=== PATIENT | female | born 1995 | race African-American/Black ===

== ENCOUNTER 2016-07-22 10:45 | Inpatient (IN) | payer BC ==
[~2016-07-22] VITALS: Ht 165.1 cm; Wt 115.2 kg
[2016-07-22 11:00] VITALS: BP 150/84
[2016-07-22 11:54] LABS: BASOPHILS % (AUTO) 1.3 % (0.0-2.0); LYMPHOCYTES % (AUTO) 25.6 % (20.0-45.0); MEAN CORPUSCULAR HEMOGLOBIN 27.7 PG (27.0-31.0); MEAN CORPUSCULAR HGB CONC 31.9 G/DL (32.0-36.0); MEAN CORPUSCULAR VOLUME 87 FL (80-99); MEAN PLATELET VOLUME 7.9 FL (6.5-10.1); MONOCYTES % (AUTO) 6.6 % (1.0-10.0); NEUTROPHILS % (AUTO) 65.6 % (45.0-75.0); PLATELET COUNT 389 K/UL (150-450); RED BLOOD COUNT 4.74 M/UL (4.20-5.40); RED CELL DISTRIBUTION WIDTH 12.9 % (11.6-14.8); WHITE BLOOD COUNT 11.7 K/UL (4.8-10.8)
[2016-07-22 12:02] LABS: ANION GAP 15 (5-15); CALCIUM 9.6 mg/dL (8.6-10.2); CARBON DIOXIDE 25 mEQ/L (20-30); CHLORIDE 98 mEQ/L (98-107); CREATININE 0.7 mg/dL (0.5-0.9); GLOMERULAR FILTRATION RATE > 60 mL/min (>60); HEMOLYSIS 20; POTASSIUM 4.1 mEQ/L (3.4-4.9); SODIUM 138 mEQ/L (135-145)
[2016-07-22 12:04] LABS: INR 0.9 (0.9-1.1); PROTHROMBIN TIME 9.6 SEC (9.30-11.50)
[2016-07-22] MEDS ORDERED: NKM (12:14)
[2016-07-22 13:09] VITALS: BP 145/77
[2016-07-22 13:19] LABS: APPEARANCE,URINE SLIGHTLY CLOUDY; KETONES,URINE NEGATIVE (NEGATIVE); LEUKOCYTE ESTERASE ,URINE 1+ (NEGATIVE); NITRITE,URINE NEGATIVE (NEGATIVE); PH,URINE 6.5 (4.5-8.0); PROTEIN,URINE NEGATIVE (NEGATIVE); UROBILINOGEN,URINE NORMAL MG/DL (0.0-1.0)
--- NOTE | 2016-07-22 13:25 | Emergency Room Report ---
History of Present Illness General Chief Complaint: General Complaint Source: Patient Present Illness HPI This patient has a history of hydradenitis suppurativa. She is sent in by Dr. Sands for her persistent hidradenitis suppurativa and for surgical treatment. Patient has no other complaints. Allergies: Coded Allergies: PENICILLINS (Verified Allergy, Unknown, 07/22/16) Patient History Past Medical History: none, see triage record, other - hidradenitis suppurativa Social History: Denies: alcohol use, drug use, smoking Last Menstrual Period: now Now: No Reviewed Nursing Documentation: PMH: Agreed, PSxH: Agreed Nursing Documentation-PMH Past Medical History: No History, Except For Review of Systems All Other Systems: negative except mentioned in HPI Physical Exam Vital Signs Date Time Temp Pulse Resp B/P Pulse Ox O2 Delivery O2 Flow Rate FiO2 07/22/16 10:58 98.1 74 18 166/135 98 Room Air Sp02 EP Interpretation: reviewed, normal General Appearance: no apparent distress, alert, GCS 15, non-toxic Head: normocephalic, atraumatic Eyes: bilateral eye PERRL, bilateral eye normal inspection ENT: hearing grossly normal, normal pharynx, no angioedema, normal voice Neck: full range of motion, supple/symm/no masses Respiratory: chest non-tender, lungs clear, normal breath sounds, speaking full sentences Cardiovascular #1: regular rate, rhythm, no edema Gastrointestinal: normal bowel sounds, non tender, soft, non-distended, no guarding, no rebound Rectal: deferred Musculoskeletal: back normal, gait/station normal, normal range of motion, non- tender Neurologic: alert, oriented x3, responsive, motor strength/tone normal, sensory intact, speech normal Psychiatric: judgement/insight normal, memory normal, mood/affect normal, no suicidal/homicidal ideation Skin: warm/dry, well hydrated, other - Hidradinitis nodules bilateral axilla and inguinal fold. Medical Decision Making Diagnostic Impression: Primary Impression: Hidradenitis suppurativa ER Course This patient has hidradenitis suppurativa that is resistant to conservative treatment. Patient is admitted for surgical treatment by Dr. Sands. Labs Test 07/22/16 11:30 07/22/16 12:56 White Blood Count 11.7 K/UL (4.8-10.8) Red Blood Count 4.74 M/UL (4.20-5.40) Hemoglobin 13.1 G/DL (12.0-16.0) Hematocrit 41.2 % (37.0-47.0) Mean Corpuscular Volume 87 FL (80-99) Mean Corpuscular Hemoglobin 27.7 PG (27.0-31.0) Mean Corpuscular Hemoglobin Concent 31.9 G/DL (32.0-36.0) Red Cell Distribution Width 12.9 % (11.6-14.8) Platelet Count 389 K/UL (150-450) Mean Platelet Volume 7.9 FL (6.5-10.1) Neutrophils (%) (Auto) 65.6 % (45.0-75.0) Lymphocytes (%) (Auto) 25.6 % (20.0-45.0) Monocytes (%) (Auto) 6.6 % (1.0-10.0) Eosinophils (%) (Auto) 1.0 % (0.0-3.0) Basophils (%) (Auto) 1.3 % (0.0-2.0) Prothrombin Time 9.6 SEC (9.30-11.50) Prothromb Time International Ratio 0.9 (0.9-1.1) Activated Partial Thromboplast Time 30 SEC (23-33) Sodium Level 138 mEQ/L (135-145) Potassium Level 4.1 mEQ/L (3.4-4.9) Chloride Level 98 mEQ/L (98-107) Carbon Dioxide Level 25 mEQ/L (20-30) Anion Gap 15 (5-15) Blood Urea Nitrogen 11 mg/dL (7-23) Creatinine 0.7 mg/dL (0.5-0.9) Estimat Glomerular Filtration Rate > 60 mL/min (>60) Glucose Level 90 mg/dL (74-106) Calcium Level 9.6 mg/dL (8.6-10.2) Last Vital Signs Date Time Temp Pulse Resp B/P Pulse Ox O2 Delivery O2 Flow Rate FiO2 07/22/16 13:09 98.2 71 16 145/77 99 Room Air Disposition: ADMITTED INPATIENT Condition: Stable Referrals: NON PHYSICIAN (PCP) MIKAEL DUMAS D.O. July 22, 2016 13:25
[2016-07-22 13:29] LABS: BACTERIA,URINE FEW /HPF; RBC,URINE 20-30 /HPF (0 - 2); SQUAMOUS EPITHELIAL CELL,UR FEW /LPF (NONE/OCC)
[2016-07-22 14:49] VITALS: BP 126/76
[2016-07-22] MEDS ORDERED: Miralax 17gm pkt ORAL PRN (15:15)
[2016-07-22] MEDS ORDERED: Zolpidem 5mg tab ORAL PRN (15:15)
[2016-07-22] MEDS ORDERED: Milk of Magnesia 30ml Ud ORAL PRN (15:15)
[2016-07-22] MEDS ORDERED: Norco 10mg/325mg tab ORAL PRN (15:30)
[2016-07-22] MEDS ORDERED: Norco 5mg/325mg tab ORAL PRN (15:30)
--- NOTE | 2016-07-22 15:34 | History and Physical ---
History of Present Illness General Date patient seen: July 22, 2016 Time patient seen: 15:32 Reason for Hospitalization: abscess Present Illness HPI 21y/o female with pmh of hidradenitis suppurative who presents with abscesses. Pt has been noticing increased pain and drainage of several abscesses located in b/l inner thigh/groin area. She has trial multiple oral antibiotics with poor response. She denies f/c, n/v, d/c, chest pain, SOB. Allergies: Coded Allergies: PENICILLINS (Verified Allergy, Unknown, 07/22/16) Pt states she was never tested for the allergy. Pt's father had severe allergy to PCN so pt takes does not take PCN medications for precaution. Medication History Scheduled No Known Medications* (NKM - No Known Medications*), 0 ., (Reported) Patient History History Provided By: Patient, Medical Record, PMD Healthcare decision maker Resuscitation status Advanced Directive on File Past Medical/Surgical History Past Medical/Surgical History: (1) Hidradenitis suppurativa Family History Family History: FH: CAD (coronary artery disease) Social History Social History: (1) No significant social history Review of Systems ROS Narrative CONSTITUTIONAL: No weight loss, fever, chills, weakness or fatigue. HEENT: Eyes: No visual loss, blurred vision, double vision or yellow sclerae. Ears, Nose, Throat: No hearing loss, sneezing, congestion, runny nose or sore throat. SKIN: No rash or itching. CARDIOVASCULAR: No chest pain, chest pressure or chest discomfort. No palpitations or edema. RESPIRATORY: No shortness of breath, cough or sputum. GASTROINTESTINAL: No anorexia, nausea, vomiting or diarrhea. No abdominal pain or blood. NEUROLOGICAL: No headache, dizziness, syncope, paralysis, ataxia, numbness or tingling in the extremities. No change in bowel or bladder control. MUSCULOSKELETAL: No muscle, back pain, joint pain or stiffness. HEMATOLOGIC: No anemia, bleeding or bruising. LYMPHATICS: No enlarged nodes. No history of splenectomy. PSYCHIATRIC: No history of depression or anxiety. ENDOCRINOLOGIC: No reports of sweating, cold or heat intolerance. No polyuria or polydipsia. ALLERGIES: No history of asthma, hives, eczema or rhinitis. Physical Exam Physical Exam Narrative General: alert, cooperative, no distress, appears stated age Head: normocephalic, without obvious abnormality, atraumatic Eyes: conjunctivae/corneas clear. PERRL, EOM's intact Throat: lips, mucosa, and tongue normal. MMM Neck: supple, symmetrical, trachea midline, and no JVD Lungs: clear to auscultation bilaterally Heart: regular rate and rhythm, S1, S2 normal, no murmur, click, rub or gallop Abdomen: soft, non-tender, non-distended, bowel sounds normal; no masses or organomegaly Extremities: extremities normal, atraumatic, no cyanosis or edema Pulses: 2+ and symmetric Skin: skin color, texture, turgor normal; inner thighs/groin region b/l with multiples abscesses Neurologic: grossly normal, no focal deficits Last 24 Hour Vital Signs Date Time Temp Pulse Resp B/P Pulse Ox O2 Delivery O2 Flow Rate FiO2 07/22/16 14:49 97.3 74 20 126/76 98 Room Air 07/22/16 14:07 98.2 77 23 149/91 100 Room Air 07/22/16 13:09 98.2 71 16 145/77 99 Room Air 07/22/16 11:00 98.0 65 15 150/84 100 Room Air 07/22/16 10:58 98.1 74 18 166/135 98 Room Air Laboratory Tests Test 07/22/16 11:30 07/22/16 12:56 White Blood Count 11.7 K/UL (4.8-10.8) H Red Blood Count 4.74 M/UL (4.20-5.40) Hemoglobin 13.1 G/DL (12.0-16.0) Hematocrit 41.2 % (37.0-47.0) Mean Corpuscular Volume 87 FL (80-99) Mean Corpuscular Hemoglobin 27.7 PG (27.0-31.0) Mean Corpuscular Hemoglobin Concent 31.9 G/DL (32.0-36.0) L Red Cell Distribution Width 12.9 % (11.6-14.8) Platelet Count 389 K/UL (150-450) Mean Platelet Volume 7.9 FL (6.5-10.1) Neutrophils (%) (Auto) 65.6 % (45.0-75.0) Lymphocytes (%) (Auto) 25.6 % (20.0-45.0) Monocytes (%) (Auto) 6.6 % (1.0-10.0) Eosinophils (%) (Auto) 1.0 % (0.0-3.0) Basophils (%) (Auto) 1.3 % (0.0-2.0) Prothrombin Time 9.6 SEC (9.30-11.50) Prothromb Time International Ratio 0.9 (0.9-1.1) Activated Partial Thromboplast Time 30 SEC (23-33) Sodium Level 138 mEQ/L (135-145) Potassium Level 4.1 mEQ/L (3.4-4.9) Chloride Level 98 mEQ/L (98-107) Carbon Dioxide Level 25 mEQ/L (20-30) Anion Gap 15 (5-15) Blood Urea Nitrogen 11 mg/dL (7-23) Creatinine 0.7 mg/dL (0.5-0.9) Estimat Glomerular Filtration Rate > 60 mL/min (>60) Glucose Level 90 mg/dL (74-106) Calcium Level 9.6 mg/dL (8.6-10.2) Urine Color Pale yellow Urine Appearance Slightly cloudy Urine pH 6.5 (4.5-8.0) Urine Specific [place] 1.010 (1.005-1.035) Urine Protein Negative (NEGATIVE) Urine Glucose (UA) Negative (NEGATIVE) Urine Ketones Negative (NEGATIVE) Urine Occult Blood 5+ (NEGATIVE) H Urine Nitrite Negative (NEGATIVE) Urine Bilirubin Negative (NEGATIVE) Urine Urobilinogen Normal MG/DL (0.0-1.0) Urine Leukocyte Esterase 1+ (NEGATIVE) H Urine RBC 20-30 /HPF (0 - 2) H Urine WBC 2-4 /HPF (0 - 2) Urine Squamous Epithelial Cells Few /LPF (NONE/OCC) Urine Bacteria Few /HPF (NONE) Urine HCG, Qualitative Negative Height (Feet): 5 Height (Inches): 5.00 Weight (Pounds): 254 Medications Current Medications Medications (Trade) Dose Ordered Sig/Loren Route PRN Reason Start Time Stop Time Status Last Admin Dose Admin Acetaminophen (Tylenol) 650 mg Q4H PRN ORAL Mild Pain (Pain Scale 1-3) 07/22/16 16:00 08/21/16 15:59 Acetaminophen/ Hydrocodone Bitart ([place] 10/325) 1 ea Q4H PRN ORAL For severe Pain 07/22/16 15:30 07/29/16 15:29 Acetaminophen/ Hydrocodone Bitart ([place] 5/325) 1 tab Q4H PRN ORAL Moderate Pain (Pain Scale 4-6) 07/22/16 15:30 07/29/16 15:29 Bisacodyl (Dulcolax) 10 mg HSPRN PRN RECTAL Constipation THIRD LINE AGENT 07/22/16 15:15 08/21/16 15:14 Cefazolin Sodium/ Dextrose (Ancef/D5W) 55 ml @ 110 mls/hr Q8HR IVPB 07/22/16 22:00 07/29/16 21:59 UNV Dextrose STAT PRN IV Hypoglycemia 07/22/16 15:15 08/21/16 15:14 Dextrose/Sodium Chloride (D5 0.45% NS) 1,000 ml @ 75 mls/hr [id number] IV 07/22/16 16:00 08/21/16 15:59 Diphenhydramine HCl (Benadryl) 25 mg Q6H PRN ORAL Itching/Pruritis 07/22/16 15:15 08/21/16 15:14 Docusate Sodium (Colace) 100 mg EVERY 12 HOURS ORAL 07/22/16 21:00 08/21/16 20:59 Magnesium Hydroxide (Mom) 30 ml HSPRN PRN ORAL Constipation SECOND LINE AGENT 07/22/16 15:15 08/21/16 15:14 Morphine Sulfate (Morphine Sulfate) 2 mg Q4H PRN IVP Moderate Pain (Pain Scale 4-6) 07/22/16 16:00 07/29/16 15:59 Morphine Sulfate (Morphine Sulfate) 4 mg Q4H PRN IVP Severe Pain (Pain Scale 7-10) 07/22/16 16:00 07/29/16 15:59 Ondansetron HCl (Zofran) 4 mg Q6H PRN IVP Nausea & Vomiting 07/22/16 15:15 08/21/16 15:14 Polyethylene Glycol (Miralax) 17 gm HSPRN PRN ORAL Constipation FIRST LINE AGENT 07/22/16 15:15 08/21/16 15:14 Zolpidem Tartrate (Ambien) 5 mg HSPRN PRN ORAL Insomnia 07/22/16 15:15 08/21/16 15:14 Assessment/Plan Problem List: (1) Abscess ICD Codes: L02.91 - Cutaneous abscess, unspecified SNOMED: 437851874 (2) Hidradenitis suppurativa ICD Codes: L73.2 - Hidradenitis suppurativa SNOMED: 56589806 Status: stable Assessment/Plan Admit to in Plastic surgery consult Blood cultures x 2 IV abx IV fluids Pain control, bowel regimen, supportive care If patient is required to have surgery, based on the patient's medical history, and other available ancillary data, the patient is a LOW risk for an INTERMEDIATE risk procedure. Per the most recent ACC/AHA guidelines, the patient does not need any further cardiopulmonary testing prior to the procedure and there do not appear to be any clear medical contraindications to proceeding with the proposed procedure. Genesis Chung M.D. July 22, 2016 15:34
[2016-07-22] MEDS: D5 1/2NS 1,000 ML IV SCH (15:40)
[2016-07-22] MEDS ORDERED: Morphine Sulfate 4mg/ml Inj IVP PRN (16:00)
[2016-07-22 16:08] VITALS: BP 120/69
[2016-07-22] MEDS: Morphine Sulfate 2mg/ml Inj IVP PRN ×2 (17:14→22:11)
[2016-07-22 20:00] VITALS: BP 129/73
[2016-07-22] MEDS: Docusate 100mg cap ORAL SCH (21:04)
[2016-07-22] MEDS: ceFAZolin sod 1 GM in D5W 55 ML IVPB SCH (21:05)
[2016-07-23] VITALS (12 sets, daily range): BP systolic 107–138; BP diastolic 58–84
[2016-07-23] MEDS: Morphine Sulfate 2mg/ml Inj IVP PRN ×2 (05:36→08:32)
[2016-07-23] MEDS: ceFAZolin sod 1 GM in D5W 55 ML IVPB SCH ×3 (05:36→22:12)
[2016-07-23] MEDS: D5 1/2NS 1,000 ML IV SCH ×2 (05:37→19:01)
[2016-07-23] MEDS: Docusate 100mg cap ORAL SCH ×2 (08:33→22:00)
[2016-07-23] MEDS ORDERED: Bacitracin 50000 Units Vial ONE (10:29)
[2016-07-23] MEDS ORDERED: Lidocaine 1% 10mg/ml/Epi 0.005mg/ml 30ml vial INJ ONE (10:29)
--- NOTE | 2016-07-23 11:53 | Pre-Procedure Note/Attestation ---
Pre-Procedure Note/Attestation Complete Prior to Procedure Planned Procedure: bilateral Procedure Narrative: Excision of bilateral groin and thigh tissues with flap elevation Attestation I attest that I discussed the nature of the procedure; its benefits; risks and complications; and alternatives (and the risks and benefits of such alternatives ), prior to the procedure, with the patient (or the patient's legal traffic representative). I attest that, if there was a reasonable possibility of needing a blood transfusion, the patient (or the patient's legal traffic representative) was given the [facility] standardized written summary, pursuant to the [employer] Blood Safety Act ([place] Health and Safety Code # 1645, as amended). I attest that I re-evaluated the patient just prior to the surgery and that there has been no change in the patient's H&P, except as documented below: WILBUR COULTER July 23, 2016 11:53
--- NOTE | 2016-07-23 11:54 | Operative Note - PDOC ---
Operative Note Operative Note Pre-op Diagnosis: Bilateral infected groin and thigh tissues Procedure: Excision of bilateral infection groin and thigh tissues with flap elevation Post-op Diagnosis: same as pre-op Surgeon: Brynn Talent Coordinator: Bella Anesthesia: general Specimen: yes Complications: none Condition: stable Estimated Blood Loss: minimal Drains: none Implant(s) used?: No WILBUR COULTER July 23, 2016 11:54
[2016-07-23] MEDS ORDERED: Zolpidem 5mg tab ORAL PRN (12:00)
[2016-07-23] MEDS ORDERED: Rate Change PCA 1 Each MISC PRN (12:00)
[2016-07-23] MEDS ORDERED: NS Irrig 1000ml ONE (12:45)
[2016-07-23] MEDS ORDERED: Glycopyrrolate 0.2mg/ml 1ml Vial ONE (12:45)
[2016-07-23] MEDS ORDERED: Nimbex 2mg/ml Inj 10ML IVP ONE (12:45)
[2016-07-23] MEDS ORDERED: Neostigmine 1mg/ml 10ml Inj ONE (12:45)
[2016-07-23] MEDS ORDERED: fentaNYL 100 mcg/2 mL IV ONE (12:45)
[2016-07-23] MEDS ORDERED: Morphine Sulfate 10mg/ml Inj ONE (12:45)
[2016-07-23] MEDS ORDERED: Midazolam 2mg/2ml Inj ONE (12:45)
[2016-07-23] MEDS ORDERED: Succinylcholine 20mg/ml 10ml vial ONE ×2 (12:45)
[2016-07-23] MEDS ORDERED: Sterile Water Irrig 1000ml IRRIG ONE (12:45)
[2016-07-23] MEDS ORDERED: Ketorolac 30mg Inj ONE (12:45)
[2016-07-23] MEDS ORDERED: Propofol 10mg/ml 20ml IV ONE (13:32)
[2016-07-23] MEDS ORDERED: LR 1000ml 1,000 ML IVLG SCH (13:55)
--- NOTE | 2016-07-23 13:55 | Anethesia Preoperative Eval ---
Anesthesia Pre-op PMH/ROS General Date of Evaluation: July 23, 2016 Time of Evaluation: 12:32 Anesthesiologist: Kleber ASA Score: ASA 2 Mallampati Score Class I : Soft palate, uvula, fauces, pillars visible Class II: Soft palate, uvula, fauces visible Class III: Soft palate, base of uvula visible Class IV: Only hard plate visible Mallampati Classification: Class III Surgeon: Brynn Diagnosis: Recurrent hydradenitis Surgical Procedure: Excision of bilateral groin hydradenitis Anesthesia History: none Family History: no anesthesia problems Allergies: Coded Allergies: PENICILLINS (Verified Allergy, Unknown, 07/22/16) Pt states she was never tested for the allergy. Pt's father had severe allergy to PCN so pt takes does not take PCN medications for precaution. Medications: see eMAR Past Medical History Cardiovascular: Denies: CAD, HTN, [place], arrhythmia, other, valve dz Pulmonary: Denies: COPD, KATHY, asthma, other Gastrointestinal/Genitourinary: Reports: GERD - mild, Denies: CRI, ESRD, other Neurologic/Psychiatric: Denies: CVA, TIA, dementia, depression/anxiety, other Endocrine: Denies: DM, hypothyroidism, other, steroids HEENT: Denies: [place] (L), [place] (R), cataract (L), cataract (R), glaucoma, other Hematology/Immune: Denies: DVT, anemia, bleeding disorder, other Musculoskeletal/Integumentary: Denies: DDD, DJD, OA, RA, edema, other Other: obesity PMH Narrative: as above PSxH Narrative: Axillary HS Laparoscopy Anesthesia Pre-op Phys. Exam Physician Exam Last Vital Signs Date Time Temp Pulse Resp B/P Pulse Ox O2 Delivery O2 Flow Rate FiO2 07/23/16 09:02 97.5 07/23/16 08:01 77 18 127/83 99 Room Air Constitutional: NAD Neurologic: CN 2-12 intact Cardiovascular: RRR, no M/R/G Respiratory: CTA Gastrointestinal: other - obesity Airway Exam Mallampati Score: Class III MO: full Neck: flexible ROM: full Teeth: intact Dentures: no lower, no upper Anesthesia Pre-op A/P Labs see chart Studies Pre-op Studies: EKG - NSR Risk Assessment & Plan Assessment: ASA 2 Plan: GA with ETT Status Change Before Surgery: No Pre-Antibiotics Drug: Ancef 2gr. Given Within 1 Hr of Incision: Yes Time Given: 13:12 ADELA GARCIA M.D. July 23, 2016 13:55
[2016-07-23] MEDS ORDERED: DiphenhydrAMINE 50mg/ml Inj IVP PRN (14:00)
[2016-07-23] MEDS ORDERED: Hydromorphone 0.5mg/0.5ml inj IVP PRN (14:00)
[2016-07-23] MEDS ORDERED: Ketorolac 30mg Inj IV PRN (14:00)
[2016-07-23] MEDS ORDERED: Metoclopramide 10mg/2ml Inj IVP PRN (14:00)
[2016-07-23] MEDS ORDERED: Midazolam 2mg/2ml Inj IVP PRN (14:00)
[2016-07-23] MEDS ORDERED: Meperidine 25mg/0.5ml Inj IV PRN (14:00)
--- NOTE | 2016-07-23 14:59 | Immediate Post-Op Evaluation ---
Immediate Post-Op Evalulation Immediate Post-Op Evalulation Procedure: Excision of bilateral groin hydradenitis Date of Evaluation: July 23, 2016 Time of Evaluation: 14:58 IV Fluids: 1200 Blood Products: none Estimated Blood Loss: 50 Urinary Output: 150 Blood Pressure Systolic: 128 Blood Pressure Diastolic: 77 Pulse Rate: 68 Respiratory Rate: 20 O2 Sat by Pulse Oximetry: 99 Temperature (Fahrenheit): 97.8 Pain Score (1-10): 2 Nausea: No Vomiting: No Complications none Patient Status: reacts, patent, extubated, none Hydration Status: adequate ADELA GARCIA M.D. July 23, 2016 14:59
[2016-07-23] MEDS: PCA HYDROmorphone 1mg/ml 30 ML IV PRN (15:04)
--- NOTE | 2016-07-23 17:49 | General Progress Note ---
Assessment/Plan Problem List: (1) Abscess ICD Codes: L02.91 - Cutaneous abscess, unspecified SNOMED: 462991367 (2) Hidradenitis suppurativa ICD Codes: L73.2 - Hidradenitis suppurativa SNOMED: 45630692 Status: stable Assessment/Plan s/p excision of bilateral infection groin and thigh tissues with flap elevation on 07/23/16 - [facility] plastic surgery rec's - cont IV abx - F/u cultures - encourage mobilization/ambulation - encourage incentive spirometry to optimize pulmonary hygiene - DVT/GI prophylaxis as appropriate - pain control, supportive care, bowel regimen FULL CODE A total of 32min of extra time was spent [id number] in addition to normal encounter time. D/w pt, RN, surgery regarding mgmt and disposition Subjective Date patient seen: July 23, 2016 Time patient seen: 17:48 ROS Limited/Unobtainable: No Constitutional: Reports: no symptoms HEENT: Reports: no symptoms Cardiovascular: Reports: no symptoms Respiratory: Reports: no symptoms Gastrointestinal/Abdominal: Reports: no symptoms Genitourinary: Reports: no symptoms Neurologic/Psychiatric: Reports: no symptoms Endocrine: Reports: no symptoms Hematologic/Lymphatic: Reports: no symptoms Allergies: Coded Allergies: PENICILLINS (Verified Allergy, Unknown, 07/22/16) Pt states she was never tested for the allergy. Pt's father had severe allergy to PCN so pt takes does not take PCN medications for precaution. All Systems: reviewed and negative except above Subjective s/p excision of bilateral infection groin and thigh tissues with flap elevation today Doing well Pain controlled Tolerating diet Denies f/c, n/v, d/c, chest pain, SOB Objective Last 24 Hour Vital Signs Date Time Temp Pulse Resp B/P Pulse Ox O2 Delivery O2 Flow Rate FiO2 07/23/16 16:14 16 07/23/16 15:59 17 07/23/16 15:49 97.6 60 15 111/63 100 Nasal Cannula 3.0 07/23/16 15:45 14 07/23/16 15:40 55 14 120/67 100 Nasal Cannula 3.0 07/23/16 15:30 61 16 125/76 100 Nasal Cannula 3.0 07/23/16 15:30 14 07/23/16 15:30 97.2 07/23/16 15:30 97.2 07/23/16 15:30 97.2 07/23/16 15:15 14 07/23/16 15:15 60 17 118/67 100 Nasal Cannula 3.0 07/23/16 15:04 15 07/23/16 15:00 69 21 133/67 100 Simple Mask 6.0 07/23/16 14:59 68 20 99 07/23/16 14:52 73 18 128/77 100 Simple Mask 6.0 07/23/16 14:50 97.2 73 15 132/84 100 Simple Mask 6.0 07/23/16 09:02 97.5 07/23/16 08:01 97.5 77 18 127/83 99 Room Air 07/23/16 04:00 97.6 83 18 124/76 100 Room Air 07/23/16 00:00 97.3 85 18 121/68 98 Room Air 07/22/16 20:00 97.4 86 18 129/73 100 Room Air Intake and Output 07/22/16 07/23/16 19:00 07:00 Intake Total 150 ml 850 ml Balance 150 ml 850 ml Intake IV Total 150 ml 850 ml # Voids 1 4 # Bowel Movements 1 Height (Feet): 5 Height (Inches): 5.00 Weight (Pounds): 254 Objective General: alert, cooperative, no distress, appears stated age Head: normocephalic, without obvious abnormality, atraumatic Eyes: conjunctivae/corneas clear. PERRL, EOM's intact Throat: lips, mucosa, and tongue normal. MMM Neck: supple, symmetrical, trachea midline, and no JVD Lungs: clear to auscultation bilaterally Heart: regular rate and rhythm, S1, S2 normal, no murmur, click, rub or gallop Abdomen: soft, non-tender, non-distended, bowel sounds normal; no masses or organomegaly Extremities: extremities normal, atraumatic, no cyanosis or edema Pulses: 2+ and symmetric Skin: skin color, texture, turgor normal; no rashes or lesions Neurologic: grossly normal, no focal deficits Genesis Chung M.D. July 23, 2016 17:49
[2016-07-23] MEDS: PCA shift volume MISC SCH (19:00)
--- NOTE | 2016-07-23 21:29 | Consultation ---
DATE OF CONSULTATION: 07/23/2016 CONSULTATION: REFERRING PHYSICIAN: Kylee Curtis M.D. HISTORY OF PRESENT ILLNESS: This is a 21-year-old female was admitted to the emergency room for bilateral groin abscesses. She presented with significant pain and discomfort in the region. The patient was admitted and started on IV antibiotics. She is noted to have an elevated white count of just under 12. I was asked to evaluate the patient for this condition and offer definitive surgical management. PAST MEDICAL HISTORY: Significant for hidradenitis suppurativa. PAST SURGICAL HISTORY: Previous attempt at incision and drainage of her abscesses. ALLERGIES: Penicillin. PHYSICAL EXAMINATION: GENERAL: The patient is alert and oriented, mildly obese. HEART: Regular rate and rhythm. ABDOMEN: Soft, nontender, and nondistended. EXTREMITIES: Examination of the trunk and extremities reveals bilateral hidradenitis in her axillae and bilateral groin and thigh abscesses and infected tissues. ASSESSMENT AND PLAN: This is a 21-year-old female, who has multiple areas of abscesses and hidradenitis under axillae as well as her groin regions. She will be taken to the operating room for definitive excision of her groin and thigh tissue with planned second stage flap elevation and closure at the second operation. The patient understands the plan and agrees to proceed. Kerry Swain M.D. DR: Lisette JOB#: [id number] CC: [id number]
[2016-07-23] MEDS: Heparin 5000 units/ml inj SUBQ SCH (22:12)
--- NOTE | 2016-07-23 23:18 | Operative Note - Dictated ---
DATE OF OPERATION: 07/23/2016 PREOPERATIVE DIAGNOSIS: Bilateral groin and buttock infected tissues. POSTOPERATIVE DIAGNOSIS: Bilateral groin and buttock infected tissues. PROCEDURES: 1. Radical excision of left groin/thigh tissue. 2. Elevation of an anterior fasciocutaneous flap for staged closure of left groin/thigh wound. 3. Elevation of a posterior fasciocutaneous flap for staged closure of left groin/thigh wound. 4. Radical excision of right groin/thigh wound. 5. Elevation of an anterior fasciocutaneous flap for staged closure of right groin/thigh wound. 6. Elevation of a posterior fasciocutaneous flap for staged closure of right groin/thigh wound. 7. Excision of left buttock tissue. 8. Excision of right buttock tissue. SURGEON: Kerry Swain M.D. PRODUCT DESIGN MANAGER: Farnaz Blanco M.D. ANESTHESIA: General. COMPLICATIONS: None. DRAINS: None. ESTIMATED BLOOD LOSS: 25 mL. SPECIMEN: Included bilateral groin and buttock tissue. DISPOSITION: Stable to the recovery room. INDICATIONS FOR SURGERY: This is a 21-year-old female, who admitted to the emergency room for bilateral groin and buttock abscesses. She was started on IV antibiotics, was noted to have an elevated white count and on examination of the right knee felt that she was an appropriate candidate for radical excision of the infected tissue with a staged closure with elevation of flaps at the first operation and subsequent surgery for definitive closure of her wounds. She understood the risks and benefits of surgery and agreed to proceed. DETAILS OF THE OPERATION: The patient was brought to the operating room and laid in the lithotomy position on the operating room table. Her perineum bilateral groin and thigh in the lower abdomen were prepped and draped in a sterile and usual fashion. Preoperatively, the areas that needed to be radically excised were marked with a marking pen and we then first began on the left groin by performing a radical excision of the groin/thigh tissue a #10 blade was used to make the skin incision. Electrocautery was then used to radically excise the tissue all the way down the level of the adductor muscle fascia. Once this was done, a large defect resulted, which measured 15 x 10 cm and was not amenable to primary closure. As such, an anterior fasciocutaneous flap was based off the superficial femoral artery vessels was elevated. This was elevated at the fasciocutaneous level with proximal and distal incisions were made to fully mobilize the flap. In a similar fashion, a posterior thigh flap was elevated at the inferior edge of the wound based off of perforators of the deep femoral artery and this was mobilized with proximal and distal incisions made to fully mobilize the flap at the fasciocutaneous level with both flaps fully mobilized and it was noted that the wound could be closed with opposition of the flaps without tension. In a similar fashion, the contralateral right groin/thigh tissue was addressed with radical excision using a #10 blade as well as electrocautery all the way down to the adductor muscle fascia and in a similar fashion, the large wound resulted on this side. This one measured 14 x 11 cm and also required elevation of two flaps for definitive closure as was on the other side an anterior fasciocutaneous thigh flap based off of perforators of the superficial femoral artery was elevated at the fasciocutaneous level with proximal and distal incisions made to fully mobilize the flap and then a posterior thigh flap was elevated based on perforators of the deep femoral artery with proximal and distal incisions made to mobilize this flap as well and it was noted that flaps could be brought together without tension. We then turned our attention to the buttock abscesses, these were both elliptically excised down to healthy fat using electrocautery, following incision of the skin with a #15 blade. The wounds were then copiously irrigated with pulse lavage. Again given the fact this was an infected case, the plan will be to leave the wound open with definitive opposition of the flaps in both the groin wounds in 48 hours. The patient will be on IV antibiotics with dressing changes. The patient tolerated the procedure well and there was no complications. Kerry Swain M.D. DR: Michael JOB#: [id number] CC:
[2016-07-24] VITALS: BP 111/68
[2016-07-24] MEDS: ceFAZolin sod 1 GM in D5W 55 ML IVPB SCH ×3 (06:04→21:03)
[2016-07-24] MEDS: PCA shift volume MISC SCH ×2 (07:00→19:00)
[2016-07-24 09:00] VITALS: BP 110/44
[2016-07-24] MEDS: D5 1/2NS 1,000 ML IV SCH ×2 (09:46→21:20)
[2016-07-24] MEDS: Heparin 5000 units/ml inj SUBQ SCH ×2 (09:50→21:05)
[2016-07-24] MEDS: Docusate 100mg cap ORAL SCH ×2 (09:53→21:02)
[2016-07-24] MEDS ORDERED: D5 1/2NS 1000ml IV ONE (10:24)
[2016-07-24] MEDS ORDERED: Tubing IV Secondary IV ONE (10:24)
--- NOTE | 2016-07-24 10:27 | General Progress Note ---
Progress Note Progress Note Pt seen and examined. Doing well. Dressings in tact. Will get PICC Line today and to OR tomorrow. WILBUR Marrero MD July 24, 2016 10:27
--- NOTE | 2016-07-24 10:38 | General Progress Note ---
Assessment/Plan Problem List: (1) Abscess ICD Codes: L02.91 - Cutaneous abscess, unspecified SNOMED: 266998568 (2) Hidradenitis suppurativa ICD Codes: L73.2 - Hidradenitis suppurativa SNOMED: 62599905 Assessment/Plan s/p excision of bilateral infection groin and thigh tissues with flap elevation on 07/23/16 - [facility] plastic surgery rec's - cont IV abx - F/u cultures - encourage mobilization/ambulation - encourage incentive spirometry to optimize pulmonary hygiene - DVT/GI prophylaxis as appropriate - pain control, supportive care, bowel regimen FULL CODE A total of 33min of extra time was spent [id number] in addition to normal encounter time. D/w pt, RN, surgery regarding mgmt and disposition Subjective Date patient seen: July 24, 2016 Time patient seen: 10:36 ROS Limited/Unobtainable: No Allergies: Coded Allergies: PENICILLINS (Verified Allergy, Unknown, 07/22/16) Pt states she was never tested for the allergy. Pt's father had severe allergy to PCN so pt takes does not take PCN medications for precaution. Subjective No acute overnightr events, no new compltaints. No chest pain or dyspnea, no n/v , postop pain well controlled. Objective Last 24 Hour Vital Signs Date Time Temp Pulse Resp B/P Pulse Ox O2 Delivery O2 Flow Rate FiO2 07/24/16 09:00 98.4 75 18 110/44 97 Nasal Cannula 2.0 07/24/16 00:00 97.7 62 18 111/68 100 Nasal Cannula 2.0 07/24/16 00:00 16 07/23/16 20:00 97.9 60 20 107/58 100 Nasal Cannula 2.0 07/23/16 20:00 18 07/23/16 17:44 17 07/23/16 17:14 18 07/23/16 16:44 19 07/23/16 16:29 16 07/23/16 16:14 16 07/23/16 16:00 97.7 79 20 138/64 100 Nasal Cannula 2.0 07/23/16 15:59 17 07/23/16 15:49 97.6 60 15 111/63 100 Nasal Cannula 3.0 07/23/16 15:45 14 07/23/16 15:40 55 14 120/67 100 Nasal Cannula 3.0 07/23/16 15:30 61 16 125/76 100 Nasal Cannula 3.0 07/23/16 15:30 14 07/23/16 15:30 97.2 07/23/16 15:30 97.2 07/23/16 15:30 97.2 07/23/16 15:15 14 07/23/16 15:15 60 17 118/67 100 Nasal Cannula 3.0 07/23/16 15:04 15 07/23/16 15:00 69 21 133/67 100 Simple Mask 6.0 07/23/16 14:59 68 20 99 07/23/16 14:52 73 18 128/77 100 Simple Mask 6.0 07/23/16 14:50 97.2 73 15 132/84 100 Simple Mask 6.0 Intake and Output 07/23/16 07/24/16 19:00 07:00 Intake Total 2280 ml 960 ml Output Total 425 ml 625 ml Balance 1855 ml 335 ml Intake Oral 480 ml 60 ml IV Total 1800 ml 900 ml Output Urine Total 325 ml 625 ml Estimated Blood Loss 100 ml Height (Feet): 5 Height (Inches): 5.00 Weight (Pounds): 254 Objective General: alert, cooperative, no distress, appears stated age Head: normocephalic, without obvious abnormality, atraumatic Eyes: conjunctivae/corneas clear. PERRL, EOM's intact Throat: lips, mucosa, and tongue normal. MMM Neck: supple, symmetrical, trachea midline, and no JVD Lungs: clear to auscultation bilaterally Heart: regular rate and rhythm, S1, S2 normal, no murmur, click, rub or gallop Abdomen: soft, non-tender, non-distended, bowel sounds normal; no masses or organomegaly Extremities: extremities normal, atraumatic, no cyanosis or edema Pulses: 2+ and symmetric Skin: skin color, texture, turgor normal; no rashes or lesions Neurologic: grossly normal, no focal deficits JORJE CABALLERO July 24, 2016 10:38
[2016-07-24 12:00] VITALS: BP 111/52
[2016-07-24] MEDS ORDERED: Sodium Bicarbonate 8.4% 50ml Inj IV ONE (12:00)
[2016-07-24] MEDS ORDERED: Heparin 2000 units/Ns 1000ml INJ ONE (12:00)
[2016-07-24] MEDS ORDERED: Lidocaine 1% Plain 30 ml INJ ONE (12:00)
[2016-07-24] MEDS ORDERED: CEPHALEXIN500 MG ORAL (14:52)
[2016-07-24] MEDS ORDERED: DOXYCYCLINE HY100 M2 PO (14:54)
[2016-07-24] MEDS: PCA HYDROmorphone 1mg/ml 30 ML IV PRN (15:09)
[2016-07-24 16:00] VITALS: BP 108/63
--- NOTE | 2016-07-24 16:19 | 48 Hour Post Anesthesia Eval ---
Post Anesthesia Evaluation Procedure: Excision of bilateral groin hydradenitis Date of Evaluation: July 24, 2016 Time of Evaluation: 16:18 Blood Pressure Systolic: 116 0: 56 Pulse Rate: 72 Respiratory Rate: 20 Temperature (Fahrenheit): 97.6 O2 Sat by Pulse Oximetry: 98 Airway: patent Nausea: No Vomiting: No Pain Intensity: 3 Hydration Status: adequate Cardiopulmonary Status: stable Mental Status/LOC: patient returned to baseline Follow-up Care/Observations: n/a Post-Anesthesia Complications: none Follow-up care needed: N/A ADELA GARCIA M.D. July 24, 2016 16:19
--- NOTE | 2016-07-24 16:38 | Diagnostic Imaging Report ---
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 The left upper extremity was prepped with alcohol. All elements of maximal sterile barrier technique were followed including usage of a cap, mask, sterile gown, sterile gloves, hand hygiene and a large sterile sheet. Sonographic evaluation of the upper extremity was performed demonstrating a patent and compressible cephalic vein. Access was obtained under real-time ultrasound guidance and digital image was saved and archived. An .018 wire was introduced. Needle exchanged for a 5 Canadian peel-away sheath. Measurements were obtained. A 5 [place] dual-lumen Power PICC line catheter was cut to 41 cm and introduced over the wire. Peel-away sheath and wire were removed.Catheter was secured to the skin using 2-0 Prolene suture. Both ports aspirate and flush easily. Fluoroscopic Images show distal tip in the superior vena cava. Fluoroscopic time 0.4 minutes Impression: Successful placement of an upper extremity PICC line catheter
[2016-07-24 20:07] VITALS: BP 101/51
[2016-07-25] VITALS (16 sets, daily range): BP systolic 94–146; BP diastolic 48–87
[2016-07-25] MEDS: ceFAZolin sod 1 GM in D5W 55 ML IVPB SCH ×3 (05:22→22:34)
[2016-07-25] MEDS: PCA shift volume MISC SCH ×2 (07:13→19:00)
[2016-07-25] MEDS: D5 1/2NS 1,000 ML IV SCH ×2 (07:32→18:26)
[2016-07-25] MEDS: Heparin 5000 units/ml inj SUBQ SCH ×2 (08:56→22:35)
[2016-07-25] MEDS: Docusate 100mg cap ORAL SCH ×2 (08:56→22:34)
[2016-07-25] MEDS ORDERED: D5 1/2NS 1000ml IV ONE (09:41)
[2016-07-25] MEDS ORDERED: Tubing IV Secondary IV ONE (09:41)
--- NOTE | 2016-07-25 12:07 | Diagnostic Imaging Report ---
APPROVED REPORT CPT Code: 75997 Present Symptoms Comments: Post op groin area dressings (BLE) Hx of Hidradenitis BILATERAL: Imaging reveals a patent deep venous system bilaterally. There is no evidence of thrombus within the mid to distal femoral, popliteal or tibial segments. The greater saphenous veins are also within normal limits. Doppler indicates normal spontaneous flow within these segments. Unable to assess the common and proximal femoral veins, due to dressings (BLE).
[2016-07-25] MEDS ORDERED: Bacitracin 50000 Units Vial ONE (12:11)
[2016-07-25] MEDS ORDERED: Propofol 10mg/ml 20ml IV ONE (12:19)
[2016-07-25] MEDS ORDERED: Glycopyrrolate 0.2mg/ml 1ml Vial ONE (12:30)
[2016-07-25] MEDS ORDERED: LR 1000ml ONE (12:30)
[2016-07-25] MEDS ORDERED: Ketorolac 30mg Inj ONE (12:30)
[2016-07-25] MEDS ORDERED: Nimbex 2mg/ml Inj 10ML IVP ONE (12:30)
[2016-07-25] MEDS ORDERED: NS Irrig 1000ml IRRIG ONE (12:30)
[2016-07-25] MEDS ORDERED: Morphine Sulfate 10mg/ml Inj ONE (12:30)
[2016-07-25] MEDS ORDERED: Midazolam 2mg/2ml Inj ONE (12:30)
[2016-07-25] MEDS ORDERED: fentaNYL 100 mcg/2 mL IV ONE (12:30)
[2016-07-25] MEDS ORDERED: Neostigmine 1mg/ml 10ml Inj ONE (12:30)
[2016-07-25] MEDS ORDERED: Succinylcholine 20mg/ml 10ml vial ONE (12:30)
--- NOTE | 2016-07-25 12:37 | Pre-Procedure Note/Attestation ---
Pre-Procedure Note/Attestation Complete Prior to Procedure Planned Procedure: bilateral Procedure Narrative: Flap closure of bilateral groin wounds and closure of buttock wounds Indications for Procedure Pre-Operative Diagnosis: Bilateral infected groin and thigh tissues Attestation I attest that I discussed the nature of the procedure; its benefits; risks and complications; and alternatives (and the risks and benefits of such alternatives ), prior to the procedure, with the patient (or the patient's legal charter representative). I attest that, if there was a reasonable possibility of needing a blood transfusion, the patient (or the patient's legal charter representative) was given the [facility] standardized written summary, pursuant to the [place] Blood Safety Act ([place] Health and Safety Code # 1645, as amended). I attest that I re-evaluated the patient just prior to the surgery and that there has been no change in the patient's H&P, except as documented below: WILBUR COULTER July 25, 2016 12:37
--- NOTE | 2016-07-25 12:38 | Operative Note - PDOC ---
Operative Note Operative Note Pre-op Diagnosis: Open groin and buttock wounds Procedure: Flap closure of bilateral groin and buttock wounds Post-op Diagnosis: same as pre-op Surgeon: Brynn Software Applications Engineer: Bella Anesthesia: general Specimen: yes Complications: none Condition: stable Estimated Blood Loss: minimal Drains: FELY Implant(s) used?: No WILBUR COULTER July 25, 2016 12:38
[2016-07-25] MEDS ORDERED: Lidocaine 1% 10mg/ml/Epi 0.005mg/ml 30ml vial INJ ONE (13:14)
--- NOTE | 2016-07-25 13:26 | Anethesia Preoperative Eval ---
Anesthesia Pre-op PMH/ROS General Date of Evaluation: July 25, 2016 Time of Evaluation: 12:18 Anesthesiologist: Kleber ASA Score: ASA 2 Mallampati Score Class I : Soft palate, uvula, fauces, pillars visible Class II: Soft palate, uvula, fauces visible Class III: Soft palate, base of uvula visible Class IV: Only hard plate visible Mallampati Classification: Class III Surgeon: Brynn Diagnosis: Recurrent HS Surgical Procedure: Debridement and closure of bilateral groin wounds Anesthesia History: none Family History: no anesthesia problems Allergies: Coded Allergies: PENICILLINS (Verified Allergy, Unknown, 07/22/16) Pt states she was never tested for the allergy. Pt's father had severe allergy to PCN so pt takes does not take PCN medications for precaution. Medications: see eMAR Past Medical History Cardiovascular: Denies: CAD, HTN, RI, arrhythmia, other, valve dz Pulmonary: Denies: COPD, KATHY, asthma, other Gastrointestinal/Genitourinary: Reports: GERD, Denies: CRI, ESRD, other Neurologic/Psychiatric: Reports: depression/anxiety, Denies: CVA, TIA, dementia, other Endocrine: Denies: DM, hypothyroidism, other, steroids HEENT: Denies: NINILCHIK (L), NINILCHIK (R), cataract (L), cataract (R), glaucoma, other Hematology/Immune: Denies: DVT, anemia, bleeding disorder, other Musculoskeletal/Integumentary: Reports: other - recurrent HS, Denies: DDD, DJD, OA, RA, edema Other: obesity PMH Narrative: as above PSxH Narrative: see chart Anesthesia Pre-op Phys. Exam Physician Exam Last Vital Signs Date Time Temp Pulse Resp B/P Pulse Ox O2 Delivery O2 Flow Rate FiO2 07/25/16 08:01 18 07/25/16 08:00 98.4 101 117/64 93 Room Air 07/24/16 12:00 2.0 Constitutional: NAD Neurologic: CN 2-12 intact Cardiovascular: RRR, no M/R/G Respiratory: CTA Gastrointestinal: other - obesity Airway Exam Mallampati Score: Class III MO: full Neck: flexible ROM: full Teeth: intact Dentures: no lower, no upper Anesthesia Pre-op A/P Labs see chart Risk Assessment & Plan Assessment: ASA 2 Plan: GA with ETT PONV prevention Status Change Before Surgery: No Pre-Antibiotics Drug: Ancef 1gr Given Within 1 Hr of Incision: Yes Time Given: 13:10 ADELA GARCIA M.D. July 25, 2016 13:26
[2016-07-25] MEDS ORDERED: LR 1000ml 1,000 ML IVLG SCH (13:32)
[2016-07-25] MEDS ORDERED: Metoclopramide 10mg/2ml Inj IVP PRN (13:45)
[2016-07-25] MEDS ORDERED: DiphenhydrAMINE 50mg/ml Inj IVP PRN (13:45)
[2016-07-25] MEDS ORDERED: Meperidine 25mg/0.5ml Inj IV PRN (13:45)
[2016-07-25] MEDS ORDERED: Midazolam 2mg/2ml Inj IVP PRN (13:45)
[2016-07-25] MEDS ORDERED: Ketorolac 30mg Inj IV PRN (13:45)
[2016-07-25] MEDS ORDERED: Surgicel 4in x 8in TOPIC ONE ×2 (14:13→14:17)
[2016-07-25] MEDS ORDERED: Zolpidem 5mg tab ORAL PRN (16:00)
[2016-07-25] MEDS: Hydromorphone 0.5mg/0.5ml inj IVP PRN ×2 (16:33→16:47)
[2016-07-25] MEDS: PCA HYDROmorphone 1mg/ml 30 ML IV PRN (16:39)
[2016-07-25] MEDS ORDERED: Rate Change PCA 1 Each MISC PRN (16:45)
--- NOTE | 2016-07-25 18:33 | General Progress Note ---
Assessment/Plan Problem List: (1) Abscess ICD Codes: L02.91 - Cutaneous abscess, unspecified SNOMED: 060105440 (2) Hidradenitis suppurativa ICD Codes: L73.2 - Hidradenitis suppurativa SNOMED: 77139393 Assessment/Plan s/p excision of bilateral infection groin and thigh tissues with flap elevation on 07/23/16, s/p wound closure surgery earlier today - Appreciate plastic surgery rec's - duplex neg - cont IV abx - F/u cultures - encourage mobilization/ambulation - encourage incentive spirometry to optimize pulmonary hygiene - DVT/GI prophylaxis as appropriate - pain control, supportive care, bowel regimen FULL CODE A total of 32min of extra time was spent [id number] in addition to normal encounter time. D/w pt, RN, surgery regarding mgmt and disposition Subjective Date patient seen: July 25, 2016 Time patient seen: 18:31 ROS Limited/Unobtainable: No Allergies: Coded Allergies: PENICILLINS (Verified Allergy, Unknown, 07/22/16) Pt states she was never tested for the allergy. Pt's father had severe allergy to PCN so pt takes does not take PCN medications for precaution. Subjective No acute overnightr events, no new compltaints. No chest pain or dyspnea, no n/v , postop pain well controlled. Just returned from wound closure surgery Objective Last 24 Hour Vital Signs Date Time Temp Pulse Resp B/P Pulse Ox O2 Delivery O2 Flow Rate FiO2 07/25/16 18:09 98.6 07/25/16 18:08 98.6 07/25/16 18:08 98.6 07/25/16 18:02 98.6 07/25/16 17:56 20 07/25/16 17:34 98.6 97 20 124/65 98 Nasal Cannula 3.0 07/25/16 17:26 103 20 124/66 98 Nasal Cannula 3.0 07/25/16 17:25 20 07/25/16 16:56 96 20 121/68 99 Simple Mask 8.0 07/25/16 16:47 96 20 121/68 99 Simple Mask 8.0 07/25/16 16:39 111 20 134/66 99 Simple Mask 8.0 07/25/16 16:39 20 07/25/16 16:33 120 20 128/72 99 Simple Mask 8.0 07/25/16 16:24 112 20 146/73 99 Simple Mask 8.0 07/25/16 16:20 113 20 131/72 99 Simple Mask 8.0 07/25/16 16:17 108 20 140/83 99 Simple Mask 8.0 07/25/16 16:12 104 20 138/83 99 Simple Mask 8.0 07/25/16 16:07 97.4 103 20 144/87 99 Simple Mask 8.0 07/25/16 11:50 18 07/25/16 08:01 18 07/25/16 08:00 98.4 101 18 117/64 93 Room Air 07/25/16 04:00 16 07/25/16 04:00 98.2 99 18 94/48 96 Room Air 07/25/16 01:53 100.4 07/25/16 01:53 100.4 07/25/16 00:53 101.4 07/25/16 00:22 98.1 89 18 112/56 97 Room Air 07/24/16 23:58 16 07/24/16 20:07 99.5 86 18 101/51 95 Room Air 07/24/16 20:00 18 Intake and Output 07/24/16 07/25/16 19:00 07:00 Intake Total 1455.0 ml 375 ml Output Total 1950 ml 1650 ml Balance -495.0 ml -1275 ml Intake Oral 500 ml IV Total 955.0 ml 375 ml Output Urine Total 1950 ml 1650 ml Height (Feet): 5 Height (Inches): 5.00 Weight (Pounds): 254 Objective General: alert, cooperative, no distress, appears stated age Head: normocephalic, without obvious abnormality, atraumatic Eyes: conjunctivae/corneas clear. PERRL, EOM's intact Throat: lips, mucosa, and tongue normal. MMM Neck: supple, symmetrical, trachea midline, and no JVD Lungs: clear to auscultation bilaterally Heart: regular rate and rhythm, S1, S2 normal, no murmur, click, rub or gallop Abdomen: soft, non-tender, non-distended, bowel sounds normal; no masses or organomegaly Extremities: extremities normal, atraumatic, no cyanosis or edema Pulses: 2+ and symmetric Skin: skin color, texture, turgor normal; no rashes or lesions Neurologic: grossly normal, no focal deficits JORJE CABALLERO July 25, 2016 18:33
--- NOTE | 2016-07-25 23:48 | Operative Note - Dictated ---
DATE OF OPERATION: 07/25/2016 PREOPERATIVE DIAGNOSIS: Bilateral open groin and bilateral open buttock wound. POSTOPERATIVE DIAGNOSIS: Bilateral open groin and bilateral open buttock wound. PROCEDURES: 1. Preparation of right groin wound for flap closure. 2. Flap readvancement closure of right groin wound. 3. Preparation of left groin wound for flap closure. 4. Flap readvancement closure of left groin wound. 5. Left buttock wound preparation for complex closure. 6. Complex closure of left buttock wound. 7. Right buttock wound preparation for complex closure. 8. Complex closure of right buttock wound. SURGEON: Kerry Swain M.D. REINSURANCE CLERK: Farnaz Blanco M.D. ANESTHESIA: General. COMPLICATIONS: None. DRAINS: Include 2 JPs in each groin for total 4. ESTIMATED BLOOD LOSS: Was approximately 50 mL. DISPOSITION: Stable to the recovery room. INDICATIONS FOR SURGERY: This is a 21-year-old female, who is now 48 hours postop and definitive radical excision of her bilateral groin and buttock tissues that were infected. At that time, flaps were elevated and now the patient is prepared to undergo readvancement of flaps and closure of her wounds. DETAILS OF THE OPERATION: The patient was brought to the operating room and laid in the lithotomy position in the operating room table. Her bilateral groin and buttock regions were prepped and draped in a sterile and usual fashion. We first began by debriding the right groin wound of the nonviable tissue and nonviable skin edges of the flaps and once this was done, the wound was prepared. We quickly proceeded to mobilize the posterior thigh flap that had been previously elevated on that side for further mobilization of the flaps and the anterior thigh flap was then readvanced along with readvancement of the posterior thigh flap for closure of the wounds over 2 FELY drains. Prior to definitive closure, the wounds were copiously irrigated with pulse lavage. Hemostasis was achieved. A 2 size 15 FELY drains were placed within the groin wound and the flaps were brought together using #0 and 2-0 Vicryl sutures and multiple interrupted 2-0 Prolene sutures were used to close the skin. Distally on the flap we had to modify the wound to allow for a tension-free repair without any dog-ears and this was done by excising some of the excess tissue distally. We then turned our attention to the contralateral left groin wound in a similar fashion. This wound was debrided of nonviable tissue and prepared for definitive flap advancement. The posterior thigh flap was readvanced as was the anterior medial thigh flap that was initially elevated. This was then readvanced over 2 FELY drains following irrigation and hemostasis and the two flaps were then brought together using #0 and 2-0 Vicryl sutures and 2-0 Prolene was used to close the skin. Following bilateral readvancement of the other flaps with closure of the groin wound we then turned our attention to the buttock wound and buttock wounds were copiously irrigated. Hemostasis was achieved and a complex closure was pursued using #0 and 2-0 Vicryl sutures and 2-0 Prolene was used to close the skin. These wounds were left open centrally just about 1 cm in each 1 to allow for drainage of the wound given its proximity to the anus and the high likelihood of infection I felt that it would be appropriate to not close the wound completely. The patient tolerated the procedure well. There is no complications. Kerry Swain M.D. DR: REINA JOB#: [id number] CC:
[2016-07-26 00:24] VITALS: BP 121/64
[2016-07-26 04:02] VITALS: BP 132/75
[2016-07-26] MEDS: ceFAZolin sod 1 GM in D5W 55 ML IVPB SCH ×2 (05:49→14:19)
[2016-07-26] MEDS: Heparin 5000 units/ml inj SUBQ SCH ×3 (05:51→22:20)
[2016-07-26] MEDS: D5 1/2NS 1,000 ML IV SCH ×3 (06:02→22:22)
[2016-07-26] MEDS: PCA shift volume MISC SCH ×2 (07:23→19:27)
[2016-07-26 08:00] VITALS: BP 118/69
[2016-07-26] MEDS: Docusate 100mg cap ORAL SCH ×2 (08:31→22:17)
[2016-07-26 12:00] VITALS: BP 128/64
--- NOTE | 2016-07-26 14:14 | 48 Hour Post Anesthesia Eval ---
Post Anesthesia Evaluation Procedure: Dedridement and closure of bilateral groin wounds Date of Evaluation: July 26, 2016 Time of Evaluation: 14:13 Blood Pressure Systolic: 132 0: 64 Pulse Rate: 72 Respiratory Rate: 20 Temperature (Fahrenheit): 97.6 O2 Sat by Pulse Oximetry: 98 Airway: patent Nausea: No Vomiting: No Pain Intensity: 3 Hydration Status: adequate Cardiopulmonary Status: stable Mental Status/LOC: patient returned to baseline Follow-up Care/Observations: n/a Post-Anesthesia Complications: none Follow-up care needed: N/A ADELA GARCIA M.D. July 26, 2016 14:14
[2016-07-26 16:00] VITALS: BP 132/80
[2016-07-26] MEDS: PCA HYDROmorphone 1mg/ml 30 ML IV PRN (16:52)
--- NOTE | 2016-07-26 17:04 | General Progress Note ---
Assessment/Plan Problem List: (1) Abscess ICD Codes: L02.91 - Cutaneous abscess, unspecified SNOMED: 780906494 (2) Hidradenitis suppurativa ICD Codes: L73.2 - Hidradenitis suppurativa SNOMED: 57110661 Assessment/Plan s/p excision of bilateral infection groin and thigh tissues with flap elevation on 07/23/16, s/p wound closure surgery earlier today - Appreciate plastic surgery rec's - duplex neg - cont IV abx, change from ancef to vanco given bcx pos for coag neg staph, likely contaminant, no fever or leukocytosis - F/u cultures - encourage mobilization/ambulation - encourage incentive spirometry to optimize pulmonary hygiene - DVT/GI prophylaxis as appropriate - pain control, supportive care, bowel regimen FULL CODE A total of 32min of extra time was spent [id number] in addition to normal encounter time. D/w pt, RN, surgery regarding mgmt and disposition Subjective Date patient seen: July 26, 2016 Time patient seen: 17:03 ROS Limited/Unobtainable: No Allergies: Coded Allergies: PENICILLINS (Verified Allergy, Unknown, 07/22/16) Pt states she was never tested for the allergy. Pt's father had severe allergy to PCN so pt takes does not take PCN medications for precaution. Subjective No acute overnightr events, no new compltaints. No chest pain or dyspnea, no n/v , postop pain well controlled. Just returned from wound closure surgery Objective Last 24 Hour Vital Signs Date Time Temp Pulse Resp B/P Pulse Ox O2 Delivery O2 Flow Rate FiO2 07/26/16 16:56 18 07/26/16 16:00 18 07/26/16 14:14 72 20 98 07/26/16 12:00 18 07/26/16 12:00 98.0 101 20 128/64 97 Room Air 07/26/16 08:00 18 07/26/16 08:00 99.7 106 18 118/69 98 Room Air 07/26/16 06:48 Nasal Cannula 2.0 07/26/16 06:47 98 Nasal Cannula 2.0 07/26/16 04:06 19 07/26/16 04:02 99.7 116 20 132/75 96 Nasal Cannula 2.0 07/26/16 00:24 98.2 81 19 121/64 100 Nasal Cannula 2.0 07/26/16 00:00 19 07/25/16 20:00 Nasal Cannula 2.0 28 07/25/16 20:00 18 07/25/16 20:00 97.9 85 18 113/52 97 Nasal Cannula 2.0 07/25/16 20:00 97 Nasal Cannula 2.0 28 07/25/16 18:09 98.6 07/25/16 18:08 98.6 07/25/16 18:08 98.6 07/25/16 18:02 98.6 07/25/16 18:00 18 07/25/16 17:56 20 07/25/16 17:45 98.1 88 20 131/64 98 Nasal Cannula 2.0 07/25/16 17:34 98.6 97 20 124/65 98 Nasal Cannula 3.0 07/25/16 17:26 103 20 124/66 98 Nasal Cannula 3.0 07/25/16 17:25 20 Intake and Output 07/25/16 07/26/16 19:00 07:00 Intake Total 2535 ml 900 ml Output Total 251 ml 1068 ml Balance 2284 ml -168 ml Intake Oral 360 ml IV Total 2175 ml 900 ml Output Urine Total 200 ml 1000 ml Drainage Total 51 ml 68 ml # Voids 1 Height (Feet): 5 Height (Inches): 5.00 Weight (Pounds): 254 Objective General: alert, cooperative, no distress, appears stated age Head: normocephalic, without obvious abnormality, atraumatic Eyes: conjunctivae/corneas clear. PERRL, EOM's intact Throat: lips, mucosa, and tongue normal. MMM Neck: supple, symmetrical, trachea midline, and no JVD Lungs: clear to auscultation bilaterally Heart: regular rate and rhythm, S1, S2 normal, no murmur, click, rub or gallop Abdomen: soft, non-tender, non-distended, bowel sounds normal; no masses or organomegaly Extremities: extremities normal, atraumatic, no cyanosis or edema Pulses: 2+ and symmetric Skin: skin color, texture, turgor normal; no rashes or lesions Neurologic: grossly normal, no focal deficits JORJE CABALLERO July 26, 2016 17:04
[2016-07-26] MEDS ORDERED: D5 1/2NS 1000ml IV ONE (18:29)
[2016-07-26] MEDS ORDERED: Vancomycin 1.5 GM in D5W 325 ML IVPB ONE (18:30)
[2016-07-26 20:32] VITALS: BP 120/72
[2016-07-27] VITALS: BP 118/65
[2016-07-27] MEDS: Vancomycin 750mg/D5W 275ml IVPB SCH ×4 (02:44→10:17)
[2016-07-27 04:00] VITALS: BP 122/68
[2016-07-27] MEDS: Heparin 5000 units/ml inj SUBQ SCH ×3 (06:00→21:20)
[2016-07-27] MEDS: PCA shift volume MISC SCH ×2 (07:00→19:00)
[2016-07-27 08:44] VITALS: BP 125/64
--- NOTE | 2016-07-27 10:02 | General Progress Note ---
Progress Note Progress Note Pt seen and examined. POD # 2 and doing ok. Dressings in place. Plan to dressings down in AM. MD MARYLIN Gregg AMIR July 27, 2016 10:02
[2016-07-27] MEDS: Docusate 100mg cap ORAL SCH ×2 (10:16→21:16)
[2016-07-27 12:24] VITALS: BP 128/64
[2016-07-27 16:00] VITALS: BP 144/61
--- NOTE | 2016-07-27 16:00 | General Progress Note ---
HODA STANTON NJeriPJeri 07/27/16 1559: Assessment/Plan Status: doing well, stable Assessment/Plan s/p excision of bilateral infection groin and thigh tissues with flap elevation on 07/23/16, s/p wound closure surgery 07/26/16 - Appreciate plastic surgery rec's - duplex neg - cont IV abx, change from ancef to vanco given bcx pos for coag neg staph, likely contaminant, no fever or leukocytosis - F/u cultures - encourage mobilization/ambulation - encourage incentive spirometry to optimize pulmonary hygiene - DVT/GI prophylaxis as appropriate - pain control, supportive care, bowel regimen Subjective Date patient seen: July 27, 2016 Time patient seen: 15:59 ROS Limited/Unobtainable: No Constitutional: Denies: chills, diaphoresis HEENT: Denies: blurred vision, eye pain, mouth pain, mouth swelling, tearing, throat swelling Cardiovascular: Denies: chest pain, edema, irregular heart rate Respiratory: Denies: cough, orthopnea, shortness of breath Gastrointestinal/Abdominal: Denies: abdomen distended, abdominal pain, black stools, difficulty swallowing, nausea, poor appetite Genitourinary: Denies: burning, discharge, frequency Neurologic/Psychiatric: Denies: anxiety, depressed, emotional problems, tingling, tremors, weakness Endocrine: Denies: excessive sweating, flushing, increased urine, intolerance to cold, unexplained weight gain, unexplained weight loss Hematologic/Lymphatic: Denies: anemia, easy bleeding Allergies: Coded Allergies: PENICILLINS (Verified Allergy, Unknown, 07/22/16) Pt states she was never tested for the allergy. Pt's father had severe allergy to PCN so pt takes does not take PCN medications for precaution. Objective Last 24 Hour Vital Signs Date Time Temp Pulse Resp B/P Pulse Ox O2 Delivery O2 Flow Rate FiO2 07/27/16 12:24 99.1 97 21 128/64 94 Room Air 07/27/16 08:44 99.0 106 20 125/64 93 Room Air 07/27/16 08:00 19 07/27/16 04:00 98.9 98 18 122/68 95 Room Air 07/27/16 00:00 98.5 95 18 118/65 95 Room Air 07/26/16 21:30 98.2 07/26/16 20:32 101.7 105 18 120/72 94 Room Air 07/26/16 17:22 97.6 07/26/16 16:56 18 07/26/16 16:00 18 07/26/16 16:00 97.9 110 20 132/80 99 Room Air Intake and Output 07/26/16 07/27/16 19:00 07:00 Intake Total 1215 ml 825 ml Output Total 2171 ml Balance -956 ml 825 ml Intake Oral 240 ml IV Total 975 ml 825 ml Output Urine Total 2150 ml Drainage Total 21 ml Height (Feet): 5 Height (Inches): 5.00 Weight (Pounds): 254 General Appearance: WD/WN, no apparent distress, alert EENT: PERRL/EOMI, normal ENT inspection, TMs normal Neck: non-tender, normal alignment, supple Cardiovascular: normal peripheral pulses, normal rate, regular rhythm Respiratory/Chest: chest wall non-tender, lungs clear, normal breath sounds Abdomen: normal bowel sounds, non tender, soft Edema: no edema noted Arm (L), no edema noted Arm (R), no edema noted Leg (L), no edema noted Leg (R), no edema noted Pedal (L), no edema noted Pedal (R), no edema noted Generalized Neurologic: alert, oriented x 3 Skin: normal pigmentation, warm/dry Lymphatic: normal anterior cervical (L), normal anterior cervical (R), normal axillary (L), normal axillary (R), normal inguinal (L), normal inguinal (R), normal other, normal posterior cervical (L), normal posterior cervical (R), normal submandibular (L), normal submandibular (R), normal supraclavicular (L), normal supraclavicular (R) Objective Laboratory Tests Test 07/27/16 18:15 Vancomycin Level Trough 7.8 ug/mL (5.0-12.0) JORJE CABALLERO 07/29/16 1447: Assessment/Plan Assessment/Plan I saw and examined the patient, reviewed the case in detail, reviewed radiology and EKG if applicable, in addition reviewing the laboratory data and microbiology. I agree with the history, physical examination findings, assessment and plan of care as outlined above by the Nurse Practitioner with any additions or modifications noted. Subjective Allergies: Coded Allergies: PENICILLINS (Verified Allergy, Unknown, 07/22/16) Pt states she was never tested for the allergy. Pt's father had severe allergy to PCN so pt takes does not take PCN medications for precaution. HODA STANTON N.P. July 27, 2016 15:59 JORJE CABALLERO July 29, 2016 14:47
[2016-07-27] MEDS: D5 1/2NS 1,000 ML IV SCH (16:19)
[2016-07-27] MEDS ORDERED: Naloxone 0.4mg/ml Inj IVP PRN (17:30)
[2016-07-27] MEDS ORDERED: Rate Change PCA 1 Each MISC PRN (17:30)
[2016-07-27] MEDS: PCA HYDROmorphone 1mg/ml 30 ML IV PRN (18:05)
[2016-07-27] MEDS: Vancomycin 1gm/D5W 275ml IVPB SCH ×2 (21:16)
[2016-07-28] VITALS: BP 131/72
[2016-07-28 04:00] VITALS: BP 114/67
[2016-07-28] MEDS: Vancomycin 1gm/D5W 275ml IVPB SCH ×6 (05:00→21:34)
[2016-07-28] MEDS: D5 1/2NS 1,000 ML IV SCH ×2 (05:20→17:59)
[2016-07-28] MEDS: Heparin 5000 units/ml inj SUBQ SCH ×3 (06:03→21:43)
[2016-07-28] MEDS: PCA shift volume MISC SCH ×2 (07:29→19:18)
[2016-07-28 08:50] VITALS: BP 117/65
[2016-07-28] MEDS: Docusate 100mg cap ORAL SCH ×2 (09:00→21:33)
[2016-07-28 12:31] VITALS: BP 121/71
[2016-07-28 16:00] VITALS: BP 119/68
[2016-07-28] MEDS ORDERED: Tubing IV Secondary IV ONE (16:06)
[2016-07-28] MEDS ORDERED: D5 1/2NS 1000ml IV ONE (16:06)
--- NOTE | 2016-07-28 17:01 | General Progress Note ---
HODA STANTONPJeri 07/28/16 1701: Assessment/Plan Assessment/Plan s/p excision of bilateral infection groin and thigh tissues with flap elevation on 07/23/16, s/p wound closure surgery 07/26/16 - [facility] plastic surgery rec's - duplex neg - encourage mobilization/ambulation - encourage incentive spirometry to optimize pulmonary hygiene - DVT/GI prophylaxis as appropriate - pain control, supportive care, bowel regimen Subjective Date patient seen: July 28, 2016 Time patient seen: 16:54 Constitutional: Denies: chills, diaphoresis, fever HEENT: Denies: blurred vision, eye pain, mouth pain, tearing, throat pain, throat swelling Cardiovascular: Denies: chest pain, edema, irregular heart rate Respiratory: Denies: cough, orthopnea, shortness of breath Gastrointestinal/Abdominal: Denies: abdomen distended, abdominal pain, black stools Genitourinary: Denies: burning, discharge, flank pain, frequency Neurologic/Psychiatric: Denies: anxiety, depressed, emotional problems, tingling Endocrine: Denies: excessive sweating, flushing, intolerance to cold Hematologic/Lymphatic: Denies: anemia, easy bleeding Allergies: Coded Allergies: PENICILLINS (Verified Allergy, Unknown, 07/22/16) Pt states she was never tested for the allergy. Pt's father had severe allergy to PCN so pt takes does not take PCN medications for precaution. Subjective No pain. No nausea, no vomiting. Objective Last 24 Hour Vital Signs Date Time Temp Pulse Resp B/P Pulse Ox O2 Delivery O2 Flow Rate FiO2 07/28/16 16:00 100.2 97 22 119/68 97 Room Air 07/28/16 12:31 98.6 93 19 121/71 95 Room Air 07/28/16 08:50 99.1 91 21 117/65 93 Room Air 07/28/16 08:00 20 07/28/16 04:00 98.1 102 20 114/67 94 Room Air 07/28/16 00:00 97.8 98 18 131/72 96 Room Air 07/28/16 00:00 19 Intake and Output 07/27/16 07/28/16 19:00 07:00 Intake Total 75 ml Output Total 2232 ml Balance -2157 ml IV Total 75 ml Output Urine Total 2200 ml Drainage Total 32 ml Laboratory Tests 07/27/16 18:15: Vancomycin Level Trough 7.8 Height (Feet): 5 Height (Inches): 5.00 Weight (Pounds): 254 General Appearance: no apparent distress, alert EENT: PERRL/EOMI, normal ENT inspection, TMs normal Neck: non-tender, normal alignment, supple Cardiovascular: normal peripheral pulses, normal rate Respiratory/Chest: chest wall non-tender, lungs clear Abdomen: normal bowel sounds, non tender, soft Extremities: normal range of motion, non-tender Edema: no edema noted Arm (L), no edema noted Arm (R), no edema noted Leg (L), no edema noted Leg (R), no edema noted Pedal (L), no edema noted Pedal (R), no edema noted Generalized Neurologic: alert, oriented x 3 Skin: normal pigmentation, warm/dry Lymphatic: normal anterior cervical (L), normal anterior cervical (R), normal axillary (L), normal axillary (R), normal inguinal (L), normal inguinal (R), normal other, normal posterior cervical (L), normal posterior cervical (R), normal submandibular (L), normal submandibular (R), normal supraclavicular (L), normal supraclavicular (R) Objective Laboratory Tests Test 07/27/16 18:15 Vancomycin Level Trough 7.8 ug/mL (5.0-12.0) JORJE CABALLERO 07/29/16 1447: Assessment/Plan Assessment/Plan I saw and examined the patient, reviewed the case in detail, reviewed radiology and EKG if applicable, in addition reviewing the laboratory data and microbiology. I agree with the history, physical examination findings, assessment and plan of care as outlined above by the Nurse Practitioner with any additions or modifications noted. Subjective Allergies: Coded Allergies: PENICILLINS (Verified Allergy, Unknown, 07/22/16) Pt states she was never tested for the allergy. Pt's father had severe allergy to PCN so pt takes does not take PCN medications for precaution. HODA STANTON N.P. July 28, 2016 17:01 JORJE CABALLERO July 29, 2016 14:47
--- NOTE | 2016-07-28 17:03 | General Progress Note ---
HODA STANTON NJeriPJeri 07/28/16 1703: Assessment/Plan Assessment/Plan s/p excision of bilateral infection groin and thigh tissues with flap elevation on 07/23/16, s/p wound closure surgery 07/26/16 - Appreciate plastic surgery rec's - duplex neg - encourage mobilization/ambulation - encourage incentive spirometry to optimize pulmonary hygiene - DVT/GI prophylaxis as appropriate - pain control, supportive care, bowel regimen Subjective Date patient seen: July 28, 2016 Time patient seen: 17:02 Constitutional: Denies: chills, diaphoresis, fever HEENT: Denies: blurred vision, eye pain, tearing Cardiovascular: Denies: chest pain, edema, irregular heart rate Respiratory: Denies: cough, orthopnea, shortness of breath Gastrointestinal/Abdominal: Denies: abdomen distended, abdominal pain, black stools Genitourinary: Denies: burning, discharge, frequency Neurologic/Psychiatric: Denies: anxiety, depressed, emotional problems Endocrine: Denies: excessive sweating, flushing, intolerance to cold, unexplained weight gain Hematologic/Lymphatic: Denies: anemia, easy bleeding Allergies: Coded Allergies: PENICILLINS (Verified Allergy, Unknown, 07/22/16) Pt states she was never tested for the allergy. Pt's father had severe allergy to PCN so pt takes does not take PCN medications for precaution. Subjective No pain. No nausea, no vomiting. Objective Last 24 Hour Vital Signs Date Time Temp Pulse Resp B/P Pulse Ox O2 Delivery O2 Flow Rate FiO2 07/28/16 16:00 100.2 97 22 119/68 97 Room Air 07/28/16 12:31 98.6 93 19 121/71 95 Room Air 07/28/16 08:50 99.1 91 21 117/65 93 Room Air 07/28/16 08:00 20 07/28/16 04:00 98.1 102 20 114/67 94 Room Air 07/28/16 00:00 97.8 98 18 131/72 96 Room Air 07/28/16 00:00 19 Intake and Output 07/27/16 07/28/16 19:00 07:00 Intake Total 75 ml Output Total 2232 ml Balance -2157 ml IV Total 75 ml Output Urine Total 2200 ml Drainage Total 32 ml Laboratory Tests 07/27/16 18:15: Vancomycin Level Trough 7.8 Height (Feet): 5 Height (Inches): 5.00 Weight (Pounds): 254 General Appearance: WD/WN, no apparent distress, alert Neck: non-tender Cardiovascular: normal peripheral pulses, normal rate Respiratory/Chest: chest wall non-tender, lungs clear Abdomen: normal bowel sounds, non tender, soft Edema: no edema noted Arm (L), no edema noted Arm (R), no edema noted Leg (L), no edema noted Leg (R), no edema noted Pedal (L), no edema noted Pedal (R), no edema noted Generalized Neurologic: cotton baler II-XII grossly normal Skin: normal pigmentation, warm/dry Lymphatic: normal anterior cervical (L), normal anterior cervical (R), normal axillary (L), normal axillary (R), normal inguinal (L), normal inguinal (R), normal other, normal posterior cervical (L), normal posterior cervical (R), normal submandibular (L), normal submandibular (R), normal supraclavicular (L), normal supraclavicular (R) Objective Laboratory Tests Test 07/27/16 18:15 Vancomycin Level Trough 7.8 ug/mL (5.0-12.0) JORJE CABALLERO 07/29/16 1448: Assessment/Plan Assessment/Plan I saw and examined the patient, reviewed the case in detail, reviewed radiology and EKG if applicable, in addition reviewing the laboratory data and microbiology. I agree with the history, physical examination findings, assessment and plan of care as outlined above by the Nurse Practitioner with any additions or modifications noted. Subjective Allergies: Coded Allergies: PENICILLINS (Verified Allergy, Unknown, 07/22/16) Pt states she was never tested for the allergy. Pt's father had severe allergy to PCN so pt takes does not take PCN medications for precaution. HODA STANTON N.P. July 28, 2016 17:03 JORJE CABALLERO July 29, 2016 14:48
[2016-07-28] MEDS: PCA HYDROmorphone 1mg/ml 30 ML IV PRN (18:10)
[2016-07-28 20:00] VITALS: BP 119/70
[2016-07-29] VITALS: BP 113/60
[2016-07-29 04:00] VITALS: BP 139/73
[2016-07-29] MEDS: Vancomycin 1gm/D5W 275ml IVPB SCH ×6 (06:01→21:51)
[2016-07-29] MEDS: Heparin 5000 units/ml inj SUBQ SCH ×3 (06:05→22:06)
[2016-07-29] MEDS: PCA shift volume MISC SCH ×2 (07:29→19:00)
[2016-07-29 08:00] VITALS: BP 121/77
[2016-07-29] MEDS: Docusate 100mg cap ORAL SCH ×2 (09:29→21:51)
[2016-07-29] MEDS: D5 1/2NS 1,000 ML IV SCH ×2 (09:30→22:00)
--- NOTE | 2016-07-29 11:45 | Immediate Post-Op Evaluation ---
Immediate Post-Op Evalulation Immediate Post-Op Evalulation Procedure: Excision of bilateral groin HS Date of Evaluation: July 25, 2016 Time of Evaluation: 14:53 IV Fluids: 1200 Blood Products: none Estimated Blood Loss: 100 Urinary Output: 150 Blood Pressure Systolic: 108 Blood Pressure Diastolic: 56 Pulse Rate: 72 Respiratory Rate: 20 O2 Sat by Pulse Oximetry: 99 Temperature (Fahrenheit): 97.4 Pain Score (1-10): 2 Nausea: No Vomiting: No Complications none Patient Status: reacts, patent, extubated, none Hydration Status: adequate ADELA GARCIA M.D. July 29, 2016 11:45
[2016-07-29 12:00] VITALS: BP 136/89
--- NOTE | 2016-07-29 15:01 | General Progress Note ---
Assessment/Plan Problem List: (1) Abscess ICD Codes: L02.91 - Cutaneous abscess, unspecified SNOMED: 241241499 (2) Hidradenitis suppurativa ICD Codes: L73.2 - Hidradenitis suppurativa SNOMED: 54768276 Assessment/Plan Cont IV abx Supp care Pain control DVT ppx Wound care per plastics A total of 32 mins of additional time was spent beyond the face to face time Subjective Date patient seen: July 29, 2016 Time patient seen: 14:59 ROS Limited/Unobtainable: No Allergies: Coded Allergies: PENICILLINS (Verified Allergy, Unknown, 07/22/16) Pt states she was never tested for the allergy. Pt's father had severe allergy to PCN so pt takes does not take PCN medications for precaution. Subjective No acute overnightr events, no new compltaints. No chest pain or dyspnea, no n/v , postop pain well controlled. Objective Last 24 Hour Vital Signs Date Time Temp Pulse Resp B/P Pulse Ox O2 Delivery O2 Flow Rate FiO2 07/29/16 12:00 98.2 93 18 136/89 98 Room Air 07/29/16 11:45 72 20 99 07/29/16 11:44 98.2 07/29/16 08:00 98.2 87 18 121/77 99 Room Air 07/29/16 08:00 18 07/29/16 04:00 20 07/29/16 04:00 98.6 98 18 139/73 97 Room Air 07/29/16 00:00 20 07/29/16 00:00 99.0 97 18 113/60 97 Room Air 07/28/16 20:00 98.8 109 18 119/70 97 Room Air 07/28/16 20:00 20 07/28/16 16:00 100.2 97 22 119/68 97 Room Air Intake and Output 07/28/16 07/29/16 19:00 07:00 Intake Total 825 ml Output Total 25 ml 1715 ml Balance 800 ml -1715 ml IV Total 825 ml Output Urine Total 1700 ml Drainage Total 25 ml 15 ml Height (Feet): 5 Height (Inches): 5.00 Weight (Pounds): 254 Objective General: alert, cooperative, no distress, appears stated age Head: normocephalic, without obvious abnormality, atraumatic Eyes: conjunctivae/corneas clear. PERRL, EOM's intact Throat: lips, mucosa, and tongue normal. MMM Neck: supple, symmetrical, trachea midline, and no JVD Lungs: clear to auscultation bilaterally Heart: regular rate and rhythm, S1, S2 normal, no murmur, click, rub or gallop Abdomen: soft, non-tender, non-distended, bowel sounds normal; no masses or organomegaly Extremities: extremities normal, atraumatic, no cyanosis or edema Pulses: 2+ and symmetric Skin: skin color, texture, turgor normal; no rashes or lesions Neurologic: grossly normal, no focal deficits JORJE CABALLERO July 29, 2016 15:00
[2016-07-29] MEDS ORDERED: Rate Change PCA 1 Each MISC PRN (16:00)
[2016-07-29] MEDS: PCA HYDROmorphone 1mg/ml 30 ML IV PRN (17:57)
[2016-07-29 20:00] VITALS: BP 123/72
[2016-07-30 04:00] VITALS: BP 117/61
[2016-07-30] MEDS: Vancomycin 1gm/D5W 275ml IVPB SCH ×6 (05:41→21:41)
[2016-07-30] MEDS: Heparin 5000 units/ml inj SUBQ SCH ×3 (06:12→21:46)
[2016-07-30] MEDS: PCA shift volume MISC SCH ×2 (07:00→19:00)
[2016-07-30 08:00] VITALS: BP 114/59
[2016-07-30] MEDS: Docusate 100mg cap ORAL SCH ×2 (08:10→21:41)
[2016-07-30 12:00] VITALS: BP 130/71
[2016-07-30] MEDS: D5 1/2NS 1,000 ML IV SCH (13:46)
[2016-07-30 16:00] VITALS: BP 157/100
[2016-07-30] MEDS: PCA HYDROmorphone 1mg/ml 30 ML IV PRN (17:22)
[2016-07-30] MEDS: Neosporin Oint 15gm TOPIC SCH (17:22)
--- NOTE | 2016-07-30 18:20 | General Progress Note ---
Assessment/Plan Problem List: (1) Abscess ICD Codes: L02.91 - Cutaneous abscess, unspecified SNOMED: 783217289 (2) Hidradenitis suppurativa ICD Codes: L73.2 - Hidradenitis suppurativa SNOMED: 18422395 Assessment/Plan Cont IV abx Supp care Pain control DVT ppx Bowel regimen Wound care per plastics A total of 32 mins of additional time was spent beyond the face to face time Subjective Date patient seen: July 30, 2016 Time patient seen: 18:19 ROS Limited/Unobtainable: No Allergies: Coded Allergies: PENICILLINS (Verified Allergy, Unknown, 07/22/16) Pt states she was never tested for the allergy. Pt's father had severe allergy to PCN so pt takes does not take PCN medications for precaution. Subjective No acute overnight events, no new complaints. No chest pain or dyspnea, no n/v, postop pain well controlled. Objective Last 24 Hour Vital Signs Date Time Temp Pulse Resp B/P Pulse Ox O2 Delivery O2 Flow Rate FiO2 07/30/16 17:52 97.3 07/30/16 16:00 97.3 102 20 157/100 98 Room Air 07/30/16 16:00 19 07/30/16 14:14 97.2 07/30/16 12:00 97.2 80 19 130/71 96 Room Air 07/30/16 12:00 20 07/30/16 10:29 98.4 07/30/16 08:00 18 07/30/16 08:00 98.4 82 18 114/59 96 Room Air 07/30/16 04:00 98.2 85 20 117/61 96 Room Air 07/29/16 20:00 99.3 101 20 123/72 96 Room Air 07/29/16 18:22 18 Intake and Output 07/29/16 07/30/16 19:00 07:00 Intake Total 1775 ml 525 ml Output Total 1750 ml 1605 ml Balance 25 ml -1080 ml Intake Oral 600 ml IV Total 1175 ml 525 ml Output Urine Total 1750 ml 1575 ml Drainage Total 30 ml Height (Feet): 5 Height (Inches): 5.00 Weight (Pounds): 254 Objective General: alert, cooperative, no distress, appears stated age Head: normocephalic, without obvious abnormality, atraumatic Eyes: conjunctivae/corneas clear. PERRL, EOM's intact Throat: lips, mucosa, and tongue normal. MMM Neck: supple, symmetrical, trachea midline, and no JVD Lungs: clear to auscultation bilaterally Heart: regular rate and rhythm, S1, S2 normal, no murmur, click, rub or gallop Abdomen: soft, non-tender, non-distended, bowel sounds normal; no masses or organomegaly Extremities: extremities normal, atraumatic, no cyanosis or edema Pulses: 2+ and symmetric Skin: skin color, texture, turgor normal; no rashes or lesions Neurologic: grossly normal, no focal deficits JORJE CABALLERO July 30, 2016 18:20
[2016-07-30 20:00] VITALS: BP 131/62
[2016-07-31] VITALS: BP 117/59
[2016-07-31] MEDS: D5 1/2NS 1,000 ML IV SCH ×3 (03:29→18:01)
[2016-07-31 04:30] VITALS: BP 121/66
[2016-07-31] MEDS: Vancomycin 1gm/D5W 275ml IVPB SCH ×6 (06:06→20:39)
[2016-07-31] MEDS: Heparin 5000 units/ml inj SUBQ SCH ×3 (06:07→20:43)
[2016-07-31 06:43] LABS: ANION GAP 11 (5-15); CARBON DIOXIDE 30 mEQ/L (20-30); CHLORIDE 96 mEQ/L (98-107); CREATININE 0.6 mg/dL (0.5-0.9); GLOMERULAR FILTRATION RATE > 60 mL/min (>60); HEMOLYSIS 0; POTASSIUM 4.3 mEQ/L (3.4-4.9); SODIUM 137 mEQ/L (135-145)
[2016-07-31] MEDS: PCA shift volume MISC SCH ×2 (07:00→18:55)
[2016-07-31 08:00] VITALS: BP 110/54
[2016-07-31] MEDS: Neosporin Oint 15gm TOPIC SCH ×2 (08:40→17:50)
[2016-07-31] MEDS: Docusate 100mg cap ORAL SCH ×2 (08:40→21:00)
[2016-07-31] MEDS ORDERED: Magnesium Citrate Liq Btl ORAL ONE (09:00)
[2016-07-31] MEDS ORDERED: Lactulose 20gm/30ml UDC ORAL PRN (09:00)
[2016-07-31] MEDS ORDERED: Fleet's Enema 133ml RECTAL ONE (11:00)
[2016-07-31] MEDS: Hydrogen Peroxide 473ml Bottle TOPIC SCH ×2 (11:57→21:00)
[2016-07-31 12:00] VITALS: BP 124/61
--- NOTE | 2016-07-31 14:16 | General Progress Note ---
Assessment/Plan Problem List: (1) Abscess ICD Codes: L02.91 - Cutaneous abscess, unspecified SNOMED: 574500660 (2) Hidradenitis suppurativa ICD Codes: L73.2 - Hidradenitis suppurativa SNOMED: 39245906 Assessment/Plan Cont IV abx Supp care Pain control DVT ppx Bowel regimen Wound care per plastics A total of 32 mins of additional time was spent beyond the face to face time Subjective Date patient seen: July 31, 2016 Time patient seen: 14:15 ROS Limited/Unobtainable: No Allergies: Coded Allergies: PENICILLINS (Verified Allergy, Unknown, 07/22/16) Pt states she was never tested for the allergy. Pt's father had severe allergy to PCN so pt takes does not take PCN medications for precaution. Subjective No acute overnight events, no new complaints. No chest pain or dyspnea, no n/v, postop pain well controlled. Objective Last 24 Hour Vital Signs Date Time Temp Pulse Resp B/P Pulse Ox O2 Delivery O2 Flow Rate FiO2 07/31/16 12:54 98.1 07/31/16 12:00 18 07/31/16 08:00 18 07/31/16 08:00 98.1 91 20 110/54 98 Room Air 07/31/16 04:30 98.2 85 18 121/66 98 Room Air 07/31/16 00:00 99.9 99 18 117/59 95 Room Air 07/30/16 20:00 99.3 100 18 131/62 97 Room Air 07/30/16 20:00 19 07/30/16 19:15 Nasal Cannula 2.0 07/30/16 19:15 97 2.0 28 07/30/16 17:52 97.3 07/30/16 16:00 97.3 102 20 157/100 98 Room Air 07/30/16 16:00 19 Intake and Output 07/30/16 07/31/16 19:00 07:00 Intake Total 1025 ml 573.708 ml Output Total 516 ml 2318 ml Balance 509 ml -1744.292 ml Intake Oral 200 ml 240 ml IV Total 825 ml 333.708 ml Output Urine Total 500 ml 2300 ml Drainage Total 16 ml 18 ml Laboratory Tests 07/31/16 05:15: Sodium Level 137, Potassium Level 4.3, Chloride Level 96L, Carbon Dioxide Level 30, Anion Gap 11, Blood Urea Nitrogen 8, Creatinine 0.6, Estimat Glomerular Filtration Rate > 60, Glucose Level 108H, Calcium Level 9.0 Height (Feet): 5 Height (Inches): 5.00 Weight (Pounds): 254 Objective General: alert, cooperative, no distress, appears stated age Head: normocephalic, without obvious abnormality, atraumatic Eyes: conjunctivae/corneas clear. PERRL, EOM's intact Throat: lips, mucosa, and tongue normal. MMM Neck: supple, symmetrical, trachea midline, and no JVD Lungs: clear to auscultation bilaterally Heart: regular rate and rhythm, S1, S2 normal, no murmur, click, rub or gallop Abdomen: soft, non-tender, non-distended, bowel sounds normal; no masses or organomegaly Extremities: extremities normal, atraumatic, no cyanosis or edema Pulses: 2+ and symmetric Skin: skin color, texture, turgor normal; no rashes or lesions Neurologic: grossly normal, no focal deficits JORJE CABALLERO July 31, 2016 14:16
[2016-07-31] MEDS ORDERED: Naloxone 0.4mg/ml Inj IVP PRN (14:30)
[2016-07-31] MEDS ORDERED: Rate Change PCA 1 Each MISC PRN (14:30)
[2016-07-31] MEDS: Lactulose 20gm/30ml UDC ORAL SCH ×2 (15:00→20:00)
[2016-07-31 16:00] VITALS: BP 105/57
[2016-07-31] MEDS: PCA HYDROmorphone 1mg/ml 30 ML IV PRN (17:40)
[2016-07-31 20:00] VITALS: BP 101/61
[2016-08-01] VITALS: BP 113/64
[2016-08-01] MEDS: D5 1/2NS 1,000 ML IV SCH ×2 (03:45→16:51)
[2016-08-01 04:00] VITALS: BP 106/57
[2016-08-01] MEDS: Vancomycin 1gm/D5W 275ml IVPB SCH ×6 (05:45→21:49)
[2016-08-01] MEDS: Heparin 5000 units/ml inj SUBQ SCH ×3 (05:46→21:19)
[2016-08-01] MEDS: PCA shift volume MISC SCH ×2 (07:21→19:27)
[2016-08-01 08:00] VITALS: BP 105/54
[2016-08-01] MEDS: Neosporin Oint 15gm TOPIC SCH ×2 (08:59→18:22)
[2016-08-01] MEDS: Hydrogen Peroxide 473ml Bottle TOPIC SCH ×2 (08:59→21:12)
[2016-08-01] MEDS: Lactulose 20gm/30ml UDC ORAL SCH ×3 (08:59→18:22)
[2016-08-01] MEDS: Docusate 100mg cap ORAL SCH ×2 (08:59→21:12)
[2016-08-01 12:00] VITALS: BP 126/76
[2016-08-01 16:00] VITALS: BP 117/70
--- NOTE | 2016-08-01 17:30 | General Progress Note ---
Assessment/Plan Problem List: (1) Abscess ICD Codes: L02.91 - Cutaneous abscess, unspecified SNOMED: 317968584 (2) Hidradenitis suppurativa ICD Codes: L73.2 - Hidradenitis suppurativa SNOMED: 76994536 Status: stable Assessment/Plan s/p excision of bilateral infection groin and thigh tissues with flap elevation on 07/23 s/p Flap closure of bilateral groin and buttock wounds on 07/25 Cont IV abx Supp care Pain control DVT ppx Bowel regimen Wound care per plastics A total of 32min of extra time was spent [id number] in addition to normal encounter time. D/w pt, RN, surgery regarding mgmt and disposition Subjective Date patient seen: August 01, 2016 Time patient seen: 17:28 ROS Limited/Unobtainable: No Constitutional: Reports: no symptoms HEENT: Reports: no symptoms Cardiovascular: Reports: no symptoms Respiratory: Reports: no symptoms Gastrointestinal/Abdominal: Reports: no symptoms Genitourinary: Reports: no symptoms Neurologic/Psychiatric: Reports: no symptoms Endocrine: Reports: no symptoms Hematologic/Lymphatic: Reports: no symptoms Allergies: Coded Allergies: PENICILLINS (Verified Allergy, Unknown, 07/22/16) Pt states she was never tested for the allergy. Pt's father had severe allergy to PCN so pt takes does not take PCN medications for precaution. All Systems: reviewed and negative except above Subjective Doing well Pain controlled Tolerating diet Denies f/c, n/v, d/c, chest pain, SOB Objective Last 24 Hour Vital Signs Date Time Temp Pulse Resp B/P Pulse Ox O2 Delivery O2 Flow Rate FiO2 08/01/16 16:00 97.2 94 18 117/70 99 Room Air 08/01/16 15:42 97.0 08/01/16 12:01 18 08/01/16 12:00 97.0 81 18 126/76 Room Air 08/01/16 08:00 18 08/01/16 08:00 98.1 83 18 105/54 94 Room Air 08/01/16 06:52 Room Air 08/01/16 06:51 95 Room Air 08/01/16 04:00 98.1 86 18 106/57 95 Room Air 08/01/16 00:00 98.1 91 18 113/64 95 Room Air 07/31/16 20:00 99.3 98 18 101/61 94 Room Air 07/31/16 19:11 96 21 07/31/16 19:11 Room Air 07/31/16 18:10 98.1 07/31/16 17:41 19 07/31/16 17:40 19 Intake and Output 07/31/16 08/01/16 19:00 07:00 Intake Total 1280.0 ml 840 ml Output Total 1414 ml 1000 ml Balance -134.0 ml -160 ml Intake Oral 480 ml 240 ml IV Total 800.0 ml 600 ml Output Urine Total 1400 ml 1000 ml Drainage Total 14 ml Height (Feet): 5 Height (Inches): 5.00 Weight (Pounds): 254 Objective General: alert, cooperative, no distress, appears stated age Head: normocephalic, without obvious abnormality, atraumatic Eyes: conjunctivae/corneas clear. PERRL, EOM's intact Throat: lips, mucosa, and tongue normal. MMM Neck: supple, symmetrical, trachea midline, and no JVD Lungs: clear to auscultation bilaterally Heart: regular rate and rhythm, S1, S2 normal, no murmur, click, rub or gallop Abdomen: soft, non-tender, non-distended, bowel sounds normal; no masses or organomegaly Extremities: extremities normal, atraumatic, no cyanosis or edema Pulses: 2+ and symmetric Skin: skin color, texture, turgor normal; no rashes or lesions Neurologic: grossly normal, no focal deficits Genesis Chung M.D. August 01, 2016 17:30
[2016-08-01] MEDS: PCA HYDROmorphone 1mg/ml 30 ML IV PRN (18:29)
[2016-08-01 20:00] VITALS: BP 114/56
[2016-08-02 04:00] VITALS: BP 112/59
[2016-08-02] MEDS: D5 1/2NS 1,000 ML IV SCH ×2 (04:16→18:06)
[2016-08-02] MEDS: Vancomycin 1gm/D5W 275ml IVPB SCH ×6 (04:16→22:09)
[2016-08-02 05:23] LABS: BASOPHILS % (AUTO) 1.4 % (0.0-2.0); LYMPHOCYTES % (AUTO) 12.5 % (20.0-45.0); MEAN CORPUSCULAR HEMOGLOBIN 27.8 PG (27.0-31.0); MEAN CORPUSCULAR HGB CONC 32.1 G/DL (32.0-36.0); MEAN CORPUSCULAR VOLUME 87 FL (80-99); MEAN PLATELET VOLUME 6.3 FL (6.5-10.1); PLATELET COUNT 409 K/UL (150-450); RED BLOOD COUNT 3.24 M/UL (4.20-5.40); RED CELL DISTRIBUTION WIDTH 13.2 % (11.6-14.8); WHITE BLOOD COUNT 15.3 K/UL (4.8-10.8)
[2016-08-02] MEDS: Heparin 5000 units/ml inj SUBQ SCH ×3 (06:02→22:11)
[2016-08-02] MEDS: PCA shift volume MISC SCH ×2 (07:07→19:00)
[2016-08-02 08:00] VITALS: BP 116/58
[2016-08-02] MEDS: Neosporin Oint 15gm TOPIC SCH ×2 (08:51→18:00)
[2016-08-02] MEDS: Hydrogen Peroxide 473ml Bottle TOPIC SCH ×2 (08:51→22:11)
[2016-08-02] MEDS: Lactulose 20gm/30ml UDC ORAL SCH (08:51)
[2016-08-02] MEDS: Docusate 100mg cap ORAL SCH ×2 (08:51→22:09)
[2016-08-02] MEDS ORDERED: NS Irrig 1000ml ONE (10:16)
[2016-08-02] MEDS ORDERED: D5 1/2NS 1000ml IV ONE ×2 (10:16→15:20)
--- NOTE | 2016-08-02 11:31 | Wound Care Consultation ---
Wound Assessment Wound Assessment #1: Wound Number: #1 Wound Present on Admission: Yes New Wound: No Status Change of Wound: No Wound Location Body Site Modif: left, upper, medial Wound Location Body Site: thigh Wound Type: incision Sharon Test: Does not Sharon Incisional Wounds: Dehisced Incision Wound Thickness: Full Thickness Wound Length: 7.5 Wound Width: 3.5 Wound Depth: 3.0 Percent of Wound [place]/Red: 95 Percent of Wound Bed Yellow/Wh: 5 Wound Drainage Description: Serosanguineous Wound Drainage Amount: Moderate Wound Drainage Odor: None/Absent Wound General Appearance: Draining, Incision Dehiscence Wound Assessment #2: Wound Number: #2 Wound Present on Admission: Yes New Wound: No Status Change of Wound: No Wound Location Body Site Modif: right, upper, medial Wound Location Body Site: thigh Wound Type: incision Sharon Test: Does not Sharon Incisional Wounds: Dehisced Incision Wound Thickness: Full Thickness Wound Length: 4.0 Wound Width: 3.0 Wound Depth: 1.0 Percent of Wound [place]/Red: 90 Percent of Wound Bed Yellow/Wh: 10 Wound Drainage Description: Serosanguineous Wound Drainage Amount: Moderate Wound Drainage Odor: None/Absent Wound General Appearance: Draining, Incision Dehiscence Wound Comment #1 Left upper inner thigh. Dehisced incision #2 Right upper inner thigh. Dehisced incision Recommendation -Wound care as ordered by MD. -Assess and f/u with MD for any changes MIGUELINA FRAGOSO RN August 02, 2016 11:31
[2016-08-02 12:00] VITALS: BP 117/73
[2016-08-02] MEDS: Dyna-Hex 2% Top Sol 8oz TOPIC SCH (12:07)
--- NOTE | 2016-08-02 14:13 | General Progress Note ---
Assessment/Plan Problem List: (1) Abscess ICD Codes: L02.91 - Cutaneous abscess, unspecified SNOMED: 604956820 (2) Hidradenitis suppurativa ICD Codes: L73.2 - Hidradenitis suppurativa SNOMED: [id number] Assessment/Plan Cont IV abx Supp care Pain control DVT ppx Bowel regimen Wound care per plastics A total of 32 mins of additional time was spent beyond the face to face time Subjective Date patient seen: August 02, 2016 Time patient seen: 14:12 ROS Limited/Unobtainable: No Allergies: Coded Allergies: PENICILLINS (Verified Allergy, Unknown, 07/22/16) Pt states she was never tested for the allergy. Pt's father had severe allergy to PCN so pt takes does not take PCN medications for precaution. Subjective No acute overnight events, no new complaints. No chest pain or dyspnea, no n/v, postop pain well controlled. First BM earlier today Objective Last 24 Hour Vital Signs Date Time Temp Pulse Resp B/P Pulse Ox O2 Delivery O2 Flow Rate FiO2 08/02/16 12:00 16 08/02/16 12:00 99.0 83 20 117/73 95 Room Air 08/02/16 08:00 16 08/02/16 08:00 98.4 87 17 116/58 97 Room Air 08/02/16 04:00 98.2 93 18 112/59 97 Room Air 08/02/16 04:00 16 08/01/16 20:00 98.2 90 18 114/56 98 Room Air 08/01/16 20:00 16 08/01/16 19:27 Room Air 08/01/16 19:27 97 Room Air 08/01/16 18:59 97.2 08/01/16 18:31 18 08/01/16 18:30 18 08/01/16 16:00 97.2 94 18 117/70 99 Room Air 08/01/16 15:42 97.0 Intake and Output 08/01/16 08/02/16 19:00 07:00 Intake Total 1475.0 ml 785 ml Output Total 2065 ml 710 ml Balance -590.0 ml 75 ml Intake Oral 400 ml 710 ml IV Total 1075.0 ml 75 ml Output Urine Total 2050 ml 700 ml Drainage Total 15 ml 10 ml Laboratory Tests 08/01/16 20:30: Vancomycin Level Trough 14.4H 08/02/16 05:00: White Blood Count 15.3H, Red Blood Count 3.24L, Hemoglobin 9.0L, Hematocrit 28.0L, Mean Corpuscular Volume 87, Mean Corpuscular Hemoglobin 27.8, Mean Corpuscular Hemoglobin Concent 32.1, Red Cell Distribution Width 13.2, Platelet Count 409, Mean Platelet Volume 6.3L, Neutrophils (%) (Auto) 78.0H, Lymphocytes (%) (Auto) 12.5L, Monocytes (%) (Auto) 6.0, Eosinophils (%) (Auto) 2.0, Basophils (%) (Auto) 1.4 Height (Feet): 5 Height (Inches): 5.00 Weight (Pounds): 254 Objective General: alert, cooperative, no distress, appears stated age Head: normocephalic, without obvious abnormality, atraumatic Eyes: conjunctivae/corneas clear. PERRL, EOM's intact Throat: lips, mucosa, and tongue normal. MMM Neck: supple, symmetrical, trachea midline, and no JVD Lungs: clear to auscultation bilaterally Heart: regular rate and rhythm, S1, S2 normal, no murmur, click, rub or gallop Abdomen: soft, non-tender, non-distended, bowel sounds normal; no masses or organomegaly Extremities: extremities normal, atraumatic, no cyanosis or edema Pulses: 2+ and symmetric Skin: skin color, texture, turgor normal; no rashes or lesions Neurologic: grossly normal, no focal deficits JORJE CABALLERO August 02, 2016 14:13
[2016-08-02] MEDS ORDERED: PCA HYDROmorphone 1mg/ml 30 ML IV PRN (14:30)
[2016-08-02] MEDS ORDERED: Rate Change PCA 1 Each MISC PRN (14:30)
[2016-08-02] MEDS ORDERED: Naloxone 0.4mg/ml Inj IVP PRN (14:30)
[2016-08-02 16:00] VITALS: BP 124/76
[2016-08-02 20:00] VITALS: BP 118/68
[2016-08-03] VITALS: BP 109/52
[2016-08-03 04:00] VITALS: BP 106/60
[2016-08-03] MEDS: Vancomycin 1gm/D5W 275ml IVPB SCH ×6 (05:30→20:49)
[2016-08-03] MEDS: Heparin 5000 units/ml inj SUBQ SCH ×3 (06:47→21:34)
[2016-08-03] MEDS: PCA shift volume MISC SCH ×2 (07:00→19:00)
[2016-08-03 08:00] VITALS: BP 126/56
[2016-08-03] MEDS: Dyna-Hex 2% Top Sol 8oz TOPIC SCH ×2 (08:48→14:05)
[2016-08-03] MEDS: D5 1/2NS 1,000 ML IV SCH ×2 (08:48→20:45)
[2016-08-03] MEDS: Docusate 100mg cap ORAL SCH ×2 (08:48→20:45)
[2016-08-03] MEDS: Dakin's 0.25% (Half Strength) 16oz TOPIC SCH ×4 (08:53→18:00)
[2016-08-03 12:00] VITALS: BP 131/74
[2016-08-03] MEDS: Neosporin Oint 15gm TOPIC SCH ×2 (14:04→18:00)
[2016-08-03] MEDS: Hydrogen Peroxide 473ml Bottle TOPIC SCH ×2 (14:04→21:00)
--- NOTE | 2016-08-03 14:34 | General Progress Note ---
Assessment/Plan Problem List: (1) Abscess ICD Codes: L02.91 - Cutaneous abscess, unspecified SNOMED: 908605451 (2) Hidradenitis suppurativa ICD Codes: L73.2 - Hidradenitis suppurativa SNOMED: 10447674 Assessment/Plan s/p excision of bilateral infection groin and thigh tissues with flap elevation on 07/23 s/p Flap closure of bilateral groin and buttock wounds on 07/25 Cont IV abx Supp care Pain control DVT ppx Bowel regimen Wound care per plastics A total of 32min of extra time was spent [id number] in addition to normal encounter time. D/w pt, RN, surgery regarding mgmt and disposition Subjective Date patient seen: August 03, 2016 Time patient seen: 14:34 Allergies: Coded Allergies: PENICILLINS (Verified Allergy, Unknown, 07/22/16) Pt states she was never tested for the allergy. Pt's father had severe allergy to PCN so pt takes does not take PCN medications for precaution. Subjective Doing well Pain controlled Tolerating diet Denies f/c, n/v, d/c, chest pain, SOB Objective Last 24 Hour Vital Signs Date Time Temp Pulse Resp B/P Pulse Ox O2 Delivery O2 Flow Rate FiO2 08/03/16 12:00 98.1 99 20 131/74 100 Room Air 08/03/16 09:23 97.7 08/03/16 09:10 95 Room Air 08/03/16 09:10 Room Air 08/03/16 08:00 18 08/03/16 08:00 98.1 102 20 126/56 100 Room Air 08/03/16 04:00 97.7 85 18 106/60 96 Room Air 08/03/16 00:00 97.7 74 18 109/52 98 Room Air 08/02/16 20:00 18 08/02/16 20:00 98.2 92 18 118/68 99 Room Air 08/02/16 16:00 97.7 80 20 124/76 98 Room Air 08/02/16 16:00 16 Intake and Output 08/02/16 08/03/16 19:00 07:00 Intake Total 1597.4 ml 1055 ml Output Total 1750 ml 1575 ml Balance -152.6 ml -520 ml Intake Oral 480 ml 980 ml IV Total 1117.4 ml 75 ml Output Urine Total 1750 ml 1525 ml Drainage Total 50 ml # Bowel Movements 1 1 Height (Feet): 5 Height (Inches): 5.00 Weight (Pounds): 254 Objective General: alert, cooperative, no distress, appears stated age Head: normocephalic, without obvious abnormality, atraumatic Eyes: conjunctivae/corneas clear. PERRL, EOM's intact Throat: lips, mucosa, and tongue normal. MMM Neck: supple, symmetrical, trachea midline, and no JVD Lungs: clear to auscultation bilaterally Heart: regular rate and rhythm, S1, S2 normal, no murmur, click, rub or gallop Abdomen: soft, non-tender, non-distended, bowel sounds normal; no masses or organomegaly Extremities: extremities normal, atraumatic, no cyanosis or edema Pulses: 2+ and symmetric Skin: skin color, texture, turgor normal; no rashes or lesions Neurologic: grossly normal, no focal deficits Genesis Chung M.D. August 03, 2016 14:34
--- NOTE | 2016-08-03 14:35 | General Progress Note ---
Assessment/Plan Problem List: (1) Abscess ICD Codes: L02.91 - Cutaneous abscess, unspecified SNOMED: [id number] (2) Hidradenitis suppurativa ICD Codes: L73.2 - Hidradenitis suppurativa SNOMED: 92359673 Status: stable Assessment/Plan s/p excision of bilateral infection groin and thigh tissues with flap elevation on 07/23 s/p Flap closure of bilateral groin and buttock wounds on 07/25 Cont IV abx Supp care Pain control DVT ppx Bowel regimen Wound care per plastics A total of 31min of extra time was spent [id number] in addition to normal encounter time. D/w pt, RN, surgery regarding mgmt and disposition Subjective Date patient seen: August 03, 2016 Time patient seen: 14:35 Constitutional: Reports: no symptoms HEENT: Reports: no symptoms Cardiovascular: Reports: no symptoms Respiratory: Reports: no symptoms Gastrointestinal/Abdominal: Reports: no symptoms Genitourinary: Reports: no symptoms Neurologic/Psychiatric: Reports: no symptoms Endocrine: Reports: no symptoms Hematologic/Lymphatic: Reports: no symptoms Allergies: Coded Allergies: PENICILLINS (Verified Allergy, Unknown, 07/22/16) Pt states she was never tested for the allergy. Pt's father had severe allergy to PCN so pt takes does not take PCN medications for precaution. All Systems: reviewed and negative except above Subjective Doing well Pain controlled Had BM yesterday Tolerating diet Denies f/c, n/v, d/c, chest pain, SOB WBC rising to 15K Objective Last 24 Hour Vital Signs Date Time Temp Pulse Resp B/P Pulse Ox O2 Delivery O2 Flow Rate FiO2 08/03/16 12:00 98.1 99 20 131/74 100 Room Air 08/03/16 09:23 97.7 08/03/16 09:10 95 Room Air 08/03/16 09:10 Room Air 08/03/16 08:00 18 08/03/16 08:00 98.1 102 20 126/56 100 Room Air 08/03/16 04:00 97.7 85 18 106/60 96 Room Air 08/03/16 00:00 97.7 74 18 109/52 98 Room Air 08/02/16 20:00 18 08/02/16 20:00 98.2 92 18 118/68 99 Room Air 08/02/16 16:00 97.7 80 20 124/76 98 Room Air 08/02/16 16:00 16 Intake and Output 08/02/16 08/03/16 19:00 07:00 Intake Total 1597.4 ml 1055 ml Output Total 1750 ml 1575 ml Balance -152.6 ml -520 ml Intake Oral 480 ml 980 ml IV Total 1117.4 ml 75 ml Output Urine Total 1750 ml 1525 ml Drainage Total 50 ml # Bowel Movements 1 1 Height (Feet): 5 Height (Inches): 5.00 Weight (Pounds): 254 Objective General: alert, cooperative, no distress, appears stated age Head: normocephalic, without obvious abnormality, atraumatic Eyes: conjunctivae/corneas clear. PERRL, EOM's intact Throat: lips, mucosa, and tongue normal. MMM Neck: supple, symmetrical, trachea midline, and no JVD Lungs: clear to auscultation bilaterally Heart: regular rate and rhythm, S1, S2 normal, no murmur, click, rub or gallop Abdomen: soft, non-tender, non-distended, bowel sounds normal; no masses or organomegaly Extremities: extremities normal, atraumatic, no cyanosis or edema Pulses: 2+ and symmetric Skin: skin color, texture, turgor normal; no rashes or lesions Neurologic: grossly normal, no focal deficits Genesis Chung M.D. August 03, 2016 14:35
[2016-08-03 16:00] VITALS: BP 134/79
[2016-08-03] MEDS: PCA HYDROmorphone 1mg/ml 30 ML IV PRN (16:39)
[2016-08-03] MEDS ORDERED: D5 1/2NS 1000ml IV ONE (17:37)
[2016-08-03 20:00] VITALS: BP 110/51
[2016-08-04] VITALS: BP 122/68
[2016-08-04 04:00] VITALS: BP 108/65
[2016-08-04] MEDS: Vancomycin 1gm/D5W 275ml IVPB SCH ×4 (05:59→12:40)
[2016-08-04] MEDS: Heparin 5000 units/ml inj SUBQ SCH ×3 (06:00→21:20)
[2016-08-04] MEDS: PCA shift volume MISC SCH (07:00)
[2016-08-04 07:20] LABS: BASOPHILS % (AUTO) 0.9 % (0.0-2.0); EOSINOPHILS % (AUTO) 1.4 % (0.0-3.0); LYMPHOCYTES % (AUTO) 17.5 % (20.0-45.0); MEAN CORPUSCULAR HEMOGLOBIN 27.2 PG (27.0-31.0); MEAN CORPUSCULAR HGB CONC 32.1 G/DL (32.0-36.0); MEAN CORPUSCULAR VOLUME 85 FL (80-99); MEAN PLATELET VOLUME 6.3 FL (6.5-10.1); MONOCYTES % (AUTO) 6.3 % (1.0-10.0); NEUTROPHILS % (AUTO) 73.8 % (45.0-75.0); PLATELET COUNT 452 K/UL (150-450); RED BLOOD COUNT 3.54 M/UL (4.20-5.40); RED CELL DISTRIBUTION WIDTH 12.8 % (11.6-14.8); WHITE BLOOD COUNT 16.9 K/UL (4.8-10.8)
[2016-08-04 08:00] VITALS: BP 126/67
[2016-08-04] MEDS: Docusate 100mg cap ORAL SCH ×2 (09:07→21:19)
[2016-08-04] MEDS: Dakin's 0.25% (Half Strength) 16oz TOPIC SCH (09:09)
[2016-08-04] MEDS: Hydrogen Peroxide 473ml Bottle TOPIC SCH (09:09)
[2016-08-04] MEDS: Neosporin Oint 15gm TOPIC SCH ×2 (09:09→17:33)
--- NOTE | 2016-08-04 09:44 | General Progress Note ---
Progress Note Progress Note Pt seen and examined. 1 week post-op from closure of bilateral groin wounds. Her wounds have dehisced and she is undergoing dressings changes. WBC is 16.9 Plan to continue dressing changes and will need OR debridement in 48 hours after further wet to dry dressings to cleanse the wound. Wilbur COULTER,WILBUR August 04, 2016 09:44
[2016-08-04] MEDS: D5 1/2NS 1,000 ML IV SCH (11:55)
[2016-08-04 12:00] VITALS: BP 118/70
[2016-08-04] MEDS ORDERED: D5 1/2NS 1000ml IV ONE ×2 (14:24→17:06)
--- NOTE | 2016-08-04 15:15 | General Progress Note ---
Assessment/Plan Problem List: (1) Abscess ICD Codes: L02.91 - Cutaneous abscess, unspecified SNOMED: [id number] (2) Hidradenitis suppurativa ICD Codes: L73.2 - Hidradenitis suppurativa SNOMED: 11681751 Status: stable Assessment/Plan s/p excision of bilateral infection groin and thigh tissues with flap elevation on 07/23 s/p Flap closure of bilateral groin and buttock wounds on 07/25 Cont IV vanco Repeat cultures today as WBC rising ID consulted Supp care Pain control DVT ppx Bowel regimen Wound care per plastics Plan for OR tues for washout and wound reclosure per plastics A total of 31min of extra time was spent [id number] in addition to normal encounter time. D/w pt, RN, surgery regarding mgmt and disposition Subjective Date patient seen: August 04, 2016 Time patient seen: 15:14 ROS Limited/Unobtainable: No Constitutional: Reports: no symptoms HEENT: Reports: no symptoms Cardiovascular: Reports: no symptoms Respiratory: Reports: no symptoms Gastrointestinal/Abdominal: Reports: no symptoms Genitourinary: Reports: no symptoms Neurologic/Psychiatric: Reports: no symptoms Endocrine: Reports: no symptoms Hematologic/Lymphatic: Reports: no symptoms Allergies: Coded Allergies: PENICILLINS (Verified Allergy, Unknown, 07/22/16) Pt states she was never tested for the allergy. Pt's father had severe allergy to PCN so pt takes does not take PCN medications for precaution. All Systems: reviewed and negative except above Subjective Doing well Pain controlled Tolerating diet Denies f/c, n/v, d/c, chest pain, SOB WBC rising to 16.9K Objective Last 24 Hour Vital Signs Date Time Temp Pulse Resp B/P Pulse Ox O2 Delivery O2 Flow Rate FiO2 08/04/16 12:00 96.8 87 17 118/70 100 Room Air 08/04/16 12:00 18 08/04/16 10:44 97.9 08/04/16 08:00 97.9 83 19 126/67 100 Room Air 08/04/16 08:00 18 08/04/16 04:00 97.7 78 18 108/65 99 Room Air 08/04/16 04:00 16 08/04/16 00:00 16 08/04/16 00:00 97.7 85 18 122/68 98 Room Air 08/03/16 22:32 97.8 08/03/16 20:00 16 08/03/16 20:00 99.0 100 16 110/51 97 Room Air 08/03/16 17:09 98.1 08/03/16 16:00 98.1 96 20 134/79 98 Room Air 08/03/16 16:00 16 Intake and Output 08/03/16 08/04/16 19:00 07:00 Intake Total 1788.128 ml 1381.000 ml Output Total 966 ml 1358 ml Balance 822.128 ml 23.000 ml Intake Oral 450 ml 500 ml IV Total 1338.128 ml 881.000 ml Output Urine Total 950 ml 1350 ml Drainage Total 16 ml 8 ml # Bowel Movements 1 1 Laboratory Tests 08/04/16 06:30: White Blood Count 16.9H, Red Blood Count 3.54L, Hemoglobin 9.6L, Hematocrit 30.1L, Mean Corpuscular Volume 85, Mean Corpuscular Hemoglobin 27.2, Mean Corpuscular Hemoglobin Concent 32.1, Red Cell Distribution Width 12.8, Platelet Count 452H, Mean Platelet Volume 6.3L, Neutrophils (%) (Auto) 73.8, Lymphocytes (%) (Auto) 17.5L, Monocytes (%) (Auto) 6.3, Eosinophils (%) (Auto) 1.4, Basophils (%) (Auto) 0.9 Height (Feet): 5 Height (Inches): 5.00 Weight (Pounds): 254 Objective General: alert, cooperative, no distress, appears stated age Head: normocephalic, without obvious abnormality, atraumatic Eyes: conjunctivae/corneas clear. PERRL, EOM's intact Throat: lips, mucosa, and tongue normal. MMM Neck: supple, symmetrical, trachea midline, and no JVD Lungs: clear to auscultation bilaterally Heart: regular rate and rhythm, S1, S2 normal, no murmur, click, rub or gallop Abdomen: soft, non-tender, non-distended, bowel sounds normal; no masses or organomegaly Extremities: extremities normal, atraumatic, no cyanosis or edema Pulses: 2+ and symmetric Skin: skin color, texture, turgor normal; no rashes or lesions Neurologic: grossly normal, no focal deficits Wijegunaratne,Kanishka M.D. August 04, 2016 15:15
[2016-08-04 16:00] VITALS: BP 117/48
[2016-08-04] MEDS ORDERED: Dakin's 0.25% (Half Strength) 16oz TOPIC SCH ×2 (16:00)
[2016-08-04 16:30] LABS: APPEARANCE,URINE SLIGHTLY CLOUDY; KETONES,URINE NEGATIVE (NEGATIVE); LEUKOCYTE ESTERASE ,URINE 3+ (NEGATIVE); NITRITE,URINE POSITIVE (NEGATIVE); PH,URINE 7 (4.5-8.0); PROTEIN,URINE NEGATIVE (NEGATIVE); UROBILINOGEN,URINE NORMAL MG/DL (0.0-1.0)
[2016-08-04] MEDS: PCA HYDROmorphone 1mg/ml 30 ML IV PRN (16:54)
[2016-08-04 18:22] LABS: BACTERIA,URINE MODERATE /HPF
[2016-08-04 20:00] VITALS: BP 134/80
--- NOTE | 2016-08-04 20:34 | Infectious Diseases Prog Note ---
Assessment/Plan Assessment/Plan Full consult dictated: A) 1) + ua, ? uti, leukocytosis, fever, ? sepsis, ? line infection (+ picc line) , + lopez 2) bilateral groin/buttocks wound infection - s/p debridement and closure, + wound dehiscence 3) hidradenitis suppurativa 4) ? pcn allergy - patients father with severe pcn allergy but unclear if patient has true pcn allergy P) 1) vancomycin, add cipro and flagyl for gram negative and anaerobic coverage 2) check cultures and labs 3) for debridement on Friday 4) d/w Dr. Hurtado 5) d/w patient and mother Subjective Allergies: Coded Allergies: PENICILLINS (Verified Allergy, Unknown, 07/22/16) Pt states she was never tested for the allergy. Pt's father had severe allergy to PCN so pt takes does not take PCN medications for precaution. Objective Vital Signs Last 24 Hour Vital Signs Date Time Temp Pulse Resp B/P Pulse Ox O2 Delivery O2 Flow Rate FiO2 08/04/16 17:24 98.2 08/04/16 17:00 18 08/04/16 16:59 18 08/04/16 16:00 98.2 90 20 117/48 96 Room Air 08/04/16 16:00 18 08/04/16 15:48 96.8 08/04/16 12:00 96.8 87 17 118/70 100 Room Air 08/04/16 12:00 18 08/04/16 08:00 97.9 83 19 126/67 100 Room Air 08/04/16 08:00 18 08/04/16 04:00 97.7 78 18 108/65 99 Room Air 08/04/16 04:00 16 08/04/16 00:00 16 08/04/16 00:00 97.7 85 18 122/68 98 Room Air 08/03/16 22:32 97.8 Height (Feet): 5 Height (Inches): 5.00 Weight (Pounds): 254 Laboratory Tests Test 08/04/16 06:30 08/04/16 16:10 White Blood Count 16.9 K/UL (4.8-10.8) H Red Blood Count 3.54 M/UL (4.20-5.40) L Hemoglobin 9.6 G/DL (12.0-16.0) L Hematocrit 30.1 % (37.0-47.0) L Mean Corpuscular Volume 85 FL (80-99) Mean Corpuscular Hemoglobin 27.2 PG (27.0-31.0) Mean Corpuscular Hemoglobin Concent 32.1 G/DL (32.0-36.0) Red Cell Distribution Width 12.8 % (11.6-14.8) Platelet Count 452 K/UL (150-450) H Mean Platelet Volume 6.3 FL (6.5-10.1) L Neutrophils (%) (Auto) 73.8 % (45.0-75.0) Lymphocytes (%) (Auto) 17.5 % (20.0-45.0) L Monocytes (%) (Auto) 6.3 % (1.0-10.0) Eosinophils (%) (Auto) 1.4 % (0.0-3.0) Basophils (%) (Auto) 0.9 % (0.0-2.0) Urine Color Pale yellow Urine Appearance Slightly cloudy Urine pH 7 (4.5-8.0) Urine Specific [place] 1.005 (1.005-1.035) Urine Protein Negative (NEGATIVE) Urine Glucose (UA) Negative (NEGATIVE) Urine Ketones Negative (NEGATIVE) Urine Occult Blood 2+ (NEGATIVE) H Urine Nitrite Positive (NEGATIVE) H Urine Bilirubin Negative (NEGATIVE) Urine Urobilinogen Normal MG/DL (0.0-1.0) Urine Leukocyte Esterase 3+ (NEGATIVE) H Urine RBC 5-10 /HPF (0 - 2) H Urine WBC 10-15 /HPF (0 - 2) H Urine Squamous Epithelial Cells None /LPF (NONE/OCC) Urine Bacteria Moderate /HPF (NONE) H Current Medications Medications (Trade) Dose Ordered Sig/Loren Route PRN Reason Start Time Stop Time Status Last Admin Dose Admin Acetaminophen (Tylenol) 650 mg Q4H PRN ORAL FEVER 07/25/16 16:00 08/24/16 15:59 08/03/16 21:33 Acetaminophen 650 mg 650 mg Q4H PRN ORAL Mild Pain (Pain Scale 1-3) 07/29/16 17:30 08/28/16 17:29 Bisacodyl (Dulcolax) 10 mg HSPRN PRN RECTAL Constipation THIRD LINE AGENT 07/22/16 15:15 08/21/16 15:14 Chlorhexidine Gluconate (Tomasa-Hex 2%) 1 applic DAILY TOPIC 08/02/16 12:00 09/01/16 11:59 08/03/16 14:05 Ciprofloxacin (Cipro 400mg/ 200ml premix bag) 200 ml @ 200 mls/hr Q12H IV 08/04/16 18:00 08/11/16 17:59 08/04/16 17:33 Dextrose (Dextrose 50%) STAT PRN IV Hypoglycemia 07/22/16 15:15 08/21/16 15:14 Dextrose/Sodium Chloride (D5 0.45% NS) 1,000 ml @ 75 mls/hr [id number] IV 07/22/16 16:00 08/21/16 15:59 08/04/16 11:55 Diphenhydramine HCl (Benadryl) 25 mg Q6H PRN ORAL Itching/Pruritis 07/22/16 15:15 08/21/16 15:14 Docusate Sodium (Colace) 100 mg EVERY 12 HOURS ORAL 07/22/16 21:00 08/21/16 20:59 08/04/16 09:07 Heparin Sodium (Porcine) (Heparin 5000 units/ml) 5,000 units EVERY 8 HOURS SUBQ 07/25/16 22:00 08/24/16 21:59 08/04/16 13:56 Hydrogen Peroxide (Hydrogen Peroxide) 1 applic Q12HR TOPIC 07/31/16 12:30 08/30/16 12:29 08/04/16 09:09 Hydromorphone HCl 30 ml @ 0 mls/hr Q24H PRN IV For Pain 08/03/16 15:30 08/05/16 15:29 08/04/16 16:54 Hydromorphone HCl (Dilaudid) 2 mg q3h PRN SUBQ Severe Pain (Pain Scale 7-10) 08/02/16 14:30 08/09/16 14:29 Hydromorphone HCl 2 mg 2 mg Q4H PRN IVP Moderate Pain (Pain Scale 4-6) 08/02/16 14:30 08/09/16 14:29 08/04/16 15:19 Magnesium Hydroxide (Mom) 30 ml HSPRN PRN ORAL Constipation SECOND LINE AGENT 07/22/16 15:15 08/21/16 15:14 07/27/16 23:58 Neomycin/ Polymyxin/ Bacitracin (Neosporin Oint 15gm) 1 applic TWICE A DAY TOPIC 07/30/16 16:30 08/29/16 16:29 08/04/16 17:33 Ondansetron HCl (Zofran) 4 mg Q6H PRN IVP Nausea & Vomiting 07/25/16 20:00 08/24/16 19:59 08/01/16 15:08 Polyethylene Glycol (Miralax) 17 gm HSPRN PRN ORAL Constipation FIRST LINE AGENT 07/22/16 15:15 08/21/16 15:14 Vancomycin HCl (Vanco rx to dose) 1 ea DAILY PRN MISC Per rx protocol 07/26/16 17:15 08/25/16 17:14 Vancomycin HCl/ Dextrose (Vancomycin/D5W) 275 ml @ 183.708 mls/hr Q8HR@0500,1300,2100 IVPB 07/27/16 21:00 08/06/16 20:59 08/04/16 12:40 Zolpidem Tartrate (Ambien) 5 mg HSPRN PRN ORAL Insomnia 07/25/16 16:00 08/24/16 15:59 DAVION BISWAS August 04, 2016 20:34
[2016-08-04] MEDS: Vancomycin 1 GM in D5W 275 ML IVPB SCH (21:19)
[2016-08-04] MEDS: metroNIDAZOLE 500mg 100 ML IVPB SCH (22:00)
[2016-08-05] VITALS: BP 125/67
[2016-08-05] MEDS ORDERED: Rate Change PCA 1 Each MISC PRN ×2 (00:15→14:00)
[2016-08-05] MEDS: Hydrogen Peroxide 473ml Bottle TOPIC SCH ×3 (00:21→20:00)
[2016-08-05] MEDS: D5 1/2NS 1,000 ML IV SCH ×2 (00:21→13:20)
[2016-08-05 04:00] VITALS: BP 101/54
[2016-08-05] MEDS: Vancomycin 1 GM in D5W 275 ML IVPB SCH ×3 (04:13→19:59)
[2016-08-05] MEDS: metroNIDAZOLE 500mg 100 ML IVPB SCH ×3 (05:29→21:09)
[2016-08-05] MEDS: Heparin 5000 units/ml inj SUBQ SCH ×3 (05:31→22:00)
[2016-08-05 06:54] LABS: BASOPHILS % (AUTO) 0.9 % (0.0-2.0); EOSINOPHILS % (AUTO) 1.1 % (0.0-3.0); LYMPHOCYTES % (AUTO) 17.4 % (20.0-45.0); MEAN CORPUSCULAR HEMOGLOBIN 27.4 PG (27.0-31.0); MEAN CORPUSCULAR HGB CONC 32.6 G/DL (32.0-36.0); MEAN CORPUSCULAR VOLUME 84 FL (80-99); MEAN PLATELET VOLUME 6.1 FL (6.5-10.1); NEUTROPHILS % (AUTO) 76.7 % (45.0-75.0); PLATELET COUNT 429 K/UL (150-450); RED BLOOD COUNT 3.36 M/UL (4.20-5.40); RED CELL DISTRIBUTION WIDTH 12.6 % (11.6-14.8); WHITE BLOOD COUNT 16.4 K/UL (4.8-10.8)
[2016-08-05] MEDS ORDERED: PCA shift volume MISC SCH (07:00)
[2016-08-05 07:32] LABS: ANION GAP 11 (5-15); CALCIUM 9.2 mg/dL (8.6-10.2); CARBON DIOXIDE 30 mEQ/L (20-30); CHLORIDE 95 mEQ/L (98-107); CREATININE 0.7 mg/dL (0.5-0.9); GLOMERULAR FILTRATION RATE > 60 mL/min (>60); HEMOLYSIS 0; POTASSIUM 4.3 mEQ/L (3.4-4.9); SODIUM 136 mEQ/L (135-145)
[2016-08-05 07:59] VITALS: BP 103/58
[2016-08-05] MEDS: Docusate 100mg cap ORAL SCH ×2 (09:16→19:59)
[2016-08-05] MEDS: Neosporin Oint 15gm TOPIC SCH ×2 (09:17→17:36)
[2016-08-05] MEDS: Dyna-Hex 2% Top Sol 8oz TOPIC SCH (09:17)
[2016-08-05 12:00] VITALS: BP 144/91
[2016-08-05] MEDS ORDERED: PCA HYDROmorphone 1mg/ml 30 ML IV PRN (14:00)
--- NOTE | 2016-08-05 14:44 | Infectious Diseases Prog Note ---
Assessment/Plan Assessment/Plan Full consult dictated: A) 1) + ua, ? uti, leukocytosis, fever, ? sepsis, ? line infection (+ picc line) , + lopez 2) bilateral groin/buttocks wound infection - s/p debridement and closure, + wound dehiscence 3) hidradenitis suppurativa 4) ? hot/cold sensations - ? secondary to abx, no rash, no itching 5) ? pcn allergy - patients father with severe pcn allergy but unclear if patient has true pcn allergy 6) sh-negative, fh-cad, mar noted, notes and records reviewed 7) d/w RN P) 1) vancomycin, cipro and flagyl 2) check cultures and labs 3) for debridement on Friday 4) orders entered and noted 5) d/w patient and mother Subjective Constitutional: Reports: other - + hot and cold sensation, no fevers, Denies: fever HEENT: Denies: congestion Respiratory: Denies: shortness of breath Gastrointestinal/Abdominal: Reports: other - + abdominal discomfort thats now resolved, Denies: diarrhea, nausea, vomiting Neurologic: Denies: headache Psychiatric: Denies: depression Skin: Reports: other - no itching , Denies: rash Endocrine: Reports: feels cold, feels warm Hematologic: Denies: bleeding Musculoskeletal: Denies: pain Allergies: Coded Allergies: PENICILLINS (Verified Allergy, Unknown, 07/22/16) Pt states she was never tested for the allergy. Pt's father had severe allergy to PCN so pt takes does not take PCN medications for precaution. Objective Vital Signs Last 24 Hour Vital Signs Date Time Temp Pulse Resp B/P Pulse Ox O2 Delivery O2 Flow Rate FiO2 08/05/16 12:17 18 08/05/16 12:00 98.1 92 20 144/91 98 Room Air 08/05/16 08:00 18 08/05/16 07:59 98.1 85 20 103/58 99 Room Air 08/05/16 07:46 Room Air 08/05/16 07:46 96 Room Air 21 08/05/16 04:00 98.1 84 20 101/54 96 Room Air 08/05/16 04:00 18 08/05/16 00:00 98.1 86 20 125/67 100 Room Air 08/05/16 00:00 18 08/04/16 20:00 99.7 99 20 134/80 100 Room Air 08/04/16 20:00 18 08/04/16 19:10 96 Room Air 08/04/16 19:10 Room Air 08/04/16 17:24 98.2 08/04/16 17:00 18 08/04/16 16:59 18 08/04/16 16:00 98.2 90 20 117/48 96 Room Air 08/04/16 16:00 18 08/04/16 15:48 96.8 Height (Feet): 5 Height (Inches): 5.00 Weight (Pounds): 254 General Appearance: no acute distress HEENT: normocephalic, atraumatic, anicteric Respiratory/Chest: lungs clear, normal breath sounds, no respiratory distress, no accessory muscle use Cardiovascular: normal rate, regular rhythm Abdomen: normal bowel sounds, soft, non tender, no organomegaly, non distended , other - no rebound Extremities: no cyanosis Skin: no rash Neurologic/Psychiatric: compressor operator 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0) Urine Leukocyte Esterase 3+ (NEGATIVE) H Urine RBC 5-10 /HPF (0 - 2) H Urine WBC 10-15 /HPF (0 - 2) H Urine Squamous Epithelial Cells None /LPF (NONE/OCC) Urine Bacteria Moderate /HPF (NONE) H White Blood Count 16.4 K/UL (4.8-10.8) H Red Blood Count 3.36 M/UL (4.20-5.40) L Hemoglobin 9.2 G/DL (12.0-16.0) L Hematocrit 28.2 % (37.0-47.0) L Mean Corpuscular Volume 84 FL (80-99) Mean Corpuscular Hemoglobin 27.4 PG (27.0-31.0) Mean Corpuscular Hemoglobin Concent 32.6 G/DL (32.0-36.0) Red Cell Distribution Width 12.6 % (11.6-14.8) Platelet Count 429 K/UL (150-450) Mean Platelet Volume 6.1 FL (6.5-10.1) L Neutrophils (%) (Auto) 76.7 % (45.0-75.0) H Lymphocytes (%) (Auto) 17.4 % (20.0-45.0) L Monocytes (%) (Auto) 4.0 % (1.0-10.0) Eosinophils (%) (Auto) 1.1 % (0.0-3.0) Basophils (%) (Auto) 0.9 % (0.0-2.0) Sodium Level 136 mEQ/L (135-145) Potassium Level 4.3 mEQ/L (3.4-4.9) Chloride Level 95 mEQ/L (98-107) L Carbon Dioxide Level 30 mEQ/L (20-30) Anion Gap 11 (5-15) Blood Urea Nitrogen 8 mg/dL (7-23) Creatinine 0.7 mg/dL (0.5-0.9) Estimat Glomerular Filtration Rate > 60 mL/min (>60) Glucose Level 115 mg/dL (74-106) H Calcium Level 9.2 mg/dL (8.6-10.2) Current Medications Medications (Trade) Dose Ordered Sig/Loren Route PRN Reason Start Time Stop Time Status Last Admin Dose Admin Acetaminophen (Tylenol) 650 mg Q4H PRN ORAL FEVER 07/25/16 16:00 08/24/16 15:59 08/03/16 21:33 Acetaminophen (Tylenol) 650 mg Q4H PRN ORAL Mild Pain (Pain Scale 1-3) 07/29/16 17:30 08/28/16 17:29 Bisacodyl (Dulcolax) 10 mg HSPRN PRN RECTAL Constipation THIRD LINE AGENT 07/22/16 15:15 08/21/16 15:14 Chlorhexidine Gluconate 1 applic 1 applic DAILY TOPIC 08/02/16 12:00 09/01/16 11:59 08/05/16 09:17 Ciprofloxacin 200 ml @ 200 mls/hr Q12H IV 08/04/16 18:00 08/11/16 17:59 08/05/16 05:29 Dextrose (Dextrose 50%) STAT PRN IV Hypoglycemia 07/22/16 15:15 08/21/16 15:14 Dextrose/Sodium Chloride (D5 0.45% NS) 1,000 ml @ 75 mls/hr [id number] IV 07/22/16 16:00 08/21/16 15:59 08/05/16 00:21 Diphenhydramine HCl (Benadryl) 25 mg Q6H PRN ORAL Itching/Pruritis 07/22/16 15:15 08/21/16 15:14 Docusate Sodium (Colace) 100 mg EVERY 12 HOURS ORAL 07/22/16 21:00 08/21/16 20:59 08/05/16 09:16 Heparin Sodium (Porcine) (Heparin 5000 units/ml) 5,000 units EVERY 8 HOURS SUBQ 07/25/16 22:00 08/24/16 21:59 08/05/16 14:27 Hydrogen Peroxide (Hydrogen Peroxide) 1 applic Q12HR TOPIC 07/31/16 12:30 08/30/16 12:29 08/05/16 09:17 Hydromorphone HCl (Dilaudid) 2 mg Q4H PRN IVP Moderate Pain (Pain Scale 4-6) 08/05/16 14:00 08/07/16 13:59 Hydromorphone HCl (Dilaudid) 2 mg q3h PRN SUBQ Severe Pain (Pain Scale 7-10) 08/05/16 14:00 08/07/16 13:59 Hydromorphone HCl (EXPLORATION ENGINEER Dilaudid) 30 ml @ 0 mls/hr Q24H PRN IV For Pain 08/05/16 14:00 08/07/16 13:59 Magnesium Hydroxide (Mom) 30 ml HSPRN PRN ORAL Constipation SECOND LINE AGENT 07/22/16 15:15 08/21/16 15:14 07/27/16 23:58 Metronidazole 100 ml @ 100 mls/hr Q8HR IVPB 08/04/16 22:00 08/11/16 21:59 08/05/16 14:19 Miscellaneous Medication (EXPLORATION ENGINEER Rate Change) 1 ea DAILY PRN MISC EXPLORATION ENGINEER RATE CHANGE 08/05/16 14:00 08/07/16 13:59 Miscellaneous Medication (EXPLORATION ENGINEER shift volume) 1 ea Q12HR@0700,1900 MISC 08/05/16 19:00 08/07/16 18:59 Naloxone HCl (Narcan) 0.1 mg PRN IV . 08/05/16 14:00 08/07/16 13:59 Neomycin/ Polymyxin/ Bacitracin (Neosporin Oint 15gm) 1 applic TWICE A DAY TOPIC 07/30/16 16:30 08/29/16 16:29 08/05/16 09:17 Ondansetron HCl (Zofran) 4 mg Q6H PRN IVP Nausea & Vomiting 07/25/16 20:00 08/24/16 19:59 08/01/16 15:08 Polyethylene Glycol (Miralax) 17 gm HSPRN PRN ORAL Constipation FIRST LINE AGENT 07/22/16 15:15 08/21/16 15:14 Vancomycin HCl (Vanco rx to dose) 1 ea DAILY PRN MISC Per rx protocol 07/26/16 17:15 08/25/16 17:14 Vancomycin HCl 1 gm/Dextrose 275 ml @ 183.708 mls/hr Q8HR@0500,1300,2100 IVPB 08/04/16 21:00 08/14/16 23:59 08/05/16 12:41 Zolpidem Tartrate (Ambien) 5 mg HSPRN PRN ORAL Insomnia 07/25/16 16:00 08/24/16 15:59 DAVION BISWAS August 05, 2016 14:44
[2016-08-05 16:00] VITALS: BP 121/74
[2016-08-05] MEDS ORDERED: Tubing IV Secondary IV ONE (17:56)
--- NOTE | 2016-08-05 18:11 | General Progress Note ---
Assessment/Plan Problem List: (1) Abscess ICD Codes: L02.91 - Cutaneous abscess, unspecified SNOMED: 685797351 (2) Hidradenitis suppurativa ICD Codes: L73.2 - Hidradenitis suppurativa SNOMED: 94641408 Assessment/Plan Cont IV abx Supp care Pain control DVT ppx Bowel regimen Wound care per plastics A total of 32 mins of additional time was spent beyond the face to face time Subjective Date patient seen: August 05, 2016 Time patient seen: 18:11 ROS Limited/Unobtainable: No Allergies: Coded Allergies: PENICILLINS (Verified Allergy, Unknown, 07/22/16) Pt states she was never tested for the allergy. Pt's father had severe allergy to PCN so pt takes does not take PCN medications for precaution. Subjective No acute overnight events, no new complaints. No chest pain or dyspnea, no n/v, postop pain well controlled. Objective Last 24 Hour Vital Signs Date Time Temp Pulse Resp B/P Pulse Ox O2 Delivery O2 Flow Rate FiO2 08/05/16 17:40 18 08/05/16 16:00 98.1 85 20 121/74 95 Room Air 08/05/16 16:00 18 08/05/16 12:17 18 08/05/16 12:00 98.1 92 20 144/91 98 Room Air 08/05/16 08:00 18 08/05/16 07:59 98.1 85 20 103/58 99 Room Air 08/05/16 07:46 Room Air 21 08/05/16 07:46 96 Room Air 21 08/05/16 04:00 98.1 84 20 101/54 96 Room Air 08/05/16 04:00 18 08/05/16 00:00 98.1 86 20 125/67 100 Room Air 08/05/16 00:00 18 08/04/16 20:00 99.7 99 20 134/80 100 Room Air 08/04/16 20:00 18 08/04/16 19:10 96 Room Air 08/04/16 19:10 Room Air Intake and Output 08/04/16 08/05/16 19:00 07:00 Intake Total 1725 ml 750.000 ml Output Total 875 ml 2200 ml Balance 850 ml -1450.000 ml Intake Oral 850 ml IV Total 875 ml 750.000 ml Output Urine Total 875 ml 2200 ml # Bowel Movements 2 Laboratory Tests 08/05/16 05:15: White Blood Count 16.4H, Red Blood Count 3.36L, Hemoglobin 9.2L, Hematocrit 28.2L, Mean Corpuscular Volume 84, Mean Corpuscular Hemoglobin 27.4, Mean Corpuscular Hemoglobin Concent 32.6, Red Cell Distribution Width 12.6, Platelet Count 429, Mean Platelet Volume 6.1L, Neutrophils (%) (Auto) 76.7H, Lymphocytes (%) (Auto) 17.4L, Monocytes (%) (Auto) 4.0, Eosinophils (%) (Auto) 1.1, Basophils (%) (Auto) 0.9, Sodium Level 136, Potassium Level 4.3, Chloride Level 95L, Carbon Dioxide Level 30, Anion Gap 11, Blood Urea Nitrogen 8, Creatinine 0.7, Estimat Glomerular Filtration Rate > 60, Glucose Level 115H, Calcium Level 9.2 Height (Feet): 5 Height (Inches): 5.00 Weight (Pounds): 254 Objective General: alert, cooperative, no distress, appears stated age Head: normocephalic, without obvious abnormality, atraumatic Eyes: conjunctivae/corneas clear. PERRL, EOM's intact Throat: lips, mucosa, and tongue normal. MMM Neck: supple, symmetrical, trachea midline, and no JVD Lungs: clear to auscultation bilaterally Heart: regular rate and rhythm, S1, S2 normal, no murmur, click, rub or gallop Abdomen: soft, non-tender, non-distended, bowel sounds normal; no masses or organomegaly Extremities: extremities normal, atraumatic, no cyanosis or edema Pulses: 2+ and symmetric Skin: skin color, texture, turgor normal; no rashes or lesions Neurologic: grossly normal, no focal deficits JORJE CABALLERO August 05, 2016 18:11
[2016-08-05] MEDS: PCA shift volume MISC SCH (19:15)
[2016-08-05 20:00] VITALS: BP 118/68
--- NOTE | 2016-08-05 22:45 | Consultation ---
DATE OF CONSULTATION: INFECTIOUS DISEASE CONSULTATION: ATTENDING PHYSICIANS: Kylee Curtis M.D. and Kerry Swain M.D. REASON FOR CONSULTATION: UTI, elevated white count, leukocytosis, and fever. CHIEF COMPLAINT: The patient's chief complaint coming to the hospital is hidradenitis suppurativa. HISTORY OF PRESENT ILLNESS: This is a very pleasant 21-year-old female with a history of hidradenitis suppurativa. The patient presented to [facility] with looks like bilateral drainage and pain and abscesses of the inner thigh and groin areas also look. The patient underwent surgery including bilateral groin buttocks debridement and closure. The patient was noted to have elevated white count. Workup shows that she has a positive urinalysis and could have urinary tract infection, elevated white count, and fevers questionably sepsis. The patient also has wound dehiscence. The patient undergo debridement on 08/06/2016. Infectious consultation was requested for further antibiotic management. I saw the patient on 08/04/2016. I started on vancomycin, Cipro, and Flagyl. She is allergic to penicillin that is a presumptive allergy. I believe her father had, they just taking precautions not to take penicillin because of her father's penicillin allergy. Case was discussed with Dr. Hurtado, the patient and her mother. PAST MEDICAL HISTORY: Includes history of following, she has a history of hidradenitis suppurativa, otherwise no other significant past medical history. She is status post bilateral groin and also buttocks debridement wound infection and closure. Please see past medical history in medical order. MEDICATIONS: Upon reviewing the MAR, she is on the following medications. She is on hydromorphone, Dilaudid, and Narcan. She is on Flagyl, vancomycin, and Cipro. She is getting IV fluids. She is on hydromorphone. She is on chlorhexidine, neomycin, acetaminophen, Zofran, Ambien, Tylenol, Colace, Dulcolax, MOM, MiraLAX, and Benadryl. Please see medications in medical order. ALLERGIES: Presumptive penicillin allergy. She is not sure if she has a penicillin allergy, but because of her father's severe penicillin allergy, she is cautious to take any penicillins. SOCIAL HISTORY: Negative for smoking, alcohol, or drug abuse. FAMILY HISTORY: Positive for coronary artery disease. REVIEW OF SYSTEMS: Constitutional: The patient has generalized weakness and fatigue. Today, she feels like she has hot and cold sensation, but has been no fever. She did had a fever couple of days ago. Head And Neck: No thrush or dysphagia. Cardiac: No chest pain or palpitations. GI: No nausea, vomiting, or diarrhea. She has some abdominal discomfort, has improved with bowel movement. : She has a Shepherd. Lines: She has a PICC line too. Pulmonary: No congestion or shortness of breath Skin: No rash. Extremities: No extremity pain. Neurologic: No seizures. PHYSICAL EXAMINATION: VITAL SIGNS: T-Max two day ago at night, her temperature maximum was 101.8 degrees, currently temperature 98.1 degrees, pulse rate is normal 92, respiratory rate 20, blood pressure 144/91, and saturation 98% on room air. GENERAL: Alert, responsive, and oriented x3, in no acute distress. She looks like she has little bit of generalized weakness noted today more than yesterday. HEENT: Head and Neck: Oral exam, no thrush. Eye exam, no icterus. Neck is supple. No JVD. No sinus tenderness. Normocephalic. No facial droop. No neck stiffness. HEART: Regular. No gallop or murmur. No friction or rub. LUNGS: Clear bilaterally. No rhonchi or rales. ABDOMEN: Soft. Positive bowel sounds. Nontender. No rebound. There is some discomfort. SKIN: No rash or dermatitis. MUSCULOSKELETAL: No contractures. Legs are without cellulitis. PERIPHERAL VASCULAR: No cyanosis or gangrene. RECTAL: Deferred. GENITOURINARY: She has a Shepherd. Urine is may be clear than yesterday and slightly cloudy. LINE: She has a PICC line and intact. NEUROLOGIC: Intact. Alert and oriented x3. Laboratory And Diagnostic Data: As follows, white count 16.4 yesterday 16.9, hemoglobin 9.2, neutrophils 76.7%, lymphocytes 17.4. Creatinine is normal at 0.7. UA had 3+ leukocyte esterase 06:04 white blood cels, and moderate bacteria. Urine test and HCG was negative on admission looks like. Blood and urine cultures are pending. Chest x-ray initially showed no evidence of pneumonia, but . There is no mention of evidence of pneumonia. ASSESSMENT AND PLAN: 1. The patient has fevers, elevated white count, questionable sepsis. The patient has a possible urinalysis , possible urinary tract infection questionable line infection, questionable other process. The patient has no diarrhea to suggest Clostridium difficile. The patient has dehiscence of her wounds, it is unclear if this is a cause of elevated white count. Continue antibiotics, vancomycin, Cipro, and Flagyl for gram-positive gram-negative coverage to cover the possible urinary tract infection and also infected wounds. Check cultures, labs. the patient is to undergo debridement tomorrow. 2. The patient has sensation, feeling hot and cold, it is unclear if this is related to antibiotics, however, she has no rash or itching to suggest a drug rash, but it is unclear if it is an idiosyncratic reaction to antibiotics at this time and it is unclear at this time. 3. History of documented penicillin allergy, however, this allergy is related to her father's severe allergy and she is taking precautions not to take penicillin because she is worried she could have the same reactions. 4. Hidradenitis suppurativa. Treatment per Dr. Curtis, and Dr. Swain. 5. Case discussed with Dr. Hurtado. 6. The patient has anemia . 7. Family history of coronary artery disease. 8. Social history is negative. 9. MAR was noted. 10. Case discussed with RN. 11. Case discussed with the patient. 12. Case discussed with the patient's mother. 13. Notes were reviewed. 14. Skin care per protocol. Ashkan Vaca M.D. DR: Lorie JOB#: [id number] CC:
[2016-08-06] VITALS (13 sets, daily range): BP systolic 101–145; BP diastolic 52–77
[2016-08-06] MEDS: D5 1/2NS 1,000 ML IV SCH ×2 (02:46→14:53)
[2016-08-06] MEDS: Vancomycin 1 GM in D5W 275 ML IVPB SCH ×3 (05:00→20:26)
[2016-08-06] MEDS: metroNIDAZOLE 500mg 100 ML IVPB SCH ×3 (05:40→22:24)
[2016-08-06] MEDS: Heparin 5000 units/ml inj SUBQ SCH ×3 (05:40→22:32)
[2016-08-06] MEDS: PCA shift volume MISC SCH ×2 (07:07→19:23)
[2016-08-06] MEDS: Docusate 100mg cap ORAL SCH ×2 (09:00→18:04)
[2016-08-06] MEDS: Dyna-Hex 2% Top Sol 8oz TOPIC SCH (09:09)
[2016-08-06] MEDS: Neosporin Oint 15gm TOPIC SCH ×2 (09:09→18:05)
[2016-08-06] MEDS: Hydrogen Peroxide 473ml Bottle TOPIC SCH ×2 (09:09→20:37)
[2016-08-06] MEDS ORDERED: Ketamine 500mg Inj ONE (10:00)
[2016-08-06] MEDS ORDERED: Midazolam 2mg/2ml Inj ONE (10:00)
[2016-08-06] MEDS ORDERED: LR 1000ml ONE (10:00)
[2016-08-06] MEDS ORDERED: Sterile Water Irrig 1000ml IRRIG ONE (10:00)
[2016-08-06] MEDS ORDERED: NS Irrig 1000ml ONE (10:00)
[2016-08-06] MEDS ORDERED: Morphine Sulfate 10mg/ml Inj ONE (10:00)
[2016-08-06] MEDS ORDERED: fentaNYL 100 mcg/2 mL IV ONE (10:00)
[2016-08-06] MEDS ORDERED: EPINEPHrine 1mg/1ml Amp ONE (10:27)
[2016-08-06] MEDS ORDERED: Propofol 10mg/ml 20ml IV ONE (10:27)
[2016-08-06] MEDS ORDERED: Bacitracin 50000 Units Vial ONE (10:27)
[2016-08-06] MEDS ORDERED: Lidocaine 1% 10mg/ml/Epi 0.005mg/ml 30ml vial INJ ONE ×2 (10:28→11:44)
--- NOTE | 2016-08-06 10:49 | Pre-Procedure Note/Attestation ---
Pre-Procedure Note/Attestation Complete Prior to Procedure Planned Procedure: bilateral Procedure Narrative: Bilateral groin wound washout and debridement with possible partial reclosure Indications for Procedure Pre-Operative Diagnosis: Open groin and buttock wounds Attestation I attest that I discussed the nature of the procedure; its benefits; risks and complications; and alternatives (and the risks and benefits of such alternatives ), prior to the procedure, with the patient (or the patient's legal medical center representative). I attest that, if there was a reasonable possibility of needing a blood transfusion, the patient (or the patient's legal medical center representative) was given the [place] Department [employer] Services standardized written summary, pursuant to the [place] Blood Safety Act ([place] Health and Safety Code # 1645, as amended). I attest that I re-evaluated the patient just prior to the surgery and that there has been no change in the patient's H&P, except as documented below: WILBUR COULTER August 06, 2016 10:49
[2016-08-06] MEDS ORDERED: Metoclopramide 10mg/2ml Inj IVP PRN ×2 (11:00→11:45)
[2016-08-06] MEDS ORDERED: LR 1000ml 1,000 ML IVLG SCH (11:42)
--- NOTE | 2016-08-06 11:42 | Anethesia Preoperative Eval ---
Anesthesia Pre-op PMH/ROS General Date of Evaluation: August 06, 2016 Time of Evaluation: 10:52 Anesthesiologist: Kleber ASA Score: ASA 3 Mallampati Score Class I : Soft palate, uvula, fauces, pillars visible Class II: Soft palate, uvula, fauces visible Class III: Soft palate, base of uvula visible Class IV: Only hard plate visible Mallampati Classification: Class III Surgeon: Brnyn Diagnosis: Recurrent hydradenitis Surgical Procedure: Revision and partial closure of bilateral grouin wounds Anesthesia History: none Family History: no anesthesia problems Allergies: Coded Allergies: PENICILLINS (Verified Allergy, Unknown, 07/22/16) Pt states she was never tested for the allergy. Pt's father had severe allergy to PCN so pt takes does not take PCN medications for precaution. Medications: see eMAR Past Medical History Cardiovascular: Denies: CAD, HTN, ND, arrhythmia, other, valve dz Pulmonary: Denies: COPD, KATHY, asthma, other Gastrointestinal/Genitourinary: Reports: GERD, Denies: CRI, ESRD, other Neurologic/Psychiatric: Reports: depression/anxiety, Denies: CVA, TIA, dementia, other Endocrine: Denies: DM, hypothyroidism, other, steroids HEENT: Denies: WAINWRIGHT (L), WAINWRIGHT (R), cataract (L), cataract (R), glaucoma, other Hematology/Immune: Reports: anemia, Denies: DVT, bleeding disorder, other Musculoskeletal/Integumentary: Reports: other - Recurrent HS, Denies: DDD, DJD, OA, RA, edema Other: obesity PMH Narrative: as above PSxH Narrative: Multiple Sx for HS treatment Anesthesia Pre-op Phys. Exam Physician Exam Last Vital Signs Date Time Temp Pulse Resp B/P Pulse Ox O2 Delivery O2 Flow Rate FiO2 08/06/16 08:15 97 Room Air 21 08/06/16 08:00 97.7 79 17 112/54 07/30/16 19:15 2.0 Constitutional: NAD Neurologic: CN 2-12 intact Cardiovascular: RRR, no M/R/G Gastrointestinal: other - obesity Airway Exam Mallampati Score: Class III MO: full Neck: flexible ROM: full Teeth: intact Dentures: no lower, no upper Anesthesia Pre-op A/P Labs see chart Risk Assessment & Plan Assessment: ASA 3 Plan: GA with LMA Status Change Before Surgery: No Pre-Antibiotics Drug: as scheduled Given Within 1 Hr of Incision: No ADELA GARCIA M.D. August 06, 2016 11:42
[2016-08-06] MEDS ORDERED: Meperidine 25mg/0.5ml Inj IV PRN (11:45)
[2016-08-06] MEDS ORDERED: Ketorolac 30mg Inj IV PRN (11:45)
[2016-08-06] MEDS ORDERED: Midazolam 2mg/2ml Inj IVP PRN (11:45)
[2016-08-06] MEDS ORDERED: DiphenhydrAMINE 50mg/ml Inj IVP PRN (11:45)
[2016-08-06] MEDS ORDERED: fentaNYL 100 mcg/2 mL IV PRN (11:45)
[2016-08-06] MEDS ORDERED: Surgicel 4in x 8in TOPIC ONE ×2 (11:56→12:04)
--- NOTE | 2016-08-06 12:34 | Operative Note - PDOC ---
Operative Note Operative Note Pre-op Diagnosis: Open groin and buttock wounds Procedure: Partial closure of bilateral groin wounds with wound vac placement Post-op Diagnosis: same as pre-op Surgeon: Brynn Feeder Worker Power Unit Operator: Bella Anesthesia: general Specimen: yes Complications: none Condition: stable Estimated Blood Loss: minimal Drains: wound vac Implant(s) used?: No WILBUR COULTER August 06, 2016 12:34
[2016-08-06] MEDS ORDERED: PCA HYDROmorphone 1mg/ml 30 ML IV PRN (13:15)
[2016-08-06] MEDS: PCA HYDROmorphone 1mg/ml 30 ML IV PRN (13:19)
[2016-08-06] MEDS ORDERED: Rate Change PCA 1 Each MISC PRN (13:30)
--- NOTE | 2016-08-06 13:55 | Immediate Post-Op Evaluation ---
Immediate Post-Op Evalulation Immediate Post-Op Evalulation Procedure: Revision of bilateral groin wounds with woundvac placement Date of Evaluation: August 06, 2016 Time of Evaluation: 12:48 IV Fluids: 600 Blood Products: none Estimated Blood Loss: min Urinary Output: none Blood Pressure Systolic: 115 Blood Pressure Diastolic: 72 Pulse Rate: 84 Respiratory Rate: 22 O2 Sat by Pulse Oximetry: 99 Temperature (Fahrenheit): 98.3 Pain Score (1-10): 3 Nausea: No Vomiting: No Complications none Patient Status: awake, patent, none Hydration Status: adequate ADELA GARCIA M.D. August 06, 2016 13:55
--- NOTE | 2016-08-06 19:19 | General Progress Note ---
Assessment/Plan Problem List: (1) Abscess ICD Codes: L02.91 - Cutaneous abscess, unspecified SNOMED: 471020053 (2) Hidradenitis suppurativa ICD Codes: L73.2 - Hidradenitis suppurativa SNOMED: 14372378 Assessment/Plan Cont IV abx Supp care Pain control DVT ppx Bowel regimen Wound care per plastics A total of 32 mins of additional time was spent beyond the face to face time Subjective Date patient seen: August 06, 2016 Time patient seen: 19:19 ROS Limited/Unobtainable: No Allergies: Coded Allergies: PENICILLINS (Verified Allergy, Unknown, 07/22/16) Pt states she was never tested for the allergy. Pt's father had severe allergy to PCN so pt takes does not take PCN medications for precaution. Subjective No acute overnight events, no new complaints. No chest pain or dyspnea, no n/v, postop pain well controlled. Objective Last 24 Hour Vital Signs Date Time Temp Pulse Resp B/P Pulse Ox O2 Delivery O2 Flow Rate FiO2 08/06/16 16:00 97.9 91 20 145/77 100 Nasal Cannula 3.0 08/06/16 14:00 98.9 86 18 101/72 100 Nasal Cannula 3.0 08/06/16 14:00 19 08/06/16 13:55 84 22 99 08/06/16 13:45 85 17 105/74 100 Nasal Cannula 3.0 08/06/16 13:45 18 08/06/16 13:30 20 08/06/16 13:30 98.9 08/06/16 13:30 98.9 08/06/16 13:30 91 19 107/74 100 Nasal Cannula 3.0 08/06/16 13:20 93 18 112/70 100 Nasal Cannula 3.0 08/06/16 13:19 19 08/06/16 13:05 94 17 124/76 100 Nasal Cannula 3.0 08/06/16 12:55 101 18 123/76 100 Nasal Cannula 3.0 08/06/16 12:50 89 16 129/77 100 Simple Mask 6.0 08/06/16 12:44 99.2 93 14 112/54 100 Simple Mask 6.0 08/06/16 08:15 97 Room Air 21 08/06/16 08:15 Room Air 21 08/06/16 08:00 97.7 79 17 112/54 99 Room Air 08/06/16 04:00 18 08/06/16 04:00 97.7 79 18 112/54 99 Room Air 08/06/16 00:00 97.9 82 18 105/52 98 Room Air 08/06/16 00:00 18 08/05/16 20:00 18 08/05/16 20:00 97.5 91 18 118/68 98 Room Air Intake and Output 08/05/16 08/06/16 19:00 07:00 Intake Total 2102.4 ml 300 ml Output Total 3225 ml 950 ml Balance -1122.6 ml -650 ml Intake Oral 960 ml IV Total 1142.4 ml 300 ml Output Urine Total 3225 ml 950 ml # Bowel Movements 2 Height (Feet): 5 Height (Inches): 5.00 Weight (Pounds): 254 Objective General: alert, cooperative, no distress, appears stated age Head: normocephalic, without obvious abnormality, atraumatic Eyes: conjunctivae/corneas clear. PERRL, EOM's intact Throat: lips, mucosa, and tongue normal. MMM Neck: supple, symmetrical, trachea midline, and no JVD Lungs: clear to auscultation bilaterally Heart: regular rate and rhythm, S1, S2 normal, no murmur, click, rub or gallop Abdomen: soft, non-tender, non-distended, bowel sounds normal; no masses or organomegaly Extremities: extremities normal, atraumatic, no cyanosis or edema Pulses: 2+ and symmetric Skin: skin color, texture, turgor normal; no rashes or lesions Neurologic: grossly normal, no focal deficits JORJE CABALLERO August 06, 2016 19:19
--- NOTE | 2016-08-06 19:32 | Operative Note - Dictated ---
DATE OF OPERATION: 08/06/2016 PREOPERATIVE DIAGNOSIS: Bilateral open groin wounds, status post dehiscence from previous reconstruction. POSTOPERATIVE DIAGNOSIS: Bilateral open groin wounds, status post dehiscence from previous reconstruction. PROCEDURES: 1. Preparation and debridement of left groin wound for partial wound closure. 2. Adjacent tissue transfer, partial closure of the left groin wound measuring 18 x 12 cm. 3. Preparation and debridement of right groin wound for partial closure status post wound dehiscence. 4. Adjacent tissue transfer, partial closure of the right groin wound measuring 20 x 14 cm. 5. Bilateral wound VAC placement to both groin wounds. SURGEON: Kerry Swain M.D. ASSOCIATE CONSULTING ENGINEER: Farnaz Blanco M.D. ANESTHESIA: General. COMPLICATIONS: None. DRAINS: Bilateral wound VAC to the groin. EBL: Approximately 25 mL. DISPOSITION: Stable to the recovery room. INDICATIONS FOR SURGERY: This is a 21-year-old female who is status post radical excision and reconstruction of bilateral groin wounds. She was doing well postoperatively up to about postop day #5, where it was noted that her wounds were starting to dehisce. She underwent conservative wound management and I felt that it was appropriate to perform debridement and preparation of the wound for partial reclosure and wound VAC placement. She understood the risks and benefits of surgery and agreed to proceed. DETAILS OF THE OPERATION: The patient was brought to the operating room and laid in the lithotomy position on the operating room table. Her lower abdomen and bilateral upper thigh, groin, and perineal regions were prepped and draped in the sterile and usual fashion. We first began by removing all the previously placed sutures and began on the right side by debriding the nonviable tissues present and the wound edges as well as the base of the wound. The wound was debrided down to healthy punctate bleeding, and on the right side we felt that it was appropriate to perform partial closure of the superior and inferior aspects of the wound. As such, the superior aspect of the wound following debridement was re-closed with re-advancement of the previously raised medial thigh flap to the opposing edge and the adjacent tissue transfer of this area was completed using 0 and 2-0 Vicryl sutures with jerrod used to close the skin. In a similar fashion, the inferior aspect of the wound was also deemed to be appropriate for closure. As such, the previously raised medial thigh flap was then re-advanced to allow for adjacent tissue transfer and re-advancement to the opposing edge using 0 and 2-0 Vicryl sutures with jerrod, and this diminished the size of the wound by approximately 40%. The remaining opening was then covered with Surgicel and the wound VAC. In a similar fashion, the contralateral left groin wound was addressed with debridement down to healthy punctate bleeding, and after preparation of the wound for re-closure the superior and inferior aspects were again felt to be appropriate for closure. This was done following debridement. The superior aspect was closed with re-elevation of the previously raised medial thigh flap to allow for adjacent tissue transfer to the opposing edge using 0 and 2-0 Vicryl sutures and jerrod for the skin, and the inferior aspect of the thigh wound was also closed in a similar fashion by re-raising the medial thigh flap as much as it was necessary to close the wound, and the adjacent tissue transfer was completed to the opposing edge using 0 and 2-0 Vicryl sutures and jerrod to close the skin. This also reduced the size of the wound by approximately 50%. In a similar fashion, the central portion of the wound was then dressed with placement of Surgicel and the wound VAC. The wound VAC was then placed on Y-connector and was noted to be functioning well at high continuous suction. PLAN: The plan will be to bring the patient back to the operating room in 72 hours for another exam under anesthesia with probable repeat wound VAC change. Kerry Swain M.D. DR: REINA JOB#: [id number] CC:
[2016-08-06] MEDS ORDERED: Zolpidem 5mg tab ORAL PRN (21:00)
[2016-08-07 00:12] VITALS: BP 111/53
[2016-08-07 04:00] VITALS: BP 104/52
[2016-08-07] MEDS: Vancomycin 1 GM in D5W 275 ML IVPB SCH ×3 (04:27→20:11)
[2016-08-07] MEDS: D5 1/2NS 1,000 ML IV SCH ×2 (05:20→12:08)
[2016-08-07] MEDS: metroNIDAZOLE 500mg 100 ML IVPB SCH ×3 (06:00→21:47)
[2016-08-07] MEDS: Heparin 5000 units/ml inj SUBQ SCH ×3 (06:07→21:52)
[2016-08-07 06:58] LABS: BASOPHILS % (AUTO) 1.1 % (0.0-2.0); EOSINOPHILS % (AUTO) 1.2 % (0.0-3.0); LYMPHOCYTES % (AUTO) 15.5 % (20.0-45.0); MEAN CORPUSCULAR HEMOGLOBIN 26.5 PG (27.0-31.0); MEAN CORPUSCULAR HGB CONC 31.7 G/DL (32.0-36.0); MEAN CORPUSCULAR VOLUME 84 FL (80-99); MEAN PLATELET VOLUME 5.9 FL (6.5-10.1); MONOCYTES % (AUTO) 8.4 % (1.0-10.0); NEUTROPHILS % (AUTO) 73.8 % (45.0-75.0); PLATELET COUNT 412 K/UL (150-450); RED BLOOD COUNT 3.13 M/UL (4.20-5.40); RED CELL DISTRIBUTION WIDTH 12.8 % (11.6-14.8); WHITE BLOOD COUNT 13.5 K/UL (4.8-10.8)
[2016-08-07 07:05] LABS: ANION GAP 9 (5-15); CALCIUM 8.8 mg/dL (8.6-10.2); CARBON DIOXIDE 30 mEQ/L (20-30); CHLORIDE 97 mEQ/L (98-107); CREATININE 0.8 mg/dL (0.5-0.9); GLOMERULAR FILTRATION RATE > 60 mL/min (>60); HEMOLYSIS 0; POTASSIUM 4.5 mEQ/L (3.4-4.9); SODIUM 136 mEQ/L (135-145)
[2016-08-07] MEDS: PCA shift volume MISC SCH ×2 (07:19→19:05)
[2016-08-07 08:00] VITALS: BP 108/58
--- NOTE | 2016-08-07 08:34 | General Progress Note ---
Progress Note Progress Note Pt seen and examined. POD# 1 from washout and debridement of bilateral groin wounds. Doing well and wound vac functioning. WBC down from 16 to 13. Plan for OR EUA and wound vac change on Friday. Continue abx and pain meds. WILBUR Marrero MD August 07, 2016 08:34
[2016-08-07] MEDS: Neosporin Oint 15gm TOPIC SCH ×3 (08:56→17:52)
[2016-08-07] MEDS: Docusate 100mg cap ORAL SCH ×2 (08:56→17:45)
[2016-08-07] MEDS: Dyna-Hex 2% Top Sol 8oz TOPIC SCH (08:56)
--- NOTE | 2016-08-07 09:20 | 48 Hour Post Anesthesia Eval ---
Post Anesthesia Evaluation Procedure: Revision of bilateral groin wounds with woundvac placement Date of Evaluation: August 07, 2016 Time of Evaluation: 09:21 Blood Pressure Systolic: 108 0: 58 Pulse Rate: 90 Respiratory Rate: 20 Temperature (Fahrenheit): 98.2 O2 Sat by Pulse Oximetry: 97 Airway: patent Nausea: No Vomiting: No Pain Intensity: 2 Hydration Status: adequate Cardiopulmonary Status: Stable Mental Status/LOC: patient returned to baseline Follow-up Care/Observations: 0 Post-Anesthesia Complications: 0 Follow-up care needed: N/A Jace Calles MD August 07, 2016 09:19
[2016-08-07] MEDS ORDERED: Tubing IV Secondary IV ONE (10:51)
[2016-08-07 12:00] VITALS: BP 109/60
--- NOTE | 2016-08-07 13:22 | Infectious Diseases Prog Note ---
Assessment/Plan Assessment/Plan A) 1) pseudomonas uti, ? sepsis, leukocytoses, fevers - leukocytosis better, lgt post surgery 2) bilateral groin/buttocks wound infection, s/p debridement and closure, + wound dehiscence - s/p debridement and partial closure 3) hidradenitis suppurativa 4) ? hot/cold sensations - ? secondary to abx, no rash, no itching 5) ? pcn allergy - patients father with severe pcn allergy but unclear if patient has true pcn allergy 6) sh-negative, fh-cad, mar noted, notes and records reviewed 7) d/w RN P) 1) vancomycin, cipro and flagyl for now 2) watch labs - cr and wbc 3) continue treatment per Dr. Curtis and Dr. Swain 4) orders entered and noted 5) d/w patient and mother Subjective Constitutional: Denies: fever HEENT: Denies: congestion Respiratory: Denies: shortness of breath Cardiovascular: Denies: chest pain Gastrointestinal/Abdominal: Denies: nausea, vomiting Genitourinary: Reports: other - + lopez Neurologic: Denies: headache Psychiatric: Denies: depression Skin: Denies: rash Hematologic: Denies: bleeding Musculoskeletal: Denies: pain Allergies: Coded Allergies: PENICILLINS (Verified Allergy, Unknown, 07/22/16) Pt states she was never tested for the allergy. Pt's father had severe allergy to PCN so pt takes does not take PCN medications for precaution. Objective Vital Signs Last 24 Hour Vital Signs Date Time Temp Pulse Resp B/P Pulse Ox O2 Delivery O2 Flow Rate FiO2 08/07/16 12:35 98.2 08/07/16 12:00 97.7 88 18 109/60 98 Room Air 08/07/16 09:22 98.2 08/07/16 09:19 90 20 97 08/07/16 08:00 18 08/07/16 08:00 98.2 90 20 108/58 97 Room Air 08/07/16 04:00 98.4 92 18 104/52 98 Room Air 08/07/16 00:12 99.5 96 20 111/53 97 Room Air 08/07/16 00:00 19 08/06/16 20:00 98.2 95 19 102/55 98 Room Air 08/06/16 20:00 19 08/06/16 19:45 Room Air 21 08/06/16 19:44 99 Room Air 21 08/06/16 16:00 97.9 91 20 145/77 100 Nasal Cannula 3.0 08/06/16 14:00 98.9 86 18 101/72 100 Nasal Cannula 3.0 08/06/16 14:00 19 08/06/16 13:55 84 22 99 08/06/16 13:45 85 17 105/74 100 Nasal Cannula 3.0 08/06/16 13:45 18 08/06/16 13:30 20 08/06/16 13:30 98.9 08/06/16 13:30 98.9 08/06/16 13:30 91 19 107/74 100 Nasal Cannula 3.0 08/06/16 13:20 93 18 112/70 100 Nasal Cannula 3.0 08/06/16 13:19 19 Height (Feet): 5 Height (Inches): 5.00 Weight (Pounds): 254 General Appearance: no acute distress HEENT: normocephalic, atraumatic, anicteric, mucous membranes moist, PERRL, EOMI, pharynx normal, supple, no JVD Respiratory/Chest: lungs clear, normal breath sounds, no respiratory distress, no accessory muscle use Cardiovascular: normal rate, regular rhythm, no gallop/murmur, no JVD Abdomen: normal bowel sounds, soft, non tender, no organomegaly, non distended Genitourinary: other - + lopez - urine clearer Extremities: no cyanosis Skin: no rash, other - wounds covered 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, alert, oriented x 3, responsive Lymphatic: no neck adenopathy Musculoskeletal: no effusion Objective no recent chest x-ray Microbiology Date/Time Source Procedure Growth Status 08/04/16 16:10 Indwelling Cath Urine Culture - Final Pseudomonas Aeruginosa Complete Laboratory Tests Test 08/06/16 20:18 08/07/16 06:05 Vancomycin Level Trough 17.8 ug/mL (5.0-12.0) H White Blood Count 13.5 K/UL (4.8-10.8) H Red Blood Count 3.13 M/UL (4.20-5.40) L Hemoglobin 8.3 G/DL (12.0-16.0) L Hematocrit 26.1 % (37.0-47.0) L Mean Corpuscular Volume 84 FL (80-99) Mean Corpuscular Hemoglobin 26.5 PG (27.0-31.0) L Mean Corpuscular Hemoglobin Concent 31.7 G/DL (32.0-36.0) L Red Cell Distribution Width 12.8 % (11.6-14.8) Platelet Count 412 K/UL (150-450) Mean Platelet Volume 5.9 FL (6.5-10.1) L Neutrophils (%) (Auto) 73.8 % (45.0-75.0) Lymphocytes (%) (Auto) 15.5 % (20.0-45.0) L Monocytes (%) (Auto) 8.4 % (1.0-10.0) Eosinophils (%) (Auto) 1.2 % (0.0-3.0) Basophils (%) (Auto) 1.1 % (0.0-2.0) Sodium Level 136 mEQ/L (135-145) Potassium Level 4.5 mEQ/L (3.4-4.9) Chloride Level 97 mEQ/L (98-107) L Carbon Dioxide Level 30 mEQ/L (20-30) Anion Gap 9 (5-15) Blood Urea Nitrogen 7 mg/dL (7-23) Creatinine 0.8 mg/dL (0.5-0.9) Estimat Glomerular Filtration Rate > 60 mL/min (>60) Glucose Level 114 mg/dL (74-106) H Calcium Level 8.8 mg/dL (8.6-10.2) Current Medications Medications (Trade) Dose Ordered Sig/Loren Route PRN Reason Start Time Stop Time Status Last Admin Dose Admin Acetaminophen 650 mg 650 mg Q4H PRN ORAL T>100.5 08/06/16 11:00 09/05/16 10:59 Bisacodyl (Dulcolax) 10 mg HSPRN PRN RECTAL Constipation THIRD LINE AGENT 07/22/16 15:15 08/21/16 15:14 Chlorhexidine Gluconate 1 applic 1 applic DAILY TOPIC 08/02/16 12:00 09/01/16 11:59 08/07/16 08:56 Ciprofloxacin 200 ml @ 200 mls/hr Q12H IV 08/04/16 18:00 08/11/16 17:59 08/07/16 06:00 Dextrose (Dextrose 50%) STAT PRN IV Hypoglycemia 07/22/16 15:15 08/21/16 15:14 Dextrose/Sodium Chloride (D5 0.45% NS) 1,000 ml @ 75 mls/hr [id number] IV 07/22/16 16:00 08/21/16 15:59 08/07/16 12:08 Diphenhydramine HCl (Benadryl) 25 mg Q6H PRN ORAL Itching/Pruritis 07/22/16 15:15 08/21/16 15:14 Docusate Sodium (Colace) 100 mg TWICE A DAY ORAL 08/06/16 18:00 09/05/16 17:59 08/07/16 08:56 Heparin Sodium (Porcine) (Heparin 5000 units/ml) 5,000 units EVERY 8 HOURS SUBQ 08/06/16 22:00 09/05/16 21:59 08/07/16 06:07 Hydromorphone HCl (Dilaudid) 2 mg Q3H PRN SUBQ Severe Pain (Pain Scale 7-10) 08/06/16 13:30 08/08/16 13:29 08/07/16 08:52 Hydromorphone HCl (Dilaudid) 2 mg Q4H PRN IVP Moderate Pain (Pain Scale 4-6) 08/06/16 13:30 08/08/16 13:29 08/07/16 12:05 Hydromorphone HCl (BOX CLOSING MACHINE OPERATOR Dilaudid) 30 ml @ 0 mls/hr Q24H PRN IV For Pain 08/06/16 13:30 08/08/16 13:29 08/06/16 13:19 Magnesium Hydroxide (Mom) 30 ml HSPRN PRN ORAL Constipation SECOND LINE AGENT 07/22/16 15:15 08/21/16 15:14 07/27/16 23:58 Metoclopramide HCl (Reglan) 10 mg Q6H PRN IVP Nausea & Vomiting 08/06/16 11:00 09/05/16 10:59 Metronidazole (Flagyl) 100 ml @ 100 mls/hr Q8HR IVPB 08/04/16 22:00 08/11/16 21:59 08/07/16 06:00 Miscellaneous Medication (BOX CLOSING MACHINE OPERATOR Rate Change) 1 ea DAILY PRN MISC rate change 08/06/16 13:30 08/08/16 13:29 Miscellaneous Medication (BOX CLOSING MACHINE OPERATOR shift volume) 1 ea Q12HR@0700,1900 MISC 08/06/16 19:00 08/08/16 18:59 08/07/16 07:19 Naloxone HCl (Narcan) 0.1 mg PRN IV . 08/06/16 13:30 08/08/16 13:29 Neomycin/ Polymyxin/ Bacitracin (Neosporin Oint 15gm) 1 applic TWICE A DAY TOPIC 07/30/16 16:30 08/29/16 16:29 08/07/16 08:56 Ondansetron HCl (Zofran) 4 mg Q6H PRN IVP Nausea & Vomiting 08/06/16 15:00 09/05/16 14:59 Polyethylene Glycol (Miralax) 17 gm HSPRN PRN ORAL Constipation FIRST LINE AGENT 07/22/16 15:15 08/21/16 15:14 Vancomycin HCl (Vanco rx to dose) 1 ea DAILY PRN MISC Per rx protocol 07/26/16 17:15 08/25/16 17:14 Vancomycin HCl 1 gm/Dextrose 275 ml @ 183.708 mls/hr Q8HR@0500,1300,2100 IVPB 08/04/16 21:00 08/14/16 23:59 08/07/16 04:27 Zolpidem Tartrate (Ambien) 5 mg HSPRN PRN ORAL Insomnia 08/06/16 21:00 09/05/16 20:59 DAVION BISWAS August 07, 2016 13:22
[2016-08-07] MEDS: PCA HYDROmorphone 1mg/ml 30 ML IV PRN (14:42)
[2016-08-07 16:00] VITALS: BP 128/63
--- NOTE | 2016-08-07 19:10 | General Progress Note ---
Assessment/Plan Problem List: (1) Abscess ICD Codes: L02.91 - Cutaneous abscess, unspecified SNOMED: 004456880 (2) Hidradenitis suppurativa ICD Codes: L73.2 - Hidradenitis suppurativa SNOMED: 75911118 Assessment/Plan Cont IV abx Supp care Pain control DVT ppx Bowel regimen Wound care per plastics A total of 32 mins of additional time was spent beyond the face to face time Subjective Date patient seen: August 07, 2016 Time patient seen: 19:09 ROS Limited/Unobtainable: No Allergies: Coded Allergies: PENICILLINS (Verified Allergy, Unknown, 07/22/16) Pt states she was never tested for the allergy. Pt's father had severe allergy to PCN so pt takes does not take PCN medications for precaution. Subjective No acute overnight events, no new complaints. No chest pain or dyspnea, no n/v, postop pain well controlled. Objective Last 24 Hour Vital Signs Date Time Temp Pulse Resp B/P Pulse Ox O2 Delivery O2 Flow Rate FiO2 08/07/16 16:42 98.2 08/07/16 16:00 98.1 87 19 128/63 99 Room Air 08/07/16 16:00 18 08/07/16 15:12 98.2 08/07/16 14:42 18 08/07/16 14:42 18 08/07/16 12:00 97.7 88 18 109/60 98 Room Air 08/07/16 12:00 19 08/07/16 09:22 98.2 08/07/16 09:19 90 20 97 08/07/16 08:00 18 08/07/16 08:00 98.2 90 20 108/58 97 Room Air 08/07/16 04:00 98.4 92 18 104/52 98 Room Air 08/07/16 00:12 99.5 96 20 111/53 97 Room Air 08/07/16 00:00 19 08/06/16 20:00 98.2 95 19 102/55 98 Room Air 08/06/16 20:00 19 08/06/16 19:45 Room Air 21 08/06/16 19:44 99 Room Air 21 Intake and Output 08/06/16 08/07/16 19:00 07:00 Intake Total 1200 ml 1260 ml Output Total 450 ml 1400 ml Balance 750 ml -140 ml Intake Oral 200 ml 360 ml IV Total 1000 ml 900 ml Output Urine Total 400 ml 1350 ml Drainage Total 50 ml Estimated Blood Loss 50 ml # Voids 2 Laboratory Tests 08/06/16 20:18: Vancomycin Level Trough 17.8H 08/07/16 06:05: White Blood Count 13.5H, Red Blood Count 3.13L, Hemoglobin 8.3L, Hematocrit 26.1L, Mean Corpuscular Volume 84, Mean Corpuscular Hemoglobin 26.5L, Mean Corpuscular Hemoglobin Concent 31.7L, Red Cell Distribution Width 12.8, Platelet Count 412, Mean Platelet Volume 5.9L, Neutrophils (%) (Auto) 73.8, Lymphocytes (%) (Auto) 15.5L, Monocytes (%) (Auto) 8.4, Eosinophils (%) (Auto) 1.2, Basophils (%) (Auto) 1.1, Sodium Level 136, Potassium Level 4.5, Chloride Level 97L, Carbon Dioxide Level 30, Anion Gap 9, Blood Urea Nitrogen 7, Creatinine 0.8, Estimat Glomerular Filtration Rate > 60, Glucose Level 114H, Calcium Level 8.8 Height (Feet): 5 Height (Inches): 5.00 Weight (Pounds): 254 Objective General: alert, cooperative, no distress, appears stated age Head: normocephalic, without obvious abnormality, atraumatic Eyes: conjunctivae/corneas clear. PERRL, EOM's intact Throat: lips, mucosa, and tongue normal. MMM Neck: supple, symmetrical, trachea midline, and no JVD Lungs: clear to auscultation bilaterally Heart: regular rate and rhythm, S1, S2 normal, no murmur, click, rub or gallop Abdomen: soft, non-tender, non-distended, bowel sounds normal; no masses or organomegaly Extremities: extremities normal, atraumatic, no cyanosis or edema Pulses: 2+ and symmetric Skin: skin color, texture, turgor normal; no rashes or lesions Neurologic: grossly normal, no focal deficits JORJE CABALLERO August 07, 2016 19:10
[2016-08-07 20:08] VITALS: BP 104/63
[2016-08-08] VITALS: BP 108/61
[2016-08-08 04:00] VITALS: BP 103/58
[2016-08-08] MEDS: Vancomycin 1 GM in D5W 275 ML IVPB SCH ×3 (05:06→20:58)
[2016-08-08] MEDS: metroNIDAZOLE 500mg 100 ML IVPB SCH ×3 (06:07→23:13)
[2016-08-08] MEDS: Heparin 5000 units/ml inj SUBQ SCH ×3 (06:10→21:07)
[2016-08-08 06:37] LABS: TROPONIN I < 0.30 ng/mL (<=0.30)
[2016-08-08] MEDS: PCA shift volume MISC SCH ×2 (07:11→19:00)
[2016-08-08] MEDS: [UNRECOGNIZED DRUG - OTHER] IV SCH ×2 (07:30→09:49)
[2016-08-08] MEDS: CIPRO IV SCH ×2 (07:30→09:49)
[2016-08-08] MEDS: D5 1/2NS 1,000 ML IV SCH ×3 (08:00→20:58)
[2016-08-08] MEDS: Neosporin Oint 15gm TOPIC SCH ×3 (08:37→16:15)
[2016-08-08] MEDS: Dyna-Hex 2% Top Sol 8oz TOPIC SCH (08:37)
[2016-08-08] MEDS: Docusate 100mg cap ORAL SCH ×2 (08:37→17:28)
[2016-08-08 09:16] LABS: TROPONIN I < 0.30 ng/mL (<=0.30)
--- NOTE | 2016-08-08 11:38 | Diagnostic Imaging Report ---
APPROVED REPORT CPT Code: 70454 Present Symptoms Comments: Hx of Hidradenitis Post op groin area dressings (BLE) BILATERAL: Imaging reveals a patent deep venous system bilaterally. There is no evidence of thrombus within the mid to distal superficial femoral, popliteal or tibial segments. Doppler indicates normal spontaneous flow within these segments. Unable to assess the common, proximal superficial femoral and greater saphenous veins due to open surgery wounds, bilaterally.
[2016-08-08 12:00] VITALS: BP 119/60
[2016-08-08] MEDS ORDERED: Rate Change PCA 1 Each MISC PRN (14:00)
[2016-08-08] MEDS ORDERED: PCA HYDROmorphone 1mg/ml 30 ML IV PRN (14:00)
[2016-08-08] MEDS ORDERED: Naloxone 0.4mg/ml Inj IVP PRN (14:00)
[2016-08-08 16:00] VITALS: BP 124/79
--- NOTE | 2016-08-08 17:00 | General Progress Note ---
Assessment/Plan Problem List: (1) Abscess ICD Codes: L02.91 - Cutaneous abscess, unspecified SNOMED: 347606695 (2) Hidradenitis suppurativa ICD Codes: L73.2 - Hidradenitis suppurativa SNOMED: 12586435 Assessment/Plan Cont IV abx Supp care Pain control DVT ppx Bowel regimen Wound care per plastics A total of 32 mins of additional time was spent beyond the face to face time Subjective Date patient seen: August 08, 2016 Time patient seen: 16:59 ROS Limited/Unobtainable: No Allergies: Coded Allergies: PENICILLINS (Verified Allergy, Unknown, 07/22/16) Pt states she was never tested for the allergy. Pt's father had severe allergy to PCN so pt takes does not take PCN medications for precaution. Subjective No acute overnight events, no new complaints. No chest pain or dyspnea, no n/v, postop pain well controlled. Objective Last 24 Hour Vital Signs Date Time Temp Pulse Resp B/P Pulse Ox O2 Delivery O2 Flow Rate FiO2 08/08/16 16:42 98.2 08/08/16 16:03 18 08/08/16 14:49 98.2 08/08/16 14:19 18 08/08/16 14:19 18 08/08/16 12:00 98.2 82 20 119/60 98 Room Air 08/08/16 12:00 18 08/08/16 09:21 98.2 08/08/16 08:00 18 08/08/16 04:00 98.2 75 16 103/58 95 Room Air 08/08/16 01:34 98.4 08/08/16 00:00 100.8 99 16 108/61 97 Room Air 08/08/16 00:00 16 08/07/16 20:08 99.5 98 16 104/63 98 Room Air 08/07/16 20:00 16 Intake and Output 08/07/16 08/08/16 19:00 07:00 Intake Total 1062.5 ml Output Total 1585 ml 2110 ml Balance -522.5 ml -2110 ml Intake Oral 200 ml IV Total 862.5 ml Output Urine Total 1550 ml 2000 ml Drainage Total 35 ml 110 ml Laboratory Tests 08/08/16 06:10: Troponin I < 0.30 5/25/17 08:45: Troponin I < 0.30 Height (Feet): 5 Height (Inches): 5.00 Weight (Pounds): 254 Objective General: alert, cooperative, no distress, appears stated age Head: normocephalic, without obvious abnormality, atraumatic Eyes: conjunctivae/corneas clear. PERRL, EOM's intact Throat: lips, mucosa, and tongue normal. MMM Neck: supple, symmetrical, trachea midline, and no JVD Lungs: clear to auscultation bilaterally Heart: regular rate and rhythm, S1, S2 normal, no murmur, click, rub or gallop Abdomen: soft, non-tender, non-distended, bowel sounds normal; no masses or organomegaly Extremities: extremities normal, atraumatic, no cyanosis or edema Pulses: 2+ and symmetric Skin: skin color, texture, turgor normal; no rashes or lesions Neurologic: grossly normal, no focal deficits JORJE CABALLERO August 08, 2016 17:00
[2016-08-08] MEDS ORDERED: Tubing IV Secondary IV ONE (17:48)
[2016-08-08 20:00] VITALS: BP 115/64
[2016-08-09] VITALS (13 sets, daily range): BP systolic 104–157; BP diastolic 48–99
[2016-08-09] MEDS: Vancomycin 1 GM in D5W 275 ML IVPB SCH ×3 (04:50→20:55)
[2016-08-09] MEDS: metroNIDAZOLE 500mg 100 ML IVPB SCH ×3 (06:23→22:00)
[2016-08-09] MEDS: Heparin 5000 units/ml inj SUBQ SCH ×3 (06:33→23:01)
[2016-08-09] MEDS: PCA shift volume MISC SCH ×2 (07:13→19:12)
[2016-08-09 07:24] LABS: BASOPHILS % (AUTO) 1.6 % (0.0-2.0); EOSINOPHILS % (AUTO) 1.4 % (0.0-3.0); LYMPHOCYTES % (AUTO) 23.1 % (20.0-45.0); MEAN CORPUSCULAR HEMOGLOBIN 26.8 PG (27.0-31.0); MEAN CORPUSCULAR HGB CONC 32.2 G/DL (32.0-36.0); MEAN CORPUSCULAR VOLUME 83 FL (80-99); MEAN PLATELET VOLUME 6.2 FL (6.5-10.1); NEUTROPHILS % (AUTO) 62.8 % (45.0-75.0); PLATELET COUNT 335 K/UL (150-450); RED BLOOD COUNT 3.03 M/UL (4.20-5.40); WHITE BLOOD COUNT 7.6 K/UL (4.8-10.8)
[2016-08-09 07:33] LABS: ANION GAP 10 (5-15); CARBON DIOXIDE 31 mEQ/L (20-30); CHLORIDE 95 mEQ/L (98-107); CREATININE 0.8 mg/dL (0.5-0.9); GLOMERULAR FILTRATION RATE > 60 mL/min (>60); HEMOLYSIS 0; SODIUM 136 mEQ/L (135-145)
[2016-08-09] MEDS: Dyna-Hex 2% Top Sol 8oz TOPIC SCH ×2 (09:00→16:51)
[2016-08-09] MEDS: Neosporin Oint 15gm TOPIC SCH ×2 (09:00→17:46)
[2016-08-09] MEDS: Docusate 100mg cap ORAL SCH ×2 (09:00→17:45)
[2016-08-09] MEDS ORDERED: Bacitracin 50000 Units Vial ONE (10:38)
[2016-08-09] MEDS ORDERED: Lidocaine 1% 10mg/ml/Epi 0.005mg/ml 30ml vial INJ ONE (10:38)
[2016-08-09] MEDS ORDERED: Surgicel 4in x 8in TOPIC ONE (10:38)
[2016-08-09] MEDS: D5 1/2NS 1,000 ML IV SCH ×2 (10:40→13:44)
[2016-08-09] MEDS ORDERED: Midazolam 2mg/2ml Inj ONE (11:00)
[2016-08-09] MEDS ORDERED: Sterile Water Irrig 1000ml IRRIG ONE (11:00)
[2016-08-09] MEDS ORDERED: fentaNYL 100 mcg/2 mL IV ONE (11:00)
[2016-08-09] MEDS ORDERED: NS Irrig 1000ml ONE (11:00)
[2016-08-09] MEDS ORDERED: Propofol 10mg/ml 20ml IV ONE (11:00)
[2016-08-09] MEDS ORDERED: Ketorolac 30mg Inj ONE (11:00)
[2016-08-09] MEDS ORDERED: Bacitracin 50000 Units Vial IRRIG ONE (11:00)
[2016-08-09] MEDS ORDERED: LR 1000ml ONE (11:00)
--- NOTE | 2016-08-09 11:10 | Pre-Procedure Note/Attestation ---
Pre-Procedure Note/Attestation Complete Prior to Procedure Planned Procedure: bilateral Procedure Narrative: Bilateral groin wound wound vac change and washout Indications for Procedure Pre-Operative Diagnosis: Open groin and buttock wounds Attestation I attest that I discussed the nature of the procedure; its benefits; risks and complications; and alternatives (and the risks and benefits of such alternatives ), prior to the procedure, with the patient (or the patient's legal patient services representative). I attest that, if there was a reasonable possibility of needing a blood transfusion, the patient (or the patient's legal patient services representative) was given the [facility] standardized written summary, pursuant to the [place] Blood Safety Act ([place] Health and Safety Code # 1645, as amended). I attest that I re-evaluated the patient just prior to the surgery and that there has been no change in the patient's H&P, except as documented below: WILBUR COULTER August 09, 2016 11:09
[2016-08-09] MEDS ORDERED: PCA HYDROmorphone 1mg/ml 30 ML IV PRN (11:15)
[2016-08-09] MEDS ORDERED: Ketorolac 30mg Inj IV PRN (11:45)
[2016-08-09] MEDS ORDERED: Morphine Sulfate 2mg/ml Inj IVP PRN (11:45)
[2016-08-09] MEDS ORDERED: Meperidine 25mg/0.5ml Inj IV PRN (11:45)
[2016-08-09] MEDS ORDERED: DiphenhydrAMINE 50mg/ml Inj IVP PRN (11:45)
[2016-08-09] MEDS ORDERED: Midazolam 2mg/2ml Inj IVP PRN (11:45)
[2016-08-09] MEDS ORDERED: Metoclopramide 10mg/2ml Inj IVP PRN (11:45)
--- NOTE | 2016-08-09 11:45 | Anethesia Preoperative Eval ---
Anesthesia Pre-op PMH/ROS General Date of Evaluation: August 09, 2016 Time of Evaluation: 10:50 Anesthesiologist: Kleber ASA Score: ASA 3 Mallampati Score Class I : Soft palate, uvula, fauces, pillars visible Class II: Soft palate, uvula, fauces visible Class III: Soft palate, base of uvula visible Class IV: Only hard plate visible Mallampati Classification: Class III Surgeon: Brynn Diagnosis: Recurrent HS Surgical Procedure: Bilateral groibn wounds revision Anesthesia History: none Family History: no anesthesia problems Allergies: Coded Allergies: PENICILLINS (Verified Allergy, Unknown, 07/22/16) Pt states she was never tested for the allergy. Pt's father had severe allergy to PCN so pt takes does not take PCN medications for precaution. Past Medical History Cardiovascular: Denies: CAD, HTN, [place], arrhythmia, other, valve dz Pulmonary: Denies: COPD, KATHY, asthma, other Gastrointestinal/Genitourinary: Reports: GERD, Denies: CRI, ESRD, other Neurologic/Psychiatric: Reports: depression/anxiety, Denies: CVA, TIA, dementia, other Endocrine: Denies: DM, hypothyroidism, other, steroids HEENT: Denies: [place] (L), [place] (R), cataract (L), cataract (R), glaucoma, other Hematology/Immune: Reports: anemia, Denies: DVT, bleeding disorder, other Musculoskeletal/Integumentary: Reports: other - recurrent HS PMH Narrative: as above PSxH Narrative: see chart Anesthesia Pre-op Phys. Exam Physician Exam Last Vital Signs Date Time Temp Pulse Resp B/P Pulse Ox O2 Delivery O2 Flow Rate FiO2 08/09/16 09:06 18 08/09/16 08:00 98.1 76 104/57 98 Room Air 08/06/16 19:45 21 08/06/16 16:00 3.0 Constitutional: NAD Neurologic: CN 2-12 intact Cardiovascular: RRR, no M/R/G Respiratory: CTA Gastrointestinal: S/NT/ND Airway Exam Mallampati Score: Class III MO: full Neck: flexible ROM: limited Teeth: intact Dentures: no lower, no upper Anesthesia Pre-op A/P Labs Hematology Test 08/09/16 06:35 White Blood Count 7.6 K/UL (4.8-10.8) Red Blood Count 3.03 M/UL (4.20-5.40) L Hemoglobin 8.1 G/DL (12.0-16.0) L Hematocrit 25.3 % (37.0-47.0) L Mean Corpuscular Volume 83 FL (80-99) Mean Corpuscular Hemoglobin 26.8 PG (27.0-31.0) L Mean Corpuscular Hemoglobin Concent 32.2 G/DL (32.0-36.0) Red Cell Distribution Width 13.0 % (11.6-14.8) Platelet Count 335 K/UL (150-450) Mean Platelet Volume 6.2 FL (6.5-10.1) L Neutrophils (%) (Auto) 62.8 % (45.0-75.0) Lymphocytes (%) (Auto) 23.1 % (20.0-45.0) Monocytes (%) (Auto) 11.0 % (1.0-10.0) H Eosinophils (%) (Auto) 1.4 % (0.0-3.0) Basophils (%) (Auto) 1.6 % (0.0-2.0) Chemistry Test 08/09/16 06:35 Sodium Level 136 mEQ/L (135-145) Potassium Level 4.0 mEQ/L (3.4-4.9) Chloride Level 95 mEQ/L (98-107) L Carbon Dioxide Level 31 mEQ/L (20-30) H Anion Gap 10 (5-15) Blood Urea Nitrogen 6 mg/dL (7-23) L Creatinine 0.8 mg/dL (0.5-0.9) Estimat Glomerular Filtration Rate > 60 mL/min (>60) Glucose Level 112 mg/dL (74-106) H Calcium Level 9.0 mg/dL (8.6-10.2) Risk Assessment & Plan Assessment: ASA 3 Plan: GA with LMA Pre-Antibiotics Drug: as scheduled ADELA GARCIA M.D. August 09, 2016 11:45
--- NOTE | 2016-08-09 11:52 | Operative Note - PDOC ---
Operative Note Operative Note Pre-op Diagnosis: Open groin and buttock wounds Procedure: Washout of bilateral groin wounds with wound vac placement Post-op Diagnosis: same as pre-op Surgeon: Brynn Director Of Business Operations: Bella Anesthesia: general Specimen: yes Complications: none Condition: stable Estimated Blood Loss: minimal Drains: wound vac WILBUR COULTER August 09, 2016 11:52
--- NOTE | 2016-08-09 12:11 | General Progress Note ---
Assessment/Plan Problem List: (1) Abscess ICD Codes: L02.91 - Cutaneous abscess, unspecified SNOMED: 188232232 (2) Hidradenitis suppurativa ICD Codes: L73.2 - Hidradenitis suppurativa SNOMED: 78792362 Assessment/Plan s/p surgery today POD#0 Cont IV abx Supp care Pain control DVT ppx Bowel regimen Wound care per plastics A total of 32 mins of additional time was spent beyond the face to face time Subjective Date patient seen: August 09, 2016 Time patient seen: 12:10 ROS Limited/Unobtainable: No Allergies: Coded Allergies: PENICILLINS (Verified Allergy, Unknown, 07/22/16) Pt states she was never tested for the allergy. Pt's father had severe allergy to PCN so pt takes does not take PCN medications for precaution. Subjective s/p surgery today POD#0, no new complaints. No chest pain or dyspnea, no n/v, postop pain well controlled. Objective Last 24 Hour Vital Signs Date Time Temp Pulse Resp B/P Pulse Ox O2 Delivery O2 Flow Rate FiO2 08/09/16 09:06 18 08/09/16 08:00 18 08/09/16 08:00 98.1 76 17 104/57 98 Room Air 08/09/16 04:00 16 08/09/16 04:00 98.1 81 18 106/48 99 Room Air 08/09/16 00:00 98.1 94 18 107/55 98 Room Air 08/08/16 20:00 16 08/08/16 20:00 97.7 98 18 115/64 100 Room Air 08/08/16 16:42 98.2 08/08/16 16:03 18 08/08/16 16:00 97.0 95 20 124/79 100 Room Air 08/08/16 14:49 98.2 08/08/16 14:19 18 08/08/16 14:19 18 Intake and Output 08/08/16 08/09/16 19:00 07:00 Intake Total 992.5 ml 500 ml Output Total 2375 ml 1900 ml Balance -1382.5 ml -1400 ml Intake Oral 480 ml 300 ml IV Total 512.5 ml 200 ml Output Urine Total 2300 ml 1850 ml Drainage Total 75 ml 50 ml Laboratory Tests 08/09/16 06:35: White Blood Count 7.6, Red Blood Count 3.03L, Hemoglobin 8.1L, Hematocrit 25.3L , Mean Corpuscular Volume 83, Mean Corpuscular Hemoglobin 26.8L, Mean Corpuscular Hemoglobin Concent 32.2, Red Cell Distribution Width 13.0, Platelet Count 335, Mean Platelet Volume 6.2L, Neutrophils (%) (Auto) 62.8, Lymphocytes ( %) (Auto) 23.1, Monocytes (%) (Auto) 11.0H, Eosinophils (%) (Auto) 1.4, Basophils (%) (Auto) 1.6, Sodium Level 136, Potassium Level 4.0, Chloride Level 95L, Carbon Dioxide Level 31H, Anion Gap 10, Blood Urea Nitrogen 6L, Creatinine 0.8, Estimat Glomerular Filtration Rate > 60, Glucose Level 112H, Calcium Level 9.0 Height (Feet): 5 Height (Inches): 5.00 Weight (Pounds): 254 Objective General: alert, cooperative, no distress, appears stated age Head: normocephalic, without obvious abnormality, atraumatic Eyes: conjunctivae/corneas clear. PERRL, EOM's intact Throat: lips, mucosa, and tongue normal. MMM Neck: supple, symmetrical, trachea midline, and no JVD Lungs: clear to auscultation bilaterally Heart: regular rate and rhythm, S1, S2 normal, no murmur, click, rub or gallop Abdomen: soft, non-tender, non-distended, bowel sounds normal; no masses or organomegaly Extremities: extremities normal, atraumatic, no cyanosis or edema Pulses: 2+ and symmetric Skin: skin color, texture, turgor normal; no rashes or lesions Neurologic: grossly normal, no focal deficits JORJE CABALLERO August 09, 2016 12:11
--- NOTE | 2016-08-09 12:14 | Immediate Post-Op Evaluation ---
Immediate Post-Op Evalulation Immediate Post-Op Evalulation Procedure: Revision of bilateral groin wounds with woundvac placement Date of Evaluation: August 09, 2016 Time of Evaluation: 12:13 IV Fluids: 400 Blood Products: none Estimated Blood Loss: min Urinary Output: 100 Blood Pressure Systolic: 143 Blood Pressure Diastolic: 83 Pulse Rate: 96 Respiratory Rate: 22 O2 Sat by Pulse Oximetry: 99 Temperature (Fahrenheit): 97.6 Pain Score (1-10): 2 Nausea: No Vomiting: No Complications none Patient Status: reacts, patent, none Hydration Status: adequate ADELA GARCIA M.D. August 09, 2016 12:14
[2016-08-09] MEDS: Hydromorphone 0.5mg/0.5ml inj IVP PRN ×2 (12:26→12:50)
[2016-08-09] MEDS ORDERED: PCA HYDROmorphone 1mg/ml 30 ML IV ONE (12:46)
[2016-08-09] MEDS: PCA HYDROmorphone 1mg/ml 30 ML IV PRN (12:55)
[2016-08-09] MEDS ORDERED: Rate Change PCA 1 Each MISC PRN (13:00)
--- NOTE | 2016-08-09 13:42 | Infectious Diseases Prog Note ---
Assessment/Plan Assessment/Plan A) 1) pseudomonas uti, ? sepsis, leukocytoses, fevers - leukocytosis resolved, fevers resolved 2) bilateral groin/buttocks wound infection, s/p debridement and closure, + wound dehiscence - s/p debridement and partial closure, wound vac 3) hidradenitis suppurativa 4) ? hot/cold sensations - ? secondary to abx, no rash, no itching 5) ? pcn allergy - patients father with severe pcn allergy but unclear if patient has true pcn allergy 6) sh-negative, fh-cad, mar noted, notes and records reviewed 7) d/w RN P) 1) vancomycin, cipro and flagyl for now 2) watch labs - cr and wbc 3) continue treatment per Dr. Curtis and Dr. Swain 4) orders entered and noted 5) d/w patient and mother Subjective Constitutional: Denies: fever HEENT: Denies: congestion Respiratory: Denies: shortness of breath Cardiovascular: Denies: chest pain Gastrointestinal/Abdominal: Denies: diarrhea, nausea, vomiting Psychiatric: Denies: depression Skin: Denies: rash Hematologic: Denies: bleeding Musculoskeletal: Denies: pain Allergies: Coded Allergies: PENICILLINS (Verified Allergy, Unknown, 07/22/16) Pt states she was never tested for the allergy. Pt's father had severe allergy to PCN so pt takes does not take PCN medications for precaution. Objective Vital Signs Last 24 Hour Vital Signs Date Time Temp Pulse Resp B/P Pulse Ox O2 Delivery O2 Flow Rate FiO2 08/09/16 13:00 97.7 88 18 124/69 97 Room Air 08/09/16 12:56 97.8 08/09/16 12:56 97.8 08/09/16 12:55 98.0 78 20 141/80 100 Nasal Cannula 3.0 08/09/16 12:51 97.8 08/09/16 12:50 78 20 141/80 100 Nasal Cannula 3.0 08/09/16 12:31 88 20 157/89 100 Nasal Cannula 3.0 08/09/16 12:26 90 20 152/84 100 Simple Mask 8.0 08/09/16 12:16 90 20 153/97 100 Simple Mask 8.0 08/09/16 12:14 96 22 99 08/09/16 12:10 96 20 138/99 100 Simple Mask 8.0 08/09/16 12:05 97.8 96 20 150/92 100 Simple Mask 8.0 08/09/16 09:06 18 08/09/16 08:00 18 08/09/16 08:00 98.1 76 17 104/57 98 Room Air 08/09/16 04:00 16 08/09/16 04:00 98.1 81 18 106/48 99 Room Air 08/09/16 00:00 98.1 94 18 107/55 98 Room Air 08/08/16 20:00 16 08/08/16 20:00 97.7 98 18 115/64 100 Room Air 08/08/16 16:42 98.2 08/08/16 16:03 18 08/08/16 16:00 97.0 95 20 124/79 100 Room Air 08/08/16 14:49 98.2 08/08/16 14:19 18 08/08/16 14:19 18 Height (Feet): 5 Height (Inches): 5.00 Weight (Pounds): 254 General Appearance: no acute distress HEENT: normocephalic, atraumatic, anicteric, mucous membranes moist, PERRL, EOMI, pharynx normal, supple, no JVD Respiratory/Chest: lungs clear, normal breath sounds, no respiratory distress, no accessory muscle use Cardiovascular: normal rate, regular rhythm, no gallop/murmur, no JVD Abdomen: normal bowel sounds, soft, non tender, no organomegaly, non distended Genitourinary: other - no fevers Extremities: no cyanosis Skin: no rash Neurologic/Psychiatric: barrel burner II-XII grossly normal, alert, oriented x 3, responsive Lymphatic: no neck adenopathy Musculoskeletal: no effusion Objective no recent chest x-ray Microbiology Date/Time Source Procedure Growth Status 08/04/16 06:45 Blood Blood Culture - Preliminary NO GROWTH AFTER 4 DAYS Resulted 08/04/16 16:10 Indwelling Cath Urine Culture - Final Pseudomonas Aeruginosa Complete Laboratory Tests Test 08/09/16 06:35 White Blood Count 7.6 K/UL (4.8-10.8) Red Blood Count 3.03 M/UL (4.20-5.40) L Hemoglobin 8.1 G/DL (12.0-16.0) L Hematocrit 25.3 % (37.0-47.0) L Mean Corpuscular Volume 83 FL (80-99) Mean Corpuscular Hemoglobin 26.8 PG (27.0-31.0) L Mean Corpuscular Hemoglobin Concent 32.2 G/DL (32.0-36.0) Red Cell Distribution Width 13.0 % (11.6-14.8) Platelet Count 335 K/UL (150-450) Mean Platelet Volume 6.2 FL (6.5-10.1) L Neutrophils (%) (Auto) 62.8 % (45.0-75.0) Lymphocytes (%) (Auto) 23.1 % (20.0-45.0) Monocytes (%) (Auto) 11.0 % (1.0-10.0) H Eosinophils (%) (Auto) 1.4 % (0.0-3.0) Basophils (%) (Auto) 1.6 % (0.0-2.0) Sodium Level 136 mEQ/L (135-145) Potassium Level 4.0 mEQ/L (3.4-4.9) Chloride Level 95 mEQ/L (98-107) L Carbon Dioxide Level 31 mEQ/L (20-30) H Anion Gap 10 (5-15) Blood Urea Nitrogen 6 mg/dL (7-23) L Creatinine 0.8 mg/dL (0.5-0.9) Estimat Glomerular Filtration Rate > 60 mL/min (>60) Glucose Level 112 mg/dL (74-106) H Calcium Level 9.0 mg/dL (8.6-10.2) Current Medications Medications (Trade) Dose Ordered Sig/Loren Route PRN Reason Start Time Stop Time Status Last Admin Dose Admin Acetaminophen (Tylenol) 650 mg Q4H PRN ORAL FEVER 08/09/16 13:30 09/08/16 13:29 Bisacodyl (Dulcolax) 10 mg HSPRN PRN RECTAL Constipation THIRD LINE AGENT 07/22/16 15:15 08/21/16 15:14 Chlorhexidine Gluconate 1 applic 1 applic DAILY TOPIC 08/02/16 12:00 09/01/16 11:59 08/08/16 08:37 Ciprofloxacin (Cipro 400mg/ 200ml premix bag) 200 ml @ 200 mls/hr Q12H IV 08/08/16 18:00 08/15/16 17:59 08/09/16 07:26 Dextrose (Dextrose 50%) STAT PRN IV Hypoglycemia 07/22/16 15:15 08/21/16 15:14 Dextrose/Sodium Chloride (D5 0.45% NS) 1,000 ml @ 75 mls/hr [id number] IV 07/22/16 16:00 08/21/16 15:59 08/08/16 20:58 Diphenhydramine HCl (Benadryl) 25 mg Q15M PRN IVP Itching 08/09/16 11:45 08/09/16 17:00 Diphenhydramine HCl (Benadryl) 25 mg Q6H PRN ORAL Itching/Pruritis 07/22/16 15:15 08/21/16 15:14 Docusate Sodium 100 mg 100 mg TWICE A DAY ORAL 08/06/16 18:00 09/05/16 17:59 08/08/16 17:28 Heparin Sodium (Porcine) (Heparin 5000 units/ml) 5,000 units EVERY 8 HOURS SUBQ 08/09/16 14:00 09/08/16 13:59 Hydromorphone HCl (Dilaudid) 0.5 mg Q15M PRN IVP Severe Pain (Pain Scale 7-10) 08/09/16 11:45 08/09/16 17:00 08/09/16 12:50 Hydromorphone HCl (Dilaudid) 2 mg Q3H PRN SUBQ Severe Pain (Pain Scale 7-10) 08/09/16 13:00 08/11/16 12:59 Hydromorphone HCl (Dilaudid) 2 mg Q4H PRN IVP Moderate Pain (Pain Scale 4-6) 08/09/16 13:00 08/11/16 12:59 Hydromorphone HCl (SWATCHER Dilaudid) 30 ml @ 0 mls/hr Q24H PRN IV For Pain 08/09/16 13:00 08/11/16 12:59 08/09/16 12:55 Ketorolac Tromethamine (Toradol 30mg) 30 mg Q1H PRN IV Severe Breakthru Pain (>7) 08/09/16 11:45 08/09/16 17:00 Magnesium Hydroxide (Mom) 30 ml HSPRN PRN ORAL Constipation SECOND LINE AGENT 07/22/16 15:15 08/21/16 15:14 07/27/16 23:58 Meperidine HCl 50 mg 50 mg Q15M PRN IV Shivering 08/09/16 11:45 08/09/16 17:00 08/09/16 12:31 Metoclopramide HCl (Reglan) 10 mg Q1H PRN IVP Nausea & Vomiting 08/09/16 11:45 08/09/16 17:00 Metoclopramide HCl (Reglan) 10 mg Q6H PRN IVP Nausea & Vomiting 08/06/16 11:00 09/05/16 10:59 Metronidazole (Flagyl) 100 ml @ 100 mls/hr Q8HR IVPB 08/04/16 22:00 08/11/16 21:59 08/09/16 06:23 Midazolam HCl (Versed 2mg/2ml vial) 1 mg Q15M PRN IVP For Anxiety 08/09/16 11:45 08/09/16 17:00 Miscellaneous Medication (SWATCHER Rate Change) 1 ea DAILY PRN MISC rate change 08/09/16 13:00 08/11/16 12:59 Miscellaneous Medication (SWATCHER shift volume) 1 ea Q12HR@0700,1900 MISC 08/09/16 19:00 08/11/16 18:59 Morphine Sulfate (Morphine Sulfate) 2 mg Q5M PRN IVP Moderate Pain (Pain Scale 4-6) 08/09/16 11:45 08/09/16 17:00 Neomycin/ Polymyxin/ Bacitracin (Neosporin Oint 15gm) 1 applic TWICE A DAY TOPIC 07/30/16 16:30 08/29/16 16:29 08/08/16 16:15 Ondansetron HCl (Zofran) 4 mg Q6H PRN IVP Nausea & Vomiting 08/09/16 13:30 09/08/16 13:29 Polyethylene Glycol (Miralax) 17 gm HSPRN PRN ORAL Constipation FIRST LINE AGENT 07/22/16 15:15 08/21/16 15:14 Vancomycin HCl (Vanco rx to dose) 1 ea DAILY PRN MISC Per rx protocol 07/26/16 17:15 08/25/16 17:14 Vancomycin HCl 1 gm/Dextrose 275 ml @ 183.708 mls/hr Q8HR@0500,1300,2100 IVPB 08/04/16 21:00 08/14/16 23:59 08/09/16 04:50 Zolpidem Tartrate (Ambien) 5 mg HSPRN PRN ORAL Insomnia 08/09/16 21:00 09/08/16 20:59 DAVION BISWAS August 09, 2016 13:42
[2016-08-09] MEDS ORDERED: D5 1/2NS 1000ml IV ONE (17:33)
[2016-08-09] MEDS ORDERED: Tubing IV Secondary IV ONE (17:33)
--- NOTE | 2016-08-09 20:02 | Operative Note - Dictated ---
DATE OF OPERATION: 08/09/2016 PREOPERATIVE DIAGNOSIS: Bilateral open groin. POSTOPERATIVE DIAGNOSIS: Bilateral open groin. PROCEDURE: Examination under anesthesia with wound VAC placement of the bilateral groin. SURGEON: Kerry Swain M.D. YARD SPOTTER: Farnaz Blanco M.D. ANESTHESIA: General. COMPLICATIONS: None. DRAINS: Wound VAC. DISPOSITION: Stable to the recovery room. INDICATIONS FOR SURGERY: This is a 21-year-old female, who is now three days postoperative from bilateral wound VAC placement to the groin as well as partial closure, who has been doing well with the wound VAC and is now undergoing repeat exam under anesthesia with wound VAC placement. She understands the risks and benefits of surgery and agrees to proceed. DETAILS OF THE OPERATION: The patient was brought to the operating room and laid in lithotomy position on the operating table. Bilateral groins were prepped and draped in standard and usual fashion. We first began by performing pulse lavage of a total of one liter to bilateral groin. The wound was noted to be quite healthy and bleeding with healthy tissue present. The wound was superficially debrided and we proceeded to then place the wound VAC. Following achievement of hemostasis, the wound VAC was placed over some Surgicel material that was placed at the base of the wound. The wound VACs were positioned in both groin wounds and were then attached to the suction and there were noted to be working. Compared to the previous visit to the operating room 72 hours ago, the wound is approximately 15% smaller than it was previously on both sides. PLAN: The plan will be to continue the wound VAC for another 72- 96 hours and will bring the patient back to the operating room for another exam under anesthesia with wound VAC placement. Her overall progression is excellent. Kerry Swain M.D. DR: MAGGIE JOB#: [id number] CC:
[2016-08-09] MEDS ORDERED: Zolpidem 5mg tab ORAL PRN (21:00)
[2016-08-10] VITALS: BP 102/59
[2016-08-10 04:00] VITALS: BP 108/57
[2016-08-10] MEDS: Vancomycin 1 GM in D5W 275 ML IVPB SCH ×3 (04:41→20:45)
[2016-08-10] MEDS: metroNIDAZOLE 500mg 100 ML IVPB SCH ×3 (06:08→21:58)
[2016-08-10] MEDS: Heparin 5000 units/ml inj SUBQ SCH ×3 (07:04→22:01)
[2016-08-10] MEDS: PCA shift volume MISC SCH ×2 (07:12→19:09)
[2016-08-10 08:00] VITALS: BP 109/58
[2016-08-10] MEDS: Neosporin Oint 15gm TOPIC SCH ×2 (09:00→18:00)
[2016-08-10] MEDS: Docusate 100mg cap ORAL SCH ×2 (09:39→18:15)
[2016-08-10] MEDS: Dyna-Hex 2% Top Sol 8oz TOPIC SCH (09:40)
--- NOTE | 2016-08-10 10:27 | General Progress Note ---
Assessment/Plan Problem List: (1) Abscess ICD Codes: L02.91 - Cutaneous abscess, unspecified SNOMED: 147038968 (2) Hidradenitis suppurativa ICD Codes: L73.2 - Hidradenitis suppurativa SNOMED: [id number] Assessment/Plan s/p surgery today POD#1 Cont IV abx Supp care Pain control DVT ppx optimize Bowel regimen Wound care per plastics A total of 32 mins of additional time was spent beyond the face to face time Subjective Date patient seen: August 10, 2016 Time patient seen: 10:26 ROS Limited/Unobtainable: No Allergies: Coded Allergies: PENICILLINS (Verified Allergy, Unknown, 07/22/16) Pt states she was never tested for the allergy. Pt's father had severe allergy to PCN so pt takes does not take PCN medications for precaution. Subjective s/p surgery today POD#1, no new complaints. No chest pain or dyspnea, no n/v, postop pain well controlled. Objective Last 24 Hour Vital Signs Date Time Temp Pulse Resp B/P Pulse Ox O2 Delivery O2 Flow Rate FiO2 08/10/16 08:00 98.2 85 18 109/58 96 Room Air 08/10/16 08:00 17 08/10/16 04:00 97.6 88 18 108/57 98 Room Air 08/10/16 04:00 16 08/10/16 00:28 98.2 08/10/16 00:00 98.2 85 16 102/59 96 Room Air 08/10/16 00:00 16 08/09/16 20:00 97.2 81 18 128/69 98 Room Air 08/09/16 20:00 18 08/09/16 17:19 97.7 08/09/16 16:00 98.0 86 19 113/64 100 Room Air 08/09/16 16:00 18 08/09/16 13:20 18 08/09/16 13:00 97.7 88 18 124/69 97 Room Air 08/09/16 12:56 97.8 08/09/16 12:56 97.8 08/09/16 12:55 98.0 78 20 141/80 100 Nasal Cannula 3.0 08/09/16 12:51 97.8 08/09/16 12:50 78 20 141/80 100 Nasal Cannula 3.0 08/09/16 12:31 88 20 157/89 100 Nasal Cannula 3.0 08/09/16 12:26 90 20 152/84 100 Simple Mask 8.0 08/09/16 12:16 90 20 153/97 100 Simple Mask 8.0 08/09/16 12:14 96 22 99 08/09/16 12:10 96 20 138/99 100 Simple Mask 8.0 08/09/16 12:05 97.8 96 20 150/92 100 Simple Mask 8.0 Intake and Output 08/09/16 08/10/16 19:00 07:00 Intake Total 1277.5 ml 1265 ml Output Total 1660 ml 1410 ml Balance -382.5 ml -145 ml Intake Oral 240 ml 240 ml IV Total 1037.5 ml 1025 ml Output Urine Total 1600 ml 1350 ml Drainage Total 10 ml 60 ml Estimated Blood Loss 50 ml Laboratory Tests 08/09/16 14:10: Vancomycin Level Trough 14.6H Height (Feet): 5 Height (Inches): 5.00 Weight (Pounds): 254 Objective General: alert, cooperative, no distress, appears stated age Head: normocephalic, without obvious abnormality, atraumatic Eyes: conjunctivae/corneas clear. PERRL, EOM's intact Throat: lips, mucosa, and tongue normal. MMM Neck: supple, symmetrical, trachea midline, and no JVD Lungs: clear to auscultation bilaterally Heart: regular rate and rhythm, S1, S2 normal, no murmur, click, rub or gallop Abdomen: soft, non-tender, non-distended, bowel sounds normal; no masses or organomegaly Extremities: extremities normal, atraumatic, no cyanosis or edema Pulses: 2+ and symmetric Skin: skin color, texture, turgor normal; no rashes or lesions Neurologic: grossly normal, no focal deficits JORJE CABALLERO August 10, 2016 10:27
[2016-08-10] MEDS: D5 1/2NS 1,000 ML IV SCH ×2 (11:43)
[2016-08-10 12:00] VITALS: BP 116/67
[2016-08-10] MEDS: PCA HYDROmorphone 1mg/ml 30 ML IV PRN (12:56)
[2016-08-10] MEDS ORDERED: Tubing IV Secondary IV ONE (13:57)
[2016-08-10] MEDS: Lactulose 20gm/30ml UDC ORAL SCH ×2 (14:29→18:15)
[2016-08-10 16:00] VITALS: BP 120/61
--- NOTE | 2016-08-10 19:26 | Infectious Diseases Prog Note ---
Assessment/Plan Assessment/Plan A) 1) pseudomonas uti, ? sepsis, leukocytoses, fevers - leukocytosis resolved, fevers resolved, clinically stable 2) bilateral groin/buttocks wound infection, s/p debridement and closure, + wound dehiscence - s/p debridement and partial closure, wound vac 3) hidradenitis suppurativa 4) ? hot/cold sensations - ? secondary to abx, no rash, no itching 5) ? pcn allergy - patients father with severe pcn allergy but unclear if patient has true pcn allergy 6) sh-negative, fh-cad, mar noted, notes and records reviewed 7) d/w RN P) 1) vancomycin, cipro and flagyl for now 2) watch labs - cr and wbc 3) continue treatment per Dr. Curtis and Dr. Swain 4) orders entered and noted 5) d/w patient and mother Subjective Constitutional: Denies: fever Respiratory: Denies: shortness of breath Cardiovascular: Denies: chest pain Gastrointestinal/Abdominal: Denies: diarrhea, nausea, vomiting Genitourinary: Reports: other - + lopez Neurologic: Denies: headache Psychiatric: Denies: depression Skin: Denies: rash Hematologic: Denies: bleeding Musculoskeletal: Denies: pain Allergies: Coded Allergies: PENICILLINS (Verified Allergy, Unknown, 07/22/16) Pt states she was never tested for the allergy. Pt's father had severe allergy to PCN so pt takes does not take PCN medications for precaution. Objective Vital Signs Last 24 Hour Vital Signs Date Time Temp Pulse Resp B/P Pulse Ox O2 Delivery O2 Flow Rate FiO2 08/10/16 16:00 98.1 83 20 120/61 97 Room Air 08/10/16 12:00 20 08/10/16 12:00 98.2 86 18 116/67 95 Room Air 08/10/16 08:00 98.2 85 18 109/58 96 Room Air 08/10/16 08:00 17 08/10/16 04:00 97.6 88 18 108/57 98 Room Air 08/10/16 04:00 16 08/10/16 00:28 98.2 08/10/16 00:00 98.2 85 16 102/59 96 Room Air 08/10/16 00:00 16 08/09/16 20:00 97.2 81 18 128/69 98 Room Air 08/09/16 20:00 18 Height (Feet): 5 Height (Inches): 5.00 Weight (Pounds): 254 General Appearance: no acute distress HEENT: normocephalic, atraumatic, anicteric, mucous membranes moist, PERRL, EOMI, pharynx normal, supple, no JVD Respiratory/Chest: lungs clear, normal breath sounds, no respiratory distress, no accessory muscle use Cardiovascular: normal rate, regular rhythm, no gallop/murmur, no JVD Abdomen: normal bowel sounds, soft, non tender, no organomegaly, non distended Genitourinary: other - + lopez - urine clear Extremities: no cyanosis Skin: no rash Neurologic/Psychiatric: rn behavioral health II-XII grossly normal, alert, responsive Lymphatic: no neck adenopathy Musculoskeletal: no effusion Objective no recent chest x-ray Microbiology Date/Time Source Procedure Growth Status 08/04/16 06:45 Blood Blood Culture - Final NO GROWTH AFTER 5 DAYS Complete 08/04/16 16:10 Indwelling Cath Urine Culture - Final Pseudomonas Aeruginosa Complete Labs Test 08/08/16 06:10 08/08/16 08:45 08/09/16 06:35 08/09/16 14:10 Troponin I < 0.30 ng/mL (<=0.30) < 0.30 ng/mL (<=0.30) White Blood Count 7.6 K/UL (4.8-10.8) Red Blood Count 3.03 M/UL (4.20-5.40) Hemoglobin 8.1 G/DL (12.0-16.0) Hematocrit 25.3 % (37.0-47.0) Mean Corpuscular Volume 83 FL (80-99) Mean Corpuscular Hemoglobin 26.8 PG (27.0-31.0) Mean Corpuscular Hemoglobin Concent 32.2 G/DL (32.0-36.0) Red Cell Distribution Width 13.0 % (11.6-14.8) Platelet Count 335 K/UL (150-450) Mean Platelet Volume 6.2 FL (6.5-10.1) Neutrophils (%) (Auto) 62.8 % (45.0-75.0) Lymphocytes (%) (Auto) 23.1 % (20.0-45.0) Monocytes (%) (Auto) 11.0 % (1.0-10.0) Eosinophils (%) (Auto) 1.4 % (0.0-3.0) Basophils (%) (Auto) 1.6 % (0.0-2.0) Sodium Level 136 mEQ/L (135-145) Potassium Level 4.0 mEQ/L (3.4-4.9) Chloride Level 95 mEQ/L (98-107) Carbon Dioxide Level 31 mEQ/L (20-30) Anion Gap 10 (5-15) Blood Urea Nitrogen 6 mg/dL (7-23) Creatinine 0.8 mg/dL (0.5-0.9) Estimat Glomerular Filtration Rate > 60 mL/min (>60) Glucose Level 112 mg/dL (74-106) Calcium Level 9.0 mg/dL (8.6-10.2) Vancomycin Level Trough 14.6 ug/mL (5.0-12.0) Current Medications Medications (Trade) Dose Ordered Sig/Loren Route PRN Reason Start Time Stop Time Status Last Admin Dose Admin Acetaminophen (Tylenol) 650 mg Q4H PRN ORAL FEVER 08/09/16 13:30 09/08/16 13:29 08/09/16 23:29 Bisacodyl (Dulcolax) 10 mg HSPRN PRN RECTAL Constipation THIRD LINE AGENT 07/22/16 15:15 08/21/16 15:14 Chlorhexidine Gluconate 1 applic 1 applic DAILY TOPIC 08/02/16 12:00 09/01/16 11:59 08/10/16 09:40 Ciprofloxacin 200 ml @ 200 mls/hr Q12H IV 08/09/16 18:00 08/16/16 17:59 08/10/16 18:15 Dextrose (Dextrose 50%) STAT PRN IV Hypoglycemia 07/22/16 15:15 08/21/16 15:14 Dextrose/Sodium Chloride (D5 0.45% NS) 1,000 ml @ 75 mls/hr [id number] IV 07/22/16 16:00 08/21/16 15:59 08/10/16 11:43 Diphenhydramine HCl (Benadryl) 25 mg Q6H PRN ORAL Itching/Pruritis 07/22/16 15:15 08/21/16 15:14 Docusate Sodium (Colace) 100 mg TWICE A DAY ORAL 08/06/16 18:00 09/05/16 17:59 08/10/16 18:15 Heparin Sodium (Porcine) (Heparin 5000 units/ml) 5,000 units EVERY 8 HOURS SUBQ 08/09/16 14:00 09/08/16 13:59 08/10/16 14:41 Hydromorphone HCl (Dilaudid) 2 mg Q4H PRN IVP Moderate Pain (Pain Scale 4-6) 08/09/16 13:00 08/11/16 12:59 08/10/16 14:30 Hydromorphone HCl (SIX SIGMA BLACK TRAINER Dilaudid) 30 ml @ 0 mls/hr Q24H PRN IV For Pain 08/09/16 13:00 08/11/16 12:59 08/10/16 12:56 Hydromorphone HCl 2 mg 2 mg Q3H PRN SUBQ Severe Pain (Pain Scale 7-10) 08/09/16 13:00 08/11/16 12:59 Lactulose (Cephulac) 30 gm THREE TIMES A DAY ORAL 08/10/16 13:00 09/09/16 12:59 08/10/16 18:15 Magnesium Hydroxide (Mom) 30 ml HSPRN PRN ORAL Constipation SECOND LINE AGENT 07/22/16 15:15 08/21/16 15:14 07/27/16 23:58 Metoclopramide HCl (Reglan) 10 mg Q6H PRN IVP Nausea & Vomiting 08/06/16 11:00 09/05/16 10:59 Metronidazole (Flagyl) 100 ml @ 100 mls/hr Q8HR IVPB 08/09/16 14:00 08/16/16 13:59 08/10/16 14:30 Miscellaneous Medication (SIX SIGMA BLACK TRAINER Rate Change) 1 ea DAILY PRN MISC rate change 08/09/16 13:00 08/11/16 12:59 Miscellaneous Medication 1 ea 1 ea Q12HR@0700,1900 MISC 08/09/16 19:00 08/11/16 18:59 08/10/16 19:09 Neomycin/ Polymyxin/ Bacitracin (Neosporin Oint 15gm) 1 applic TWICE A DAY TOPIC 07/30/16 16:30 08/29/16 16:29 08/08/16 16:15 Ondansetron HCl (Zofran) 4 mg Q6H PRN IVP Nausea & Vomiting 08/09/16 13:30 09/08/16 13:29 Polyethylene Glycol (Miralax) 17 gm HSPRN PRN ORAL Constipation FIRST LINE AGENT 07/22/16 15:15 08/21/16 15:14 Vancomycin HCl (Vanco rx to dose) 1 ea DAILY PRN MISC Per rx protocol 08/09/16 13:45 09/08/16 13:44 Vancomycin HCl/ Dextrose (Vancomycin/D5W) 275 ml @ 183.708 mls/hr Q8HR@0500,1300,2100 IVPB 08/04/16 21:00 08/14/16 20:59 08/10/16 12:58 Zolpidem Tartrate (Ambien) 5 mg HSPRN PRN ORAL Insomnia 08/09/16 21:00 09/08/16 20:59 DAVION BISWAS August 10, 2016 19:26
[2016-08-10 20:00] VITALS: BP 111/64
[2016-08-11] MEDS: D5 1/2NS 1,000 ML IV SCH (02:09)
[2016-08-11 04:00] VITALS: BP 120/72
[2016-08-11] MEDS: Vancomycin 1 GM in D5W 275 ML IVPB SCH ×3 (04:25→20:51)
[2016-08-11] MEDS: metroNIDAZOLE 500mg 100 ML IVPB SCH ×3 (05:36→20:51)
[2016-08-11] MEDS: Heparin 5000 units/ml inj SUBQ SCH ×3 (05:40→20:54)
[2016-08-11] MEDS: PCA shift volume MISC SCH ×2 (07:00→19:25)
[2016-08-11 08:00] VITALS: BP 120/66
[2016-08-11] MEDS: Lactulose 20gm/30ml UDC ORAL SCH (09:00)
[2016-08-11] MEDS: Neosporin Oint 15gm TOPIC SCH ×2 (09:00→17:25)
[2016-08-11] MEDS: Docusate 100mg cap ORAL SCH ×2 (09:00→17:17)
[2016-08-11] MEDS ORDERED: Rate Change PCA 1 Each MISC PRN (11:45)
[2016-08-11 12:00] VITALS: BP 121/66
[2016-08-11] MEDS ORDERED: Lactulose 20gm/30ml UDC ORAL PRN (13:00)
[2016-08-11] MEDS: PCA HYDROmorphone 1mg/ml 30 ML IV PRN (14:23)
--- NOTE | 2016-08-11 14:26 | Infectious Diseases Prog Note ---
Assessment/Plan Assessment/Plan A) 1) pseudomonas uti, ? sepsis, leukocytoses, fevers - leukocytosis resolved, fevers resolved, clinically stable 2) bilateral groin/buttocks wound infection, s/p debridement and closure, + wound dehiscence - s/p debridement and partial closure, wound vac 3) hidradenitis suppurativa 4) ? hot/cold sensations - ? secondary to abx, no rash, no itching 5) ? pcn allergy - patients father with severe pcn allergy but unclear if patient has true pcn allergy 6) sh-negative, fh-cad, mar noted, notes and records reviewed 7) d/w RN P) 1) vancomycin, cipro and flagyl 2) check cr on vancomycin, watch wbc 3) continue treatment per Dr. Curtis and Dr. Swain 4) orders entered and noted 5) d/w patient and mother Subjective Constitutional: Denies: fever HEENT: Denies: congestion Respiratory: Denies: shortness of breath Cardiovascular: Denies: chest pain Gastrointestinal/Abdominal: Denies: diarrhea, nausea, vomiting Genitourinary: Reports: other - + lopez Neurologic: Denies: headache Psychiatric: Denies: depression Skin: Denies: rash Hematologic: Denies: bleeding Musculoskeletal: Denies: pain Allergies: Coded Allergies: PENICILLINS (Verified Allergy, Unknown, 07/22/16) Pt states she was never tested for the allergy. Pt's father had severe allergy to PCN so pt takes does not take PCN medications for precaution. Objective Vital Signs Last 24 Hour Vital Signs Date Time Temp Pulse Resp B/P Pulse Ox O2 Delivery O2 Flow Rate FiO2 08/11/16 12:00 98.1 84 18 121/66 94 Room Air 08/11/16 08:00 98.7 83 18 120/66 97 Room Air 08/11/16 08:00 16 08/11/16 04:00 98.2 84 18 120/72 97 Room Air 08/11/16 04:00 16 08/10/16 20:00 16 08/10/16 20:00 98.2 87 16 111/64 96 Room Air 08/10/16 16:00 98.1 83 20 120/61 97 Room Air Height (Feet): 5 Height (Inches): 5.00 Weight (Pounds): 254 General Appearance: no acute distress HEENT: normocephalic, atraumatic, anicteric, mucous membranes moist, PERRL, EOMI, pharynx normal, supple, no JVD Respiratory/Chest: lungs clear, normal breath sounds, no respiratory distress, no accessory muscle use Cardiovascular: normal rate, regular rhythm, no gallop/murmur, no JVD Abdomen: normal bowel sounds, soft, non tender, no organomegaly, non distended Genitourinary: other - no lopez Extremities: no cyanosis Skin: no rash Neurologic/Psychiatric: cow rider II-XII grossly normal, alert, oriented x 3, responsive Lymphatic: no neck adenopathy Musculoskeletal: no effusion Objective no recent chest x-ray Microbiology Date/Time Source Procedure Growth Status 08/04/16 06:45 Blood Blood Culture - Final NO GROWTH AFTER 5 DAYS Complete 08/04/16 16:10 Indwelling Cath Urine Culture - Final Pseudomonas Aeruginosa Complete Labs Test 08/09/16 06:35 08/09/16 14:10 White Blood Count 7.6 K/UL (4.8-10.8) Red Blood Count 3.03 M/UL (4.20-5.40) Hemoglobin 8.1 G/DL (12.0-16.0) Hematocrit 25.3 % (37.0-47.0) Mean Corpuscular Volume 83 FL (80-99) Mean Corpuscular Hemoglobin 26.8 PG (27.0-31.0) Mean Corpuscular Hemoglobin Concent 32.2 G/DL (32.0-36.0) Red Cell Distribution Width 13.0 % (11.6-14.8) Platelet Count 335 K/UL (150-450) Mean Platelet Volume 6.2 FL (6.5-10.1) Neutrophils (%) (Auto) 62.8 % (45.0-75.0) Lymphocytes (%) (Auto) 23.1 % (20.0-45.0) Monocytes (%) (Auto) 11.0 % (1.0-10.0) Eosinophils (%) (Auto) 1.4 % (0.0-3.0) Basophils (%) (Auto) 1.6 % (0.0-2.0) Sodium Level 136 mEQ/L (135-145) Potassium Level 4.0 mEQ/L (3.4-4.9) Chloride Level 95 mEQ/L (98-107) Carbon Dioxide Level 31 mEQ/L (20-30) Anion Gap 10 (5-15) Blood Urea Nitrogen 6 mg/dL (7-23) Creatinine 0.8 mg/dL (0.5-0.9) Estimat Glomerular Filtration Rate > 60 mL/min (>60) Glucose Level 112 mg/dL (74-106) Calcium Level 9.0 mg/dL (8.6-10.2) Vancomycin Level Trough 14.6 ug/mL (5.0-12.0) Current Medications Medications (Trade) Dose Ordered Sig/Loren Route PRN Reason Start Time Stop Time Status Last Admin Dose Admin Acetaminophen 650 mg 650 mg Q4H PRN ORAL FEVER 08/09/16 13:30 09/08/16 13:29 08/09/16 23:29 Bisacodyl (Dulcolax) 10 mg HSPRN PRN RECTAL Constipation THIRD LINE AGENT 07/22/16 15:15 08/21/16 15:14 Chlorhexidine Gluconate 1 applic 1 applic DAILY TOPIC 08/02/16 12:00 09/01/16 11:59 08/10/16 09:40 Ciprofloxacin 200 ml @ 200 mls/hr Q12H IV 08/09/16 18:00 08/16/16 17:59 08/11/16 06:51 Dextrose (Dextrose 50%) STAT PRN IV Hypoglycemia 07/22/16 15:15 08/21/16 15:14 Dextrose/Sodium Chloride (D5 0.45% NS) 1,000 ml @ 75 mls/hr [id number] IV 07/22/16 16:00 08/21/16 15:59 08/11/16 02:09 Diphenhydramine HCl (Benadryl) 25 mg Q6H PRN ORAL Itching/Pruritis 07/22/16 15:15 08/21/16 15:14 Docusate Sodium (Colace) 100 mg TWICE A DAY ORAL 08/06/16 18:00 09/05/16 17:59 08/10/16 18:15 Heparin Sodium (Porcine) (Heparin 5000 units/ml) 5,000 units EVERY 8 HOURS SUBQ 08/09/16 14:00 09/08/16 13:59 08/11/16 05:40 Hydromorphone HCl (Dilaudid) 2 mg Q3H PRN SUBQ Severe Pain (Pain Scale 7-10) 08/11/16 13:00 08/13/16 23:59 Hydromorphone HCl (Dilaudid) 2 mg Q4H PRN IVP Moderate Pain (Pain Scale 4-6) 08/11/16 13:00 08/13/16 23:59 Hydromorphone HCl (CLIENT SUPPORT ADMINISTRATOR Dilaudid) 30 ml @ 0 mls/hr Q24H PRN IV For Pain 08/11/16 13:00 08/13/16 23:59 Lactulose (Cephulac) 30 gm DAILY PRN ORAL Constipation 08/11/16 13:00 09/10/16 12:59 Magnesium Hydroxide (Mom) 30 ml HSPRN PRN ORAL Constipation SECOND LINE AGENT 07/22/16 15:15 08/21/16 15:14 07/27/16 23:58 Metoclopramide HCl (Reglan) 10 mg Q6H PRN IVP Nausea & Vomiting 08/06/16 11:00 09/05/16 10:59 Metronidazole (Flagyl) 100 ml @ 100 mls/hr Q8HR IVPB 08/09/16 14:00 08/16/16 13:59 08/11/16 05:36 Miscellaneous Medication (CLIENT SUPPORT ADMINISTRATOR Rate Change) 1 ea DAILY PRN MISC rate change 08/11/16 11:45 08/13/16 23:59 Miscellaneous Medication (CLIENT SUPPORT ADMINISTRATOR shift volume) 1 ea Q12HR@0700,1900 MISC 08/11/16 19:00 08/13/16 23:59 Neomycin/ Polymyxin/ Bacitracin (Neosporin Oint 15gm) 1 applic TWICE A DAY TOPIC 07/30/16 16:30 08/29/16 16:29 08/08/16 16:15 Ondansetron HCl (Zofran) 4 mg Q6H PRN IVP Nausea & Vomiting 08/09/16 13:30 09/08/16 13:29 08/10/16 22:10 Polyethylene Glycol (Miralax) 17 gm HSPRN PRN ORAL Constipation FIRST LINE AGENT 07/22/16 15:15 08/21/16 15:14 Vancomycin HCl 1 ea 1 ea DAILY PRN MISC Per rx protocol 08/09/16 13:45 09/08/16 13:44 Vancomycin HCl/ Dextrose (Vancomycin/D5W) 275 ml @ 183.708 mls/hr Q8HR@0500,1300,2100 IVPB 08/04/16 21:00 08/14/16 20:59 08/11/16 13:18 Zolpidem Tartrate (Ambien) 5 mg HSPRN PRN ORAL Insomnia 08/09/16 21:00 09/08/16 20:59 DAVION BISWAS August 11, 2016 14:26
[2016-08-11 16:00] VITALS: BP 125/71
[2016-08-11] MEDS ORDERED: Tubing IV Secondary IV ONE (17:17)
[2016-08-11] MEDS ORDERED: D5 1/2NS 1000ml IV ONE (17:17)
[2016-08-11 20:00] VITALS: BP 126/65
--- NOTE | 2016-08-11 20:59 | General Progress Note ---
Assessment/Plan Problem List: (1) Abscess ICD Codes: L02.91 - Cutaneous abscess, unspecified SNOMED: 946824408 (2) Hidradenitis suppurativa ICD Codes: L73.2 - Hidradenitis suppurativa SNOMED: 11749255 Assessment/Plan s/p surgery today POD#2 Cont IV abx Supp care Pain control DVT ppx optimize Bowel regimen Wound care per plastics A total of 32 mins of additional time was spent beyond the face to face time Subjective Date patient seen: August 11, 2016 Time patient seen: 20:58 ROS Limited/Unobtainable: No Allergies: Coded Allergies: PENICILLINS (Verified Allergy, Unknown, 07/22/16) Pt states she was never tested for the allergy. Pt's father had severe allergy to PCN so pt takes does not take PCN medications for precaution. Subjective s/p surgery today POD#2, no new complaints. No chest pain or dyspnea, no n/v, postop pain well controlled. Objective Last 24 Hour Vital Signs Date Time Temp Pulse Resp B/P Pulse Ox O2 Delivery O2 Flow Rate FiO2 08/11/16 16:00 16 08/11/16 16:00 97.9 82 18 125/71 100 Room Air 08/11/16 12:00 98.1 84 18 121/66 94 Room Air 08/11/16 08:00 98.7 83 18 120/66 97 Room Air 08/11/16 08:00 16 08/11/16 04:00 98.2 84 18 120/72 97 Room Air 08/11/16 04:00 16 Intake and Output 08/10/16 08/11/16 19:00 07:00 Intake Total 450 ml 195 ml Output Total 2200 ml 1060 ml Balance -1750 ml -865 ml Intake Oral 120 ml IV Total 450 ml 75 ml Output Urine Total 2150 ml 1000 ml Drainage Total 50 ml 60 ml Height (Feet): 5 Height (Inches): 5.00 Weight (Pounds): 254 Objective General: alert, cooperative, no distress, appears stated age Head: normocephalic, without obvious abnormality, atraumatic Eyes: conjunctivae/corneas clear. PERRL, EOM's intact Throat: lips, mucosa, and tongue normal. MMM Neck: supple, symmetrical, trachea midline, and no JVD Lungs: clear to auscultation bilaterally Heart: regular rate and rhythm, S1, S2 normal, no murmur, click, rub or gallop Abdomen: soft, non-tender, non-distended, bowel sounds normal; no masses or organomegaly Extremities: extremities normal, atraumatic, no cyanosis or edema Pulses: 2+ and symmetric Skin: skin color, texture, turgor normal; no rashes or lesions Neurologic: grossly normal, no focal deficits JORJE CABALLERO August 11, 2016 20:59
[2016-08-12] VITALS: BP 116/58
--- NOTE | 2016-08-12 02:26 | 48 Hour Post Anesthesia Eval ---
Post Anesthesia Evaluation Procedure: Revision of bilateral groin wounds with woundvac placement Date of Evaluation: August 12, 2016 Time of Evaluation: 16:15 Blood Pressure Systolic: 125 0: 71 Pulse Rate: 82 Respiratory Rate: 16 Temperature (Fahrenheit): 97.9 O2 Sat by Pulse Oximetry: 100 Airway: patent Nausea: No Vomiting: No Pain Intensity: 2 Hydration Status: adequate Cardiopulmonary Status: at baseline Mental Status/LOC: patient returned to baseline Post-Anesthesia Complications: 0 Follow-up care needed: N/A - further care as per primary team KELECHI TROY M.D. August 12, 2016 02:26
[2016-08-12 04:00] VITALS: BP 119/57
[2016-08-12] MEDS: Vancomycin 1 GM in D5W 275 ML IVPB SCH ×3 (04:34→20:53)
[2016-08-12 06:15] LABS: BASOPHILS % (AUTO) 1.1 % (0.0-2.0); EOSINOPHILS % (AUTO) 2.1 % (0.0-3.0); LYMPHOCYTES % (AUTO) 21.9 % (20.0-45.0); MEAN CORPUSCULAR HEMOGLOBIN 26.8 PG (27.0-31.0); MEAN CORPUSCULAR HGB CONC 32.4 G/DL (32.0-36.0); MEAN CORPUSCULAR VOLUME 83 FL (80-99); MEAN PLATELET VOLUME 5.9 FL (6.5-10.1); MONOCYTES % (AUTO) 11.2 % (1.0-10.0); NEUTROPHILS % (AUTO) 63.8 % (45.0-75.0); PLATELET COUNT 323 K/UL (150-450); RED CELL DISTRIBUTION WIDTH 13.3 % (11.6-14.8); WHITE BLOOD COUNT 7.2 K/UL (4.8-10.8)
[2016-08-12] MEDS: metroNIDAZOLE 500mg 100 ML IVPB SCH ×3 (06:16→21:00)
[2016-08-12] MEDS: Heparin 5000 units/ml inj SUBQ SCH ×3 (06:18→20:54)
[2016-08-12 06:35] LABS: ANION GAP 12 (5-15); CALCIUM 9.2 mg/dL (8.6-10.2); CARBON DIOXIDE 30 mEQ/L (20-30); CHLORIDE 93 mEQ/L (98-107); CREATININE 0.8 mg/dL (0.5-0.9); GLOMERULAR FILTRATION RATE > 60 mL/min (>60); HEMOLYSIS 0; POTASSIUM 4.6 mEQ/L (3.4-4.9); SODIUM 135 mEQ/L (135-145)
[2016-08-12] MEDS: PCA shift volume MISC SCH ×2 (07:00→19:09)
[2016-08-12 08:00] VITALS: BP 115/56
[2016-08-12] MEDS: Dyna-Hex 2% Top Sol 8oz TOPIC SCH (08:19)
[2016-08-12] MEDS: Neosporin Oint 15gm TOPIC SCH ×2 (08:19→17:42)
[2016-08-12] MEDS: Docusate 100mg cap ORAL SCH ×2 (08:19→17:42)
[2016-08-12 12:00] VITALS: BP 112/74
[2016-08-12] MEDS: PCA HYDROmorphone 1mg/ml 30 ML IV PRN (13:59)
[2016-08-12 16:00] VITALS: BP 115/64
--- NOTE | 2016-08-12 18:29 | Infectious Diseases Prog Note ---
Assessment/Plan Assessment/Plan A) 1) pseudomonas uti, ? sepsis, leukocytoses, fevers - leukocytosis resolved, fevers resolved, clinically stable 2) bilateral groin/buttocks wound infection, s/p debridement and closure, + wound dehiscence - s/p debridement and partial closure, wound vac 3) hidradenitis suppurativa 4) ? hot/cold sensations - ? secondary to abx, no rash, no itching 5) ? pcn allergy - patients father with severe pcn allergy but unclear if patient has true pcn allergy 6) sh-negative, fh-cad, mar noted, notes and records reviewed 7) d/w RN P) 1) vancomycin, cipro and flagyl 2) check cr on vancomycin, watch wbc 3) continue treatment per Dr. Curtis and Dr. Swain 4) orders entered and noted 5) d/w patient and mother 6) for surgery tomorrow Subjective Constitutional: Denies: fever HEENT: Denies: congestion Respiratory: Denies: shortness of breath Cardiovascular: Denies: chest pain Genitourinary: Reports: other - + lopez Neurologic: Denies: headache Psychiatric: Denies: depression Skin: Denies: rash Hematologic: Denies: bleeding Musculoskeletal: Denies: pain Allergies: Coded Allergies: PENICILLINS (Verified Allergy, Unknown, 07/22/16) Pt states she was never tested for the allergy. Pt's father had severe allergy to PCN so pt takes does not take PCN medications for precaution. Objective Vital Signs Last 24 Hour Vital Signs Date Time Temp Pulse Resp B/P Pulse Ox O2 Delivery O2 Flow Rate FiO2 08/12/16 16:00 98.2 89 19 115/64 99 Room Air 08/12/16 16:00 18 08/12/16 14:29 98.1 08/12/16 14:07 18 08/12/16 14:06 18 08/12/16 12:28 98.1 08/12/16 12:00 98.1 90 20 112/74 94 Room Air 08/12/16 12:00 18 08/12/16 08:00 18 08/12/16 04:00 99.0 86 19 119/57 99 Room Air 08/12/16 04:00 18 08/12/16 02:26 82 16 100 08/12/16 00:00 16 08/12/16 00:00 98.2 89 20 116/58 97 Room Air 08/11/16 20:00 18 08/11/16 20:00 98.2 98 18 126/65 100 Room Air Height (Feet): 5 Height (Inches): 5.00 Weight (Pounds): 254 General Appearance: no acute distress HEENT: normocephalic, atraumatic, anicteric, mucous membranes moist, PERRL, EOMI, pharynx normal, supple, no JVD Respiratory/Chest: lungs clear, normal breath sounds, no respiratory distress, no accessory muscle use Cardiovascular: normal rate, regular rhythm, no gallop/murmur, no JVD Abdomen: normal bowel sounds, soft, non tender, no organomegaly, non distended Extremities: no cyanosis Skin: no rash Neurologic/Psychiatric: program associate II-XII grossly normal, alert, oriented x 3, responsive Lymphatic: no neck adenopathy Musculoskeletal: no effusion Objective no recent chest x-ray Microbiology Date/Time Source Procedure Growth Status 08/04/16 06:45 Blood Blood Culture - Final NO GROWTH AFTER 5 DAYS Complete 08/04/16 16:10 Indwelling Cath Urine Culture - Final Pseudomonas Aeruginosa Complete Laboratory Tests Test 08/12/16 05:50 White Blood Count 7.2 K/UL (4.8-10.8) Red Blood Count 3.20 M/UL (4.20-5.40) L Hemoglobin 8.6 G/DL (12.0-16.0) L Hematocrit 26.4 % (37.0-47.0) L Mean Corpuscular Volume 83 FL (80-99) Mean Corpuscular Hemoglobin 26.8 PG (27.0-31.0) L Mean Corpuscular Hemoglobin Concent 32.4 G/DL (32.0-36.0) Red Cell Distribution Width 13.3 % (11.6-14.8) Platelet Count 323 K/UL (150-450) Mean Platelet Volume 5.9 FL (6.5-10.1) L Neutrophils (%) (Auto) 63.8 % (45.0-75.0) Lymphocytes (%) (Auto) 21.9 % (20.0-45.0) Monocytes (%) (Auto) 11.2 % (1.0-10.0) H Eosinophils (%) (Auto) 2.1 % (0.0-3.0) Basophils (%) (Auto) 1.1 % (0.0-2.0) Sodium Level 135 mEQ/L (135-145) Potassium Level 4.6 mEQ/L (3.4-4.9) Chloride Level 93 mEQ/L (98-107) L Carbon Dioxide Level 30 mEQ/L (20-30) Anion Gap 12 (5-15) Blood Urea Nitrogen 8 mg/dL (7-23) Creatinine 0.8 mg/dL (0.5-0.9) Estimat Glomerular Filtration Rate > 60 mL/min (>60) Glucose Level 130 mg/dL (74-106) H Calcium Level 9.2 mg/dL (8.6-10.2) Current Medications Medications (Trade) Dose Ordered Sig/Loren Route PRN Reason Start Time Stop Time Status Last Admin Dose Admin Acetaminophen 650 mg 650 mg Q4H PRN ORAL FEVER 08/09/16 13:30 09/08/16 13:29 08/09/16 23:29 Bisacodyl (Dulcolax) 10 mg HSPRN PRN RECTAL Constipation THIRD LINE AGENT 07/22/16 15:15 08/21/16 15:14 Chlorhexidine Gluconate 1 applic 1 applic DAILY TOPIC 08/02/16 12:00 09/01/16 11:59 08/12/16 08:19 Ciprofloxacin 200 ml @ 200 mls/hr Q12H IV 08/09/16 18:00 08/16/16 17:59 08/12/16 17:42 Dextrose (Dextrose 50%) STAT PRN IV Hypoglycemia 07/22/16 15:15 08/21/16 15:14 Diphenhydramine HCl (Benadryl) 25 mg Q6H PRN ORAL Itching/Pruritis 07/22/16 15:15 08/21/16 15:14 Docusate Sodium (Colace) 100 mg TWICE A DAY ORAL 08/06/16 18:00 09/05/16 17:59 08/12/16 17:42 Heparin Sodium (Porcine) (Heparin 5000 units/ml) 5,000 units EVERY 8 HOURS SUBQ 08/09/16 14:00 09/08/16 13:59 08/12/16 14:00 Hydromorphone HCl (Dilaudid) 2 mg Q3H PRN SUBQ Severe Pain (Pain Scale 7-10) 08/11/16 13:00 08/13/16 23:59 Hydromorphone HCl (Dilaudid) 2 mg Q4H PRN IVP Moderate Pain (Pain Scale 4-6) 08/11/16 13:00 08/13/16 23:59 08/12/16 11:58 Hydromorphone HCl (MANAGER BUSINESS INFORMATION Dilaudid) 30 ml @ 0 mls/hr Q24H PRN IV For Pain 08/11/16 13:00 08/13/16 23:59 08/12/16 13:59 Lactulose (Cephulac) 30 gm DAILY PRN ORAL Constipation 08/11/16 13:00 09/10/16 12:59 Magnesium Hydroxide (Mom) 30 ml HSPRN PRN ORAL Constipation SECOND LINE AGENT 07/22/16 15:15 08/21/16 15:14 07/27/16 23:58 Metoclopramide HCl (Reglan) 10 mg Q6H PRN IVP Nausea & Vomiting 08/06/16 11:00 09/05/16 10:59 08/12/16 14:11 Metronidazole (Flagyl) 100 ml @ 100 mls/hr Q8HR IVPB 08/09/16 14:00 08/16/16 13:59 08/12/16 13:58 Miscellaneous Medication (MANAGER BUSINESS INFORMATION Rate Change) 1 ea DAILY PRN MISC rate change 08/11/16 11:45 08/13/16 23:59 Miscellaneous Medication (MANAGER BUSINESS INFORMATION shift volume) 1 ea Q12HR@0700,1900 MISC 08/11/16 19:00 08/13/16 23:59 08/12/16 07:00 Neomycin/ Polymyxin/ Bacitracin (Neosporin Oint 15gm) 1 applic TWICE A DAY TOPIC 07/30/16 16:30 08/29/16 16:29 08/12/16 17:42 Ondansetron HCl (Zofran) 4 mg Q6H PRN IVP Nausea & Vomiting 08/09/16 13:30 09/08/16 13:29 08/12/16 08:18 Pantoprazole (Protonix) 40 mg EVERY 12 HOURS ORAL 08/12/16 21:00 09/11/16 20:59 Polyethylene Glycol (Miralax) 17 gm HSPRN PRN ORAL Constipation FIRST LINE AGENT 07/22/16 15:15 08/21/16 15:14 Vancomycin HCl 1 ea 1 ea DAILY PRN MISC Per rx protocol 08/09/16 13:45 09/08/16 13:44 Vancomycin HCl/ Dextrose (Vancomycin/D5W) 275 ml @ 183.708 mls/hr Q8HR@0500,1300,2100 IVPB 08/04/16 21:00 08/14/16 20:59 08/12/16 13:02 Zolpidem Tartrate (Ambien) 5 mg HSPRN PRN ORAL Insomnia 08/09/16 21:00 09/08/16 20:59 DAVION BISWAS August 12, 2016 18:29
[2016-08-12 20:00] VITALS: BP 114/74
--- NOTE | 2016-08-12 22:59 | General Progress Note ---
Assessment/Plan Problem List: (1) Abscess ICD Codes: L02.91 - Cutaneous abscess, unspecified SNOMED: 340411830 (2) Hidradenitis suppurativa ICD Codes: L73.2 - Hidradenitis suppurativa SNOMED: 72853361 Assessment/Plan s/p surgery today POD#3 Start protonix 40mg bid Cont IV abx Supp care Pain control DVT ppx optimize Bowel regimen Wound care per plastics A total of 32 mins of additional time was spent beyond the face to face time Subjective Date patient seen: August 12, 2016 Allergies: Coded Allergies: PENICILLINS (Verified Allergy, Unknown, 07/22/16) Pt states she was never tested for the allergy. Pt's father had severe allergy to PCN so pt takes does not take PCN medications for precaution. Subjective s/p surgery today POD#3, no new complaints. No chest pain or dyspnea, no n/v, postop pain well controlled. Pt c/o heartburn to nurse earlier this morning Objective Last 24 Hour Vital Signs Date Time Temp Pulse Resp B/P Pulse Ox O2 Delivery O2 Flow Rate FiO2 08/12/16 20:09 98.2 08/12/16 20:00 97.7 92 18 114/74 98 Room Air 08/12/16 16:00 98.2 89 19 115/64 99 Room Air 08/12/16 16:00 18 08/12/16 14:29 98.1 08/12/16 14:07 18 08/12/16 14:06 18 08/12/16 12:00 98.1 90 20 112/74 94 Room Air 08/12/16 12:00 18 08/12/16 08:00 18 08/12/16 04:00 99.0 86 19 119/57 99 Room Air 08/12/16 04:00 18 08/12/16 02:26 82 16 100 08/12/16 00:00 16 08/12/16 00:00 98.2 89 20 116/58 97 Room Air Intake and Output 08/11/16 08/12/16 19:00 07:00 Intake Total 575 ml Output Total 2500 ml 1100 ml Balance -1925 ml -1100 ml Intake Oral 200 ml IV Total 375 ml Output Urine Total 2450 ml 1100 ml Drainage Total 50 ml Laboratory Tests 08/12/16 05:50: White Blood Count 7.2, Red Blood Count 3.20L, Hemoglobin 8.6L, Hematocrit 26.4L , Mean Corpuscular Volume 83, Mean Corpuscular Hemoglobin 26.8L, Mean Corpuscular Hemoglobin Concent 32.4, Red Cell Distribution Width 13.3, Platelet Count 323, Mean Platelet Volume 5.9L, Neutrophils (%) (Auto) 63.8, Lymphocytes ( %) (Auto) 21.9, Monocytes (%) (Auto) 11.2H, Eosinophils (%) (Auto) 2.1, Basophils (%) (Auto) 1.1, Sodium Level 135, Potassium Level 4.6, Chloride Level 93L, Carbon Dioxide Level 30, Anion Gap 12, Blood Urea Nitrogen 8, Creatinine 0.8, Estimat Glomerular Filtration Rate > 60, Glucose Level 130H, Calcium Level 9.2 Height (Feet): 5 Height (Inches): 5.00 Weight (Pounds): 254 JORJE CABALLERO August 12, 2016 22:59
[2016-08-13] VITALS (13 sets, daily range): BP systolic 110–140; BP diastolic 59–89
[2016-08-13] MEDS: Vancomycin 1 GM in D5W 275 ML IVPB SCH ×2 (04:04→13:52)
[2016-08-13] MEDS: Heparin 5000 units/ml inj SUBQ SCH ×3 (05:12→20:59)
[2016-08-13] MEDS: metroNIDAZOLE 500mg 100 ML IVPB SCH ×3 (05:50→21:29)
[2016-08-13] MEDS ORDERED: Bacitracin 50000 Units Vial ONE ×2 (06:25→08:07)
[2016-08-13] MEDS ORDERED: Lidocaine 1% 10mg/ml/Epi 0.005mg/ml 30ml vial INJ ONE (06:38)
--- NOTE | 2016-08-13 06:39 | Pre-Procedure Note/Attestation ---
Pre-Procedure Note/Attestation Complete Prior to Procedure Planned Procedure: bilateral Procedure Narrative: Bilateral wound vac change to groin Indications for Procedure Pre-Operative Diagnosis: Open groin and buttock wounds Attestation I attest that I discussed the nature of the procedure; its benefits; risks and complications; and alternatives (and the risks and benefits of such alternatives ), prior to the procedure, with the patient (or the patient's legal community service representative). I attest that, if there was a reasonable possibility of needing a blood transfusion, the patient (or the patient's legal community service representative) was given the [facility] standardized written summary, pursuant to the [place] Blood Safety Act ([place] Health and Safety Code # 1645, as amended). I attest that I re-evaluated the patient just prior to the surgery and that there has been no change in the patient's H&P, except as documented below: WILBUR COULTER August 13, 2016 06:39
[2016-08-13] MEDS ORDERED: Sterile Water Irrig 1000ml IRRIG ONE (07:00)
[2016-08-13] MEDS ORDERED: Propofol 10mg/ml 20ml IV ONE (07:00)
[2016-08-13] MEDS ORDERED: fentaNYL 100 mcg/2 mL IV ONE (07:00)
[2016-08-13] MEDS ORDERED: Midazolam 2mg/2ml Inj ONE (07:00)
[2016-08-13] MEDS ORDERED: NS Irrig 1000ml ONE (07:00)
[2016-08-13] MEDS ORDERED: LR 1000ml ONE (07:00)
--- NOTE | 2016-08-13 07:28 | Operative Note - PDOC ---
Operative Note Operative Note Pre-op Diagnosis: Open groin and buttock wounds Procedure: Washout of bilateral groin wounds with wound vac placement Post-op Diagnosis: same as pre-op Surgeon: Brynn Sewer And Cutter Finger Buff Material: Bella Anesthesia: general Specimen: yes Complications: none Condition: stable Estimated Blood Loss: minimal Drains: wound vac WILBUR COULTER August 13, 2016 07:28
[2016-08-13] MEDS ORDERED: DiphenhydrAMINE 50mg/ml Inj IVP PRN ×2 (07:30→07:45)
[2016-08-13] MEDS ORDERED: LR 1000ml 1,000 ML IVLG SCH (07:35)
--- NOTE | 2016-08-13 07:41 | Anethesia Preoperative Eval ---
Anesthesia Pre-op PMH/ROS General Date of Evaluation: August 13, 2016 Time of Evaluation: 06:55 Anesthesiologist: Kleber ASA Score: ASA 3 Mallampati Score Class I : Soft palate, uvula, fauces, pillars visible Class II: Soft palate, uvula, fauces visible Class III: Soft palate, base of uvula visible Class IV: Only hard plate visible Mallampati Classification: Class III Surgeon: Brynn Diagnosis: Recurrent HS Surgical Procedure: Revison of bilateral groin wounds Anesthesia History: none Family History: no anesthesia problems Allergies: Coded Allergies: PENICILLINS (Verified Allergy, Unknown, 07/22/16) Pt states she was never tested for the allergy. Pt's father had severe allergy to PCN so pt takes does not take PCN medications for precaution. Past Medical History Cardiovascular: Denies: CAD, HTN, [place], arrhythmia, other, valve dz Pulmonary: Denies: COPD, KATHY, asthma, other Gastrointestinal/Genitourinary: Reports: GERD, Denies: CRI, ESRD, other Neurologic/Psychiatric: Reports: depression/anxiety, Denies: CVA, TIA, dementia, other Endocrine: Denies: DM, hypothyroidism, other, steroids HEENT: Denies: [place] (L), [place] (R), cataract (L), cataract (R), glaucoma, other Hematology/Immune: Reports: anemia, Denies: DVT, bleeding disorder, other Musculoskeletal/Integumentary: Reports: other - recurrent HS, Denies: DDD, DJD, OA, RA, edema Other: obesity PMH Narrative: as above PSxH Narrative: see chart Anesthesia Pre-op Phys. Exam Physician Exam Last Vital Signs Date Time Temp Pulse Resp B/P Pulse Ox O2 Delivery O2 Flow Rate FiO2 08/13/16 04:37 98.1 92 19 110/65 97 Room Air 08/09/16 12:55 3.0 08/06/16 19:45 21 Constitutional: NAD Neurologic: CN 2-12 intact Cardiovascular: RRR Respiratory: CTA Airway Exam Mallampati Score: Class III MO: full Neck: flexble ROM: full Teeth: intact Dentures: no lower, no upper Anesthesia Pre-op A/P Labs see chart Risk Assessment & Plan Assessment: ASA 3 Plan: GA wit LMA Status Change Before Surgery: No Pre-Antibiotics Drug: as scheduled ADELA GARCIA M.D. August 13, 2016 07:41
[2016-08-13] MEDS ORDERED: Meperidine 25mg/0.5ml Inj IV PRN (07:45)
[2016-08-13] MEDS ORDERED: Hydromorphone 0.5mg/0.5ml inj IVP PRN (07:45)
[2016-08-13] MEDS ORDERED: Ketorolac 30mg Inj IV PRN (07:45)
[2016-08-13] MEDS ORDERED: Metoclopramide 10mg/2ml Inj IVP PRN ×2 (07:45→10:00)
[2016-08-13] MEDS ORDERED: Midazolam 2mg/2ml Inj IVP PRN (07:45)
--- NOTE | 2016-08-13 08:02 | Immediate Post-Op Evaluation ---
Immediate Post-Op Evalulation Immediate Post-Op Evalulation Procedure: Revision of bilateral groin wounds with woundvac placement Date of Evaluation: August 13, 2016 Time of Evaluation: 08:00 IV Fluids: 300 Blood Products: none Estimated Blood Loss: min Urinary Output: 100 Blood Pressure Systolic: 141 Blood Pressure Diastolic: 85 Pulse Rate: 87 Respiratory Rate: 20 O2 Sat by Pulse Oximetry: 99 Temperature (Fahrenheit): 98.1 Pain Score (1-10): 2 Nausea: No Vomiting: No Complications none Patient Status: reacts, patent, none Hydration Status: adequate ADELA GARCIA M.D. August 13, 2016 08:02
[2016-08-13] MEDS: PCA HYDROmorphone 1mg/ml 30 ML IV PRN (08:28)
[2016-08-13] MEDS ORDERED: Rate Change PCA 1 Each MISC PRN (09:00)
[2016-08-13] MEDS ORDERED: PCA HYDROmorphone 1mg/ml 30 ML IV PRN (09:00)
[2016-08-13] MEDS ORDERED: Naloxone 0.4mg/ml Inj IV PRN ×2 (09:15)
[2016-08-13] MEDS: Dyna-Hex 2% Top Sol 8oz TOPIC SCH (09:57)
[2016-08-13] MEDS: Docusate 100mg cap ORAL SCH ×2 (09:57→18:01)
[2016-08-13] MEDS: Neosporin Oint 15gm TOPIC SCH ×2 (09:58→18:00)
--- NOTE | 2016-08-13 11:30 | Operative Note - Dictated ---
DATE OF OPERATION: 08/13/2016 PREOPERATIVE DIAGNOSIS: 1. Bilateral open groin wounds. POSTOPERATIVE DIAGNOSIS: 1. Bilateral open groin wounds. PROCEDURES: Examination under anesthesia with bilateral wound VAC change to the groins. SURGEON: Kerry Swain M.D. PARTS IDENTIFIER: Farnaz Blanco M.D. ANESTHESIA: General. COMPLICATIONS: None. DRAINS: Included bilateral wound VACs. DISPOSITION: Stable to the recovery room. INDICATIONS FOR SURGERY: This is a 21-year-old female, who has undergone multiple groin procedures for reconstruction and wound VAC changes and now presents for her third wound VAC change in the operating room. She understands the risks and benefits of surgery and agrees to proceed. DETAILS OF THE OPERATION: The patient was brought to the operating room and laid in the lithotomy position in the operating table. Her bilateral groins were prepped and draped in a sterile usual fashion. The previously placed wound VAC sponges had been removed prior to the prep. The wound looked incredibly healthy that was approximately 10% smaller than the last wound VAC change with good improvement in the appearance of the wound. Appropriately designed wound VAC sponges were cut to fit both wounds and adhesive tape was then applied to either side with two separate wound VAC machines prepared for use one on each side and both were noted to be working at 175 mmHg with high continuous suction. The patient tolerated the procedure well. There were no complications. PLAN: The plan will be to remove the wound VAC at the bedside within 3 to 4 days and then resume wet-to-dry dressing to this patient at that time. Kerry Swain M.D. DR: Cher JOB#: [id number] CC:
--- NOTE | 2016-08-13 16:52 | General Progress Note ---
Assessment/Plan Problem List: (1) Abscess ICD Codes: L02.91 - Cutaneous abscess, unspecified SNOMED: 104857695 (2) Hidradenitis suppurativa ICD Codes: L73.2 - Hidradenitis suppurativa SNOMED: 96255427 Assessment/Plan s/p surgery today POD#4 Cont protonix 40mg bid Cont IV abx Supp care Pain control DVT ppx optimize Bowel regimen Wound care per plastics A total of 32 mins of additional time was spent beyond the face to face time Subjective Date patient seen: August 13, 2016 Time patient seen: 16:51 ROS Limited/Unobtainable: No Allergies: Coded Allergies: PENICILLINS (Verified Allergy, Unknown, 07/22/16) Pt states she was never tested for the allergy. Pt's father had severe allergy to PCN so pt takes does not take PCN medications for precaution. Subjective s/p surgery today POD#4, no new complaints. No chest pain or dyspnea, no n/v, postop pain well controlled. Pt c/o heartburn to nurse earlier this morning Objective Last 24 Hour Vital Signs Date Time Temp Pulse Resp B/P Pulse Ox O2 Delivery O2 Flow Rate FiO2 08/13/16 16:00 98.2 96 20 119/59 96 Nasal Cannula 3.0 08/13/16 15:55 18 08/13/16 12:00 97.3 80 19 120/72 100 Nasal Cannula 3.0 08/13/16 09:00 20 08/13/16 09:00 98.1 86 19 122/79 100 Nasal Cannula 3.0 08/13/16 08:55 97.8 08/13/16 08:55 97.8 08/13/16 08:45 21 08/13/16 08:45 97.8 85 21 127/83 100 Nasal Cannula 3.0 08/13/16 08:30 90 19 134/80 100 Nasal Cannula 3.0 08/13/16 08:28 21 08/13/16 08:20 84 22 136/76 100 Nasal Cannula 3.0 08/13/16 08:10 88 21 134/86 100 Simple Mask 6.0 08/13/16 08:05 92 17 137/89 100 Simple Mask 6.0 08/13/16 08:02 87 20 99 08/13/16 08:00 94 19 140/86 100 Simple Mask 6.0 08/13/16 07:55 98.0 90 16 130/82 100 Simple Mask 6.0 08/13/16 04:37 98.1 92 19 110/65 97 Room Air 08/13/16 04:00 17 08/13/16 00:31 97.9 89 18 116/61 98 Room Air 08/13/16 00:00 17 08/12/16 20:09 98.2 08/12/16 20:00 18 08/12/16 20:00 97.7 92 18 114/74 98 Room Air Intake and Output 08/12/16 08/13/16 19:00 07:00 Intake Total 400 ml 240 ml Output Total 1850 ml 1300 ml Balance -1450 ml -1060 ml Intake Oral 400 ml 240 ml Output Urine Total 1850 ml 1300 ml # Bowel Movements 1 Height (Feet): 5 Height (Inches): 5.00 Weight (Pounds): 254 JORJE CABALLERO August 13, 2016 16:52
[2016-08-13] MEDS ORDERED: Tubing IV Secondary IV ONE (17:07)
[2016-08-13] MEDS ORDERED: NS 550ML IV ONE (17:07)
[2016-08-13] MEDS ORDERED: NS 275ml ONE (17:07)
[2016-08-13] MEDS ORDERED: D5W 275ml ONE (17:07)
[2016-08-13] MEDS ORDERED: D5W 550ml IV ONE (17:07)
--- NOTE | 2016-08-13 18:17 | Infectious Diseases Prog Note ---
Assessment/Plan Assessment/Plan A) 1) pseudomonas uti, ? sepsis, leukocytoses, fevers - leukocytosis resolved, fevers resolved, clinically stable 2) bilateral groin/buttocks wound infection, s/p debridement and closure, + wound dehiscence - s/p debridement and partial closure, wound vac 3) hidradenitis suppurativa 4) ? hot/cold sensations - ? secondary to abx, no rash, no itching 5) ? pcn allergy - patients father with severe pcn allergy but unclear if patient has true pcn allergy 6) sh-negative, fh-cad, mar noted, notes and records reviewed 7) d/w RN P) 1) vancomycin, cipro and flagyl - day # 8 of abx combination 2) check cr on vancomycin 3) continue treatment per Dr. Curtis and Dr. Swain 4) orders entered and noted 5) d/w patient and mother Subjective Constitutional: Denies: fever HEENT: Denies: congestion Respiratory: Denies: shortness of breath Cardiovascular: Denies: chest pain Gastrointestinal/Abdominal: Denies: nausea, vomiting Neurologic: Denies: headache Psychiatric: Denies: depression Skin: Denies: rash Hematologic: Denies: bleeding Musculoskeletal: Denies: pain Allergies: Coded Allergies: PENICILLINS (Verified Allergy, Unknown, 07/22/16) Pt states she was never tested for the allergy. Pt's father had severe allergy to PCN so pt takes does not take PCN medications for precaution. Objective Vital Signs Last 24 Hour Vital Signs Date Time Temp Pulse Resp B/P Pulse Ox O2 Delivery O2 Flow Rate FiO2 08/13/16 16:00 98.2 96 20 119/59 96 Nasal Cannula 3.0 08/13/16 15:55 18 08/13/16 12:00 97.3 80 19 120/72 100 Nasal Cannula 3.0 08/13/16 09:00 20 08/13/16 09:00 98.1 86 19 122/79 100 Nasal Cannula 3.0 08/13/16 08:55 97.8 08/13/16 08:55 97.8 08/13/16 08:45 21 08/13/16 08:45 97.8 85 21 127/83 100 Nasal Cannula 3.0 08/13/16 08:30 90 19 134/80 100 Nasal Cannula 3.0 08/13/16 08:28 21 08/13/16 08:20 84 22 136/76 100 Nasal Cannula 3.0 08/13/16 08:10 88 21 134/86 100 Simple Mask 6.0 08/13/16 08:05 92 17 137/89 100 Simple Mask 6.0 08/13/16 08:02 87 20 99 08/13/16 08:00 94 19 140/86 100 Simple Mask 6.0 08/13/16 07:55 98.0 90 16 130/82 100 Simple Mask 6.0 08/13/16 04:37 98.1 92 19 110/65 97 Room Air 08/13/16 04:00 17 08/13/16 00:31 97.9 89 18 116/61 98 Room Air 08/13/16 00:00 17 08/12/16 20:09 98.2 08/12/16 20:00 18 08/12/16 20:00 97.7 92 18 114/74 98 Room Air Height (Feet): 5 Height (Inches): 5.00 Weight (Pounds): 254 General Appearance: no acute distress HEENT: normocephalic, atraumatic, anicteric, mucous membranes moist, PERRL, EOMI, pharynx normal, supple, no JVD Respiratory/Chest: lungs clear, normal breath sounds, no respiratory distress, no accessory muscle use Cardiovascular: normal rate, regular rhythm, no gallop/murmur, no JVD Abdomen: normal bowel sounds, soft, non tender, no organomegaly, non distended Genitourinary: other - + lopez - urine clear Extremities: no cyanosis Skin: no rash Neurologic/Psychiatric: cell plasterer II-XII grossly normal, alert, oriented x 3, responsive Lymphatic: no neck adenopathy Musculoskeletal: no effusion Objective no recent chest x-ray Microbiology Date/Time Source Procedure Growth Status 08/04/16 06:45 Blood Blood Culture - Final NO GROWTH AFTER 5 DAYS Complete 08/04/16 16:10 Indwelling Cath Urine Culture - Final Pseudomonas Aeruginosa Complete Labs Test 08/12/16 05:50 White Blood Count 7.2 K/UL (4.8-10.8) Red Blood Count 3.20 M/UL (4.20-5.40) Hemoglobin 8.6 G/DL (12.0-16.0) Hematocrit 26.4 % (37.0-47.0) Mean Corpuscular Volume 83 FL (80-99) Mean Corpuscular Hemoglobin 26.8 PG (27.0-31.0) Mean Corpuscular Hemoglobin Concent 32.4 G/DL (32.0-36.0) Red Cell Distribution Width 13.3 % (11.6-14.8) Platelet Count 323 K/UL (150-450) Mean Platelet Volume 5.9 FL (6.5-10.1) Neutrophils (%) (Auto) 63.8 % (45.0-75.0) Lymphocytes (%) (Auto) 21.9 % (20.0-45.0) Monocytes (%) (Auto) 11.2 % (1.0-10.0) Eosinophils (%) (Auto) 2.1 % (0.0-3.0) Basophils (%) (Auto) 1.1 % (0.0-2.0) Sodium Level 135 mEQ/L (135-145) Potassium Level 4.6 mEQ/L (3.4-4.9) Chloride Level 93 mEQ/L (98-107) Carbon Dioxide Level 30 mEQ/L (20-30) Anion Gap 12 (5-15) Blood Urea Nitrogen 8 mg/dL (7-23) Creatinine 0.8 mg/dL (0.5-0.9) Estimat Glomerular Filtration Rate > 60 mL/min (>60) Glucose Level 130 mg/dL (74-106) Calcium Level 9.2 mg/dL (8.6-10.2) Current Medications Medications (Trade) Dose Ordered Sig/Loren Route PRN Reason Start Time Stop Time Status Last Admin Dose Admin Acetaminophen (Tylenol) 650 mg Q4H PRN ORAL T>100.5F 08/13/16 07:30 09/12/16 07:29 Bisacodyl (Dulcolax) 10 mg HSPRN PRN RECTAL Constipation THIRD LINE AGENT 07/22/16 15:15 08/21/16 15:14 Chlorhexidine Gluconate 1 applic 1 applic DAILY TOPIC 08/02/16 12:00 09/01/16 11:59 08/13/16 09:57 Ciprofloxacin 200 ml @ 200 mls/hr Q12H IV 08/09/16 18:00 08/16/16 17:59 08/13/16 18:01 Dextrose (Dextrose 50%) STAT PRN IV Hypoglycemia 07/22/16 15:15 08/21/16 15:14 Diphenhydramine HCl (Benadryl) 12.5 mg Q6H PRN IVP Itching/Pruritis 08/13/16 07:30 09/12/16 07:29 Docusate Sodium (Colace) 100 mg TWICE A DAY ORAL 08/13/16 10:00 09/12/16 09:59 08/13/16 18:01 Heparin Sodium (Porcine) (Heparin 5000 units/ml) 5,000 units EVERY 12 HOURS SUBQ 08/13/16 10:00 09/12/16 09:59 08/13/16 09:59 Hydromorphone HCl (Dilaudid) 2 mg Q3H PRN SUBQ Severe Pain (Pain Scale 7-10) 08/13/16 09:00 08/15/16 08:59 Hydromorphone HCl (Dilaudid) 2 mg Q4H PRN IVP Moderate Pain (Pain Scale 4-6) 08/13/16 09:00 08/15/16 08:59 Hydromorphone HCl (CHUCK [employer]IVER Dilaudid) 30 ml @ 0 mls/hr Q24H PRN IV For Pain 08/13/16 09:00 08/15/16 08:59 08/13/16 08:28 Lactulose (Cephulac) 30 gm DAILY PRN ORAL Constipation 08/11/16 13:00 09/10/16 12:59 Magnesium Hydroxide (Mom) 30 ml HSPRN PRN ORAL Constipation SECOND LINE AGENT 07/22/16 15:15 08/21/16 15:14 07/27/16 23:58 Metoclopramide HCl (Reglan) 10 mg Q6H PRN IVP Nausea & Vomiting 08/13/16 10:00 09/12/16 09:59 Metronidazole (Flagyl) 100 ml @ 100 mls/hr Q8HR IVPB 08/09/16 14:00 08/16/16 13:59 08/13/16 13:51 Miscellaneous Medication (CH[employer]IVER Rate Change) 1 ea DAILY PRN MISC rate change 08/13/16 09:00 08/15/16 08:59 Miscellaneous Medication 1 ea 1 ea Q12HR@0700,1900 MISC 08/13/16 19:00 08/15/16 18:59 Naloxone HCl (Narcan) 0.1 mg PRN IV . 08/13/16 09:00 08/15/16 08:59 Neomycin/ Polymyxin/ Bacitracin (Neosporin Oint 15gm) 1 applic TWICE A DAY TOPIC 07/30/16 16:30 08/29/16 16:29 08/13/16 09:58 Ondansetron HCl (Zofran) 4 mg Q6H PRN IVP Nausea & Vomiting 08/13/16 10:00 09/12/16 09:59 Pantoprazole (Protonix) 40 mg EVERY 12 HOURS ORAL 08/12/16 21:00 09/11/16 20:59 08/13/16 09:57 Polyethylene Glycol (Miralax) 17 gm HSPRN PRN ORAL Constipation FIRST LINE AGENT 07/22/16 15:15 08/21/16 15:14 Vancomycin HCl (Vanco rx to dose) 1 ea DAILY PRN MISC Per rx protocol 08/09/16 13:45 09/08/16 13:44 Vancomycin HCl 1 gm/Dextrose 275 ml @ 183.708 mls/hr Q8HR@0500,1300,2100 IVPB 08/04/16 21:00 08/14/16 20:59 08/13/16 13:52 Zolpidem Tartrate (Ambien) 5 mg HSPRN PRN ORAL Insomnia 08/13/16 21:00 09/12/16 20:59 DAVION BISWAS August 13, 2016 18:17
[2016-08-13] MEDS: PCA shift volume MISC SCH (19:20)
[2016-08-13] MEDS ORDERED: Vancomycin 1 GM in D5W 275 ML IVPB SCH (21:00)
[2016-08-14 00:04] VITALS: BP 108/59
[2016-08-14 04:00] VITALS: BP 119/61
[2016-08-14 04:40] LABS: ANION GAP 12 (5-15); CALCIUM 8.9 mg/dL (8.6-10.2); CARBON DIOXIDE 30 mEQ/L (20-30); CHLORIDE 92 mEQ/L (98-107); CREATININE 0.8 mg/dL (0.5-0.9); GLOMERULAR FILTRATION RATE > 60 mL/min (>60); HEMOLYSIS 0; POTASSIUM 4.7 mEQ/L (3.4-4.9); SODIUM 134 mEQ/L (135-145)
[2016-08-14] MEDS: metroNIDAZOLE 500mg 100 ML IVPB SCH ×3 (05:02→22:17)
[2016-08-14] MEDS: PCA shift volume MISC SCH ×2 (07:13→19:00)
[2016-08-14 08:03] VITALS: BP 127/70
[2016-08-14] MEDS: Dyna-Hex 2% Top Sol 8oz TOPIC SCH ×2 (08:46→09:00)
[2016-08-14] MEDS: Neosporin Oint 15gm TOPIC SCH ×2 (08:47→18:00)
[2016-08-14] MEDS: Docusate 100mg cap ORAL SCH ×2 (08:47→17:30)
[2016-08-14] MEDS: Heparin 5000 units/ml inj SUBQ SCH ×2 (08:54→22:21)
[2016-08-14] MEDS: Vancomycin 1250mg/D5W 275ml IVPB SCH ×4 (09:58→20:08)
[2016-08-14] MEDS: PCA HYDROmorphone 1mg/ml 30 ML IV PRN (11:46)
[2016-08-14 12:02] VITALS: BP 110/54
--- NOTE | 2016-08-14 12:31 | Diagnostic Imaging Report ---
APPROVED REPORT CPT Code: 86240 Present Symptoms Upper Extremity Pain: Left Comments: PICC LINE PLACED 07/24/16, CEPHALIC VEIN TO SVC. LEFT UPPER EXTREMITY: Venous imaging reveals patency of the internal jugular, subclavian, axillary and brachial veins. The cephalic and basilic veins are also patent. Doppler indicates normal spontaneous flow within these venous segments. There is no evidence of acute deep vein thrombosis.
[2016-08-14 15:56] VITALS: BP 110/63
--- NOTE | 2016-08-14 19:10 | General Progress Note ---
Assessment/Plan Problem List: (1) Abscess ICD Codes: L02.91 - Cutaneous abscess, unspecified SNOMED: 844023947 (2) Hidradenitis suppurativa ICD Codes: L73.2 - Hidradenitis suppurativa SNOMED: 26196978 Status: stable Assessment/Plan s/p excision of bilateral infection groin and thigh tissues with flap elevation on 07/23 s/p flap closure of bilateral groin and buttock wounds on 07/25 s/p partial closure of bilateral groin wounds with wound vac placement on 08/06 s/p washout of bilateral groin wounds with wound vac placement on 08/09 s/p washout of bilateral groin wounds with wound vac placement on 08/13 Cont IV vanco Repeat cultures today as WBC rising ID consulted Supp care Pain control DVT ppx Bowel regimen Wound care per plastics A total of 31min of extra time was spent [id number] in addition to normal encounter time. D/w pt, RN, surgery regarding mgmt and disposition Subjective Date patient seen: August 14, 2016 Time patient seen: 19:10 Constitutional: Reports: no symptoms HEENT: Reports: no symptoms Cardiovascular: Reports: no symptoms Respiratory: Reports: no symptoms Gastrointestinal/Abdominal: Reports: no symptoms Genitourinary: Reports: no symptoms Neurologic/Psychiatric: Reports: no symptoms Endocrine: Reports: no symptoms Hematologic/Lymphatic: Reports: no symptoms Allergies: Coded Allergies: PENICILLINS (Verified Allergy, Unknown, 07/22/16) Pt states she was never tested for the allergy. Pt's father had severe allergy to PCN so pt takes does not take PCN medications for precaution. All Systems: reviewed and negative except above Subjective Pt states her mom had a syncopal episode and is currently hospitalized here at [facility] [place]. She is doing better now. Pain controlled Tolerating diet Denies f/c, n/v, d/c, chest pain, SOB Objective Last 24 Hour Vital Signs Date Time Temp Pulse Resp B/P Pulse Ox O2 Delivery O2 Flow Rate FiO2 08/14/16 18:05 97.5 08/14/16 16:00 18 08/14/16 15:56 97.5 87 18 110/63 94 Room Air 08/14/16 12:05 97.9 08/14/16 12:02 97.9 81 18 110/54 98 Room Air 08/14/16 12:00 18 08/14/16 08:03 97.5 85 18 127/70 96 Room Air 08/14/16 08:00 18 08/14/16 04:00 18 08/14/16 04:00 98.6 89 18 119/61 96 Room Air 08/14/16 00:04 98.4 89 19 108/59 96 Room Air 08/14/16 00:00 18 08/13/16 20:13 98.4 90 18 114/65 98 Room Air 08/13/16 20:00 18 Intake and Output 08/13/16 08/14/16 19:00 07:00 Intake Total 800 ml Output Total 950 ml 1900 ml Balance -150 ml -1900 ml Intake Oral 450 ml IV Total 350 ml Output Urine Total 950 ml 1900 ml Estimated Blood Loss 0 ml # Voids 1 Laboratory Tests 08/14/16 04:05: Sodium Level 134L, Potassium Level 4.7, Chloride Level 92L, Carbon Dioxide Level 30, Anion Gap 12, Blood Urea Nitrogen 10, Creatinine 0.8, Estimat Glomerular Filtration Rate > 60, Glucose Level 109H, Calcium Level 8.9, Vancomycin Level Trough 19.5H Height (Feet): 5 Height (Inches): 5.00 Weight (Pounds): 254 Objective General: alert, cooperative, no distress, appears stated age Head: normocephalic, without obvious abnormality, atraumatic Eyes: conjunctivae/corneas clear. PERRL, EOM's intact Throat: lips, mucosa, and tongue normal. MMM Neck: supple, symmetrical, trachea midline, and no JVD Lungs: clear to auscultation bilaterally Heart: regular rate and rhythm, S1, S2 normal, no murmur, click, rub or gallop Abdomen: soft, non-tender, non-distended, bowel sounds normal; no masses or organomegaly Extremities: extremities normal, atraumatic, no cyanosis or edema Pulses: 2+ and symmetric Skin: skin color, texture, turgor normal; no rashes or lesions Neurologic: grossly normal, no focal deficits Genesis Chung M.D. August 14, 2016 19:10
[2016-08-14 20:00] VITALS: BP 125/98
[2016-08-15] VITALS: BP 120/72
[2016-08-15 04:00] VITALS: BP 127/62
[2016-08-15] MEDS: metroNIDAZOLE 500mg 100 ML IVPB SCH ×3 (05:52→22:26)
[2016-08-15] MEDS: PCA shift volume MISC SCH ×2 (07:00→19:23)
[2016-08-15 08:00] VITALS: BP 120/81
[2016-08-15] MEDS: Heparin 5000 units/ml inj SUBQ SCH ×2 (09:00→21:04)
[2016-08-15] MEDS: Neosporin Oint 15gm TOPIC SCH ×2 (09:00→18:00)
[2016-08-15] MEDS ORDERED: Rate Change PCA 1 Each MISC PRN (09:15)
[2016-08-15] MEDS: Vancomycin 1250mg/D5W 275ml IVPB SCH ×4 (09:35→20:58)
[2016-08-15] MEDS: Dyna-Hex 2% Top Sol 8oz TOPIC SCH (09:35)
[2016-08-15] MEDS: Docusate 100mg cap ORAL SCH ×2 (09:35→18:40)
[2016-08-15 12:00] VITALS: BP 140/65
[2016-08-15] MEDS: PCA HYDROmorphone 1mg/ml 30 ML IV PRN (12:11)
--- NOTE | 2016-08-15 14:40 | General Progress Note ---
Assessment/Plan Problem List: (1) Abscess ICD Codes: L02.91 - Cutaneous abscess, unspecified SNOMED: 805715565 (2) Hidradenitis suppurativa ICD Codes: L73.2 - Hidradenitis suppurativa SNOMED: 93006792 Status: stable Assessment/Plan s/p excision of bilateral infection groin and thigh tissues with flap elevation on 07/23 s/p flap closure of bilateral groin and buttock wounds on 07/25 s/p partial closure of bilateral groin wounds with wound vac placement on 08/06 s/p washout of bilateral groin wounds with wound vac placement on 08/09 s/p washout of bilateral groin wounds with wound vac placement on 08/13 Vancomycin, cipro and flagyl - day #10 of abx combination ID consulted, appreciate rec's Supp care Pain control DVT ppx Bowel regimen Wound care per plastics Home health ordered A total of 31min of extra time was spent [id number] in addition to normal encounter time. D/w pt, RN, surgery regarding mgmt and disposition Subjective Date patient seen: Aug 15, 2016 Time patient seen: 14:38 ROS Limited/Unobtainable: No Constitutional: Reports: no symptoms, weakness HEENT: Reports: no symptoms Cardiovascular: Reports: no symptoms Respiratory: Reports: no symptoms Gastrointestinal/Abdominal: Reports: no symptoms Genitourinary: Reports: no symptoms Neurologic/Psychiatric: Reports: no symptoms Endocrine: Reports: no symptoms Hematologic/Lymphatic: Reports: no symptoms Allergies: Coded Allergies: PENICILLINS (Verified Allergy, Unknown, 07/22/16) Pt states she was never tested for the allergy. Pt's father had severe allergy to PCN so pt takes does not take PCN medications for precaution. All Systems: reviewed and negative except above Subjective Pt doing better Pain controlled Tolerating diet Denies f/c, n/v, d/c, chest pain, SOB Working w/ PT/OT Objective Last 24 Hour Vital Signs Date Time Temp Pulse Resp B/P Pulse Ox O2 Delivery O2 Flow Rate FiO2 08/15/16 12:00 98.0 79 18 140/65 99 Room Air 08/15/16 08:00 17 08/15/16 08:00 98.2 85 20 120/81 98 Room Air 08/15/16 04:00 16 08/15/16 04:00 98.2 88 18 127/62 99 Room Air 08/15/16 00:00 16 08/15/16 00:00 97.7 80 18 120/72 98 Room Air 08/14/16 20:00 16 08/14/16 20:00 97.0 78 18 125/98 95 Room Air 08/14/16 18:05 97.5 08/14/16 16:00 18 08/14/16 15:56 97.5 87 18 110/63 94 Room Air Intake and Output 08/14/16 08/15/16 19:00 07:00 Intake Total 1175.000 ml Output Total 65 ml 15 ml Balance 1110.000 ml -15 ml Intake Oral 600 ml IV Total 575.000 ml Drainage Total 65 ml 15 ml # Bowel Movements 1 1 Height (Feet): 5 Height (Inches): 5.00 Weight (Pounds): 254 Objective General: alert, cooperative, no distress, appears stated age Head: normocephalic, without obvious abnormality, atraumatic Eyes: conjunctivae/corneas clear. PERRL, EOM's intact Throat: lips, mucosa, and tongue normal. MMM Neck: supple, symmetrical, trachea midline, and no JVD Lungs: clear to auscultation bilaterally Heart: regular rate and rhythm, S1, S2 normal, no murmur, click, rub or gallop Abdomen: soft, non-tender, non-distended, bowel sounds normal; no masses or organomegaly Extremities: extremities normal, atraumatic, no cyanosis or edema Pulses: 2+ and symmetric Skin: skin color, texture, turgor normal; no rashes or lesions Neurologic: grossly normal, no focal deficits Genesis Chung M.D. Aug 15, 2016 14:40
--- NOTE | 2016-08-15 15:21 | Infectious Diseases Prog Note ---
Assessment/Plan Assessment/Plan A) 1) pseudomonas uti, ? sepsis, leukocytoses, fevers - leukocytosis resolved, fevers resolved, clinically stable 2) bilateral groin/buttocks wound infection, s/p debridement and closure, + wound dehiscence - s/p debridement and partial closure, wound vac 3) hidradenitis suppurativa 4) ? hot/cold sensations - ? secondary to abx, no rash, no itching 5) ? pcn allergy - patients father with severe pcn allergy but unclear if patient has true pcn allergy 6) sh-negative, fh-cad, mar noted, notes and records reviewed 7) d/w RN P) 1) vancomycin, cipro and flagyl - day # 10 abx, plan on oral abx soon 2) check cr on vancomycin 3) continue treatment per Dr. Curtis and Dr. Swain 4) orders entered and noted 5) d/w patient 6) d/w Dr. Hurtado Subjective Constitutional: Denies: fever HEENT: Denies: congestion Respiratory: Denies: shortness of breath Cardiovascular: Denies: chest pain Gastrointestinal/Abdominal: Denies: diarrhea, nausea, vomiting Genitourinary: Reports: other - + lopez Neurologic: Denies: headache Psychiatric: Denies: depression Skin: Denies: rash Hematologic: Denies: bleeding Musculoskeletal: Denies: pain Allergies: Coded Allergies: PENICILLINS (Verified Allergy, Unknown, 07/22/16) Pt states she was never tested for the allergy. Pt's father had severe allergy to PCN so pt takes does not take PCN medications for precaution. Objective Vital Signs Last 24 Hour Vital Signs Date Time Temp Pulse Resp B/P Pulse Ox O2 Delivery O2 Flow Rate FiO2 08/15/16 12:00 17 08/15/16 12:00 98.0 79 18 140/65 99 Room Air 08/15/16 08:00 17 08/15/16 08:00 98.2 85 20 120/81 98 Room Air 08/15/16 04:00 16 08/15/16 04:00 98.2 88 18 127/62 99 Room Air 08/15/16 00:00 16 08/15/16 00:00 97.7 80 18 120/72 98 Room Air 08/14/16 20:00 16 08/14/16 20:00 97.0 78 18 125/98 95 Room Air 08/14/16 18:05 97.5 08/14/16 16:00 18 08/14/16 15:56 97.5 87 18 110/63 94 Room Air Height (Feet): 5 Height (Inches): 5.00 Weight (Pounds): 254 General Appearance: no acute distress HEENT: normocephalic, atraumatic, anicteric, mucous membranes moist, PERRL, EOMI, pharynx normal, supple, no JVD Respiratory/Chest: lungs clear, normal breath sounds, no respiratory distress, respiratory distress Cardiovascular: normal peripheral pulses, normal rate, regular rhythm, no gallop/murmur, no JVD Abdomen: normal bowel sounds, soft, non tender, no organomegaly, non distended Genitourinary: other - + lopez - urine clear Extremities: no cyanosis Skin: no rash Neurologic/Psychiatric: chopper feeder II-XII grossly normal, alert, oriented x 3, responsive Lymphatic: no neck adenopathy Musculoskeletal: no effusion Objective no recent chest x-ray Microbiology Date/Time Source Procedure Growth Status 08/04/16 06:45 Blood Blood Culture - Final NO GROWTH AFTER 5 DAYS Complete 08/04/16 16:10 Indwelling Cath Urine Culture - Final Pseudomonas Aeruginosa Complete Labs Test 08/14/16 04:05 Sodium Level 134 mEQ/L (135-145) Potassium Level 4.7 mEQ/L (3.4-4.9) Chloride Level 92 mEQ/L (98-107) Carbon Dioxide Level 30 mEQ/L (20-30) Anion Gap 12 (5-15) Blood Urea Nitrogen 10 mg/dL (7-23) Creatinine 0.8 mg/dL (0.5-0.9) Estimat Glomerular Filtration Rate > 60 mL/min (>60) Glucose Level 109 mg/dL (74-106) Calcium Level 8.9 mg/dL (8.6-10.2) Vancomycin Level Trough 19.5 ug/mL (5.0-12.0) wbc - 7.2 hgb - 8.6 Current Medications Medications (Trade) Dose Ordered Sig/Loren Route PRN Reason Start Time Stop Time Status Last Admin Dose Admin Acetaminophen (Tylenol) 650 mg Q4H PRN ORAL T>100.5F 08/13/16 07:30 09/12/16 07:29 Bisacodyl (Dulcolax) 10 mg HSPRN PRN RECTAL Constipation THIRD LINE AGENT 07/22/16 15:15 08/21/16 15:14 Chlorhexidine Gluconate 1 applic 1 applic DAILY TOPIC 08/02/16 12:00 09/01/16 11:59 08/15/16 09:35 Ciprofloxacin 200 ml @ 200 mls/hr Q12H IV 08/09/16 18:00 08/16/16 17:59 08/15/16 06:51 Dextrose (Dextrose 50%) STAT PRN IV Hypoglycemia 07/22/16 15:15 08/21/16 15:14 Diphenhydramine HCl (Benadryl) 12.5 mg Q6H PRN IVP Itching/Pruritis 08/13/16 07:30 09/12/16 07:29 Docusate Sodium (Colace) 100 mg TWICE A DAY ORAL 08/13/16 10:00 09/12/16 09:59 08/15/16 09:35 Heparin Sodium (Porcine) (Heparin 5000 units/ml) 5,000 units EVERY 12 HOURS SUBQ 08/13/16 10:00 09/12/16 09:59 08/15/16 09:00 Hydromorphone HCl (Dilaudid) 2 mg Q3H PRN SUBQ Severe Pain (Pain Scale 7-10) 08/15/16 09:15 08/17/16 09:14 Hydromorphone HCl (Dilaudid) 2 mg Q4H PRN IVP Moderate Pain (Pain Scale 4-6) 08/15/16 09:15 08/17/16 09:14 08/15/16 13:36 Hydromorphone HCl (INSURANCE HEALTHCARE CONSULTANT Dilaudid) 30 ml @ 0 mls/hr Q24H PRN IV For Pain 08/15/16 09:15 08/17/16 09:14 08/15/16 12:11 Lactulose (Cephulac) 30 gm DAILY PRN ORAL Constipation 08/11/16 13:00 09/10/16 12:59 Magnesium Hydroxide (Mom) 30 ml HSPRN PRN ORAL Constipation SECOND LINE AGENT 07/22/16 15:15 08/21/16 15:14 07/27/16 23:58 Metoclopramide HCl (Reglan) 10 mg Q6H PRN IVP Nausea & Vomiting 08/13/16 10:00 09/12/16 09:59 Metronidazole (Flagyl) 100 ml @ 100 mls/hr Q8HR IVPB 08/09/16 14:00 08/16/16 13:59 08/15/16 15:07 Miscellaneous Medication (INSURANCE HEALTHCARE CONSULTANT Rate Change) 1 ea DAILY PRN MISC rate change 08/15/16 09:15 08/17/16 09:14 Miscellaneous Medication (INSURANCE HEALTHCARE CONSULTANT shift volume) 1 ea Q12HR@0700,1900 MISC 08/15/16 19:00 08/17/16 18:59 Naloxone HCl (Narcan) 0.1 mg PRN IV . 08/13/16 09:15 08/17/16 09:14 Neomycin/ Polymyxin/ Bacitracin (Neosporin Oint 15gm) 1 applic TWICE A DAY TOPIC 07/30/16 16:30 08/29/16 16:29 08/14/16 08:47 Ondansetron HCl (Zofran) 4 mg Q6H PRN IVP Nausea & Vomiting 08/13/16 10:00 09/12/16 09:59 08/15/16 09:35 Pantoprazole (Protonix) 40 mg EVERY 12 HOURS ORAL 08/12/16 21:00 09/11/16 20:59 08/15/16 09:35 Polyethylene Glycol (Miralax) 17 gm HSPRN PRN ORAL Constipation FIRST LINE AGENT 07/22/16 15:15 08/21/16 15:14 Vancomycin HCl 1.25 gm/Dextrose 275 ml @ 183.333 mls/hr Q12HR@0800,2000 IVPB 08/14/16 08:00 08/19/16 07:59 08/15/16 09:35 Vancomycin HCl 1 ea 1 ea DAILY PRN MISC Per rx protocol 08/13/16 18:15 09/12/16 18:14 Zolpidem Tartrate (Ambien) 5 mg HSPRN PRN ORAL Insomnia 08/13/16 21:00 09/12/16 20:59 DAVION BISWAS Aug 15, 2016 15:21
[2016-08-15 16:00] VITALS: BP 135/65
[2016-08-15 20:00] VITALS: BP 125/60
[2016-08-16] VITALS: BP 101/57
[2016-08-16 04:00] VITALS: BP 110/69
[2016-08-16] MEDS: metroNIDAZOLE 500mg 100 ML IVPB SCH ×3 (05:37→22:32)
[2016-08-16] MEDS: PCA shift volume MISC SCH ×2 (07:21→19:22)
[2016-08-16 07:57] VITALS: BP 133/74
[2016-08-16] MEDS: Neosporin Oint 15gm TOPIC SCH ×2 (09:00→18:00)
[2016-08-16] MEDS: Dyna-Hex 2% Top Sol 8oz TOPIC SCH (09:36)
[2016-08-16] MEDS: Docusate 100mg cap ORAL SCH ×2 (09:36→18:03)
[2016-08-16] MEDS: Vancomycin 1250mg/D5W 275ml IVPB SCH ×4 (09:37→22:31)
[2016-08-16] MEDS: Heparin 5000 units/ml inj SUBQ SCH ×2 (09:38→21:02)
[2016-08-16 11:42] VITALS: BP 111/59
--- NOTE | 2016-08-16 12:00 | Infectious Diseases Prog Note ---
Assessment/Plan Assessment/Plan A) 1) pseudomonas uti, ? sepsis, leukocytoses, fevers - leukocytosis resolved, fevers resolved, clinically stable 2) bilateral groin/buttocks wound infection, s/p debridement and closure, + wound dehiscence - s/p debridement and partial closure, wound vac 3) hidradenitis suppurativa 4) ? hot/cold sensations - ? secondary to abx, no rash, no itching 5) ? pcn allergy - patients father with severe pcn allergy but unclear if patient has true pcn allergy 6) sh-negative, fh-cad, mar noted, notes and records reviewed 7) d/w RN P) 1) vancomycin, cipro and flagyl - plan on oral abx soon 2) check cr on vancomycin 3) continue treatment per Dr. Curtis and Dr. Swain 4) orders entered and noted 5) d/w patient and mother Subjective Constitutional: Denies: fever HEENT: Denies: congestion Respiratory: Denies: shortness of breath Cardiovascular: Denies: chest pain Gastrointestinal/Abdominal: Denies: diarrhea, nausea, vomiting Genitourinary: Reports: other - + lopez Neurologic: Denies: headache Psychiatric: Denies: depression Skin: Denies: rash Hematologic: Denies: bleeding Musculoskeletal: Denies: pain Allergies: Coded Allergies: PENICILLINS (Verified Allergy, Unknown, 07/22/16) Pt states she was never tested for the allergy. Pt's father had severe allergy to PCN so pt takes does not take PCN medications for precaution. Objective Vital Signs Last 24 Hour Vital Signs Date Time Temp Pulse Resp B/P Pulse Ox O2 Delivery O2 Flow Rate FiO2 08/16/16 11:42 97.7 73 20 111/59 98 Room Air 08/16/16 07:57 97.9 88 20 133/74 98 Room Air 08/16/16 04:00 98.4 86 17 110/69 99 Room Air 08/16/16 04:00 16 08/16/16 01:48 98.5 08/16/16 00:00 99.4 102 18 101/57 99 Room Air 08/16/16 00:00 17 08/15/16 20:00 98.5 96 18 125/60 98 Room Air 08/15/16 20:00 18 08/15/16 16:00 97.7 83 20 135/65 99 Room Air 08/15/16 12:00 17 08/15/16 12:00 98.0 79 18 140/65 99 Room Air Height (Feet): 5 Height (Inches): 5.00 Weight (Pounds): 254 General Appearance: no acute distress HEENT: normocephalic, atraumatic, anicteric, mucous membranes moist, PERRL, EOMI, pharynx normal, supple, no JVD Respiratory/Chest: lungs clear, normal breath sounds, no respiratory distress, no accessory muscle use Cardiovascular: normal rate, regular rhythm, no gallop/murmur, no JVD Abdomen: normal bowel sounds, soft, non tender, no organomegaly, non distended Genitourinary: other - no lopez Extremities: no cyanosis Skin: no rash Neurologic/Psychiatric: vertical contour band saw operator II-XII grossly normal, alert, oriented x 3, responsive Lymphatic: no neck adenopathy Musculoskeletal: no effusion Objective no recent chest x-ray Microbiology Date/Time Source Procedure Growth Status 08/04/16 06:45 Blood Blood Culture - Final NO GROWTH AFTER 5 DAYS Complete 08/04/16 16:10 Indwelling Cath Urine Culture - Final Pseudomonas Aeruginosa Complete Labs Test 08/14/16 04:05 Sodium Level 134 mEQ/L (135-145) Potassium Level 4.7 mEQ/L (3.4-4.9) Chloride Level 92 mEQ/L (98-107) Carbon Dioxide Level 30 mEQ/L (20-30) Anion Gap 12 (5-15) Blood Urea Nitrogen 10 mg/dL (7-23) Creatinine 0.8 mg/dL (0.5-0.9) Estimat Glomerular Filtration Rate > 60 mL/min (>60) Glucose Level 109 mg/dL (74-106) Calcium Level 8.9 mg/dL (8.6-10.2) Vancomycin Level Trough 19.5 ug/mL (5.0-12.0) wbc - 7.2 hgb - 8.6 Current Medications Medications (Trade) Dose Ordered Sig/Loren Route PRN Reason Start Time Stop Time Status Last Admin Dose Admin Acetaminophen (Tylenol) 650 mg Q4H PRN ORAL T>100.5F 08/13/16 07:30 09/12/16 07:29 Bisacodyl (Dulcolax) 10 mg HSPRN PRN RECTAL Constipation THIRD LINE AGENT 07/22/16 15:15 08/21/16 15:14 Chlorhexidine Gluconate (Tomasa-Hex 2%) 1 applic DAILY TOPIC 08/02/16 12:00 09/01/16 11:59 08/16/16 09:36 Ciprofloxacin 200 ml @ 200 mls/hr Q12HR@0800,2000 IV 08/15/16 20:00 08/22/16 19:59 08/16/16 09:27 Dextrose (Dextrose 50%) STAT PRN IV Hypoglycemia 07/22/16 15:15 08/21/16 15:14 Diphenhydramine HCl 12.5 mg 12.5 mg Q6H PRN IVP Itching/Pruritis 08/13/16 07:30 09/12/16 07:29 Docusate Sodium (Colace) 100 mg TWICE A DAY ORAL 08/13/16 10:00 09/12/16 09:59 08/16/16 09:36 Heparin Sodium (Porcine) (Heparin 5000 units/ml) 5,000 units EVERY 12 HOURS SUBQ 08/13/16 10:00 09/12/16 09:59 08/16/16 09:38 Hydromorphone HCl (Dilaudid) 2 mg Q3H PRN SUBQ Severe Pain (Pain Scale 7-10) 08/15/16 09:15 08/17/16 09:14 Hydromorphone HCl (Dilaudid) 2 mg Q4H PRN IVP Moderate Pain (Pain Scale 4-6) 08/15/16 09:15 08/17/16 09:14 08/16/16 09:56 Hydromorphone HCl (OPTICAL LAB TECHNICIAN Dilaudid) 30 ml @ 0 mls/hr Q24H PRN IV For Pain 08/15/16 09:15 08/17/16 09:14 08/15/16 12:11 Lactulose (Cephulac) 30 gm DAILY PRN ORAL Constipation 08/11/16 13:00 09/10/16 12:59 Magnesium Hydroxide (Mom) 30 ml HSPRN PRN ORAL Constipation SECOND LINE AGENT 07/22/16 15:15 08/21/16 15:14 07/27/16 23:58 Metoclopramide HCl (Reglan) 10 mg Q6H PRN IVP Nausea & Vomiting 08/13/16 10:00 09/12/16 09:59 Metronidazole (Flagyl) 100 ml @ 100 mls/hr Q8HR IVPB 08/15/16 22:00 08/22/16 21:59 08/16/16 05:37 Miscellaneous Medication (OPTICAL LAB TECHNICIAN shift volume) 1 ea Q12HR@0700,1900 MISC 08/15/16 19:00 08/17/16 18:59 08/16/16 07:21 Miscellaneous Medication 1 ea 1 ea DAILY PRN MISC rate change 08/15/16 09:15 08/17/16 09:14 Naloxone HCl (Narcan) 0.1 mg PRN IV . 08/13/16 09:15 08/17/16 09:14 Neomycin/ Polymyxin/ Bacitracin (Neosporin Oint 15gm) 1 applic TWICE A DAY TOPIC 07/30/16 16:30 08/29/16 16:29 08/14/16 08:47 Ondansetron HCl (Zofran) 4 mg Q6H PRN IVP Nausea & Vomiting 08/13/16 10:00 09/12/16 09:59 08/15/16 09:35 Pantoprazole (Protonix) 40 mg EVERY 12 HOURS ORAL 08/12/16 21:00 09/11/16 20:59 08/16/16 09:36 Polyethylene Glycol (Miralax) 17 gm HSPRN PRN ORAL Constipation FIRST LINE AGENT 07/22/16 15:15 08/21/16 15:14 Vancomycin HCl 1 ea 1 ea DAILY PRN MISC Per rx protocol 08/15/16 15:30 09/14/16 15:29 Vancomycin HCl/ Dextrose (Vancomycin/D5W) 275 ml @ 183.333 mls/hr Q12HR IVPB 08/15/16 21:00 08/20/16 20:59 08/16/16 09:37 Zolpidem Tartrate (Ambien) 5 mg HSPRN PRN ORAL Insomnia 08/13/16 21:00 09/12/16 20:59 DAVION BISWAS Aug 16, 2016 12:00
[2016-08-16] MEDS: PCA HYDROmorphone 1mg/ml 30 ML IV PRN (13:13)
--- NOTE | 2016-08-16 14:22 | General Progress Note ---
Assessment/Plan Problem List: (1) Abscess ICD Codes: L02.91 - Cutaneous abscess, unspecified SNOMED: 899163889 (2) Hidradenitis suppurativa ICD Codes: L73.2 - Hidradenitis suppurativa SNOMED: [id number] Status: stable Assessment/Plan s/p excision of bilateral infection groin and thigh tissues with flap elevation on 07/23 s/p flap closure of bilateral groin and buttock wounds on 07/25 s/p partial closure of bilateral groin wounds with wound vac placement on 08/06 s/p washout of bilateral groin wounds with wound vac placement on 08/09 s/p washout of bilateral groin wounds with wound vac placement on 08/13 Vancomycin, cipro and flagyl - day #11 of abx combination ID consulted, appreciate rec's Supp care Pain control DVT ppx Bowel regimen Wound care per plastics Home health ordered for PT, OT and wound care A total of 31min of extra time was spent [id number] in addition to normal encounter time. D/w pt, RN, surgery regarding mgmt and disposition Subjective Date patient seen: Aug 16, 2016 Time patient seen: 14:21 ROS Limited/Unobtainable: No Constitutional: Reports: weakness HEENT: Reports: no symptoms Cardiovascular: Reports: no symptoms Respiratory: Reports: no symptoms Gastrointestinal/Abdominal: Reports: no symptoms Genitourinary: Reports: no symptoms Neurologic/Psychiatric: Reports: no symptoms Endocrine: Reports: no symptoms Hematologic/Lymphatic: Reports: no symptoms Allergies: Coded Allergies: PENICILLINS (Verified Allergy, Unknown, 07/22/16) Pt states she was never tested for the allergy. Pt's father had severe allergy to PCN so pt takes does not take PCN medications for precaution. All Systems: reviewed and negative except above Subjective Pt doing better Pain controlled Tolerating diet Denies f/c, n/v, d/c, chest pain, SOB Working with PT/OT Objective Last 24 Hour Vital Signs Date Time Temp Pulse Resp B/P Pulse Ox O2 Delivery O2 Flow Rate FiO2 08/16/16 11:42 97.7 73 20 111/59 98 Room Air 08/16/16 07:57 97.9 88 20 133/74 98 Room Air 08/16/16 04:00 98.4 86 17 110/69 99 Room Air 08/16/16 04:00 16 08/16/16 01:48 98.5 08/16/16 00:00 99.4 102 18 101/57 99 Room Air 08/16/16 00:00 17 08/15/16 20:00 98.5 96 18 125/60 98 Room Air 08/15/16 20:00 18 08/15/16 16:00 97.7 83 20 135/65 99 Room Air Intake and Output 08/15/16 08/16/16 19:00 07:00 Intake Total 480 ml 1100 ml Output Total 1000 ml 1800 ml Balance -520 ml -700 ml Intake Oral 480 ml 700 ml IV Total 400 ml Output Urine Total 1000 ml 1800 ml # Bowel Movements 2 1 Height (Feet): 5 Height (Inches): 5.00 Weight (Pounds): 254 Objective General: alert, cooperative, no distress, appears stated age Head: normocephalic, without obvious abnormality, atraumatic Eyes: conjunctivae/corneas clear. PERRL, EOM's intact Throat: lips, mucosa, and tongue normal. MMM Neck: supple, symmetrical, trachea midline, and no JVD Lungs: clear to auscultation bilaterally Heart: regular rate and rhythm, S1, S2 normal, no murmur, click, rub or gallop Abdomen: soft, non-tender, non-distended, bowel sounds normal; no masses or organomegaly Extremities: extremities normal, atraumatic, no cyanosis or edema Pulses: 2+ and symmetric Skin: skin color, texture, turgor normal; no rashes or lesions Neurologic: grossly normal, no focal deficits Genesis Chung M.D. Aug 16, 2016 14:22
--- NOTE | 2016-08-16 15:37 | Diagnostic Imaging Report ---
APPROVED REPORT CPT Code: 81069 Present Symptoms Comments: R/O DVT Hx of Hidradenitis Post Op Bilateral groin bandages BILATERAL: Imaging reveals a patent deep venous system bilaterally. There is no evidence of thrombus within the mid to distal superficial femoral, popliteal or tibial segments. The greater saphenous veins are also within normal limits. Doppler indicates normal spontaneous flow within these segments. Unable to assess the common, proximal superficial femoral and greater saphenous veins due to open surgery wounds (bandages), bilaterally.
[2016-08-16 16:05] VITALS: BP 127/68
[2016-08-16 20:00] VITALS: BP 125/70
[2016-08-16 21:09] LABS: ANION GAP 13 (5-15); CALCIUM 8.9 mg/dL (8.6-10.2); CARBON DIOXIDE 27 mEQ/L (20-30); CHLORIDE 98 mEQ/L (98-107); CREATININE 0.8 mg/dL (0.5-0.9); GLOMERULAR FILTRATION RATE > 60 mL/min (>60); HEMOLYSIS 0; POTASSIUM 4.1 mEQ/L (3.4-4.9); SODIUM 138 mEQ/L (135-145)
[2016-08-17] VITALS: BP 127/61
[2016-08-17 04:00] VITALS: BP 124/69
[2016-08-17] MEDS: metroNIDAZOLE 500mg 100 ML IVPB SCH (05:52)
[2016-08-17] MEDS: PCA shift volume MISC SCH ×2 (07:22→19:14)
[2016-08-17] MEDS ORDERED: Rate Change PCA 1 Each MISC PRN (07:45)
[2016-08-17 07:49] VITALS: BP 119/61
[2016-08-17] MEDS: Dyna-Hex 2% Top Sol 8oz TOPIC SCH (08:58)
[2016-08-17] MEDS: Docusate 100mg cap ORAL SCH ×2 (08:58→17:47)
[2016-08-17] MEDS: Neosporin Oint 15gm TOPIC SCH ×2 (08:58→17:13)
[2016-08-17] MEDS: Vancomycin 1250mg/D5W 275ml IVPB SCH ×2 (08:58)
[2016-08-17] MEDS: Heparin 5000 units/ml inj SUBQ SCH ×2 (09:03→21:00)
[2016-08-17 12:00] VITALS: BP 116/69
--- NOTE | 2016-08-17 12:23 | Infectious Diseases Prog Note ---
Assessment/Plan Assessment/Plan A) 1) pseudomonas uti, ? sepsis, leukocytoses, fevers - leukocytosis resolved, fevers resolved, clinically stable 2) bilateral groin/buttocks wound infection, s/p debridement and closure, + wound dehiscence - s/p debridement and partial closure, wound vac 3) hidradenitis suppurativa 4) ? hot/cold sensations - ? secondary to abx, no rash, no itching 5) ? pcn allergy - patients father with severe pcn allergy but unclear if patient has true pcn allergy 6) sh-negative, fh-cad, mar noted, notes and records reviewed 7) d/w RN P) 1) change to levofloxacin and doxycycline for 3 days (total of 2 weeks abx and 1 week post last operation) 2) recheck ua and culture 3) continue treatment per Dr. Curtis and Dr. Swain 4) orders entered and noted 5) d/w patient and mother Subjective Constitutional: Denies: fever HEENT: Denies: congestion Respiratory: Denies: shortness of breath Cardiovascular: Denies: chest pain Gastrointestinal/Abdominal: Denies: diarrhea, nausea Neurologic: Denies: headache Psychiatric: Denies: depression Skin: Denies: rash Hematologic: Denies: bleeding Musculoskeletal: Denies: pain Allergies: Coded Allergies: PENICILLINS (Verified Allergy, Unknown, 07/22/16) Pt states she was never tested for the allergy. Pt's father had severe allergy to PCN so pt takes does not take PCN medications for precaution. Objective Vital Signs Last 24 Hour Vital Signs Date Time Temp Pulse Resp B/P Pulse Ox O2 Delivery O2 Flow Rate FiO2 08/17/16 12:00 97.9 82 20 116/69 98 Room Air 08/17/16 11:22 97.7 08/17/16 07:49 97.7 77 18 119/61 100 Room Air 08/17/16 04:00 97.9 70 16 124/69 99 Room Air 08/17/16 00:00 98.1 76 19 127/61 99 Room Air 08/16/16 20:00 97.7 80 19 125/70 95 Room Air 08/16/16 20:00 18 08/16/16 16:05 97.1 77 20 127/68 98 Room Air Height (Feet): 5 Height (Inches): 5.00 Weight (Pounds): 254 General Appearance: no acute distress HEENT: normocephalic, atraumatic, anicteric, mucous membranes moist, PERRL, EOMI, pharynx normal, supple, no JVD Respiratory/Chest: lungs clear, normal breath sounds, no respiratory distress, no accessory muscle use Cardiovascular: normal rate, regular rhythm, no gallop/murmur, no JVD Abdomen: normal bowel sounds, soft, non tender, no organomegaly, non distended Genitourinary: other - + lopez - urine slt cloudy Extremities: no cyanosis Skin: no rash Neurologic/Psychiatric: charge loader II-XII grossly normal, alert, oriented x 3, responsive Lymphatic: no neck adenopathy Musculoskeletal: no effusion Objective no recent chest x-ray Microbiology Date/Time Source Procedure Growth Status 08/04/16 06:45 Blood Blood Culture - Final NO GROWTH AFTER 5 DAYS Complete 08/04/16 16:10 Indwelling Cath Urine Culture - Final Pseudomonas Aeruginosa Complete Laboratory Tests Test 08/16/16 20:20 Sodium Level 138 mEQ/L (135-145) Potassium Level 4.1 mEQ/L (3.4-4.9) Chloride Level 98 mEQ/L (98-107) Carbon Dioxide Level 27 mEQ/L (20-30) Anion Gap 13 (5-15) Blood Urea Nitrogen 8 mg/dL (7-23) Creatinine 0.8 mg/dL (0.5-0.9) Estimat Glomerular Filtration Rate > 60 mL/min (>60) Glucose Level 130 mg/dL (74-106) H Calcium Level 8.9 mg/dL (8.6-10.2) Vancomycin Level Trough 11.4 ug/mL (5.0-12.0) wbc - 7.2 hgb - 8.6 Current Medications Medications (Trade) Dose Ordered Sig/Loren Route PRN Reason Start Time Stop Time Status Last Admin Dose Admin Acetaminophen (Tylenol) 650 mg Q4H PRN ORAL T>100.5F 08/13/16 07:30 09/12/16 07:29 Bisacodyl (Dulcolax) 10 mg HSPRN PRN RECTAL Constipation THIRD LINE AGENT 07/22/16 15:15 08/21/16 15:14 Chlorhexidine Gluconate (Tomasa-Hex 2%) 1 applic DAILY TOPIC 08/02/16 12:00 09/01/16 11:59 08/17/16 08:58 Ciprofloxacin 200 ml @ 200 mls/hr Q12HR@0800,2000 IV 08/15/16 20:00 08/22/16 19:59 08/17/16 08:01 Dextrose (Dextrose 50%) STAT PRN IV Hypoglycemia 07/22/16 15:15 08/21/16 15:14 Diphenhydramine HCl 12.5 mg 12.5 mg Q6H PRN IVP Itching/Pruritis 08/13/16 07:30 09/12/16 07:29 Docusate Sodium (Colace) 100 mg TWICE A DAY ORAL 08/13/16 10:00 09/12/16 09:59 08/17/16 08:58 Heparin Sodium (Porcine) (Heparin 5000 units/ml) 5,000 units EVERY 12 HOURS SUBQ 08/13/16 10:00 09/12/16 09:59 08/17/16 09:03 Hydromorphone HCl (Dilaudid) 2 mg Q3H PRN SUBQ Severe Pain (Pain Scale 7-10) 08/17/16 09:15 08/19/16 09:14 Hydromorphone HCl (Dilaudid) 2 mg Q4H PRN IVP Moderate Pain (Pain Scale 4-6) 08/17/16 09:15 08/19/16 09:14 08/17/16 10:52 Hydromorphone HCl (RESEARCH HYDROLOGIST Dilaudid) 30 ml @ 0 mls/hr Q24H PRN IV For Pain 08/17/16 09:15 08/19/16 09:14 Lactulose (Cephulac) 30 gm DAILY PRN ORAL Constipation 08/11/16 13:00 09/10/16 12:59 Magnesium Hydroxide (Mom) 30 ml HSPRN PRN ORAL Constipation SECOND LINE AGENT 07/22/16 15:15 08/21/16 15:14 07/27/16 23:58 Metoclopramide HCl (Reglan) 10 mg Q6H PRN IVP Nausea & Vomiting 08/13/16 10:00 09/12/16 09:59 Metronidazole (Flagyl) 100 ml @ 100 mls/hr Q8HR IVPB 08/15/16 22:00 08/22/16 21:59 08/17/16 05:52 Miscellaneous Medication (RESEARCH HYDROLOGIST Rate Change) 1 ea DAILY PRN MISC rate change 08/17/16 07:45 08/19/16 07:44 Miscellaneous Medication (RESEARCH HYDROLOGIST shift volume) 1 ea Q12HR@0700,1900 MISC 08/17/16 19:00 08/19/16 18:59 Naloxone HCl (Narcan) 0.1 mg PRN IV . 08/13/16 09:15 08/21/16 09:14 Neomycin/ Polymyxin/ Bacitracin (Neosporin Oint 15gm) 1 applic TWICE A DAY TOPIC 07/30/16 16:30 08/29/16 16:29 08/14/16 08:47 Ondansetron HCl (Zofran) 4 mg Q6H PRN IVP Nausea & Vomiting 08/13/16 10:00 09/12/16 09:59 08/15/16 09:35 Pantoprazole (Protonix) 40 mg EVERY 12 HOURS ORAL 08/12/16 21:00 09/11/16 20:59 08/17/16 08:58 Polyethylene Glycol (Miralax) 17 gm HSPRN PRN ORAL Constipation FIRST LINE AGENT 07/22/16 15:15 08/21/16 15:14 Vancomycin HCl 1.25 gm/Dextrose 275 ml @ 183.333 mls/hr Q12HR IVPB 08/15/16 21:00 08/20/16 20:59 08/17/16 08:58 Vancomycin HCl 1 ea 1 ea DAILY PRN MISC Per rx protocol 08/15/16 15:30 09/14/16 15:29 Zolpidem Tartrate (Ambien) 5 mg HSPRN PRN ORAL Insomnia 08/13/16 21:00 09/12/16 20:59 DAVION BISWAS Aug 17, 2016 12:23
[2016-08-17] MEDS: PCA HYDROmorphone 1mg/ml 30 ML IV PRN (13:34)
[2016-08-17 15:14] LABS: APPEARANCE,URINE CLEAR; KETONES,URINE NEGATIVE (NEGATIVE); LEUKOCYTE ESTERASE ,URINE 2+ (NEGATIVE); NITRITE,URINE NEGATIVE (NEGATIVE); PH,URINE 6 (4.5-8.0); PROTEIN,URINE NEGATIVE (NEGATIVE); UROBILINOGEN,URINE NORMAL MG/DL (0.0-1.0)
[2016-08-17 15:30] LABS: RBC,URINE 0-2 /HPF (0 - 2)
[2016-08-17 15:31] LABS: BACTERIA,URINE FEW /HPF; SQUAMOUS EPITHELIAL CELL,UR FEW /LPF (NONE/OCC)
--- NOTE | 2016-08-17 15:35 | General Progress Note ---
Assessment/Plan Problem List: (1) Abscess ICD Codes: L02.91 - Cutaneous abscess, unspecified SNOMED: 620094820 (2) Hidradenitis suppurativa ICD Codes: L73.2 - Hidradenitis suppurativa SNOMED: 61928683 Assessment/Plan s/p surgery today POD#5 Referral asent to [facility] for ARU, PT Cont protonix 40mg bid Cont IV abx Supp care Pain control DVT ppx optimize Bowel regimen Wound care per plastics A total of 32 mins of additional time was spent beyond the face to face time Subjective Date patient seen: Aug 17, 2016 Time patient seen: 15:33 ROS Limited/Unobtainable: No Allergies: Coded Allergies: PENICILLINS (Verified Allergy, Unknown, 07/22/16) Pt states she was never tested for the allergy. Pt's father had severe allergy to PCN so pt takes does not take PCN medications for precaution. Subjective s/p surgery today POD#5, no new complaints. No chest pain or dyspnea, no n/v, postop pain well controlled. Having some challenges with PT and mobility today Objective Last 24 Hour Vital Signs Date Time Temp Pulse Resp B/P Pulse Ox O2 Delivery O2 Flow Rate FiO2 08/17/16 14:04 97.9 08/17/16 12:00 97.9 82 20 116/69 98 Room Air 08/17/16 12:00 18 08/17/16 11:22 97.7 08/17/16 08:00 18 08/17/16 07:49 97.7 77 18 119/61 100 Room Air 08/17/16 04:00 97.9 70 16 124/69 99 Room Air 08/17/16 00:00 98.1 76 19 127/61 99 Room Air 08/16/16 20:00 97.7 80 19 125/70 95 Room Air 08/16/16 20:00 18 08/16/16 16:05 97.1 77 20 127/68 98 Room Air Intake and Output 08/16/16 08/17/16 19:00 07:00 Intake Total 885 ml 650 ml Output Total 1800 ml 1000 ml Balance -915 ml -350 ml Intake Oral 885 ml 650 ml Output Urine Total 1800 ml 1000 ml # Voids 3 Laboratory Tests 08/16/16 20:20: Sodium Level 138, Potassium Level 4.1, Chloride Level 98, Carbon Dioxide Level 27, Anion Gap 13, Blood Urea Nitrogen 8, Creatinine 0.8, Estimat Glomerular Filtration Rate > 60, Glucose Level 130H, Calcium Level 8.9, Vancomycin Level Trough 11.4 08/17/16 15:00: Urine Color Yellow, Urine Appearance Clear, Urine pH 6, Urine Specific [place] 1.015, Urine Protein Negative, Urine Glucose (UA) Negative, Urine Ketones Negative, Urine Occult Blood Negative, Urine Nitrite Negative, Urine Bilirubin Negative, Urine Urobilinogen Normal, Urine Leukocyte Esterase 2+H, Urine RBC 0-2 , Urine WBC 2-4, Urine Squamous Epithelial Cells Few, Urine Bacteria Few Height (Feet): 5 Height (Inches): 5.00 Weight (Pounds): 254 Objective General: alert, cooperative, no distress, appears stated age Head: normocephalic, without obvious abnormality, atraumatic Eyes: conjunctivae/corneas clear. PERRL, EOM's intact Throat: lips, mucosa, and tongue normal. MMM Neck: supple, symmetrical, trachea midline, and no JVD Lungs: clear to auscultation bilaterally Heart: regular rate and rhythm, S1, S2 normal, no murmur, click, rub or gallop Abdomen: soft, non-tender, non-distended, bowel sounds normal; no masses or organomegaly Extremities: extremities normal, atraumatic, no cyanosis or edema Pulses: 2+ and symmetric Skin: skin color, texture, turgor normal; no rashes or lesions Neurologic: grossly normal, no focal deficits JORJE CABALLERO Aug 17, 2016 15:35
[2016-08-17 16:00] VITALS: BP 129/74
[2016-08-17] MEDS ORDERED: Tubing IV Secondary IV ONE (17:13)
[2016-08-17] MEDS ORDERED: NS 275ml ONE (17:13)
[2016-08-17 20:00] VITALS: BP 125/74
[2016-08-18] VITALS: BP 108/67
--- NOTE | 2016-08-18 01:16 | Cardiology Report ---
APPROVED REPORT EKG Measurement Heart [id number] Normal sinus rhythm Nonspecific T wave abnormality Abnormal ECG
[2016-08-18 04:17] VITALS: BP 111/69
[2016-08-18] MEDS: PCA shift volume MISC SCH ×2 (07:25→19:00)
[2016-08-18 08:00] VITALS: BP 128/53
[2016-08-18] MEDS: Docusate 100mg cap ORAL SCH ×2 (08:16→18:00)
[2016-08-18] MEDS: Levofloxacin 500mg tab ORAL SCH (08:16)
[2016-08-18] MEDS: Dyna-Hex 2% Top Sol 8oz TOPIC SCH (08:18)
[2016-08-18] MEDS: Neosporin Oint 15gm TOPIC SCH ×2 (08:21→18:00)
[2016-08-18] MEDS: Heparin 5000 units/ml inj SUBQ SCH ×2 (08:35→20:40)
[2016-08-18] MEDS: PCA HYDROmorphone 1mg/ml 30 ML IV PRN (13:32)
[2016-08-18 16:00] VITALS: BP 120/60
--- NOTE | 2016-08-18 18:38 | Infectious Diseases Prog Note ---
Assessment/Plan Assessment/Plan A) 1) pseudomonas uti, ? sepsis, leukocytoses, fevers - leukocytosis resolved, fevers resolved, clinically stable 2) bilateral groin/buttocks wound infection, s/p debridement and closure, + wound dehiscence - s/p debridement and partial closure, wound vac 3) hidradenitis suppurativa 4) ? hot/cold sensations - ? secondary to abx, no rash, no itching 5) ? pcn allergy - patients father with severe pcn allergy but unclear if patient has true pcn allergy 6) sh-negative, fh-cad, mar noted, notes and records reviewed 7) d/w RN P) 1) levofloxacin and doxycycline for 2 days (total of 2 weeks abx and 1 week post last operation) 2) recheck ua and culture 3) continue treatment per Dr. Curtis and Dr. Swain 4) orders entered and noted 5) d/w patient and mother Subjective Constitutional: Denies: fever HEENT: Denies: congestion Respiratory: Denies: shortness of breath Cardiovascular: Denies: chest pain Gastrointestinal/Abdominal: Denies: diarrhea, nausea, vomiting Genitourinary: Denies: nocturia Neurologic: Denies: headache Psychiatric: Denies: depression Skin: Denies: rash Hematologic: Denies: bleeding Musculoskeletal: Denies: pain Allergies: Coded Allergies: PENICILLINS (Verified Allergy, Unknown, 07/22/16) Pt states she was never tested for the allergy. Pt's father had severe allergy to PCN so pt takes does not take PCN medications for precaution. Objective Vital Signs Last 24 Hour Vital Signs Date Time Temp Pulse Resp B/P Pulse Ox O2 Delivery O2 Flow Rate FiO2 08/18/16 16:00 97.5 93 20 120/60 97 Room Air 08/18/16 16:00 20 08/18/16 12:00 18 08/18/16 08:00 97.3 92 18 128/53 97 Room Air 08/18/16 08:00 18 08/18/16 04:17 97.7 87 20 111/69 99 Room Air 08/18/16 04:00 17 08/18/16 00:00 18 08/18/16 00:00 97.9 83 18 108/67 98 Room Air 08/17/16 20:00 97.5 86 20 125/74 98 Room Air 08/17/16 20:00 18 Height (Feet): 5 Height (Inches): 5.00 Weight (Pounds): 254 General Appearance: no acute distress HEENT: normocephalic, atraumatic, anicteric, mucous membranes moist, PERRL, EOMI, pharynx normal, supple, no JVD Respiratory/Chest: lungs clear, normal breath sounds, no respiratory distress, no accessory muscle use Cardiovascular: normal rate, regular rhythm, no gallop/murmur, no JVD Abdomen: normal bowel sounds, soft, non tender, no organomegaly, non distended Genitourinary: other - + lopez - urine clear Extremities: no cyanosis Skin: no rash Neurologic/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: 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 normal, alert, oriented x 3, responsive Lymphatic: no neck adenopathy Musculoskeletal: no effusion Objective no recent chest x-ray Microbiology Date/Time Source Procedure Growth Status 08/04/16 06:45 Blood Blood Culture - Final NO GROWTH AFTER 5 DAYS Complete 08/04/16 16:10 Indwelling Cath Urine Culture - Final Pseudomonas Aeruginosa Complete Labs Test 08/16/16 20:20 08/17/16 15:00 Sodium Level 138 mEQ/L (135-145) Potassium Level 4.1 mEQ/L (3.4-4.9) Chloride Level 98 mEQ/L (98-107) Carbon Dioxide Level 27 mEQ/L (20-30) Anion Gap 13 (5-15) Blood Urea Nitrogen 8 mg/dL (7-23) Creatinine 0.8 mg/dL (0.5-0.9) Estimat Glomerular Filtration Rate > 60 mL/min (>60) Glucose Level 130 mg/dL (74-106) Calcium Level 8.9 mg/dL (8.6-10.2) Vancomycin Level Trough 11.4 ug/mL (5.0-12.0) Urine Color Yellow Urine Appearance Clear Urine pH 6 (4.5-8.0) Urine Specific [place] 1.015 (1.005-1.035) Urine Protein Negative (NEGATIVE) Urine Glucose (UA) Negative (NEGATIVE) Urine Ketones Negative (NEGATIVE) Urine Occult Blood Negative (NEGATIVE) Urine Nitrite Negative (NEGATIVE) Urine Bilirubin Negative (NEGATIVE) Urine Urobilinogen Normal MG/DL (0.0-1.0) Urine Leukocyte Esterase 2+ (NEGATIVE) Urine RBC 0-2 /HPF (0 - 2) Urine WBC 2-4 /HPF (0 - 2) Urine Squamous Epithelial Cells Few /LPF (NONE/OCC) Urine Bacteria Few /HPF (NONE) wbc - 7.2 hgb - 8.6 Current Medications Medications (Trade) Dose Ordered Sig/Loren Route PRN Reason Start Time Stop Time Status Last Admin Dose Admin Acetaminophen (Tylenol) 650 mg Q4H PRN ORAL T>100.5F 08/13/16 07:30 09/12/16 07:29 Bisacodyl (Dulcolax) 10 mg HSPRN PRN RECTAL Constipation THIRD LINE AGENT 07/22/16 15:15 08/21/16 15:14 Chlorhexidine Gluconate (Tomasa-Hex 2%) 1 applic DAILY TOPIC 08/02/16 12:00 09/01/16 11:59 08/18/16 08:18 Dextrose (Dextrose 50%) STAT PRN IV Hypoglycemia 07/22/16 15:15 08/21/16 15:14 Diphenhydramine HCl 12.5 mg 12.5 mg Q6H PRN IVP Itching/Pruritis 08/13/16 07:30 09/12/16 07:29 Docusate Sodium (Colace) 100 mg TWICE A DAY ORAL 08/13/16 10:00 09/12/16 09:59 08/18/16 18:00 Doxycycline Monohydrate (Vibramycin) 100 mg EVERY 12 HOURS ORAL 08/17/16 21:00 08/24/16 20:59 08/18/16 08:21 Heparin Sodium (Porcine) (Heparin 5000 units/ml) 5,000 units EVERY 12 HOURS SUBQ 08/13/16 10:00 09/12/16 09:59 08/18/16 08:35 Hydromorphone HCl (Dilaudid) 2 mg Q3H PRN SUBQ Severe Pain (Pain Scale 7-10) 08/17/16 09:15 08/19/16 09:14 Hydromorphone HCl (Dilaudid) 2 mg Q4H PRN IVP Moderate Pain (Pain Scale 4-6) 08/17/16 09:15 08/19/16 09:14 08/18/16 15:45 Hydromorphone HCl (REHAB TRAINER Dilaudid) 30 ml @ 0 mls/hr Q24H PRN IV For Pain 08/17/16 09:15 08/19/16 09:14 08/18/16 13:32 Lactulose (Cephulac) 30 gm DAILY PRN ORAL Constipation 08/11/16 13:00 09/10/16 12:59 Levofloxacin (Levaquin) 500 mg DAILY ORAL 08/18/16 09:00 08/25/16 08:59 08/18/16 08:16 Magnesium Hydroxide (Mom) 30 ml HSPRN PRN ORAL Constipation SECOND LINE AGENT 07/22/16 15:15 08/21/16 15:14 07/27/16 23:58 Metoclopramide HCl (Reglan) 10 mg Q6H PRN IVP Nausea & Vomiting 08/13/16 10:00 09/12/16 09:59 Miscellaneous Medication (REHAB TRAINER Rate Change) 1 ea DAILY PRN MISC rate change 08/17/16 07:45 08/19/16 07:44 Miscellaneous Medication (REHAB TRAINER shift volume) 1 ea Q12HR@0700,1900 MISC 08/17/16 19:00 08/19/16 18:59 08/18/16 07:25 Naloxone HCl (Narcan) 0.1 mg PRN IV . 08/13/16 09:15 08/21/16 09:14 Neomycin/ Polymyxin/ Bacitracin (Neosporin Oint 15gm) 1 applic TWICE A DAY TOPIC 07/30/16 16:30 08/29/16 16:29 08/18/16 18:00 Ondansetron HCl (Zofran) 4 mg Q6H PRN IVP Nausea & Vomiting 08/13/16 10:00 09/12/16 09:59 08/15/16 09:35 Pantoprazole (Protonix) 40 mg EVERY 12 HOURS ORAL 08/12/16 21:00 09/11/16 20:59 08/18/16 08:16 Polyethylene Glycol (Miralax) 17 gm HSPRN PRN ORAL Constipation FIRST LINE AGENT 07/22/16 15:15 08/21/16 15:14 Zolpidem Tartrate (Ambien) 5 mg HSPRN PRN ORAL Insomnia 08/13/16 21:00 09/12/16 20:59 DAVION BISWAS Aug 18, 2016 18:38
--- NOTE | 2016-08-18 18:41 | General Progress Note ---
Assessment/Plan Problem List: (1) Abscess ICD Codes: L02.91 - Cutaneous abscess, unspecified SNOMED: 149434245 (2) Hidradenitis suppurativa ICD Codes: L73.2 - Hidradenitis suppurativa SNOMED: [id number] Assessment/Plan s/p surgery today POD#6 Referral asent to [facility] for ARU, PT Cont protonix 40mg bid Cont IV abx Supp care Pain control DVT ppx optimize Bowel regimen Wound care per plastics A total of 32 mins of additional time was spent beyond the face to face time Subjective Date patient seen: Aug 18, 2016 Time patient seen: 18:41 ROS Limited/Unobtainable: No Allergies: Coded Allergies: PENICILLINS (Verified Allergy, Unknown, 07/22/16) Pt states she was never tested for the allergy. Pt's father had severe allergy to PCN so pt takes does not take PCN medications for precaution. Subjective s/p surgery today POD#6, no new complaints. No chest pain or dyspnea, no n/v, postop pain well controlled. Having some challenges with PT and mobility today Objective Last 24 Hour Vital Signs Date Time Temp Pulse Resp B/P Pulse Ox O2 Delivery O2 Flow Rate FiO2 08/18/16 16:00 97.5 93 20 120/60 97 Room Air 08/18/16 16:00 20 08/18/16 12:00 18 08/18/16 08:00 97.3 92 18 128/53 97 Room Air 08/18/16 08:00 18 08/18/16 04:17 97.7 87 20 111/69 99 Room Air 08/18/16 04:00 17 08/18/16 00:00 18 08/18/16 00:00 97.9 83 18 108/67 98 Room Air 08/17/16 20:00 97.5 86 20 125/74 98 Room Air 08/17/16 20:00 18 Intake and Output 08/17/16 08/18/16 19:00 07:00 Intake Total 460 ml 360 ml Output Total 300 ml 800 ml Balance 160 ml -440 ml Intake Oral 460 ml 360 ml Output Urine Total 300 ml 800 ml Height (Feet): 5 Height (Inches): 5.00 Weight (Pounds): 254 Objective General: alert, cooperative, no distress, appears stated age Head: normocephalic, without obvious abnormality, atraumatic Eyes: conjunctivae/corneas clear. PERRL, EOM's intact Throat: lips, mucosa, and tongue normal. MMM Neck: supple, symmetrical, trachea midline, and no JVD Lungs: clear to auscultation bilaterally Heart: regular rate and rhythm, S1, S2 normal, no murmur, click, rub or gallop Abdomen: soft, non-tender, non-distended, bowel sounds normal; no masses or organomegaly Extremities: extremities normal, atraumatic, no cyanosis or edema Pulses: 2+ and symmetric Skin: skin color, texture, turgor normal; no rashes or lesions Neurologic: grossly normal, no focal deficits JORJE CABALLERO Aug 18, 2016 18:41
[2016-08-18 20:13] VITALS: BP 120/77
[2016-08-19 00:08] VITALS: BP 115/62
[2016-08-19 04:10] VITALS: BP 123/56
[2016-08-19] MEDS: PCA shift volume MISC SCH (07:21)
[2016-08-19 08:00] VITALS: BP 105/60
[2016-08-19] MEDS: Levofloxacin 500mg tab ORAL SCH (08:06)
[2016-08-19] MEDS: Docusate 100mg cap ORAL SCH ×2 (08:07→18:23)
[2016-08-19] MEDS: Dyna-Hex 2% Top Sol 8oz TOPIC SCH (08:08)
[2016-08-19] MEDS: Heparin 5000 units/ml inj SUBQ SCH ×2 (08:12→21:14)
[2016-08-19] MEDS: Neosporin Oint 15gm TOPIC SCH ×2 (08:13→17:56)
[2016-08-19 11:47] VITALS: BP 140/75
--- NOTE | 2016-08-19 15:19 | General Progress Note ---
Assessment/Plan Problem List: (1) Abscess ICD Codes: L02.91 - Cutaneous abscess, unspecified SNOMED: 013352724 (2) Hidradenitis suppurativa ICD Codes: L73.2 - Hidradenitis suppurativa SNOMED: [id number] Assessment/Plan s/p surgery POD#7 Referral asent to [facility] for ARU, PT Cont protonix 40mg bid Cont IV abx Supp care Pain control DVT ppx optimize Bowel regimen Wound care per plastics A total of 32 mins of additional time was spent beyond the face to face time Subjective Allergies: Coded Allergies: PENICILLINS (Verified Allergy, Unknown, 07/22/16) Pt states she was never tested for the allergy. Pt's father had severe allergy to PCN so pt takes does not take PCN medications for precaution. Subjective s/p surgery POD#7, no new complaints. No chest pain or dyspnea, no n/v, postop pain well controlled. Having some challenges with PT and mobility today Objective Last 24 Hour Vital Signs Date Time Temp Pulse Resp B/P Pulse Ox O2 Delivery O2 Flow Rate FiO2 08/19/16 11:47 96.8 85 20 140/75 98 Room Air 08/19/16 08:00 20 08/19/16 08:00 97.7 83 20 105/60 99 Room Air 08/19/16 04:10 97.7 82 19 123/56 96 Room Air 08/19/16 04:00 20 08/19/16 00:08 97.5 76 18 115/62 97 Room Air 08/19/16 00:00 20 08/18/16 20:13 97.7 85 19 120/77 97 Room Air 08/18/16 20:00 20 08/18/16 16:00 97.5 93 20 120/60 97 Room Air 08/18/16 16:00 20 Intake and Output 08/18/16 08/19/16 19:00 07:00 Intake Total 500 ml 480 ml Output Total 650 ml 950 ml Balance -150 ml -470 ml Intake Oral 500 ml 480 ml Output Urine Total 650 ml 950 ml Height (Feet): 5 Height (Inches): 5.00 Weight (Pounds): 254 Objective General: alert, cooperative, no distress, appears stated age Head: normocephalic, without obvious abnormality, atraumatic Eyes: conjunctivae/corneas clear. PERRL, EOM's intact Throat: lips, mucosa, and tongue normal. MMM Neck: supple, symmetrical, trachea midline, and no JVD Lungs: clear to auscultation bilaterally Heart: regular rate and rhythm, S1, S2 normal, no murmur, click, rub or gallop Abdomen: soft, non-tender, non-distended, bowel sounds normal; no masses or organomegaly Extremities: extremities normal, atraumatic, no cyanosis or edema Pulses: 2+ and symmetric Skin: skin color, texture, turgor normal; no rashes or lesions Neurologic: grossly normal, no focal deficits JORJE CABALLERO Aug 19, 2016 15:19
[2016-08-19] MEDS ORDERED: DOXYCYCLINE HY100 M6 PO (15:23)
[2016-08-19 15:46] VITALS: BP 134/85
--- NOTE | 2016-08-19 16:03 | Infectious Diseases Prog Note ---
Assessment/Plan Assessment/Plan A) 1) pseudomonas uti, ? sepsis, leukocytoses, fevers - leukocytosis resolved, fevers resolved, clinically stable, last ua better 2) bilateral groin/buttocks wound infection, s/p debridement and closure, + wound dehiscence - s/p debridement and partial closure, wound vac 3) hidradenitis suppurativa 4) ? hot/cold sensations - ? secondary to abx, no rash, no itching 5) ? pcn allergy - patients father with severe pcn allergy but unclear if patient has true pcn allergy 6) sh-negative, fh-cad, mar noted, notes and records reviewed 7) d/w RN P) 1) levofloxacin and doxycycline for 1 day (total of 2 weeks abx and 1 week post last operation) 2) recheck urine culture, ua better 3) continue treatment per Dr. Curtis and Dr. Swain 4) orders entered and noted 5) d/w patient and mother Subjective Constitutional: Denies: fever HEENT: Denies: congestion Respiratory: Denies: shortness of breath Cardiovascular: Denies: chest pain Gastrointestinal/Abdominal: Denies: nausea Genitourinary: Reports: other - + lopez Neurologic: Denies: headache Skin: Denies: rash Endocrine: Denies: feels warm Hematologic: Denies: bleeding Musculoskeletal: Denies: pain Allergies: Coded Allergies: PENICILLINS (Verified Allergy, Unknown, 07/22/16) Pt states she was never tested for the allergy. Pt's father had severe allergy to PCN so pt takes does not take PCN medications for precaution. Objective Vital Signs Last 24 Hour Vital Signs Date Time Temp Pulse Resp B/P Pulse Ox O2 Delivery O2 Flow Rate FiO2 08/19/16 15:46 97.9 94 21 134/85 99 Room Air 08/19/16 11:47 96.8 85 20 140/75 98 Room Air 08/19/16 08:00 20 08/19/16 08:00 97.7 83 20 105/60 99 Room Air 08/19/16 04:10 97.7 82 19 123/56 96 Room Air 08/19/16 04:00 20 08/19/16 00:08 97.5 76 18 115/62 97 Room Air 08/19/16 00:00 20 08/18/16 20:13 97.7 85 19 120/77 97 Room Air 08/18/16 20:00 20 Height (Feet): 5 Height (Inches): 5.00 Weight (Pounds): 254 General Appearance: no acute distress HEENT: normocephalic, atraumatic, anicteric, mucous membranes moist, PERRL, EOMI, pharynx normal, supple, no JVD Respiratory/Chest: lungs clear, normal breath sounds, no respiratory distress, no accessory muscle use Cardiovascular: normal rate, regular rhythm, no gallop/murmur, no JVD Abdomen: normal bowel sounds, soft, non tender, no organomegaly, non distended Genitourinary: other - + lopez - urine clear Extremities: no cyanosis Skin: no rash Neurologic/Psychiatric: credit representative II-XII grossly normal, alert, oriented x 3, responsive Lymphatic: no neck adenopathy Musculoskeletal: no effusion Objective no recent chest x-ray Microbiology Date/Time Source Procedure Growth Status 08/04/16 06:45 Blood Blood Culture - Final NO GROWTH AFTER 5 DAYS Complete 08/04/16 16:10 Indwelling Cath Urine Culture - Final Pseudomonas Aeruginosa Complete Labs Test 08/16/16 20:20 08/17/16 15:00 Sodium Level 138 mEQ/L (135-145) Potassium Level 4.1 mEQ/L (3.4-4.9) Chloride Level 98 mEQ/L (98-107) Carbon Dioxide Level 27 mEQ/L (20-30) Anion Gap 13 (5-15) Blood Urea Nitrogen 8 mg/dL (7-23) Creatinine 0.8 mg/dL (0.5-0.9) Estimat Glomerular Filtration Rate > 60 mL/min (>60) Glucose Level 130 mg/dL (74-106) Calcium Level 8.9 mg/dL (8.6-10.2) Vancomycin Level Trough 11.4 ug/mL (5.0-12.0) Urine Color Yellow Urine Appearance Clear Urine pH 6 (4.5-8.0) Urine Specific [place] 1.015 (1.005-1.035) Urine Protein Negative (NEGATIVE) Urine Glucose (UA) Negative (NEGATIVE) Urine Ketones Negative (NEGATIVE) Urine Occult Blood Negative (NEGATIVE) Urine Nitrite Negative (NEGATIVE) Urine Bilirubin Negative (NEGATIVE) Urine Urobilinogen Normal MG/DL (0.0-1.0) Urine Leukocyte Esterase 2+ (NEGATIVE) Urine RBC 0-2 /HPF (0 - 2) Urine WBC 2-4 /HPF (0 - 2) Urine Squamous Epithelial Cells Few /LPF (NONE/OCC) Urine Bacteria Few /HPF (NONE) wbc - 7.2 hgb - 8.6 Current Medications Medications (Trade) Dose Ordered Sig/Loren Route PRN Reason Start Time Stop Time Status Last Admin Dose Admin Acetaminophen (Tylenol) 650 mg Q4H PRN ORAL T>100.5F 08/13/16 07:30 09/12/16 07:29 Bisacodyl (Dulcolax) 10 mg HSPRN PRN RECTAL Constipation THIRD LINE AGENT 07/22/16 15:15 08/21/16 15:14 Chlorhexidine Gluconate (Tomasa-Hex 2%) 1 applic DAILY TOPIC 08/02/16 12:00 09/01/16 11:59 08/19/16 08:08 Dextrose (Dextrose 50%) STAT PRN IV Hypoglycemia 07/22/16 15:15 08/21/16 15:14 Diphenhydramine HCl (Benadryl) 12.5 mg Q6H PRN IVP Itching/Pruritis 08/13/16 07:30 09/12/16 07:29 Docusate Sodium (Colace) 100 mg TWICE A DAY ORAL 08/13/16 10:00 09/12/16 09:59 08/19/16 08:07 Doxycycline Monohydrate (Vibramycin) 100 mg EVERY 12 HOURS ORAL 08/17/16 21:00 08/24/16 20:59 08/19/16 08:09 Heparin Sodium (Porcine) (Heparin 5000 units/ml) 5,000 units EVERY 12 HOURS SUBQ 08/13/16 10:00 09/12/16 09:59 08/19/16 08:12 Hydromorphone HCl (Dilaudid) 2 mg Q4H PRN SUBQ Severe Pain (Pain Scale 7-10) 08/19/16 10:30 08/26/16 10:29 08/19/16 15:23 Lactulose (Cephulac) 30 gm DAILY PRN ORAL Constipation 08/11/16 13:00 09/10/16 12:59 Levofloxacin (Levaquin) 500 mg DAILY ORAL 08/18/16 09:00 08/25/16 08:59 6/5/17 08:06 Magnesium Hydroxide (Mom) 30 ml HSPRN PRN ORAL Constipation SECOND LINE AGENT 07/22/16 15:15 08/21/16 15:14 07/27/16 23:58 Metoclopramide HCl (Reglan) 10 mg Q6H PRN IVP Nausea & Vomiting 08/13/16 10:00 09/12/16 09:59 Neomycin/ Polymyxin/ Bacitracin (Neosporin Oint 15gm) 1 applic TWICE A DAY TOPIC 07/30/16 16:30 08/29/16 16:29 08/18/16 18:00 Ondansetron HCl (Zofran) 4 mg Q6H PRN IVP Nausea & Vomiting 08/13/16 10:00 09/12/16 09:59 08/15/16 09:35 Pantoprazole (Protonix) 40 mg EVERY 12 HOURS ORAL 08/12/16 21:00 09/11/16 20:59 08/19/16 08:06 Polyethylene Glycol (Miralax) 17 gm HSPRN PRN ORAL Constipation FIRST LINE AGENT 07/22/16 15:15 08/21/16 15:14 Zolpidem Tartrate (Ambien) 5 mg HSPRN PRN ORAL Insomnia 08/13/16 21:00 09/12/16 20:59 DAVION BISWAS Aug 19, 2016 16:03
[2016-08-19 18:16] LABS: APPEARANCE,URINE CLEAR; KETONES,URINE NEGATIVE (NEGATIVE); LEUKOCYTE ESTERASE ,URINE 1+ (NEGATIVE); NITRITE,URINE NEGATIVE (NEGATIVE); PH,URINE 6 (4.5-8.0); PROTEIN,URINE NEGATIVE (NEGATIVE); UROBILINOGEN,URINE NORMAL MG/DL (0.0-1.0)
[2016-08-19 18:35] LABS: BACTERIA,URINE FEW /HPF; SQUAMOUS EPITHELIAL CELL,UR OCCASIONAL /LPF (NONE/OCC)
[2016-08-19 20:09] VITALS: BP 132/64
[2016-08-20 00:12] VITALS: BP 147/81
[2016-08-20 04:00] VITALS: BP 141/76
[2016-08-20 08:00] VITALS: BP 126/63
[2016-08-20] MEDS: Docusate 100mg cap ORAL SCH ×2 (08:51→18:10)
[2016-08-20] MEDS: Levofloxacin 500mg tab ORAL SCH (08:51)
[2016-08-20] MEDS: Heparin 5000 units/ml inj SUBQ SCH ×2 (08:52→21:25)
[2016-08-20] MEDS: Neosporin Oint 15gm TOPIC SCH ×2 (08:56→17:54)
--- NOTE | 2016-08-20 14:22 | General Progress Note ---
Assessment/Plan Problem List: (1) Abscess ICD Codes: L02.91 - Cutaneous abscess, unspecified SNOMED: 988477440 (2) Hidradenitis suppurativa ICD Codes: L73.2 - Hidradenitis suppurativa SNOMED: 09690182 Assessment/Plan s/p surgery POD#8 Referral sent to [facility] for ARU, PT- awaiting final authorization Cont protonix 40mg bid Cont IV abx Supp care Pain control DVT ppx optimize Bowel regimen Wound care per plastics A total of 32 mins of additional time was spent beyond the face to face time Subjective Date patient seen: Aug 20, 2016 Time patient seen: 14:21 ROS Limited/Unobtainable: No Allergies: Coded Allergies: PENICILLINS (Verified Allergy, Unknown, 07/22/16) Pt states she was never tested for the allergy. Pt's father had severe allergy to PCN so pt takes does not take PCN medications for precaution. Subjective s/p surgery POD#8, no new complaints. No chest pain or dyspnea, no n/v, postop pain well controlled. Having some challenges with PT and mobility today Objective Last 24 Hour Vital Signs Date Time Temp Pulse Resp B/P Pulse Ox O2 Delivery O2 Flow Rate FiO2 08/20/16 08:00 98.1 88 19 126/63 98 Room Air 08/20/16 04:00 97.3 79 18 141/76 99 Room Air 08/20/16 00:12 98.2 98 17 147/81 99 Room Air 08/19/16 20:09 98.2 89 18 132/64 99 Room Air 08/19/16 15:46 97.9 94 21 134/85 99 Room Air Intake and Output 08/19/16 08/20/16 19:00 07:00 Intake Total 1200 ml 240 ml Output Total 1000 ml 2350 ml Balance 200 ml -2110 ml Intake Oral 1200 ml 240 ml Output Urine Total 1000 ml 2350 ml # Voids 2 Height (Feet): 5 Height (Inches): 5.00 Weight (Pounds): 254 Objective General: alert, cooperative, no distress, appears stated age Head: normocephalic, without obvious abnormality, atraumatic Eyes: conjunctivae/corneas clear. PERRL, EOM's intact Throat: lips, mucosa, and tongue normal. MMM Neck: supple, symmetrical, trachea midline, and no JVD Lungs: clear to auscultation bilaterally Heart: regular rate and rhythm, S1, S2 normal, no murmur, click, rub or gallop Abdomen: soft, non-tender, non-distended, bowel sounds normal; no masses or organomegaly Extremities: extremities normal, atraumatic, no cyanosis or edema Pulses: 2+ and symmetric Skin: skin color, texture, turgor normal; no rashes or lesions Neurologic: grossly normal, no focal deficits JORJE CABALLERO Aug 20, 2016 14:22
[2016-08-20 16:00] VITALS: BP 138/79
[2016-08-20] MEDS ORDERED: PERCOCET 10-321 EACH ORAL (18:35)
[2016-08-20 20:30] VITALS: BP 118/69
[2016-08-21] VITALS: BP 120/70
[2016-08-21 04:00] VITALS: BP 117/69
[2016-08-21 08:00] VITALS: BP 125/86
[2016-08-21] MEDS: Docusate 100mg cap ORAL SCH ×2 (08:24→18:00)
[2016-08-21] MEDS: Levofloxacin 500mg tab ORAL SCH (08:24)
[2016-08-21] MEDS: Neosporin Oint 15gm TOPIC SCH ×2 (08:25→18:00)
[2016-08-21] MEDS: Heparin 5000 units/ml inj SUBQ SCH ×2 (08:27→20:25)
[2016-08-21] MEDS ORDERED: HYDROmorphone 1mg/ml Carpuject SUBQ PRN (10:00)
[2016-08-21 12:00] VITALS: BP 136/78
--- NOTE | 2016-08-21 14:25 | Infectious Diseases Prog Note ---
Assessment/Plan Assessment/Plan A) 1) pseudomonas uti, ? sepsis, leukocytoses, fevers - leukocytosis resolved, fevers resolved, clinically stable, last ua better, 08/19/16 urine culture negative 2) bilateral groin/buttocks wound infection, s/p debridement and closure, + wound dehiscence - s/p debridement and partial closure, wound vac, last surgery 08/13/16 3) hidradenitis suppurativa 4) ? hot/cold sensations - ? secondary to abx, no rash, no itching 5) ? pcn allergy - patients father with severe pcn allergy but unclear if patient has true pcn allergy 6) sh-negative, fh-cad, mar noted, notes and records reviewed 7) d/w RN P) 1) finish levofloxacin and doxycycline 2) wound care per Dr. Swain 3) continue treatment per Dr. Curtis and Dr. Swain 4) orders entered and noted 5) d/w patient and mother Subjective HEENT: Denies: congestion Respiratory: Denies: shortness of breath Cardiovascular: Denies: chest pain Gastrointestinal/Abdominal: Denies: nausea Neurologic: Denies: headache Psychiatric: Denies: depression Skin: Denies: rash Hematologic: Denies: bleeding Musculoskeletal: Denies: pain Allergies: Coded Allergies: PENICILLINS (Verified Allergy, Unknown, 07/22/16) Pt states she was never tested for the allergy. Pt's father had severe allergy to PCN so pt takes does not take PCN medications for precaution. Objective Vital Signs Last 24 Hour Vital Signs Date Time Temp Pulse Resp B/P Pulse Ox O2 Delivery O2 Flow Rate FiO2 08/21/16 12:00 97.7 95 20 136/78 99 Room Air 08/21/16 08:00 97.7 87 19 125/86 98 Room Air 08/21/16 06:30 98.1 08/21/16 04:00 97.9 101 19 117/69 98 Room Air 08/21/16 00:00 98.1 80 19 120/70 97 Room Air 08/20/16 20:30 97.7 98 19 118/69 99 Room Air 08/20/16 16:00 97.5 105 19 138/79 99 Room Air Height (Feet): 5 Height (Inches): 5.00 Weight (Pounds): 254 General Appearance: no acute distress HEENT: normocephalic, atraumatic, anicteric, mucous membranes moist, PERRL, EOMI, pharynx normal, supple, no JVD Respiratory/Chest: lungs clear, normal breath sounds, no respiratory distress, no accessory muscle use Cardiovascular: normal rate, regular rhythm, no gallop/murmur, no JVD Abdomen: normal bowel sounds, soft, non tender, no organomegaly, non distended Genitourinary: other - no lopez Extremities: no cyanosis Skin: no rash, no lesions, other - wounds covered, d/w RN wouds are clean, no pus Neurologic/Psychiatric: alert, oriented x 3, responsive Lymphatic: no neck adenopathy Musculoskeletal: normal muscle bulk Objective no recent chest x-ray Microbiology Date/Time Source Procedure Growth Status 08/19/16 14:02 Indwelling Cath Urine Culture - Preliminary NO GROWTH AFTER 24 HOURS Resulted wbc - 7.2 hgb - 8.6 cr - 0.8 Current Medications Medications (Trade) Dose Ordered Sig/Loren Route PRN Reason Start Time Stop Time Status Last Admin Dose Admin Acetaminophen (Tylenol) 650 mg Q4H PRN ORAL T>100.5F 08/13/16 07:30 09/12/16 07:29 Bisacodyl (Dulcolax) 10 mg HSPRN PRN RECTAL Constipation THIRD LINE AGENT 07/22/16 15:15 08/21/16 15:14 Dextrose (Dextrose 50%) STAT PRN IV Hypoglycemia 07/22/16 15:15 08/21/16 15:14 Diphenhydramine HCl (Benadryl) 12.5 mg Q6H PRN IVP Itching/Pruritis 08/13/16 07:30 09/12/16 07:29 Docusate Sodium (Colace) 100 mg TWICE A DAY ORAL 08/13/16 10:00 09/12/16 09:59 08/21/16 08:24 Doxycycline Monohydrate (Vibramycin) 100 mg EVERY 12 HOURS ORAL 08/17/16 21:00 08/24/16 20:59 08/21/16 08:24 Heparin Sodium (Porcine) (Heparin 5000 units/ml) 5,000 units EVERY 12 HOURS SUBQ 08/13/16 10:00 09/12/16 09:59 08/21/16 08:27 Lactulose (Cephulac) 30 gm DAILY PRN ORAL Constipation 08/11/16 13:00 09/10/16 12:59 Levofloxacin (Levaquin) 500 mg DAILY ORAL 08/18/16 09:00 08/25/16 08:59 08/21/16 08:24 Magnesium Hydroxide (Mom) 30 ml HSPRN PRN ORAL Constipation SECOND LINE AGENT 07/22/16 15:15 08/21/16 15:14 07/27/16 23:58 Metoclopramide HCl (Reglan) 10 mg Q6H PRN ORAL Nausea & Vomiting 08/21/16 09:00 09/20/16 08:59 08/21/16 08:55 Neomycin/ Polymyxin/ Bacitracin (Neosporin Oint 15gm) 1 applic TWICE A DAY TOPIC 07/30/16 16:30 08/29/16 16:29 08/21/16 08:25 Ondansetron HCl (Zofran) 4 mg Q6H PRN ORAL Nausea & Vomiting 08/21/16 09:00 09/20/16 08:59 Oxycodone/ Acetaminophen (Percocet 10/325) 1 tab Q4H PRN ORAL For Pain 08/21/16 14:15 08/28/16 14:14 Pantoprazole (Protonix) 40 mg EVERY 12 HOURS ORAL 08/12/16 21:00 09/11/16 20:59 08/21/16 08:24 Polyethylene Glycol (Miralax) 17 gm HSPRN PRN ORAL Constipation FIRST LINE AGENT 07/22/16 15:15 08/21/16 15:14 Zolpidem Tartrate (Ambien) 5 mg HSPRN PRN ORAL Insomnia 08/13/16 21:00 09/12/16 20:59 DAVION BISWAS Aug 21, 2016 14:25
[2016-08-21 16:00] VITALS: BP 122/54
[2016-08-21 20:00] VITALS: BP 122/71
--- NOTE | 2016-08-21 21:34 | General Progress Note ---
Assessment/Plan Problem List: (1) Abscess ICD Codes: L02.91 - Cutaneous abscess, unspecified SNOMED: 945216322 (2) Hidradenitis suppurativa ICD Codes: L73.2 - Hidradenitis suppurativa SNOMED: 70119194 Assessment/Plan s/p surgery POD#9 Referral sent to [facility] for ARU, PT- awaiting final authorization Cont protonix 40mg bid Cont IV abx Supp care Pain control DVT ppx optimize Bowel regimen Wound care per plastics A total of 32 mins of additional time was spent beyond the face to face time Subjective Date patient seen: Aug 21, 2016 Time patient seen: 21:34 ROS Limited/Unobtainable: No Allergies: Coded Allergies: PENICILLINS (Verified Allergy, Unknown, 07/22/16) Pt states she was never tested for the allergy. Pt's father had severe allergy to PCN so pt takes does not take PCN medications for precaution. Subjective s/p surgery POD#9, no new complaints. No chest pain or dyspnea, no n/v, postop pain well controlled. Having some challenges with PT and mobility today Objective Last 24 Hour Vital Signs Date Time Temp Pulse Resp B/P Pulse Ox O2 Delivery O2 Flow Rate FiO2 08/21/16 20:00 97.5 121 18 122/71 98 Room Air 08/21/16 16:00 97.0 105 20 122/54 94 Room Air 08/21/16 12:00 97.7 95 20 136/78 99 Room Air 08/21/16 08:00 97.7 87 19 125/86 98 Room Air 08/21/16 06:30 98.1 08/21/16 04:00 97.9 101 19 117/69 98 Room Air 08/21/16 00:00 98.1 80 19 120/70 97 Room Air Intake and Output 08/20/16 08/21/16 19:00 07:00 Intake Total 350 ml Output Total 250 ml Balance 100 ml Intake Oral 350 ml Output Urine Total 250 ml # Voids 2 # Bowel Movements 1 Height (Feet): 5 Height (Inches): 5.00 Weight (Pounds): 254 Objective General: alert, cooperative, no distress, appears stated age Head: normocephalic, without obvious abnormality, atraumatic Eyes: conjunctivae/corneas clear. PERRL, EOM's intact Throat: lips, mucosa, and tongue normal. MMM Neck: supple, symmetrical, trachea midline, and no JVD Lungs: clear to auscultation bilaterally Heart: regular rate and rhythm, S1, S2 normal, no murmur, click, rub or gallop Abdomen: soft, non-tender, non-distended, bowel sounds normal; no masses or organomegaly Extremities: extremities normal, atraumatic, no cyanosis or edema Pulses: 2+ and symmetric Skin: skin color, texture, turgor normal; no rashes or lesions Neurologic: grossly normal, no focal deficits JORJE CABALLERO Aug 21, 2016 21:34
[2016-08-21] MEDS: HYDROmorphone 2mg tab ORAL PRN (22:21)
[2016-08-21] MEDS: Zolpidem 5mg tab ORAL PRN (23:31)
[2016-08-22] MEDS: HYDROmorphone 2mg tab ORAL PRN ×3 (02:32→10:52)
[2016-08-22 04:17] VITALS: BP 121/75
[2016-08-22 08:00] VITALS: BP 121/73
[2016-08-22] MEDS: Neosporin Oint 15gm TOPIC SCH ×2 (08:40→17:02)
[2016-08-22] MEDS: Docusate 100mg cap ORAL SCH ×2 (08:41→17:02)
[2016-08-22] MEDS: Heparin 5000 units/ml inj SUBQ SCH ×2 (08:42→21:09)
[2016-08-22 12:00] VITALS: BP 140/87
[2016-08-22] MEDS ORDERED: NS 550ML IV ONE (12:33)
--- NOTE | 2016-08-22 14:28 | Infectious Diseases Prog Note ---
Assessment/Plan Assessment/Plan A) 1) pseudomonas uti, ? sepsis, leukocytoses, fevers - leukocytosis resolved, fevers resolved, clinically stable, last ua better, 08/19/16 urine culture negative 2) bilateral groin/buttocks wound infection, s/p debridement and closure, + wound dehiscence - s/p debridement and partial closure, wound vac, last surgery 08/13/16 3) hidradenitis suppurativa 4) ? hot/cold sensations - ? secondary to abx, no rash, no itching 5) ? pcn allergy - patients father with severe pcn allergy but unclear if patient has true pcn allergy 6) sh-negative, fh-cad, mar noted, notes and records reviewed 7) d/w RN P) 1) s/p abx, discontinued after yesterday 2) wound care per Dr. Swain 3) continue treatment per Dr. Curtis and Dr. Swain 4) orders entered and noted 5) d/w patient and mother 6) communicated with yesterday Subjective Constitutional: Denies: fever HEENT: Denies: congestion Respiratory: Denies: shortness of breath Cardiovascular: Denies: chest pain Gastrointestinal/Abdominal: Reports: other - + loose stools per patient, d/w RN and no diarrhea, Denies: diarrhea, nausea, vomiting Genitourinary: Reports: other - lopez out, Denies: dysuria, frequency, hematuria, nocturia Psychiatric: Denies: anxiety, depression Skin: Denies: rash Hematologic: Denies: bleeding Musculoskeletal: Denies: pain Allergies: Coded Allergies: PENICILLINS (Verified Allergy, Unknown, 07/22/16) Pt states she was never tested for the allergy. Pt's father had severe allergy to PCN so pt takes does not take PCN medications for precaution. Objective Vital Signs Last 24 Hour Vital Signs Date Time Temp Pulse Resp B/P Pulse Ox O2 Delivery O2 Flow Rate FiO2 08/22/16 12:00 98.0 120 18 140/87 98 Room Air 08/22/16 08:00 97.0 108 20 121/73 95 Room Air 08/22/16 04:17 98.2 125 18 121/75 99 Room Air 08/21/16 20:00 97.5 121 18 122/71 98 Room Air 08/21/16 16:00 97.0 105 20 122/54 94 Room Air Height (Feet): 5 Height (Inches): 5.00 Weight (Pounds): 254 General Appearance: no acute distress HEENT: normocephalic, atraumatic, anicteric, mucous membranes moist, PERRL, EOMI, pharynx normal, supple, no JVD Respiratory/Chest: lungs clear, normal breath sounds, no respiratory distress, no accessory muscle use Cardiovascular: normal rate, regular rhythm, no gallop/murmur, no JVD Abdomen: normal bowel sounds, soft, non tender, no organomegaly, non distended Genitourinary: other - no lopez Extremities: no cyanosis Skin: no rash Neurologic/Psychiatric: car driver II-XII grossly normal, alert, oriented x 3, responsive Lymphatic: no neck adenopathy Musculoskeletal: no effusion Objective no recent chest x-ray Microbiology Date/Time Source Procedure Growth Status 08/04/16 06:45 Blood Blood Culture - Final NO GROWTH AFTER 5 DAYS Complete 08/19/16 14:02 Indwelling Cath Urine Culture - Final NO GROWTH AFTER 48 HOURS Complete wbc - 7.2 hgb - 8.6 cr - 0.8 Current Medications Medications (Trade) Dose Ordered Sig/Loren Route PRN Reason Start Time Stop Time Status Last Admin Dose Admin Acetaminophen (Tylenol) 650 mg Q4H PRN ORAL T>100.5F 08/13/16 07:30 09/12/16 07:29 Diphenhydramine HCl (Benadryl) 12.5 mg Q6H PRN IVP Itching/Pruritis 08/13/16 07:30 09/12/16 07:29 Docusate Sodium (Colace) 100 mg TWICE A DAY ORAL 08/13/16 10:00 09/12/16 09:59 08/22/16 08:41 Heparin Sodium (Porcine) (Heparin 5000 units/ml) 5,000 units EVERY 12 HOURS SUBQ 08/13/16 10:00 09/12/16 09:59 08/22/16 08:42 Hydromorphone HCl (Dilaudid) 2 mg Q4H PRN ORAL For Pain 08/21/16 19:30 08/28/16 19:29 08/22/16 10:52 Lactulose (Cephulac) 30 gm DAILY PRN ORAL Constipation 08/11/16 13:00 09/10/16 12:59 Metoclopramide HCl (Reglan) 10 mg Q6H PRN ORAL Nausea & Vomiting 08/21/16 09:00 09/20/16 08:59 08/21/16 18:33 Neomycin/ Polymyxin/ Bacitracin (Neosporin Oint 15gm) 1 applic TWICE A DAY TOPIC 07/30/16 16:30 08/29/16 16:29 08/21/16 08:25 Ondansetron HCl (Zofran) 4 mg Q6H PRN ORAL Nausea & Vomiting 08/21/16 09:00 09/20/16 08:59 Pantoprazole (Protonix) 40 mg EVERY 12 HOURS ORAL 08/12/16 21:00 09/11/16 20:59 08/22/16 08:41 Zolpidem Tartrate (Ambien) 5 mg HSPRN PRN ORAL Insomnia 08/13/16 21:00 09/12/16 20:59 08/21/16 23:31 DAVION BISWAS Aug 22, 2016 14:28
[2016-08-22] MEDS ORDERED: HYDROmorphone 2mg tab ORAL PRN (15:30)
[2016-08-22] MEDS: Norco 10mg/325mg tab ORAL PRN ×2 (15:50→20:50)
[2016-08-22 16:00] VITALS: BP 127/75
--- NOTE | 2016-08-22 17:20 | General Progress Note ---
Assessment/Plan Problem List: (1) Abscess ICD Codes: L02.91 - Cutaneous abscess, unspecified SNOMED: 476230125 (2) Hidradenitis suppurativa ICD Codes: L73.2 - Hidradenitis suppurativa SNOMED: [id number] Assessment/Plan s/p surgery POD#10 Referral sent to [facility] for ARU, PT- awaiting final authorization Cont protonix 40mg bid Cont IV abx Supp care Pain control DVT ppx optimize Bowel regimen Wound care per plastics A total of 32 mins of additional time was spent beyond the face to face time Subjective Date patient seen: Aug 22, 2016 Time patient seen: 17:15 ROS Limited/Unobtainable: No Allergies: Coded Allergies: PENICILLINS (Verified Allergy, Unknown, 07/22/16) Pt states she was never tested for the allergy. Pt's father had severe allergy to PCN so pt takes does not take PCN medications for precaution. Subjective s/p surgery POD#10, no new complaints. No chest pain or dyspnea, no n/v, postop pain well controlled. Having some challenges with PT and mobility today Objective Last 24 Hour Vital Signs Date Time Temp Pulse Resp B/P Pulse Ox O2 Delivery O2 Flow Rate FiO2 08/22/16 12:00 98.0 120 18 140/87 98 Room Air 08/22/16 08:00 97.0 108 20 121/73 95 Room Air 08/22/16 04:17 98.2 125 18 121/75 99 Room Air 08/21/16 20:00 97.5 121 18 122/71 98 Room Air Intake and Output 08/21/16 08/22/16 19:00 07:00 Intake Total 820 ml Balance 820 ml Intake Oral 820 ml # Voids 4 # Bowel Movements 4 Height (Feet): 5 Height (Inches): 5.00 Weight (Pounds): 254 Objective General: alert, cooperative, no distress, appears stated age Head: normocephalic, without obvious abnormality, atraumatic Eyes: conjunctivae/corneas clear. PERRL, EOM's intact Throat: lips, mucosa, and tongue normal. MMM Neck: supple, symmetrical, trachea midline, and no JVD Lungs: clear to auscultation bilaterally Heart: regular rate and rhythm, S1, S2 normal, no murmur, click, rub or gallop Abdomen: soft, non-tender, non-distended, bowel sounds normal; no masses or organomegaly Extremities: extremities normal, atraumatic, no cyanosis or edema Pulses: 2+ and symmetric Skin: skin color, texture, turgor normal; no rashes or lesions Neurologic: grossly normal, no focal deficits JORJE CABALLERO Aug 22, 2016 17:20
[2016-08-22 20:00] VITALS: BP 133/82
--- NOTE | 2016-08-22 22:40 | Consultation ---
History of Present Illness General Date patient seen: Aug 22, 2016 Chief Complaint: General Complaint Present Illness Allergies: Coded Allergies: PENICILLINS (Verified Allergy, Unknown, 07/22/16) Pt states she was never tested for the allergy. Pt's father had severe allergy to PCN so pt takes does not take PCN medications for precaution. Medication History Scheduled Cephalexin* (Keflex*), 500 MG ORAL EVERY 12 HOURS, (Reported) No Known Medications* (NKM - No Known Medications*), 0 ., (Reported) Scheduled PRN Oxycodone Hcl/Acetaminophen 10-325 Mg Tablet (Percocet 10-325 Mg Tablet*), 1 TAB ORAL Q4H PRN for Severe Pain (Pain Scale 7-10), (Reported) Miscellaneous Medications Doxycycline Hyclate (Doxycycline Hyclate), 100 MG PO, (Reported) Patient History Healthcare decision maker pt A&Ox4 Resuscitation status Full Code Advanced Directive on File Physical Exam Last 24 Hour Vital Signs Date Time Temp Pulse Resp B/P Pulse Ox O2 Delivery O2 Flow Rate FiO2 08/22/16 20:00 98.4 107 18 133/82 100 Room Air 08/22/16 16:00 98.2 119 18 127/75 98 Room Air 08/22/16 12:00 98.0 120 18 140/87 98 Room Air 08/22/16 08:00 97.0 108 20 121/73 95 Room Air 08/22/16 04:17 98.2 125 18 121/75 99 Room Air Intake and Output 08/21/16 08/22/16 19:00 07:00 Intake Total 820 ml Balance 820 ml Intake Oral 820 ml # Voids 4 # Bowel Movements 4 Height (Feet): 5 Height (Inches): 5.00 Weight (Pounds): 254 Medications Current Medications Medications (Trade) Dose Ordered Sig/Loren Route PRN Reason Start Time Stop Time Status Last Admin Dose Admin Acetaminophen (Tylenol) 650 mg Q4H PRN ORAL T>100.5F 08/13/16 07:30 09/12/16 07:29 Acetaminophen/ Hydrocodone Bitart ([place] 10/325) 1 ea Q4H PRN ORAL For moderate Pain 08/22/16 15:15 08/29/16 15:14 08/22/16 20:50 Diphenhydramine HCl (Benadryl) 12.5 mg Q6H PRN IVP Itching/Pruritis 08/13/16 07:30 09/12/16 07:29 Docusate Sodium (Colace) 100 mg TWICE A DAY ORAL 08/13/16 10:00 09/12/16 09:59 08/22/16 08:41 Doxycycline Monohydrate (Vibramycin) 100 mg EVERY 12 HOURS ORAL 08/22/16 21:00 08/29/16 20:59 08/22/16 21:06 Gabapentin (Neurontin) 300 mg THREE TIMES A DAY ORAL 08/22/16 16:00 09/21/16 15:59 08/22/16 21:06 Heparin Sodium (Porcine) (Heparin 5000 units/ml) 5,000 units EVERY 12 HOURS SUBQ 08/13/16 10:00 09/12/16 09:59 08/22/16 21:09 Hydromorphone HCl (Dilaudid) 2 mg Q4H PRN ORAL For severe Pain 08/22/16 15:30 08/29/16 15:29 Lactulose (Cephulac) 30 gm DAILY PRN ORAL Constipation 08/11/16 13:00 09/10/16 12:59 Levofloxacin (Levaquin) 500 mg DAILY ORAL 08/23/16 09:00 08/30/16 08:59 Metoclopramide HCl (Reglan) 10 mg Q6H PRN ORAL Nausea & Vomiting 08/21/16 09:00 09/20/16 08:59 08/22/16 18:17 Neomycin/ Polymyxin/ Bacitracin (Neosporin Oint 15gm) 1 applic TWICE A DAY TOPIC 07/30/16 16:30 08/29/16 16:29 08/21/16 08:25 Ondansetron HCl (Zofran) 4 mg Q6H PRN ORAL Nausea & Vomiting 08/21/16 09:00 09/20/16 08:59 Pantoprazole (Protonix) 40 mg EVERY 12 HOURS ORAL 08/12/16 21:00 09/11/16 20:59 08/22/16 21:06 Zolpidem Tartrate (Ambien) 5 mg HSPRN PRN ORAL Insomnia 08/13/16 21:00 09/12/16 20:59 08/21/16 23:31 Assessment/Plan Assessment/Plan (1) Hidradenitis suppurativa (2) Abscess (3) Intractable pain (4) S/p Incision and drainage Seen dictated BEREKET RAMON Aug 22, 2016 22:40
[2016-08-22] MEDS: Zolpidem 5mg tab ORAL PRN (23:32)
[2016-08-23] VITALS: BP 116/76
[2016-08-23 04:00] VITALS: BP 111/75
[2016-08-23] MEDS: Norco 10mg/325mg tab ORAL PRN ×3 (05:15→13:18)
[2016-08-23 09:00] VITALS: BP 130/65
[2016-08-23] MEDS ORDERED: Levofloxacin 500mg tab ORAL SCH (09:00)
[2016-08-23] MEDS: Neosporin Oint 15gm TOPIC SCH (09:00)
[2016-08-23] MEDS: Docusate 100mg cap ORAL SCH (09:00)
[2016-08-23] MEDS: Heparin 5000 units/ml inj SUBQ SCH (09:35)
--- NOTE | 2016-08-23 09:55 | General Progress Note ---
Assessment/Plan Assessment/Plan (1) Hidradenitis suppurativa (2) Abscess (3) Intractable pain (4) S/p Incision and drainage Pt will be continued on Neurontin dilaudid and Gilbert Pt was d/w Dr. Akins and he concurred. Subjective Date patient seen: Aug 23, 2016 Time patient seen: 09:00 - am Constitutional: Reports: no symptoms HEENT: Reports: no symptoms Cardiovascular: Reports: no symptoms Respiratory: Reports: no symptoms Gastrointestinal/Abdominal: Reports: no symptoms Genitourinary: Reports: no symptoms Neurologic/Psychiatric: Reports: no symptoms Endocrine: Reports: no symptoms Hematologic/Lymphatic: Reports: no symptoms Allergies: Coded Allergies: PENICILLINS (Verified Allergy, Unknown, 07/22/16) Pt states she was never tested for the allergy. Pt's father had severe allergy to PCN so pt takes does not take PCN medications for precaution. Subjective Patient is laying in bed and pain has been reduced on the Gilbert and Neurontin. Mother at bed side. She has no new complaints. Objective Last 24 Hour Vital Signs Date Time Temp Pulse Resp B/P Pulse Ox O2 Delivery O2 Flow Rate FiO2 08/23/16 04:00 98.2 116 18 111/75 99 Room Air 08/23/16 00:00 98.1 109 18 116/76 100 Room Air 08/22/16 20:00 98.4 107 18 133/82 100 Room Air 08/22/16 16:00 98.2 119 18 127/75 98 Room Air 08/22/16 12:00 98.0 120 18 140/87 98 Room Air Intake and Output 08/22/16 08/23/16 19:00 07:00 Intake Total 960 ml Balance 960 ml Intake Oral 960 ml # Voids 2 2 # Bowel Movements 2 Height (Feet): 5 Height (Inches): 5.00 Weight (Pounds): 254 General Appearance: no apparent distress, alert EENT: PERRL/EOMI, normal ENT inspection Neck: non-tender, normal alignment Cardiovascular: normal rate, regular rhythm Respiratory/Chest: lungs clear, normal breath sounds Abdomen: non tender, soft Extremities: other - bandages seen on b/l thighs Edema: trace edema Neurologic: alert, oriented x 3 Skin: warm/dry BEREKET RAMON PRayne Aug 23, 2016 09:55
[2016-08-23 12:00] VITALS: BP 128/64
--- NOTE | 2016-08-23 14:16 | Infectious Diseases Prog Note ---
Assessment/Plan Assessment/Plan A) 1) pseudomonas uti, ? sepsis, leukocytoses, fevers - leukocytosis resolved, fevers resolved, clinically stable, last ua better, 08/19/16 urine culture negative 2) bilateral groin/buttocks wound infection, s/p debridement and closure, + wound dehiscence - s/p debridement and partial closure, wound vac, last surgery 08/13/16 3) hidradenitis suppurativa 4) ? hot/cold sensations - ? secondary to abx, no rash, no itching 5) ? pcn allergy - patients father with severe pcn allergy but unclear if patient has true pcn allergy 6) sh-negative, fh-cad, mar noted, notes and records reviewed 7) d/w RN P) 1) doxycycline and levofloxacin x 5 days more upon discharge, d/w Dr. Swain about abx course 2) d/w with patient and mother about potential side effects of abx such as c.diff. and tendon rupture and to call me if any issues, also encouraged probiotics 3) continue treatment per Dr. Curtis and Dr. Swain, wound care per Dr. Swain 4) orders entered and noted 5) d/w Dr. Curtis about abx Subjective Constitutional: Denies: fever Respiratory: Denies: productive cough, shortness of breath Cardiovascular: Denies: chest pain Gastrointestinal/Abdominal: Denies: nausea Genitourinary: Denies: dysuria, frequency, hematuria Neurologic: Denies: headache Psychiatric: Denies: depression Skin: Denies: rash Hematologic: Denies: bleeding Musculoskeletal: Denies: pain Allergies: Coded Allergies: PENICILLINS (Verified Allergy, Unknown, 07/22/16) Pt states she was never tested for the allergy. Pt's father had severe allergy to PCN so pt takes does not take PCN medications for precaution. Objective Vital Signs Last 24 Hour Vital Signs Date Time Temp Pulse Resp B/P Pulse Ox O2 Delivery O2 Flow Rate FiO2 08/23/16 09:00 97.5 105 18 130/65 98 Room Air 08/23/16 04:00 98.2 116 18 111/75 99 Room Air 08/23/16 00:00 98.1 109 18 116/76 100 Room Air 08/22/16 20:00 98.4 107 18 133/82 100 Room Air 08/22/16 16:00 98.2 119 18 127/75 98 Room Air Height (Feet): 5 Height (Inches): 5.00 Weight (Pounds): 254 General Appearance: no acute distress HEENT: normocephalic, atraumatic, anicteric, mucous membranes moist, PERRL, EOMI, pharynx normal, supple, no JVD Respiratory/Chest: lungs clear, normal breath sounds, no respiratory distress, no accessory muscle use Cardiovascular: normal rate, regular rhythm, no gallop/murmur, no JVD Abdomen: normal bowel sounds, soft, non tender, no organomegaly, non distended Genitourinary: other - no lopez Extremities: no cyanosis Skin: no rash Neurologic/Psychiatric: alert, responsive Lymphatic: no neck adenopathy Musculoskeletal: no effusion Objective no recent chest x-ray Microbiology Date/Time Source Procedure Growth Status 08/04/16 06:45 Blood Blood Culture - Final NO GROWTH AFTER 5 DAYS Complete 08/19/16 14:02 Indwelling Cath Urine Culture - Final NO GROWTH AFTER 48 HOURS Complete wbc - 7.2 hgb - 8.6 cr - 0.8 Current Medications Medications (Trade) Dose Ordered Sig/Loren Route PRN Reason Start Time Stop Time Status Last Admin Dose Admin Acetaminophen (Tylenol) 650 mg Q4H PRN ORAL T>100.5F 08/13/16 07:30 09/12/16 07:29 Acetaminophen/ Hydrocodone Bitart ([place] 10/325) 1 ea Q4H PRN ORAL For moderate Pain 08/22/16 15:15 08/29/16 15:14 08/23/16 13:18 Diphenhydramine HCl (Benadryl) 12.5 mg Q6H PRN IVP Itching/Pruritis 08/13/16 07:30 09/12/16 07:29 Docusate Sodium (Colace) 100 mg TWICE A DAY ORAL 08/13/16 10:00 09/12/16 09:59 08/22/16 08:41 Doxycycline Monohydrate (Vibramycin) 100 mg EVERY 12 HOURS ORAL 08/22/16 21:00 08/29/16 20:59 08/23/16 09:29 Gabapentin (Neurontin) 300 mg THREE TIMES A DAY ORAL 08/22/16 16:00 09/21/16 15:59 08/23/16 13:18 Heparin Sodium (Porcine) (Heparin 5000 units/ml) 5,000 units EVERY 12 HOURS SUBQ 08/13/16 10:00 09/12/16 09:59 08/23/16 09:35 Hydromorphone HCl (Dilaudid) 2 mg Q4H PRN ORAL For severe Pain 08/22/16 15:30 08/29/16 15:29 Lactobacillus Acidophilus (Culturelle) 1 tab TWICE A DAY ORAL 08/23/16 18:00 09/22/16 17:59 Lactulose (Cephulac) 30 gm DAILY PRN ORAL Constipation 08/11/16 13:00 09/10/16 12:59 Levofloxacin (Levaquin) 500 mg DAILY ORAL 08/23/16 09:00 08/30/16 08:59 08/23/16 09:30 Metoclopramide HCl (Reglan) 10 mg Q6H PRN ORAL Nausea & Vomiting 08/21/16 09:00 09/20/16 08:59 08/22/16 18:17 Neomycin/ Polymyxin/ Bacitracin (Neosporin Oint 15gm) 1 applic TWICE A DAY TOPIC 07/30/16 16:30 08/29/16 16:29 08/21/16 08:25 Ondansetron HCl (Zofran) 4 mg Q6H PRN ORAL Nausea & Vomiting 08/21/16 09:00 09/20/16 08:59 08/23/16 10:37 Pantoprazole (Protonix) 40 mg EVERY 12 HOURS ORAL 08/12/16 21:00 09/11/16 20:59 08/23/16 09:29 Zolpidem Tartrate (Ambien) 5 mg HSPRN PRN ORAL Insomnia 08/13/16 21:00 09/12/16 20:59 08/22/16 23:32 DAVION BISWAS Aug 23, 2016 14:16
[2016-08-23] MEDS ORDERED: LEVOFLOXACIN500 MG ORAL ×3 (16:09→16:17)
[2016-08-23] MEDS ORDERED: NORCO 10-325 T1 EACH ORAL (16:11)
[2016-08-23] MEDS ORDERED: NEURONTIN600 MG ORAL (16:12)
--- NOTE | 2016-08-23 16:40 | Discharge Summary ---
Discharge Summary Hospital Course Date of Admission July 22, 2016 at 12:04 Date of Discharge August 23, 2016 Admitting Diagnosis groin abscesses Reason for Hospitalization: as above HPI Bertha Landaverde is a 21 year old female who was admitted on July 22, 2016 at 12:04 for Hidranitis Suppuriva Consultations ID Pain medicine Surgery Procedures Please see separately dictated operative reports Hospital Course 21 y/o female with severe groin abscess disease, s/p multiple surgeries (5) for debridement, flap placement/elevation, no significant periop or postop complications. Once pain controlled, and wounds stabilized, pt was dced home with and will f/u with her surgeon for postop followup visit. Discharge Medications Continued Medications: Doxycycline Hyclate (Doxycycline Hyclate) 100 Mg Tablet 100 MG PO BID for 2 Days, #4 TAB Gabapentin* (Neurontin*) 600 Mg Tablet 300 MG ORAL EVERY 8 HOURS, #45 TAB Hydrocodone Bit/Acetaminophen 10-325* ([place] 10-325*) 1 Each Tablet 1 TAB ORAL Q4H PRN for For Pain, #60 TAB 0 Refills PRN PAIN Levofloxacin (Levofloxacin*) 500 Mg Tablet 500 MG ORAL DAILY, TAB Discontinued Medications: Cephalexin* (Keflex*) 500 Mg Capsule 500 MG ORAL EVERY 12 HOURS, #14 CAP 0 Refills Discharge Condition Upon Discharge: stable Discharge Disposition Patient was discharged to Home (01) Discharge Diagnoses: (1) Abscess (2) Hidradenitis suppurativa JORJE CABALLERO Aug 23, 2016 16:40
[2016-08-23] MEDS ORDERED: NS Irrig 1000ml ONE (16:49)
[2016-08-23] MEDS ORDERED: Lactobacillus-GG tablet ORAL SCH (18:00)
== END 2016-08-23 17:44 | disposition home or self-care (01) | DRG 576 ==
LOC: EMR 11:41 → 4W 12:04 → EDBEDREQ 13:50 → 3E 07-23 12:27
PROC: 0JBL0ZZ Excision of Right Upper Leg Subcutaneous Tissue and Fascia, Open Approach (ICD-10-PCS; principal; 2016-07-23 13:00)
PROC: 0JBM0ZZ Excision of Left Upper Leg Subcutaneous Tissue and Fascia, Open Approach (ICD-10-PCS; principal; 2016-07-23 13:00)
PROC: 0JB90ZZ Excision of Buttock Subcutaneous Tissue and Fascia, Open Approach (ICD-10-PCS; principal; 2016-07-23 13:00)
PROC: 0H8JXZZ Division of Left Upper Leg Skin, External Approach (ICD-10-PCS; principal; 2016-07-23 13:00)
PROC: 0H8HXZZ Division of Right Upper Leg Skin, External Approach (ICD-10-PCS; principal; 2016-07-23 13:00)
PROC: 0JQ90ZZ Repair Buttock Subcutaneous Tissue and Fascia, Open Approach (ICD-10-PCS; 2016-07-25)
PROC: 0JD90ZZ Extraction of Buttock Subcutaneous Tissue and Fascia, Open Approach (ICD-10-PCS; 2016-07-25)
PROC: 0JXM0ZC Transfer Left Upper Leg Subcutaneous Tissue and Fascia with Skin, Subcutaneous Tissue and Fascia, Open Approach (ICD-10-PCS; 2016-07-25)
PROC: 0JDL0ZZ Extraction of Right Upper Leg Subcutaneous Tissue and Fascia, Open Approach (ICD-10-PCS; 2016-07-25)
PROC: 0JXL0ZC Transfer Right Upper Leg Subcutaneous Tissue and Fascia with Skin, Subcutaneous Tissue and Fascia, Open Approach (ICD-10-PCS; 2016-07-25)
PROC: 0JDM0ZZ Extraction of Left Upper Leg Subcutaneous Tissue and Fascia, Open Approach (ICD-10-PCS; 2016-07-25)
PROC: 2W16X6Z Compression of Right Inguinal Region using Pressure Dressing (ICD-10-PCS; 2016-08-06)
PROC: 0JXL0ZC Transfer Right Upper Leg Subcutaneous Tissue and Fascia with Skin, Subcutaneous Tissue and Fascia, Open Approach (ICD-10-PCS; 2016-08-06)
PROC: 0JDL0ZZ Extraction of Right Upper Leg Subcutaneous Tissue and Fascia, Open Approach (ICD-10-PCS; 2016-08-06)
PROC: 0JXM0ZC Transfer Left Upper Leg Subcutaneous Tissue and Fascia with Skin, Subcutaneous Tissue and Fascia, Open Approach (ICD-10-PCS; 2016-08-06)
PROC: 0JDM0ZZ Extraction of Left Upper Leg Subcutaneous Tissue and Fascia, Open Approach (ICD-10-PCS; 2016-08-06)
PROC: 2W17X6Z Compression of Left Inguinal Region using Pressure Dressing (ICD-10-PCS; 2016-08-06)
PROC: 0JDL0ZZ Extraction of Right Upper Leg Subcutaneous Tissue and Fascia, Open Approach (ICD-10-PCS; 2016-08-09)
PROC: 2W06X6Z Change Pressure Dressing on Right Inguinal Region (ICD-10-PCS; 2016-08-09)
PROC: 2W07X6Z Change Pressure Dressing on Left Inguinal Region (ICD-10-PCS; 2016-08-09)
PROC: 0JDM0ZZ Extraction of Left Upper Leg Subcutaneous Tissue and Fascia, Open Approach (ICD-10-PCS; 2016-08-09)
PROC: 0JDL0ZZ Extraction of Right Upper Leg Subcutaneous Tissue and Fascia, Open Approach (ICD-10-PCS; 2016-08-13)
PROC: 0JDM0ZZ Extraction of Left Upper Leg Subcutaneous Tissue and Fascia, Open Approach (ICD-10-PCS; 2016-08-13)
PROC: 2W06X6Z Change Pressure Dressing on Right Inguinal Region (ICD-10-PCS; 2016-08-13)
PROC: 2W07X6Z Change Pressure Dressing on Left Inguinal Region (ICD-10-PCS; 2016-08-13)
DX: L73.2 Hidradenitis suppurativa (principal); A41.9 Sepsis, unspecified organism; N39.0 Urinary tract infection, site not specified; T81.31XA Disruption of external operation (surgical) wound, not elsewhere classified, initial encounter; L02.214 Cutaneous abscess of groin; L02.412 Cutaneous abscess of left axilla; L02.411 Cutaneous abscess of right axilla; L02.31 Cutaneous abscess of buttock; B96.5 Pseudomonas (aeruginosa) (mallei) (pseudomallei) as the cause of diseases classified elsewhere
CPT/HCPCS: 36415; 36569; 76937; 80048; 80202; 81001; 81003; 81025; 82962; 84484; 85025; 85610; 85730; 87040; 87086; 87181; 93005; 93970; 93971; 94003; 94150; 94760; J2180; J2250; J2405; J2710; J2765

== ENCOUNTER 2016-09-12 15:29 | Emergency (ER) | payer BC ==
[~2016-09-12] VITALS: Ht 165.1 cm; Wt 105.7 kg
[~2016-09-12 15:29] MED LIST: BACTRIM DS TAB1 EAC1 ORAL; CEPHALEXIN500 MG ORAL; DOXYCYCLINE HY100 M2 PO; DOXYCYCLINE HY100 M6 PO; LEVOFLOXACIN500 MG ORAL; METRONIDAZOLE500 MG; NEURONTIN600 MG ORAL; NKM; NORCO 10-325 T1 EACH ORAL; PERCOCET 10-321 EACH ORAL; ZOFRAN4 M1 ORAL
[2016-09-12 15:44] VITALS: BP 104/66
[2016-09-12] MEDS ORDERED: KEFLEX500 MG ORAL (16:02)
[2016-09-12 16:05] VITALS: BP 104/66
--- NOTE | 2016-09-12 17:30 | Emergency Room Report ---
History of Present Illness General Chief Complaint: General Complaint Source: Patient, Medical Record Present Illness HPI 21YOF with concern for infected IV site on left AC. Was DCed yesterday after admission for intractable abd pain. Was VRE +. CDiff was negative Was DCed with [facility] States went to urgent care and "pus was coming out" so was sent to ED States she lists Penicillin as allergy because "my father almost from it" but has never had allergic reaction to penicillin or abx previously Denies fever/chills Allergies: Coded Allergies: PENICILLINS (Verified Allergy, Unknown, 07/22/16) Pt states she was never tested for the allergy. Pt's father had severe allergy to PCN so pt takes does not take PCN medications for precaution. Patient History Past Medical History: old chart reviewed, unable to obtain Past Surgical History: none Pertinent Family History: none Last Menstrual Period: 07/22/16 Now: No Immunizations: UTD Reviewed Nursing Documentation: PMH: Agreed, PSxH: Agreed Nursing Documentation-PMH Past Medical History: No History, Except For Hx Cancer: No Hx Gastrointestinal Problems: Yes - Abdominal pain Hx Neurological Problems: No Review of Systems All Other Systems: negative except mentioned in HPI Physical Exam Vital Signs Date Time Temp Pulse Resp B/P Pulse Ox O2 Delivery O2 Flow Rate FiO2 09/12/16 15:33 98.2 64 18 104/66 100 Room Air Sp02 EP Interpretation: reviewed, normal General Appearance: normal inspection, well appearing, no apparent distress, alert, GCS 15, non-toxic Head: normocephalic, atraumatic Eyes: bilateral eye EOMI, bilateral eye PERRL ENT: normal ENT inspection, hearing grossly normal, normal voice Neck: normal inspection, full range of motion, supple, no bony tend Respiratory: normal inspection, lungs clear, normal breath sounds, no respiratory distress, no retraction, no wheezing Cardiovascular #1: regular rate, rhythm, no edema Gastrointestinal: normal inspection, normal bowel sounds, non tender, soft, no guarding, no hernia Genitourinary: no CVA tenderness Musculoskeletal: normal inspection, back normal, normal range of motion, Niya' s Sign negative Neurologic: normal inspection, alert, oriented x3, responsive, terra cotta mason III-XII nml as tested, motor strength/tone normal, speech normal Psychiatric: normal inspection, judgement/insight normal, mood/affect normal Skin: normal inspection, normal color, other - Left AC site. Some redness noted to site. No pus drainage. Mild ttp. Lymphatic: normal inspection Medical Decision Making Diagnostic Impression: Primary Impression: Left arm cellulitis ER Course 21YOF with left AC pain s/p IV placement for admission recently - VSS. Afebrile. - possibly mild cellulitis - Given alleged pus drainage reported by patient, will give Rx Keflex - PMD followup as needed multiple requests for additional Rx for narcotics Informed patient that since she just got Rx for [facility] yesterday per CURES I am unable to provide additional Rx for narcotics currently Last Vital Signs Date Time Temp Pulse Resp B/P Pulse Ox O2 Delivery O2 Flow Rate FiO2 09/12/16 16:05 98.2 18 104/66 100 Room Air 09/12/16 15:33 64 Status: improved Disposition: HOME, SELF-CARE Condition: Improved Scripts Cephalexin* (KEFLEX*) 500 Mg Capsule 500 MG ORAL Q6H for 7 Days, #28 CAP 0 Refills Prov: ELSI PERKINS M.D. 09/12/16 Referrals: NON PHYSICIAN (PCP) Additional Instructions: - Apply ice 3x a day to area of pain to site of IV - Take ALL antibiotics to prevent infection at site - Follow up with your primary care doctor as needed ELSI PERKINS M.D. Sep 12, 2016 17:30
== END 2016-09-12 16:30 | disposition home or self-care (01) ==
LOC: EMR 16:20
DX: L03.114 Cellulitis of left upper limb (principal); Z88.0 Allergy status to penicillin
CPT/HCPCS: 99283